=== PATIENT | female | born 1955 | race Caucasian/White ===

== ENCOUNTER 2020-08-11 08:55 | Inpatient (IN) | payer MEDICARE, MEDICAID ==
[~2020-08-11] VITALS: Ht 180.3 cm; Wt 118.2 kg
[2020-08-11] MEDS ORDERED: ipratropium/albuterol 3ml nebule NEB ONE (09:00)
[2020-08-11 09:10] LABS: ABG BASE EXCESS -4.5 mmol/L (-2.0-2.0); ABG HCO3 21.6 mmol/L (22.0-26.0); ABG OXYGEN SATURATION 99.2 % (94-97); ABG PCO2 (T) 43.6 mmHg (32.0-45.0); ABG PO2 (T) 207.1 mmHg (75.0-100.0); ALLEN'S TEST POSITIVE; FCOHb 0.7 % (0.0-3.9); FMetHb 0.3 % (0.0-1.5); FO2Hb 98.2 % (94-97); RESPIRATORY RATE 16 b/min; TOTAL HEMOGLOBIN 12.8 G/dl (12.0-16.0)
--- NOTE | 2020-08-11 09:27 | NUR ---
RT AT BEDSIDE TO ADMINISTER BREATHING TREATMENT. FIO2 TITRATED DOWN TO 40% PER ABG RESULTS. PATIENT AWAKE,ALERT, RR DOWN TO 22, STATES SHE IS COMFORTABLE AT THIS TIME, ALL SAFETY MEASURES IN PLACE.
[2020-08-11 09:43] LABS: BASOPHILS % (AUTO) 0.3 % (0-1); EOSINOPHILS # (AUTO) 0.2 X10'3 (0-0.9); HEMATOCRIT 37.6 % (35.0-45.0); LYMPHOCYTES # (AUTO) 1.7 X10'3 (1.1-4.8); LYMPHOCYTES % (AUTO) 14.3 % (21-51); MEAN CORPUSCULAR HEMOGLOBIN 28.5 PG (27.0-31.0); MEAN CORPUSCULAR VOLUME 89.1 FL (78-98); MEAN PLATELET VOLUME 8.4 FL (7.4-10.4); MONOCYTES # (AUTO) 0.5 X10'3 (0-0.9); MONOCYTES % (AUTO) 4.7 % (2-12); NEUTROPHILS # (AUTO) 9.2 X10'3 (1.8-7.7); NEUTROPHILS % (AUTO) 78.7 % (42-75); PLATELET COUNT 327 X10'3 (140-440); RED BLOOD COUNT 4.22 X10'6 (4.20-5.60); RED CELL DISTRIBUTION WIDTH 14.2 % (11.5-14.5); WHITE BLOOD COUNT 11.7 X10'3 (4.5-11.0)
[2020-08-11 09:52] LABS: PARTIAL THROMBOPLASTIN TIME 24 SECONDS (22-32)
--- NOTE | 2020-08-11 09:56 | NUR ---
PARQUETRY LAYER AT BEDSIDE.
[2020-08-11 09:59] LABS: ALANINE AMINOTRANSFERASE 34 U/L (12-78); ALBUMIN 3.5 G/DL (3.4-5.0); ALBUMIN/GLOBULIN RATIO 0.9 (1.1-1.5); ALKALINE PHOSPHATASE 104 IU/L (46-116); ANION GAP 10 (8-16); ASPARTATE AMINO TRANSFERASE 20 U/L (10-37); BILIRUBIN,TOTAL 0.3 MG/DL (0.1-1.0); BLOOD UREA NITROGEN 32 MG/DL (7-18); BUN/CREATININE RATIO 23.2 (6.6-38.0); CALCIUM 10.2 MG/DL (8.5-10.1); CHLORIDE 103 MMOL/L (99-107); CREATININE 1.38 MG/DL (0.40-0.90); GLUCOSE 289 MG/DL (70-104); POTASSIUM 4.5 MMOL/L (3.5-5.1); SODIUM 139 MMOL/L (135-145); TOTAL CARBON DIOXIDE 25.7 MMOL/L (24-32); TOTAL PROTEIN 7.5 G/DL (6.4-8.2); eGFR 38 ML/MIN
[2020-08-11] MEDS ORDERED: furosemide 10 MG/1 ML 10ml inj IV ONE (10:15)
[2020-08-11] MEDS ORDERED: iohexol 350MG/ML 100ml bottle IV ONE (11:04)
[2020-08-11 11:11] LABS: ABG BASE EXCESS -2.1 mmol/L (-2.0-2.0); ABG HCO3 22.5 mmol/L (22.0-26.0); ABG OXYGEN SATURATION 98.4 % (94-97); ABG PCO2 (T) 38.1 mmHg (32.0-45.0); ABG PO2 (T) 115.1 mmHg (75.0-100.0); ALLEN'S TEST POSITIVE; FCOHb 0.6 % (0.0-3.9); FO2Hb 97.8 % (94-97); RESPIRATORY RATE 16 b/min; TIDAL VOLUME 712 mL; TOTAL HEMOGLOBIN 12.7 G/dl (12.0-16.0)
--- NOTE | 2020-08-11 11:23 | NUR ---
PATIENT TO CT VIA WHEELCHAIR AT THIS TIME WITH NON REBREATHER @ 15L, OKAY TO TRANSFER PER RT AT BEDSIDE.
[2020-08-11] MEDS: MESSAGE TO NURSING PO SCH (11:38)
[2020-08-11] MEDS ORDERED: HYDROcodone/acetaminophen 10/325mg tab PO PRN (14:15)
[2020-08-11] MEDS ORDERED: diphenhydrAMINE 25mg capsule PO PRN (14:15)
[2020-08-11] MEDS ORDERED: morphine 2 MG/ML inj. syringe IV PRN ×2 (14:15)
[2020-08-11] MEDS ORDERED: magnesium Cl slow-release 64mg tablet PO PRN (14:15)
[2020-08-11] MEDS ORDERED: potassium Cl 20 mEq SR tablet PO PRN ×2 (14:15)
[2020-08-11] MEDS ORDERED: magnesium 2GM in 50ml NS 50 ML IV PRN (14:15)
[2020-08-11] MEDS ORDERED: mag hydrox/Alum hydrox/simeth 30ml oral suspension PO PRN (14:15)
[2020-08-11] MEDS ORDERED: ondansetron/PF 4mg/2ml inj IV PRN (14:15)
[2020-08-11] MEDS ORDERED: ipratropium/albuterol 3ml nebule NEB PRN (14:15)
[2020-08-11] MEDS ORDERED: bisacodyl 10mg suppository rectal RC PRN (14:15)
[2020-08-11] MEDS ORDERED: magnesium hydroxide 30ml (MOM) UD suspension PO PRN (14:15)
[2020-08-11] MEDS ORDERED: acetaminophen 325mg tablet PO PRN ×2 (14:15)
[2020-08-11] MEDS ORDERED: magnesium 4gm in 100ml NS 100 ML IV PRN (14:15)
[2020-08-11] MEDS ORDERED: HYDROcodone/acetaminophen 5mg/325mg tablet PO PRN (14:15)
[2020-08-11] MEDS ORDERED: potassium CL 10mEq/100ml bag 100 ML IV PRN ×2 (14:15)
[2020-08-11] MEDS ORDERED: acetaminophen 650mg rectal suppository RC PRN (14:15)
[2020-08-11] MEDS ORDERED: PANT40TA54 PO (15:24)
[2020-08-11] MEDS ORDERED: AMIT100T61 PO (15:24)
[2020-08-11] MEDS ORDERED: NITR0.4T48 PO (15:24)
[2020-08-11] MEDS ORDERED: TRAZ-256 PO (15:24)
[2020-08-11] MEDS ORDERED: METF-438 PO (15:24)
[2020-08-11 16:26] LABS: HEMOGLOBIN A1C 8.3 % (4.5-6.2)
--- NOTE | 2020-08-11 16:40 | NUR ---
RT AT BEDSIDE.
--- NOTE | 2020-08-11 17:00 | NUR ---
Echo at bedside.
--- NOTE | 2020-08-11 17:00 | NUR ---
RT decreased O2 to 4L NC.
[2020-08-11 18:01] LABS: CLARITY,URINE CLEAR (Clear); COLOR,URINE YELLOW (Yellow); GLUCOSE, URINE NEGATIVE (Neg); KETONES,URINE NEGATIVE (Neg); LEUKOCYTE ESTERASE ,URINE TRACE (Neg); NITRITES, URINE NEGATIVE (Neg); OCCULT BLOOD,URINE NEGATIVE (Neg); PROTEIN,URINE NEGATIVE (Neg); UA COLLECTION TYPE VOIDED; UROBILINOGEN,URINE 0.2 E.U/dL (0.2-1.0)
[2020-08-11 18:12] LABS: BACTERIA,URINE FEW /HPF (Neg); MUCUS STRANDS NONE SEEN /LPF (Neg); RBC,URINE NONE SEEN /HPF (0-2); SQUAMOUS EPITHELIAL CELL,UR FEW /LPF (FEW); WBC CLUMPS,URINE FEW /HPF (NEGATIVE); WBC,URINE 0-4 /HPF (0-4)
[2020-08-11 18:15] LABS: URINE AMPHETAMINE SCREEN NEGATIVE (Neg); URINE BARBITUATE SCREEN NEGATIVE (Neg); URINE BENZODIAZEPINES SCREEN NEGATIVE (Neg); URINE CANNABINOID SCREEN NEGATIVE (Neg); URINE COCAINE SCREEN NEGATIVE (Neg); URINE METHADONE SCREEN NEGATIVE (Neg); URINE OPIATE SCREEN NEGATIVE (Neg); URINE PHENCYCLIDINE SCREEN NEGATIVE (Neg)
[2020-08-11] MEDS: K and/or MAG REPLACEMENT MC SCH (19:41)
[2020-08-11] MEDS: furosemide 10 MG/1 ML 10ml inj IV SCH (19:45)
[2020-08-11] MEDS ORDERED: heparin, porcine 5000 units/ml vial SQ SCH (20:00)
[2020-08-11 20:16] VITALS: BP 121/81
[2020-08-11] MEDS: ipratropium/albuterol 3ml nebule NEB SCH (21:25)
[2020-08-11] MEDS ORDERED: regadenoson 0.4mg/5ml syringe IV ONE (23:00)
[2020-08-11] MEDS ORDERED: aminophylline 250mg/10ml inj. IV PRN (23:00)
[2020-08-11] MEDS ORDERED: nitroGLYCERIN 0.4mg SUBLingual tab SL PRN ×2 (23:00→23:05)
[2020-08-11] MEDS ORDERED: heparin 10,000 units/1 ML INJ IV ONE (23:00)
[2020-08-11] MEDS ORDERED: metoprolol tartrate 1mg/ml inj IV PRN (23:00)
[2020-08-11] MEDS ORDERED: dextrose 50%-water 50ml dispensing syringe IV PRN ×2 (23:05)
[2020-08-11] MEDS ORDERED: MESSAGE TO PHARMACY PO ONE (23:05)
[2020-08-11] MEDS ORDERED: dextrose ORAL solution 15 GM/59 ML bottle PO PRN ×2 (23:05)
[2020-08-11] MEDS ORDERED: glucagon, human recombinant 1mg kit SUBCUT PRN (23:05)
[2020-08-11] MEDS ORDERED: levoFLOXACIN-Levaquin 750MG/D5 150 ML IV SCH (23:10)
[2020-08-11] MEDS ORDERED: methylPREDNISolone sod succ 125mg/2ml vial IV ONE (23:10)
[2020-08-11] MEDS ORDERED: regadenoson 0.4mg/5ml syringe IV PRN (23:15)
[2020-08-12] VITALS (12 sets, daily range): BP systolic 99–136; BP diastolic 56–88
[2020-08-12 01:00] LABS: EOSINOPHILS # (AUTO) 0.3 X10'3 (0-0.9)
[2020-08-12 01:02] LABS: BASOPHILS # (AUTO) 0.2 X10'3 (0-0.2); BASOPHILS % (AUTO) 1.4 % (0-1); EOSINOPHILS % (AUTO) 2.1 % (0-6); HEMATOCRIT 33.1 % (35.0-45.0); LYMPHOCYTES % (AUTO) 32.2 % (21-51); MEAN CORPUSCULAR HEMOGLOBIN 29.4 PG (27.0-31.0); MEAN CORPUSCULAR HGB CONC 33.2 g/dL (33.0-36.5); MEAN CORPUSCULAR VOLUME 88.4 FL (78-98); MEAN PLATELET VOLUME 8.4 FL (7.4-10.4); MONOCYTES % (AUTO) 8.2 % (2-12); NEUTROPHILS % (AUTO) 56.1 % (42-75); PLATELET COUNT 336 X10'3 (140-440); RED BLOOD COUNT 3.74 X10'6 (4.20-5.60); RED CELL DISTRIBUTION WIDTH 13.7 % (11.5-14.5); WHITE BLOOD COUNT 12.5 X10'3 (4.5-11.0)
[2020-08-12 01:15] LABS: PARTIAL THROMBOPLASTIN TIME 29 SECONDS (22-32)
[2020-08-12 01:25] LABS: ALANINE AMINOTRANSFERASE 31 U/L (12-78); ALBUMIN 3.5 G/DL (3.4-5.0); ALBUMIN/GLOBULIN RATIO 0.9 (1.1-1.5); ALKALINE PHOSPHATASE 99 IU/L (46-116); ANION GAP 9 (8-16); ASPARTATE AMINO TRANSFERASE 23 U/L (10-37); BILIRUBIN,TOTAL 0.4 MG/DL (0.1-1.0); BLOOD UREA NITROGEN 32 MG/DL (7-18); BUN/CREATININE RATIO 22.5 (6.6-38.0); CALCIUM 10.2 MG/DL (8.5-10.1); CHLORIDE 98 MMOL/L (99-107); CHOL/HDL RATIO 5.1 (0.00-4.99); CHOLESTEROL 242 MG/DL (0-200); CREATININE 1.42 MG/DL (0.40-0.90); GLUCOSE 207 MG/DL (70-104); HDL CHOLESTEROL 47 MG/DL (35-60); LDL CHOLESTEROL 166 MG/DL (50-100); MAGNESIUM 1.5 MG/DL (1.5-2.4); POTASSIUM 3.8 MMOL/L (3.5-5.1); SODIUM 136 MMOL/L (135-145); TOTAL CARBON DIOXIDE 29.4 MMOL/L (24-32); TOTAL PROTEIN 7.6 G/DL (6.4-8.2); TRIGLYCERIDES 191 MG/DL (20-135); TROPONIN I 0.36 NG/ML (0.0-0.05); eGFR 37 ML/MIN
[2020-08-12] MEDS: heparin 25,000 UNIT/250ml bag 250 ML IV SCH ×2 (02:40→10:11)
[2020-08-12] MEDS: ipratropium/albuterol 3ml nebule NEB SCH ×3 (03:43→21:18)
--- NOTE | 2020-08-12 06:21 | NUR ---
REPORT GIVEN TO ROBERT CHAU.
--- NOTE | 2020-08-12 06:30 | NUR ---
Patient in room PCU 3014. I have received report from ROBERT BANKS and had the opportunity to ask questions and assume patient care.
[2020-08-12] MEDS: K and/or MAG REPLACEMENT MC SCH ×2 (08:00→20:00)
[2020-08-12] MEDS: furosemide 10 MG/1 ML 10ml inj IV SCH ×2 (08:22→19:31)
[2020-08-12] MEDS: methylPREDNISolone sod succ/PF 40mg inj. IV SCH ×3 (08:24→19:31)
[2020-08-12] MEDS: pantoprazole 40mg Tablet.DR PO SCH (08:25)
[2020-08-12] MEDS: insulin Lispro (HumaLOG) vial - multi-dose SQ SCH ×4 (08:29→21:05)
[2020-08-12 09:34] LABS: BASOPHILS % (AUTO) 0.7 % (0-1); EOSINOPHILS % (AUTO) 0.1 % (0-6); HEMATOCRIT 38.5 % (35.0-45.0); HEMOGLOBIN 12.8 g/dl (12.0-16.0); LYMPHOCYTES # (AUTO) 0.9 X10'3 (1.1-4.8); MEAN CORPUSCULAR HEMOGLOBIN 29.3 PG (27.0-31.0); MEAN CORPUSCULAR HGB CONC 33.1 g/dL (33.0-36.5); MEAN CORPUSCULAR VOLUME 88.5 FL (78-98); MEAN PLATELET VOLUME 8.6 FL (7.4-10.4); MONOCYTES # (AUTO) 0.1 X10'3 (0-0.9); MONOCYTES % (AUTO) 1.1 % (2-12); NEUTROPHILS # (AUTO) 5.1 X10'3 (1.8-7.7); NEUTROPHILS % (AUTO) 83.1 % (42-75); PLATELET COUNT 384 X10'3 (140-440); RED BLOOD COUNT 4.35 X10'6 (4.20-5.60); RED CELL DISTRIBUTION WIDTH 13.9 % (11.5-14.5); WHITE BLOOD COUNT 6.1 X10'3 (4.5-11.0)
[2020-08-12] MEDS ORDERED: FLU VACC QS2020-21(6MOS UP)/PF 60 MCG/0.5 ML SYRINGE IMVAC ONE (10:00)
[2020-08-12] MEDS: heparin 10,000 units/1 ML INJ IV PRN ×2 (10:09→17:29)
--- NOTE | 2020-08-12 13:54 | NUR ---
PAGER ID: [phone] MESSAGE: dr. rosales, [phone],jackelin hansen resulted. please call tiny [phone]. ty
--- NOTE | 2020-08-12 16:51 | NUR ---
DM Consult: A1C 8.3. Pt admit DX COPD Exacerbation, possible NSTEMI s/p lexiscan, GERD, and lung/thyroid nodules per MD note. Placed on heart healthy diet pending PO at this time; NPO for testing so far. JJ recommended carb controlled diet this admit in addition to current heart healthy; MD notified. Pt would benefit from DM ed this admit prior to discharge. To f/u 08/16 for initial assessment. Addendum: 08/12/20 at [address] Amended: Links added.
--- NOTE | 2020-08-12 18:15 | NUR ---
Problems reprioritized. Patient report given, questions answered & plan of care reviewed with ROBERT KELLEY.
[2020-08-12] MEDS: lactobacillus rhamnosus 10,000 MMU CELLS/CAPSULE PO SCH (19:31)
[2020-08-12] MEDS: traZODone 50mg tablet PO SCH (21:04)
[2020-08-12] MEDS: amitriptyline 50mg tablet PO SCH (21:04)
[2020-08-12] MEDS: insulin glargine (Lantus) pen - multi-dose SQ SCH (21:07)
[2020-08-13 02:00] VITALS: BP 98/58
[2020-08-13 05:20] LABS: BASOPHILS # (AUTO) 0.1 X10'3 (0-0.2); BASOPHILS % (AUTO) 0.4 % (0-1); EOSINOPHILS % (AUTO) 0.1 % (0-6); HEMOGLOBIN 12.2 g/dl (12.0-16.0); LYMPHOCYTES # (AUTO) 1.3 X10'3 (1.1-4.8); LYMPHOCYTES % (AUTO) 7.8 % (21-51); MEAN CORPUSCULAR HEMOGLOBIN 29.1 PG (27.0-31.0); MEAN CORPUSCULAR HGB CONC 33.1 g/dL (33.0-36.5); MEAN CORPUSCULAR VOLUME 87.8 FL (78-98); MEAN PLATELET VOLUME 8.5 FL (7.4-10.4); MONOCYTES # (AUTO) 0.9 X10'3 (0-0.9); MONOCYTES % (AUTO) 5.7 % (2-12); NEUTROPHILS # (AUTO) 14.1 X10'3 (1.8-7.7); PLATELET COUNT 379 X10'3 (140-440); RED BLOOD COUNT 4.21 X10'6 (4.20-5.60); RED CELL DISTRIBUTION WIDTH 13.9 % (11.5-14.5); WHITE BLOOD COUNT 16.4 X10'3 (4.5-11.0)
[2020-08-13 05:25] LABS: ALANINE AMINOTRANSFERASE 17 U/L (12-78); ALBUMIN 3.9 G/DL (3.4-5.0); ALBUMIN/GLOBULIN RATIO 0.9 (1.1-1.5); ALKALINE PHOSPHATASE 108 IU/L (46-116); ANION GAP 12 (8-16); ASPARTATE AMINO TRANSFERASE 14 U/L (10-37); BILIRUBIN,TOTAL 0.3 MG/DL (0.1-1.0); BLOOD UREA NITROGEN 42 MG/DL (7-18); CALCIUM 10.6 MG/DL (8.5-10.1); CHLORIDE 96 MMOL/L (99-107); CREATININE 1.75 MG/DL (0.40-0.90); GLUCOSE 272 MG/DL (70-104); MAGNESIUM 1.6 MG/DL (1.5-2.4); PHOSPHORUS 2.9 MG/DL (2.3-4.5); POTASSIUM 3.9 MMOL/L (3.5-5.1); SODIUM 134 MMOL/L (135-145); TOTAL CARBON DIOXIDE 26.4 MMOL/L (24-32); TOTAL PROTEIN 8.2 G/DL (6.4-8.2); eGFR 29 ML/MIN
[2020-08-13 06:00] VITALS: BP 112/76
--- NOTE | 2020-08-13 06:33 | NUR ---
Report given to Deirdre JONES.
[2020-08-13] MEDS: MESSAGE TO NURSING PO SCH (08:00)
[2020-08-13] MEDS ORDERED: methylPREDNISolone sod succ/PF 40mg inj. IV SCH (08:00)
[2020-08-13] MEDS: K and/or MAG REPLACEMENT MC SCH ×2 (08:00→19:39)
[2020-08-13] MEDS: ipratropium/albuterol 3ml nebule NEB SCH ×3 (08:25→19:21)
[2020-08-13] MEDS: furosemide 10 MG/1 ML 10ml inj IV SCH (09:32)
[2020-08-13] MEDS: lactobacillus rhamnosus 10,000 MMU CELLS/CAPSULE PO SCH ×2 (09:33→19:48)
[2020-08-13] MEDS: pantoprazole 40mg Tablet.DR PO SCH (09:33)
[2020-08-13] MEDS: heparin, porcine 5000 units/ml vial SQ SCH ×2 (09:34→19:48)
[2020-08-13] MEDS: insulin Lispro (HumaLOG) vial - multi-dose SQ SCH ×4 (09:38→22:31)
[2020-08-13 11:00] VITALS: BP 102/57
--- NOTE | 2020-08-13 13:58 | NUR ---
DM Consult: Pt presented to ER with shortness of breath and admitted for COPD exacerbation. Hx of T2DM, A1c 8.3%. RD technical intern met with patient at bedside for verbal/written DM education with RD contact information. Pt reports good appetite and feeling hungry after meals, pt was agreeable to extra protein with meals; discussed with dietary. Reports no GI symptoms or weight change. Pt reports metformin BID, and able to access medications. Does not have a PCP, but goes to [facility] for diabetes. Pt reports slightly confident in diabetes management. Discussed DM handout with patient, choosing complex carbs over simple carbs, carb counting. Pt requested for heart healthy diet education, will follow up prior to discharge. Will follow up on 08/16 for initial assessment. Addendum: 08/13/20 at [address]ía RD Amended: Links added. Addendum: 08/13/20 at [address] RD agree with technical intern note
[2020-08-13] MEDS: CefTRIAXone/D5W-Rocephin 1gm 50 ML IV SCH (14:05)
[2020-08-13 15:00] VITALS: BP 105/78
[2020-08-13 18:00] VITALS: BP 104/66
--- NOTE | 2020-08-13 18:15 | NUR ---
Problems reprioritized. Patient report given, questions answered & plan of care reviewed with Elisabeth JONES.
--- NOTE | 2020-08-13 18:40 | NUR ---
I have received report from HT RN and had the opportunity to ask questions and assume patient care.
[2020-08-13 22:00] VITALS: BP 102/65
[2020-08-13] MEDS: amitriptyline 50mg tablet PO SCH (22:17)
[2020-08-13] MEDS: traZODone 50mg tablet PO SCH (22:17)
[2020-08-13] MEDS: insulin glargine (Lantus) pen - multi-dose SQ SCH (22:30)
[2020-08-13] MEDS ORDERED: levoFLOXACIN-Levaquin 750MG/D5 150 ML IV SCH (23:00)
[2020-08-14 02:00] VITALS: BP 100/60
[2020-08-14] MEDS: ipratropium/albuterol 3ml nebule NEB SCH (03:16)
[2020-08-14 05:53] LABS: BASOPHILS # (AUTO) 0.1 X10'3 (0-0.2); BASOPHILS % (AUTO) 0.6 % (0-1); EOSINOPHILS % (AUTO) 0.2 % (0-6); HEMATOCRIT 36.1 % (35.0-45.0); HEMOGLOBIN 11.9 g/dl (12.0-16.0); LYMPHOCYTES # (AUTO) 3.9 X10'3 (1.1-4.8); LYMPHOCYTES % (AUTO) 29.4 % (21-51); MEAN CORPUSCULAR HEMOGLOBIN 29.1 PG (27.0-31.0); MEAN CORPUSCULAR VOLUME 88.2 FL (78-98); MEAN PLATELET VOLUME 8.6 FL (7.4-10.4); MONOCYTES # (AUTO) 0.9 X10'3 (0-0.9); MONOCYTES % (AUTO) 6.9 % (2-12); NEUTROPHILS # (AUTO) 8.2 X10'3 (1.8-7.7); NEUTROPHILS % (AUTO) 62.9 % (42-75); PLATELET COUNT 335 X10'3 (140-440); RED BLOOD COUNT 4.09 X10'6 (4.20-5.60); RED CELL DISTRIBUTION WIDTH 13.8 % (11.5-14.5); WHITE BLOOD COUNT 13.1 X10'3 (4.5-11.0)
[2020-08-14 06:00] VITALS: BP 128/76
[2020-08-14 06:17] LABS: ALANINE AMINOTRANSFERASE 33 U/L (12-78); ALBUMIN 3.6 G/DL (3.4-5.0); ALBUMIN/GLOBULIN RATIO 0.9 (1.1-1.5); ALKALINE PHOSPHATASE 96 IU/L (46-116); ANION GAP 10 (8-16); ASPARTATE AMINO TRANSFERASE 18 U/L (10-37); BILIRUBIN,TOTAL 0.2 MG/DL (0.1-1.0); BLOOD UREA NITROGEN 46 MG/DL (7-18); BUN/CREATININE RATIO 29.1 (6.6-38.0); CALCIUM 10.4 MG/DL (8.5-10.1); CHLORIDE 100 MMOL/L (99-107); CREATININE 1.58 MG/DL (0.40-0.90); GLUCOSE 184 MG/DL (70-104); MAGNESIUM 1.9 MG/DL (1.5-2.4); POTASSIUM 3.3 MMOL/L (3.5-5.1); SODIUM 137 MMOL/L (135-145); TOTAL CARBON DIOXIDE 26.9 MMOL/L (24-32); TOTAL PROTEIN 7.7 G/DL (6.4-8.2); eGFR 33 ML/MIN
--- NOTE | 2020-08-14 06:42 | NUR ---
Problems reprioritized. Patient report given, questions answered & plan of care reviewed with Malathi JONES.
--- NOTE | 2020-08-14 06:51 | NUR ---
Patient in room PCU 3014. I have received report from ROBERT Griffin and had the opportunity to ask questions and assume patient care.
[2020-08-14] MEDS: CefTRIAXone/D5W-Rocephin 1gm 50 ML IV SCH (07:55)
[2020-08-14] MEDS ORDERED: methylPREDNISolone sod succ/PF 40mg inj. IV SCH (08:00)
[2020-08-14] MEDS: lactobacillus rhamnosus 10,000 MMU CELLS/CAPSULE PO SCH (08:02)
[2020-08-14] MEDS: pantoprazole 40mg Tablet.DR PO SCH (08:02)
[2020-08-14] MEDS: heparin, porcine 5000 units/ml vial SQ SCH (08:03)
[2020-08-14] MEDS: insulin Lispro (HumaLOG) vial - multi-dose SQ SCH (09:06)
[2020-08-14] MEDS ORDERED: CARV3.12 PO (09:27)
[2020-08-14] MEDS ORDERED: FURO-150 PO (09:27)
[2020-08-14] MEDS ORDERED: GLIP2.5T3 PO (09:31)
[2020-08-14] MEDS ORDERED: ALBU8.5H8 INH (09:31)
--- NOTE | 2020-08-14 12:39 | NUR ---
Pt discharged home in stable condition. IV and tele box removed. Medication and discharge instructions given to pt. Pt was escorted to main lobby on W/C. Left the hospital via private vehicle accompanied by family member. [facility] called in for new prescription.
[2020-08-14] MEDS ORDERED: ATOR10TA PO (15:58)
== END 2020-08-14 12:20 | disposition home or self-care (01) | DRG 280 ==
LOC: ER 08:56 → ED HOLD 14:12 → PCU 3S 19:29
PROVIDERS: ADMIT Family Medicine; ATTEND Family Medicine
DX: I11.0 Hypertensive heart disease with heart failure (principal); I21.9 Acute myocardial infarction, unspecified; N17.0 Acute kidney failure with tubular necrosis; J96.01 Acute respiratory failure with hypoxia; J44.1 Chronic obstructive pulmonary disease with (acute) exacerbation; N39.0 Urinary tract infection, site not specified; J98.11 Atelectasis; Z16.23 Resistance to quinolones and fluoroquinolones; E87.2 Acidosis; J91.8 Pleural effusion in other conditions classified elsewhere; I50.43 Acute on chronic combined systolic (congestive) and diastolic (congestive) heart failure; B96.20 Unspecified Escherichia coli [E. coli] as the cause of diseases classified elsewhere; E04.1 Nontoxic single thyroid nodule; E11.9 Type 2 diabetes mellitus without complications; F32.9 Major depressive disorder, single episode, unspecified; G47.00 Insomnia, unspecified; Z20.828 Contact with and (suspected) exposure to other viral communicable diseases; K21.9 Gastro-esophageal reflux disease without esophagitis; Z79.84 Long term (current) use of oral hypoglycemic drugs; Z87.891 Personal history of nicotine dependence; Z79.899 Other long term (current) drug therapy; Z82.49 Family history of ischemic heart disease and other diseases of the circulatory system; Z88.8 Allergy status to other drugs, medicaments and biological substances; Z23 Encounter for immunization
CPT/HCPCS: 36415; 36600; 71045; 71275; 76536; 78452; 80053; 80061; 80305; 81001; 82803; 82948; 83036; 83605; 83735; 83880; 84100; 84443; 84484; 85018; 85025; 85610; 85730; 87040; 87077; 87081; 87088; 87186; 87635; 93005; 93017; 93306; 93308; 94640; 94660; 94760; 96372; 96374; 97116; 97161; 97530; 99291; A9500; C9803; G0378; J0696; J1644; J1815; J1940; J1956; J2785; J2920; J2930; Q2039; Q9967

== ENCOUNTER 2020-08-22 11:42 | Emergency (ER) | payer MEDICARE, MEDICAID ==
[~2020-08-22] VITALS: Ht 180.3 cm; Wt 114.3 kg
[~2020-08-22 11:42] MED LIST: ALBU8.5H8 INH; AMIT100T61 PO; ATOR10TA PO; CARV3.12 PO; FURO-150 PO; GLIP2.5T3 PO; METF-438 PO; NITR0.4T48 PO; PANT40TA54 PO; TRAZ-256 PO
[2020-08-22 12:27] VITALS: BP 102/57
== END 2020-08-22 12:57 | disposition home or self-care (01) ==
LOC: ER 11:43
DX: S60.551A Superficial foreign body of right hand, initial encounter (principal); E11.9 Type 2 diabetes mellitus without complications; Z88.2 Allergy status to sulfonamides; Z79.899 Other long term (current) drug therapy; Z79.84 Long term (current) use of oral hypoglycemic drugs; X58.XXXA Exposure to other specified factors, initial encounter; Y93.89 Activity, other specified; Y92.89 Other specified places as the place of occurrence of the external cause; Y99.8 Other external cause status
CPT/HCPCS: 99281; 99284

== ENCOUNTER 2021-08-15 08:06 | Day surgery (SDC) | payer MEDICARE, MEDICAID ==
[~2021-08-15] VITALS: Ht 180.3 cm; Wt 110.0 kg
[2021-08-15] VITALS (12 sets, daily range): BP systolic 99–126; BP diastolic 38–91
[~2021-08-15 08:06] MED LIST changes: +ALBU8.5H17 INH; -ALBU8.5H8 INH; -FURO-150 PO
[2021-08-15] MEDS ORDERED: normal saline 1,000 ML IV SCH (08:35)
[2021-08-15] MEDS ORDERED: diphenhydrAMINE 25mg capsule PO PRN (08:35)
[2021-08-15] MEDS ORDERED: ATOR40TA72 PO (08:51)
[2021-08-15] MEDS ORDERED: vitamin d PO (08:51)
[2021-08-15] MEDS ORDERED: ALB0.5UD IH (08:51)
[2021-08-15] MEDS ORDERED: CARV12.545 PO (08:51)
[2021-08-15] MEDS ORDERED: FURO40TA4 PO (08:51)
[2021-08-15] MEDS ORDERED: heparin 1,000unit/ml 10ml vial 10 ML ONE (09:37)
[2021-08-15] MEDS ORDERED: midazolam 1 mg/ML 2ml injection ONE ×3 (09:37→12:22)
[2021-08-15] MEDS ORDERED: LIDOcaine 1% (10mg/ml)w/preservative injection 20ml MDV ONE (09:37)
[2021-08-15] MEDS ORDERED: iohexol 350 MG/ML 50ML vial IV ONE (09:37)
[2021-08-15] MEDS ORDERED: iohexol 350MG/ML 100ml bottle IV ONE (09:37)
[2021-08-15] MEDS ORDERED: fentaNYL/PF 50MCG/1 ML 2ML syringe ONE ×2 (09:37→12:34)
[2021-08-15 10:14] LABS: BASOPHILS % (AUTO) 0.5 % (0-1); EOSINOPHILS # (AUTO) 0.2 X10'3 (0-0.9); EOSINOPHILS % (AUTO) 3.3 % (0-6); HEMATOCRIT 30.3 % (35.0-45.0); HEMOGLOBIN 10.3 g/dl (12.0-16.0); LYMPHOCYTES # (AUTO) 1.7 X10'3 (1.1-4.8); LYMPHOCYTES % (AUTO) 22.9 % (21-51); MEAN CORPUSCULAR HEMOGLOBIN 29.6 PG (27.0-31.0); MEAN CORPUSCULAR HGB CONC 33.9 g/dL (33.0-36.5); MEAN CORPUSCULAR VOLUME 87.3 FL (78-98); MEAN PLATELET VOLUME 7.2 FL (7.4-10.4); MONOCYTES # (AUTO) 0.7 X10'3 (0-0.9); MONOCYTES % (AUTO) 9.8 % (2-12); NEUTROPHILS # (AUTO) 4.6 X10'3 (1.8-7.7); NEUTROPHILS % (AUTO) 63.5 % (42-75); PLATELET COUNT 333 X10'3 (140-440); RED BLOOD COUNT 3.48 X10'6 (4.20-5.60); RED CELL DISTRIBUTION WIDTH 13.8 % (11.5-14.5); WHITE BLOOD COUNT 7.3 X10'3 (4.5-11.0)
[2021-08-15 10:26] LABS: ALBUMIN 3.1 G/DL (3.4-5.0); ANION GAP 10 (8-16); BLOOD UREA NITROGEN 25 MG/DL (7-18); BUN/CREATININE RATIO 18.1 (6.6-38.0); CALCIUM 10.1 MG/DL (8.5-10.1); CHLORIDE 106 MMOL/L (99-107); CREATININE 1.38 MG/DL (0.40-0.90); GLUCOSE 147 MG/DL (70-104); MAGNESIUM 1.4 MG/DL (1.5-2.4); POTASSIUM 3.8 MMOL/L (3.5-5.1); SODIUM 145 MMOL/L (135-145); eGFR 38 ML/MIN
[2021-08-15] MEDS ORDERED: magnesium 2GM in 50ml NS 50 ML IV STA (10:42)
[2021-08-15] MEDS ORDERED: nitroGLYCERIN-Tridil 50MG/D5W 250 ML IV ONE (11:29)
[2021-08-15] MEDS ORDERED: verapamil 2.5 mg/ml inj IV ONE (11:29)
--- NOTE | 2021-08-15 12:56 | NUR ---
Returned from label printer at this time. As nurse-nurse report was occurring patient began to decline. This nurse noted patient to be pale, HR 160's with c/o SOB. Palpated a thready pulse. Cornelio label printer RN called Dr. De La Vega at this time. Lung sounds noted to be course, informed MD. Obtained stat EKG. Placed 4 L N/C on patient for SPO2 85%, no change noted. Switched N/C to NRB 15 L and O2 came up steadily to 93%. Stopped IVF's. Lasix 40 mg IVP x 1 received and administered. RT paged and arrived stat. O2 resolving and saturation level was mid 90's. Will cont. to monitor.
[2021-08-15] MEDS ORDERED: furosemide 40mg/4ml inj ONE (13:06)
[2021-08-15] MEDS ORDERED: aspirin 81mg tab.chew PO ONE (13:19)
--- NOTE | 2021-08-15 15:38 | NUR ---
Paged vascular for pending testing for CABG procedure scheduled next wednesday08/22/21. Patient will discharge once testing is completed.
[2021-08-15] MEDS ORDERED: nitroGLYCERIN 0.4mg SUBLingual tab SL PRN (15:40)
--- NOTE | 2021-08-15 15:47 | NUR ---
Vacular at bedside for pre-surgery procedures.
[2021-08-19] MEDS ORDERED: GLIP2.5T3 PO (16:54)
== END 2021-08-15 17:11 | disposition home or self-care (01) ==
LOC: SSTAY O 08:06
PROVIDERS: ATTEND Internal Medicine Cardiovascular Disease
DX: R94.39 Abnormal result of other cardiovascular function study (principal); I25.118 Atherosclerotic heart disease of native coronary artery with other forms of angina pectoris; I10 Essential (primary) hypertension; E11.9 Type 2 diabetes mellitus without complications; E78.5 Hyperlipidemia, unspecified; J44.9 Chronic obstructive pulmonary disease, unspecified; M45.9 Ankylosing spondylitis of unspecified sites in spine; Z88.2 Allergy status to sulfonamides; Z88.8 Allergy status to other drugs, medicaments and biological substances; Z79.84 Long term (current) use of oral hypoglycemic drugs; Z79.899 Other long term (current) drug therapy; Z87.891 Personal history of nicotine dependence
CPT/HCPCS: 36415; 80048; 82948; 83735; 85025; 85610; 93005; 93458; 93880; 93971; 99152; 99153; A6258; C1769; C1894; J1644; J1940; J2001; J2250; J3010; J3475; J7030; Q0163; Q9967; 94760; A4620; A5120; J3490

== ENCOUNTER 2021-08-22 11:45 | Inpatient (IN) | payer MEDICARE, MEDICAID ==
[2021-08-19 14:42] LABS: CLARITY,URINE SLIGHTLY CLOUDY (Clear); COLOR,URINE STRAW (Yellow); GLUCOSE, URINE NEGATIVE (Neg); KETONES,URINE NEGATIVE (Neg); LEUKOCYTE ESTERASE ,URINE NEGATIVE (Neg); NITRITES, URINE NEGATIVE (Neg); OCCULT BLOOD,URINE NEGATIVE (Neg); PROTEIN,URINE NEGATIVE (Neg); UA COLLECTION TYPE CLN CATCH MIDSTREAM; UROBILINOGEN,URINE 0.2 E.U/dL (0.2-1.0)
[2021-08-19 14:46] LABS: ABG BASE EXCESS 0.5 mmol/L (-2.0-2.0); ABG HCO3 24.3 mmol/L (22.0-26.0); ABG OXYGEN SATURATION 96.6 % (94-97); ABG PCO2 (T) 36.4 mmHg (32.0-45.0); ABG PO2 (T) 88.7 mmHg (75.0-100.0); ALLEN'S TEST POSITIVE; FCOHb 0.3 % (0.0-3.9); FMetHb 0.3 % (0.0-1.5); TOTAL HEMOGLOBIN 12.4 G/dl (12.0-16.0)
[2021-08-19 14:46] LABS: PRE OP INR 1.1 INR
[2021-08-19 14:48] LABS: ALBUMIN 3.5 G/DL (3.4-5.0); ALBUMIN/GLOBULIN RATIO 0.8 (1.1-1.5); ALKALINE PHOSPHATASE 131 IU/L (46-116); BASOPHILS # (AUTO) 0.1 X10'3 (0-0.2); BASOPHILS % (AUTO) 0.5 % (0-1); BLOOD UREA NITROGEN 25 MG/DL (7-18); CALCIUM 10.1 MG/DL (8.5-10.1); CHLORIDE 102 MMOL/L (99-107); CREATININE 1.47 MG/DL (0.40-0.90); EOSINOPHILS # (AUTO) 0.4 X10'3 (0-0.9); EOSINOPHILS % (AUTO) 3.4 % (0-6); LYMPHOCYTES # (AUTO) 3.2 X10'3 (1.1-4.8); LYMPHOCYTES % (AUTO) 30.2 % (21-51); MEAN CORPUSCULAR HEMOGLOBIN 29.6 PG (27.0-31.0); MEAN CORPUSCULAR HGB CONC 33.9 g/dL (33.0-36.5); MEAN CORPUSCULAR VOLUME 87.5 FL (78-98); MEAN PLATELET VOLUME 8.1 FL (7.4-10.4); MONOCYTES # (AUTO) 0.9 X10'3 (0-0.9); MONOCYTES % (AUTO) 8.4 % (2-12); NEUTROPHILS % (AUTO) 57.5 % (42-75); PRE OP ALT 23 U/L (30-65); PRE OP ANION GAP 13 (8-16); PRE OP AST 15 U/L (10-37); PRE OP BILIRUB, TOTAL 0.4 MG/DL (0.0-1.0); PRE OP GLUCOSE 137 MG/DL (70-104); PRE OP HEMATOCRIT 33.8 % (35.0-45.0); PRE OP HEMOGLOBIN 11.4 g/dL (12.0-16.0); PRE OP PLATELET COUNT 422 X10'3 (140-440); PRE OP POTASSIUM 3.4 MMOL/L (3.4-5.1); PRE OP SODIUM 141 MMOL/L (135-145); RED BLOOD COUNT 3.86 X10'6 (4.20-5.60); RED CELL DISTRIBUTION WIDTH 14.1 % (11.5-14.5); TOTAL CARBON DIOXIDE 26.5 MMOL/L (24-32); TOTAL PROTEIN 7.9 G/DL (6.4-8.2); eGFR 35 ML/MIN
[2021-08-19 14:48] LABS: HYALINE CASTS 0-3 /LPF (NEGATIVE); MUCUS STRANDS FEW /LPF (Neg); SQUAMOUS EPITHELIAL CELL,UR MODERATE /LPF (FEW)
[2021-08-19 14:49] LABS: BACTERIA,URINE 1+ /HPF (Neg); RBC,URINE 0-2 /HPF (0-2); WBC,URINE 0-4 /HPF (0-4)
[2021-08-19 15:32] LABS: HEMOGLOBIN A1C 6.4 % (4.5-6.2)
[~2021-08-22] VITALS: Ht 180.3 cm; Wt 118.2 kg
[2021-08-22] MEDS: Insulin Reg/NS 100units/100mL 100 ML IV SCH (05:30)
[~2021-08-22 11:45] MED LIST changes: +ALB0.5UD IH; -ALBU8.5H17 INH; -ATOR10TA PO; +ATOR40TA72 PO; +CARV12.545 PO; -CARV3.12 PO; +DOCUMENT DATE & TIME OF BETA-BLOCKER PO ONE; +FURO40TA4 PO; +LORazepam 2 mg/ml vial IV PRN; -PANT40TA54 PO; +VANCOMYCIN 1,500MG inj. 1,500 MG in normal saline 500ml IV soln 300 ML IV ONE; +albuterol 2.5 MG/3 ML nebule NEB PRN; +cefazolin/dext.iso 2gm/50ml 50 ML IV ONE; +dextrose 50%-water 50ml dispensing syringe IV PRN; +famotidine 20mg tablet PO ONE; +gabapentin 400mg capsule PO ONE; +insulin Lispro (HumaLOG) vial - multi-dose SQ PRN; +metoprolol tartrate 12.5mg (1/2 tablet) PO ONE; +mupirocin 2% nasal ointment 1gm UD NS ONE; +papaverine 30 mg/ml 2ml inj. ONE; +ringers solution, lacted 1,000 ML IV SCH; +vitamin d PO
[2021-08-23] MEDS: Insulin Reg/NS 100units/100mL 100 ML IV SCH (14:50)
[2021-08-25] VITALS (17 sets, daily range): BP systolic 101–134; BP diastolic 54–75
[2021-08-25] MEDS ORDERED: epiNEPHrine 1 mg/ml inj ONE (05:34)
[2021-08-25] MEDS ORDERED: ceFAZolin 1000mg inj ONE (05:35)
[2021-08-25] MEDS ORDERED: famotidine 20mg tablet PO ONE (06:05)
[2021-08-25] MEDS ORDERED: LIDOcaine 1% (10mg/ml) 2ml vial ONE (06:07)
[2021-08-25] MEDS ORDERED: metoprolol tartrate 12.5mg (1/2 tablet) PO ONE (06:09)
[2021-08-25] MEDS ORDERED: gabapentin 400mg capsule PO ONE (06:09)
[2021-08-25] MEDS ORDERED: cefazolin/dext.iso 2gm/50ml 50 ML IV ONE (06:11)
[2021-08-25] MEDS ORDERED: vancomycin 1,500 MG in NS 300ml IV soln IV ONE (06:11)
[2021-08-25] MEDS ORDERED: insulin regular, human 10 units/0.1 ml syringe SQ ONE (06:55)
[2021-08-25] MEDS ORDERED: SUFENTANIL CITRATE 50 MCG/ML 2ml ampule IV ONE (06:56)
[2021-08-25] MEDS ORDERED: MIDAZolam 1mg/ml 10ml vial ONE (06:56)
[2021-08-25] MEDS ORDERED: mupirocin 2% nasal ointment 1gm UD NS ONE (07:05)
[2021-08-25] MEDS ORDERED: INSULIN R 100 UNIT in NS 100ML (1 UNIT/1 ML) BAG IV ONE (07:16)
[2021-08-25] MEDS ORDERED: nitroGLYCERIN in D5W 50mg/250ml (Tridil) infusion IV ONE (07:16)
[2021-08-25] MEDS ORDERED: dexamethasone sod phosphate 10mg/ml inj ONE (07:16)
[2021-08-25] MEDS ORDERED: NORepinephrine 8 MG in NS 250 ML BAG (32 mcg/ml) IV ONE (07:16)
[2021-08-25] MEDS ORDERED: isoflurane 100ml inhalation liquid IH ONE (07:16)
[2021-08-25] MEDS ORDERED: DOBUTamine/D5W 500mg/250ml premix IV ONE (07:16)
[2021-08-25] MEDS: LORazepam 2 mg/ml vial IV PRN ×2 (07:16→07:17)
[2021-08-25] MEDS ORDERED: fentaNYL/PF 50MCG/1 ML 2ML syringe IV PRN (07:25)
[2021-08-25] MEDS ORDERED: midazolam 100mg in NS 100ml 100 ML IV PRN (07:25)
[2021-08-25] MEDS ORDERED: midazolam 1 mg/ML 2ml injection IV ONE (07:25)
[2021-08-25] MEDS ORDERED: FENTANYL-0.9 % NACL/PF 100 ML IV PRN (07:25)
[2021-08-25 07:33] LABS: ABG BASE EXCESS -2.8 mmol/L (-2.0-2.0); ABG HCO3 20.9 mmol/L (22.0-26.0); ABG OXYGEN SATURATION 93.6 % (94-97); ABG PCO2 32.4 mmHg (32.0-45.0); CL (ABG) 107 mmol/L (98-110); FCOHb 0.3 % (0.0-3.9); FMetHb 0.2 % (0.0-1.5); FO2Hb 93.1 % (94-97); GLUCOSE (ABG) 226 mg/dl (70-105); IONIZED CA (ABG) 1.23 mmol/L (1.10-1.43); K (ABG) 3.6 mmol/L (3.5-5.0); TOTAL HEMOGLOBIN 10.3 G/dl (12.0-16.0)
[2021-08-25] MEDS ORDERED: papaverine 30 mg/ml 2ml inj. IA ONE (08:00)
[2021-08-25] MEDS ORDERED: heparin 10,000 units/1 ML INJ IR ONE (08:00)
[2021-08-25] MEDS ORDERED: 0.9 % SODIUM CHLORIDE 10 ML VIAL ONE ×2 (08:34)
[2021-08-25] MEDS ORDERED: rocuronium 10mg/ml inj IV ONE ×3 (08:34)
[2021-08-25] MEDS ORDERED: LIDOcaine 2% (20mg/ml) 5ml vial ONE (08:34)
[2021-08-25] MEDS ORDERED: phenylephrine 10mg/ml inj. ONE (08:34)
[2021-08-25] MEDS ORDERED: ePHEDrine 50MG/ML INJ. ONE (08:34)
[2021-08-25] MEDS ORDERED: propofol inj 20 ML IV ONE (08:34)
[2021-08-25 09:13] LABS: ABG BASE EXCESS VENOUS 0.3 mmol/L (-2.0 - 2.0); ABG HCO3 VENOUS 25.1 mmol/L (21.0-28.0); ABG PCO2 VENOUS 41.1 mmHg (38.0-51.0); ABG PO2 VENOUS 43.4 mmHg (25.0-35.0); CL (ABG) 102 mmol/L (98-110); FCOHb VENOUS 1.8 % (0.0- 3.9); FHHb VENOUS 20.3 %; FMetHb VENOUS 0.2 % (0.0 - 0.5); FO2Hb VENOUS 77.7 %; GLUCOSE (ABG) 155 mg/dl (70-105); K (ABG) 3.5 mmol/L (3.5-5.0)
[2021-08-25 09:23] LABS: ABG BASE EXCESS -2.1 mmol/L (-2.0-2.0); ABG HCO3 23.4 mmol/L (22.0-26.0); ABG OXYGEN SATURATION 99.7 % (94-97); ABG PCO2 43.3 mmHg (32.0-45.0); CL (ABG) 105 mmol/L (98-110); FCOHb 1.3 % (0.0-3.9); FO2Hb 98.4 % (94-97); GLUCOSE (ABG) 200 mg/dl (70-105); IONIZED CA (ABG) 1.05 mmol/L (1.10-1.43); K (ABG) 3.6 mmol/L (3.5-5.0); TOTAL HEMOGLOBIN 7.8 G/dl (12.0-16.0)
[2021-08-25 09:48] LABS: ABG BASE EXCESS 1.4 mmol/L (-2.0-2.0); ABG HCO3 26.9 mmol/L (22.0-26.0); ABG OXYGEN SATURATION 99.9 % (94-97); ABG PCO2 47.3 mmHg (32.0-45.0); ABG PO2 359.5 mmHg (75.0-100.0); CL (ABG) 106 mmol/L (98-110); FCOHb 0.9 % (0.0-3.9); FMetHb 0.3 % (0.0-1.5); FO2Hb 98.7 % (94-97); GLUCOSE (ABG) 176 mg/dl (70-105); IONIZED CA (ABG) 1.14 mmol/L (1.10-1.43); K (ABG) 3.6 mmol/L (3.5-5.0); TOTAL HEMOGLOBIN 8.3 G/dl (12.0-16.0)
[2021-08-25 10:08] LABS: ACT @ 1.70 U 371 SEC (193-297); ACT @ 2.84 U 556 SEC (260-420); BASELINE ACT 178 SEC (101-148)
[2021-08-25 10:08] LABS: ABG BASE EXCESS 0.4 mmol/L (-2.0-2.0); ABG HCO3 25.6 mmol/L (22.0-26.0); ABG OXYGEN SATURATION 99.8 % (94-97); ABG PCO2 44.1 mmHg (32.0-45.0); CL (ABG) 105 mmol/L (98-110); FCOHb 0.8 % (0.0-3.9); FMetHb 0.3 % (0.0-1.5); FO2Hb 98.7 % (94-97); GLUCOSE (ABG) 163 mg/dl (70-105); IONIZED CA (ABG) 1.14 mmol/L (1.10-1.43); K (ABG) 3.5 mmol/L (3.5-5.0); TOTAL HEMOGLOBIN 8.3 G/dl (12.0-16.0)
[2021-08-25 10:45] LABS: ABG HCO3 22.6 mmol/L (22.0-26.0); ABG OXYGEN SATURATION 98.7 % (94-97); ABG PCO2 37.6 mmHg (32.0-45.0); ABG PO2 138.5 mmHg (75.0-100.0); CL (ABG) 108 mmol/L (98-110); FCOHb 0.5 % (0.0-3.9); FMetHb 0.3 % (0.0-1.5); FO2Hb 97.9 % (94-97); GLUCOSE (ABG) 153 mg/dl (70-105); IONIZED CA (ABG) 1.53 mmol/L (1.10-1.43); K (ABG) 3.4 mmol/L (3.5-5.0); TOTAL HEMOGLOBIN 8.9 G/dl (12.0-16.0)
[2021-08-25 10:48] LABS: ACTIVATED CLOTTING TIME 146 SEC (101-148)
[2021-08-25] MEDS ORDERED: calcium chloride 100 MG/1 ML inj IV ONE (10:48)
[2021-08-25] MEDS ORDERED: dexamethasone sod phosphate 4mg/ml inj. ONE (10:56)
[2021-08-25] MEDS ORDERED: ondansetron/PF 4mg/2ml inj ONE (10:56)
[2021-08-25] MEDS ORDERED: pantoprazole 40 MG vial IV ONE (11:10)
[2021-08-25] MEDS ORDERED: Insulin Reg/NS 100units/100mL 100 ML IV SCH (11:10)
[2021-08-25] MEDS ORDERED: DOBUTamine-DoBUTrex 500mg/D5W 250 ML IV PRN (11:10)
[2021-08-25] MEDS ORDERED: sodium chloride 0.45% 1,000 ML IV SCH (11:10)
[2021-08-25] MEDS ORDERED: dextrose 50%-water 50ml dispensing syringe IV PRN (11:10)
[2021-08-25] MEDS ORDERED: potassium Cl 40MEQ/250ML bag 250 ML IV PRN (11:10)
[2021-08-25] MEDS ORDERED: Neutra Phos packet PO PRN (11:10)
[2021-08-25] MEDS ORDERED: nitroGLYCERIN-Tridil 50MG/D5W 250 ML IV SCH (11:10)
[2021-08-25] MEDS ORDERED: NORepinephrine 8mg/ 250ml NS 250 ML IV PRN (11:10)
[2021-08-25] MEDS ORDERED: magnesium citrate 296ml oral solution PO PRN (11:10)
[2021-08-25] MEDS ORDERED: bisacodyl 10mg suppository rectal RC PRN (11:10)
[2021-08-25] MEDS ORDERED: potassium Cl 20 mEq SR tablet PO PRN (11:10)
[2021-08-25] MEDS ORDERED: niCARDipine-NS 40mg/200ml IVPB 200 ML IV PRN (11:10)
[2021-08-25] MEDS ORDERED: magnesium 4gm in 100ml NS 100 ML IV PRN (11:10)
[2021-08-25] MEDS ORDERED: sodium phosphate inj. 15 MMOL in dextrose 5%-water 250 ML IV PRN (11:10)
[2021-08-25] MEDS ORDERED: sodium phosphate inj. 30 MMOL in dextrose 5%-water 250 ML IV PRN (11:10)
[2021-08-25] MEDS ORDERED: ondansetron/PF 4mg/2ml inj IV PRN (11:10)
[2021-08-25] MEDS ORDERED: acetaminophen 325mg tablet PO PRN ×2 (11:10)
[2021-08-25] MEDS ORDERED: potassium Cl 40MEQ/1/2NS 520ml 520 ML IV PRN (11:10)
[2021-08-25] MEDS ORDERED: mineral oil 133ml enema RC PRN (11:10)
[2021-08-25] MEDS ORDERED: insulin glargine (Lantus) pen - multi-dose SQ PRN (11:10)
[2021-08-25] MEDS ORDERED: morphine 4 MG/ML inj SYRINge IV PRN (11:10)
[2021-08-25] MEDS ORDERED: metoclopramide 5 mg/ml inj IV PRN (11:10)
[2021-08-25] MEDS ORDERED: magnesium hydroxide 30ml (MOM) UD suspension PO PRN (11:10)
[2021-08-25] MEDS ORDERED: potassium CL 10mEq/100ml bag 100 ML IV PRN (11:10)
[2021-08-25] MEDS ORDERED: magnesium 2GM in 50ml NS 50 ML IV PRN (11:10)
[2021-08-25] MEDS ORDERED: HYDROcodone/acetaminophen 10/325mg tab PO PRN (11:10)
[2021-08-25 11:11] LABS: TOTAL HEMOGLOBIN 6.2 G/dl (12.0-16.0)
--- NOTE | 2021-08-25 11:20 | NUR ---
Received to room 2041, accompanied by MDs and surgical crew. Placed on ventilator, to cardiac cath lab manager, arterial line and PA line pressure monitored. Chest tubes to suction at 20 cm. Jeronimo cath to gravity drainage. Dressings are dry and intact. See assessment record. All vasoactive drugs are infusing via central line.
[2021-08-25 11:48] LABS: ABG BASE EXCESS -2.1 mmol/L (-2.0-2.0); ABG HCO3 23.2 mmol/L (22.0-26.0); ABG OXYGEN SATURATION 98.9 % (94-97); ABG PCO2 (T) 41.9 mmHg (32.0-45.0); FCOHb 0.3 % (0.0-3.9); FMetHb 0.3 % (0.0-1.5); FO2Hb 98.3 % (94-97); PEEP 5 cm H2O; RESPIRATORY RATE 12 b/min; TIDAL VOLUME 600 mL; TOTAL HEMOGLOBIN 9.9 G/dl (12.0-16.0)
--- NOTE | 2021-08-25 12:00 | NUR ---
Drainage in CT and water in water seal chamber tidaling in sync with heart rate. No bubbling in water seal chamber, suction set to -20 mm Hg. Sound heard at chest tube insertion site without obvious leak. Dr Cates inspected chest tube and stated that there is a leak from posterior mediastinal CT. He stated that this is okay.
[2021-08-25 12:06] LABS: BASOPHILS % (AUTO) 0.3 % (0-1); EOSINOPHILS # (AUTO) 0.1 X10'3 (0-0.9); EOSINOPHILS % (AUTO) 1.3 % (0-6); HEMATOCRIT 27.3 % (35.0-45.0); HEMOGLOBIN 9.3 g/dl (12.0-16.0); LYMPHOCYTES % (AUTO) 9.7 % (21-51); MEAN CORPUSCULAR HEMOGLOBIN 29.3 PG (27.0-31.0); MEAN CORPUSCULAR HGB CONC 34.1 g/dL (33.0-36.5); MEAN CORPUSCULAR VOLUME 85.8 FL (78-98); MEAN PLATELET VOLUME 8.2 FL (7.4-10.4); MONOCYTES # (AUTO) 0.7 X10'3 (0-0.9); MONOCYTES % (AUTO) 6.7 % (2-12); NEUTROPHILS # (AUTO) 8.8 X10'3 (1.8-7.7); PLATELET COUNT 184 X10'3 (140-440); RED BLOOD COUNT 3.18 X10'6 (4.20-5.60); RED CELL DISTRIBUTION WIDTH 14.6 % (11.5-14.5); WHITE BLOOD COUNT 10.8 X10'3 (4.5-11.0)
[2021-08-25 12:19] LABS: PARTIAL THROMBOPLASTIN TIME 35 SECONDS (22-32)
[2021-08-25] MEDS: morphine 4 MG/ML inj SYRINge IV PRN ×2 (12:26→15:53)
[2021-08-25] MEDS: gabapentin 300mg capsule PO SCH ×2 (12:26→21:26)
[2021-08-25 12:31] LABS: ALANINE AMINOTRANSFERASE 21 U/L (12-78); ALBUMIN/GLOBULIN RATIO 1.2 (1.1-1.5); ALKALINE PHOSPHATASE 76 IU/L (46-116); ANION GAP 11 (8-16); ASPARTATE AMINO TRANSFERASE 24 U/L (10-37); BILIRUBIN,TOTAL 0.4 MG/DL (0.1-1.0); BLOOD UREA NITROGEN 15 MG/DL (7-18); BUN/CREATININE RATIO 11.7 (6.6-38.0); CALCIUM 9.9 MG/DL (8.5-10.1); CHLORIDE 110 MMOL/L (99-107); CREATININE 1.28 MG/DL (0.40-0.90); GLUCOSE 140 MG/DL (70-104); MAGNESIUM 1.3 MG/DL (1.5-2.4); PHOSPHORUS 1.8 MG/DL (2.3-4.5); POTASSIUM 3.3 MMOL/L (3.5-5.1); SODIUM 146 MMOL/L (135-145); TOTAL CARBON DIOXIDE 24.8 MMOL/L (24-32); TOTAL PROTEIN 5.5 G/DL (6.4-8.2); eGFR 41 ML/MIN
--- NOTE | 2021-08-25 13:30 | NUR ---
Audible leak from chest tube has resolved.
[2021-08-25] MEDS ORDERED: potassium phosphate inj 30 MMOL in dextrose 5%-water 250 ML IV PRN (13:43)
[2021-08-25] MEDS ORDERED: potassium phosphate inj 15 MMOL in dextrose 5%-water 250 ML IV PRN (13:43)
[2021-08-25] MEDS: potassium Cl 20mEq/100mL bag 100 ML IV PRN ×4 (13:50→18:04)
[2021-08-25] MEDS: ceFAZolin/D5W- 1GM premix 50 ML IV SCH (15:04)
[2021-08-25 15:37] LABS: ABG HCO3 23.5 mmol/L (22.0-26.0); ABG OXYGEN SATURATION 94.7 % (94-97); ABG PCO2 (T) 41.5 mmHg (32.0-45.0); ABG PO2 (T) 72.3 mmHg (75.0-100.0); FCOHb 0.1 % (0.0-3.9); FO2Hb 94.6 % (94-97); PATIENT TEMPERATURE 36.2; PEEP 5 cm H2O; TOTAL HEMOGLOBIN 11.5 G/dl (12.0-16.0)
--- NOTE | 2021-08-25 16:12 | NUR ---
Dr Cates rounded on pt. He ordered dobutamine gtt to be left at 2 mcg/kg/min overnight.
--- NOTE | 2021-08-25 16:43 | NUR ---
Pt has good weening parameters and ABG. Has tolerated spontaneous mode 1 hr. Extubated and placed on O2 via nasal cannula at 2 L/min. Voice quality is good, respirations are even and unlabored.
[2021-08-25] MEDS: albumin (Human) 5% 250ml 250 ML IV PRN ×2 (17:02→20:02)
--- NOTE | 2021-08-25 17:33 | NUR ---
Pt extubated at 1543 hrs not 1643 hrs.
--- NOTE | 2021-08-25 18:17 | NUR ---
Problems reprioritized. Patient report given, questions answered & plan of care reviewed with ROBERT De La Paz.
--- NOTE | 2021-08-25 18:30 | NUR ---
I have received report and assumed care of pt. Pt resting in bed rise and fall of chest cavity equile and symmetrical, pt awakens easy to verbal stimuli. [address] communicating into 1 atrium, no crepitus noted, no tracheal deviation. Pt moves all extremities, Per MD orders Dobutamine is not being titrated, it is infusing at 2mcg/kg/hr. via CVL.
[2021-08-25] MEDS ORDERED: mupirocin 2% ointment 22GM NS SCH (20:00)
[2021-08-25] MEDS: traZODone 50mg tablet PO SCH (21:00)
--- NOTE | 2021-08-25 21:05 | NUR ---
hs cares complete pt tolerated well, titrating insulin drip per protocol, medicating for pain as needed, replaced electrolytes per md orders.
[2021-08-25] MEDS: sennosides/docusate sodium tablet PO SCH (21:25)
[2021-08-25] MEDS: atorvastatin 10mg tablet PO SCH (21:25)
[2021-08-25] MEDS: vancomycin/NS 1 GM ADD-VANTAGE 250 ML IV SCH (21:25)
[2021-08-25] MEDS: amitriptyline 50mg tablet PO SCH (21:26)
[2021-08-25] MEDS: mupirocin 2% nasal ointment 1gm UD NS SCH (21:26)
[2021-08-25 21:39] LABS: BASOPHILS % (AUTO) 0.1 % (0-1); EOSINOPHILS % (AUTO) 0 % (0-6); HEMOGLOBIN 9.9 g/dl (12.0-16.0); LYMPHOCYTES # (AUTO) 0.6 X10'3 (1.1-4.8); LYMPHOCYTES % (AUTO) 5.1 % (21-51); MEAN CORPUSCULAR HEMOGLOBIN 28.7 PG (27.0-31.0); MEAN CORPUSCULAR VOLUME 87.1 FL (78-98); MEAN PLATELET VOLUME 8.1 FL (7.4-10.4); MONOCYTES # (AUTO) 0.6 X10'3 (0-0.9); NEUTROPHILS # (AUTO) 11.4 X10'3 (1.8-7.7); NEUTROPHILS % (AUTO) 89.8 % (42-75); PLATELET COUNT 176 X10'3 (140-440); RED BLOOD COUNT 3.44 X10'6 (4.20-5.60); RED CELL DISTRIBUTION WIDTH 14.9 % (11.5-14.5); WHITE BLOOD COUNT 12.7 X10'3 (4.5-11.0)
[2021-08-25 21:53] LABS: ALBUMIN 3.3 G/DL (3.4-5.0); ANION GAP 9 (8-16); BLOOD UREA NITROGEN 15 MG/DL (7-18); BUN/CREATININE RATIO 13.2 (6.6-38.0); CALCIUM 9.2 MG/DL (8.5-10.1); CHLORIDE 112 MMOL/L (99-107); CREATININE 1.14 MG/DL (0.40-0.90); GLUCOSE 120 MG/DL (70-104); MAGNESIUM 2.6 MG/DL (1.5-2.4); PHOSPHORUS 2.7 MG/DL (2.3-4.5); POTASSIUM 4.7 MMOL/L (3.5-5.1); SODIUM 145 MMOL/L (135-145); eGFR 47 ML/MIN
[2021-08-26] VITALS (24 sets, daily range): BP systolic 85–119; BP diastolic 52–66
[2021-08-26] MEDS: ceFAZolin/D5W- 1GM premix 50 ML IV SCH ×3 (00:31→16:56)
[2021-08-26 03:06] LABS: BASOPHILS % (AUTO) 0.1 % (0-1); EOSINOPHILS % (AUTO) 0 % (0-6); HEMATOCRIT 30.2 % (35.0-45.0); HEMOGLOBIN 10.1 g/dl (12.0-16.0); LYMPHOCYTES # (AUTO) 0.8 X10'3 (1.1-4.8); LYMPHOCYTES % (AUTO) 5.4 % (21-51); MEAN CORPUSCULAR HEMOGLOBIN 28.8 PG (27.0-31.0); MEAN CORPUSCULAR HGB CONC 33.3 g/dL (33.0-36.5); MEAN CORPUSCULAR VOLUME 86.5 FL (78-98); MEAN PLATELET VOLUME 8.7 FL (7.4-10.4); MONOCYTES # (AUTO) 0.7 X10'3 (0-0.9); NEUTROPHILS # (AUTO) 13.2 X10'3 (1.8-7.7); NEUTROPHILS % (AUTO) 89.5 % (42-75); PLATELET COUNT 181 X10'3 (140-440); RED BLOOD COUNT 3.49 X10'6 (4.20-5.60); RED CELL DISTRIBUTION WIDTH 14.8 % (11.5-14.5); WHITE BLOOD COUNT 14.7 X10'3 (4.5-11.0)
--- NOTE | 2021-08-26 03:20 | NUR ---
no changes in status noted
[2021-08-26 03:26] LABS: ALANINE AMINOTRANSFERASE 20 U/L (12-78); ALBUMIN 3.1 G/DL (3.4-5.0); ALBUMIN/GLOBULIN RATIO 1.1 (1.1-1.5); ALKALINE PHOSPHATASE 76 IU/L (46-116); ANION GAP 10 (8-16); ASPARTATE AMINO TRANSFERASE 25 U/L (10-37); BILIRUBIN,TOTAL 0.3 MG/DL (0.1-1.0); BLOOD UREA NITROGEN 15 MG/DL (7-18); BUN/CREATININE RATIO 13.5 (6.6-38.0); CALCIUM 9.1 MG/DL (8.5-10.1); CHLORIDE 111 MMOL/L (99-107); CREATININE 1.11 MG/DL (0.40-0.90); GLUCOSE 122 MG/DL (70-104); MAGNESIUM 2.7 MG/DL (1.5-2.4); PHOSPHORUS 2.8 MG/DL (2.3-4.5); POTASSIUM 4.4 MMOL/L (3.5-5.1); SODIUM 143 MMOL/L (135-145); TOTAL CARBON DIOXIDE 22.2 MMOL/L (24-32); TOTAL PROTEIN 5.9 G/DL (6.4-8.2); eGFR 49 ML/MIN
--- NOTE | 2021-08-26 06:07 | NUR ---
report given to rec rn plan of care reviewed
--- NOTE | 2021-08-26 06:30 | NUR ---
Patient in room ICU 2041. I have received report from Fanny Higgins RN and had the opportunity to ask questions and assume patient care.
[2021-08-26] MEDS: mineral oil/petrolatum ophthal oint EACHEYE SCH ×3 (08:00→18:56)
[2021-08-26] MEDS: sennosides/docusate sodium tablet PO SCH ×2 (08:00→20:15)
[2021-08-26] MEDS ORDERED: VITAMIN D PO SCH (08:00)
[2021-08-26] MEDS: metoprolol tartrate 12.5mg (1/2 tablet) PO SCH ×2 (08:36→20:00)
[2021-08-26] MEDS: clopidogrel 75mg tablet PO SCH (08:37)
[2021-08-26] MEDS: aspirin 325mg tablet, delayed-release (Ecotrin) PO SCH (08:37)
[2021-08-26] MEDS: gabapentin 300mg capsule PO SCH ×3 (08:37→20:18)
[2021-08-26] MEDS: HYDROcodone/acetaminophen 10/325mg tab PO PRN ×2 (08:44→17:32)
[2021-08-26] MEDS ORDERED: dextrose ORAL solution 15 GM/59 ML bottle PO PRN ×2 (08:55)
[2021-08-26] MEDS ORDERED: MESSAGE TO PHARMACY PO ONE (08:55)
[2021-08-26] MEDS ORDERED: glucagon, human recombinant 1mg kit SUBCUT PRN (08:55)
[2021-08-26] MEDS ORDERED: dextrose 50%-water 50ml dispensing syringe IV PRN ×2 (08:55)
[2021-08-26] MEDS: vancomycin/NS 1 GM ADD-VANTAGE 250 ML IV SCH ×2 (09:48→20:19)
[2021-08-26] MEDS ORDERED: FLU VACC QS2021-22(6MOS UP)/PF 60 MCG/0.5 ML SYRINGE IM ONE (10:00)
--- NOTE | 2021-08-26 11:10 | NUR ---
CABG consult: Pt s/p CABG X 4 08/25. Provided pt w/ written and verbal CABG nutrition therapy education w/ RD contact info. Pt requesting double protein w/ meals to help w/ satiety, dietary notified. Addendum: 08/26/21 at [address] Amended: Links added.
[2021-08-26] MEDS: mupirocin 2% nasal ointment 1gm UD NS SCH ×2 (12:19→20:19)
[2021-08-26] MEDS: insulin glargine (Lantus) pen - multi-dose SQ SCH (13:07)
[2021-08-26] MEDS: insulin Lispro (HumaLOG) vial - multi-dose SQ SCH ×2 (13:09→18:39)
--- NOTE | 2021-08-26 18:16 | NUR ---
Problems reprioritized. Patient report given, questions answered & plan of care reviewed with ROBERT Mccartney.
--- NOTE | 2021-08-26 18:18 | NUR ---
Patient in room ICU 2041. I have received report from ROBERT Villalpando and had the opportunity to ask questions and assume patient care.
[2021-08-26] MEDS: atorvastatin 10mg tablet PO SCH (20:15)
[2021-08-26] MEDS: amitriptyline 50mg tablet PO SCH (20:19)
[2021-08-26] MEDS: traZODone 50mg tablet PO SCH (21:00)
[2021-08-26] MEDS ORDERED: insulin glargine (Lantus) pen - multi-dose SQ SCH (21:00)
[2021-08-27] VITALS (19 sets, daily range): BP systolic 83–110; BP diastolic 52–64
[2021-08-27] MEDS: ceFAZolin/D5W- 1GM premix 50 ML IV SCH (00:07)
[2021-08-27] MEDS: mineral oil/petrolatum ophthal oint EACHEYE SCH ×4 (02:00→19:32)
[2021-08-27 03:20] LABS: BASOPHILS % (AUTO) 0.1 % (0-1); EOSINOPHILS % (AUTO) 0.2 % (0-6); HEMATOCRIT 28.4 % (35.0-45.0); HEMOGLOBIN 9.5 g/dl (12.0-16.0); LYMPHOCYTES # (AUTO) 1.5 X10'3 (1.1-4.8); LYMPHOCYTES % (AUTO) 11.8 % (21-51); MEAN CORPUSCULAR HEMOGLOBIN 29.2 PG (27.0-31.0); MEAN CORPUSCULAR HGB CONC 33.3 g/dL (33.0-36.5); MEAN CORPUSCULAR VOLUME 87.5 FL (78-98); MEAN PLATELET VOLUME 8.9 FL (7.4-10.4); MONOCYTES # (AUTO) 1.5 X10'3 (0-0.9); MONOCYTES % (AUTO) 11.5 % (2-12); NEUTROPHILS # (AUTO) 9.9 X10'3 (1.8-7.7); NEUTROPHILS % (AUTO) 76.4 % (42-75); PLATELET COUNT 175 X10'3 (140-440); RED BLOOD COUNT 3.25 X10'6 (4.20-5.60); WHITE BLOOD COUNT 12.9 X10'3 (4.5-11.0)
[2021-08-27 03:35] LABS: ALBUMIN 2.8 G/DL (3.4-5.0); ANION GAP 9 (8-16); BLOOD UREA NITROGEN 23 MG/DL (7-18); BUN/CREATININE RATIO 16.3 (6.6-38.0); CALCIUM 9.3 MG/DL (8.5-10.1); CHLORIDE 108 MMOL/L (99-107); CREATININE 1.41 MG/DL (0.40-0.90); GLUCOSE 197 MG/DL (70-104); MAGNESIUM 2.4 MG/DL (1.5-2.4); PHOSPHORUS 3.7 MG/DL (2.3-4.5); POTASSIUM 4.7 MMOL/L (3.5-5.1); SODIUM 142 MMOL/L (135-145); TOTAL CARBON DIOXIDE 24.6 MMOL/L (24-32); eGFR 37 ML/MIN
--- NOTE | 2021-08-27 06:17 | NUR ---
Problems reprioritized. Patient report given, questions answered & plan of care reviewed with ROBERT Callejas.
[2021-08-27] MEDS: HYDROcodone/acetaminophen 10/325mg tab PO PRN ×2 (06:50→17:17)
[2021-08-27] MEDS: aspirin 325mg tablet, delayed-release (Ecotrin) PO SCH (07:42)
[2021-08-27] MEDS: pantoprazole 40mg Tablet.DR PO SCH (07:42)
[2021-08-27] MEDS: sennosides/docusate sodium tablet PO SCH ×2 (07:42→19:39)
[2021-08-27] MEDS: clopidogrel 75mg tablet PO SCH (07:42)
[2021-08-27] MEDS: mupirocin 2% nasal ointment 1gm UD NS SCH (07:44)
[2021-08-27] MEDS: metoprolol tartrate 12.5mg (1/2 tablet) PO SCH ×2 (07:44→19:39)
[2021-08-27] MEDS: gabapentin 300mg capsule PO SCH (07:45)
[2021-08-27] MEDS: insulin glargine (Lantus) pen - multi-dose SQ SCH (08:08)
[2021-08-27] MEDS: insulin Lispro (HumaLOG) vial - multi-dose SQ SCH ×3 (08:09→18:49)
[2021-08-27] MEDS ORDERED: potassium Cl 20mEq/100mL bag 100 ML IV PRN (08:40)
[2021-08-27] MEDS ORDERED: potassium CL 10mEq/100ml bag 100 ML IV PRN (08:40)
[2021-08-27] MEDS ORDERED: potassium Cl 40MEQ/250ML bag 250 ML IV PRN (08:40)
[2021-08-27] MEDS ORDERED: magnesium 4gm in 100ml NS 100 ML IV PRN (08:40)
[2021-08-27] MEDS ORDERED: magnesium 2GM in 50ml NS 50 ML IV PRN (08:40)
[2021-08-27] MEDS ORDERED: potassium Cl 20 mEq SR tablet PO PRN (08:40)
[2021-08-27] MEDS ORDERED: potassium Cl 40MEQ/1/2NS 520ml 520 ML IV PRN (08:40)
--- NOTE | 2021-08-27 09:30 | NUR ---
CABG Consult: Addressed in previous RD assessment. Addendum: 08/27/21 at [address] Amended: Links added.
--- NOTE | 2021-08-27 19:30 | NUR ---
Called report to Luis Manuel on Telemetry
[2021-08-27] MEDS: potassium Cl 20 mEq SR tablet PO SCH (19:39)
[2021-08-27] MEDS: magnesium Cl slow-release 64mg tablet PO SCH (19:39)
[2021-08-27] MEDS: traZODone 50mg tablet PO SCH ×2 (20:44→21:16)
[2021-08-27] MEDS: atorvastatin 10mg tablet PO SCH ×2 (20:44→21:17)
[2021-08-27] MEDS: amitriptyline 50mg tablet PO SCH ×2 (20:45→21:16)
[2021-08-28] VITALS: BP 104/64
[2021-08-28] MEDS: mineral oil/petrolatum ophthal oint EACHEYE SCH ×3 (00:51→14:00)
[2021-08-28] MEDS: HYDROcodone/acetaminophen 10/325mg tab PO PRN (00:51)
[2021-08-28 04:00] VITALS: BP 93/63
[2021-08-28 06:00] VITALS: BP 101/66
--- NOTE | 2021-08-28 06:15 | NUR ---
Patient in room PCU 3011. I have received report from Luis Manuel JONES and had the opportunity to ask questions and assume patient care.
[2021-08-28 07:43] LABS: ALBUMIN 2.8 G/DL (3.4-5.0); ANION GAP 9 (8-16); BASOPHILS % (AUTO) 0.3 % (0-1); BLOOD UREA NITROGEN 30 MG/DL (7-18); CALCIUM 9.5 MG/DL (8.5-10.1); CHLORIDE 112 MMOL/L (99-107); EOSINOPHILS # (AUTO) 0.4 X10'3 (0-0.9); EOSINOPHILS % (AUTO) 3.2 % (0-6); GLUCOSE 126 MG/DL (70-104); HEMATOCRIT 30.2 % (35.0-45.0); HEMOGLOBIN 9.8 g/dl (12.0-16.0); LYMPHOCYTES % (AUTO) 24.3 % (21-51); MEAN CORPUSCULAR HEMOGLOBIN 28.7 PG (27.0-31.0); MEAN CORPUSCULAR HGB CONC 32.6 g/dL (33.0-36.5); MEAN CORPUSCULAR VOLUME 88.1 FL (78-98); MEAN PLATELET VOLUME 8.4 FL (7.4-10.4); MONOCYTES # (AUTO) 1.4 X10'3 (0-0.9); MONOCYTES % (AUTO) 11.1 % (2-12); NEUTROPHILS # (AUTO) 7.5 X10'3 (1.8-7.7); NEUTROPHILS % (AUTO) 61.1 % (42-75); PLATELET COUNT 181 X10'3 (140-440); POTASSIUM 4.7 MMOL/L (3.5-5.1); RED BLOOD COUNT 3.42 X10'6 (4.20-5.60); SODIUM 145 MMOL/L (135-145); TOTAL CARBON DIOXIDE 24.3 MMOL/L (24-32); WHITE BLOOD COUNT 12.2 X10'3 (4.5-11.0); eGFR 45 ML/MIN
[2021-08-28] MEDS: magnesium Cl slow-release 64mg tablet PO SCH ×2 (08:00→20:11)
[2021-08-28] MEDS: metoprolol tartrate 12.5mg (1/2 tablet) PO SCH ×2 (08:00→20:11)
[2021-08-28] MEDS: potassium Cl 20 mEq SR tablet PO SCH ×2 (08:00→20:10)
--- NOTE | 2021-08-28 08:15 | NUR ---
Spoke with Donny DEAN concerning Pt's lower BP and was instructed to hold the morning dose of lopressor 12.5mg.
[2021-08-28] MEDS: sennosides/docusate sodium tablet PO SCH ×2 (08:18→20:11)
[2021-08-28] MEDS: pantoprazole 40mg Tablet.DR PO SCH (08:18)
[2021-08-28] MEDS: clopidogrel 75mg tablet PO SCH (08:18)
[2021-08-28] MEDS: aspirin 325mg tablet, delayed-release (Ecotrin) PO SCH (08:19)
[2021-08-28 08:21] LABS: MAGNESIUM 2.2 MG/DL (1.5-2.4)
[2021-08-28] MEDS: insulin glargine (Lantus) pen - multi-dose SQ SCH (08:24)
[2021-08-28] MEDS: insulin Lispro (HumaLOG) vial - multi-dose SQ SCH ×2 (08:29→14:11)
[2021-08-28] MEDS ORDERED: CLOP75TA34 PO (08:39)
[2021-08-28] MEDS ORDERED: HYDR-3972 PO (08:39)
[2021-08-28] MEDS ORDERED: ASPI-1071 PO (08:39)
[2021-08-28] MEDS: furosemide 40mg tablet PO SCH (10:34)
[2021-08-28 11:00] VITALS: BP 100/60
[2021-08-28 15:00] VITALS: BP 99/68
--- NOTE | 2021-08-28 18:10 | NUR ---
Problems reprioritized. Patient report given, questions answered & plan of care reviewed with Luis Manuel JONES.
[2021-08-28] MEDS ORDERED: amitriptyline 50mg tablet PO ONE (23:30)
[2021-08-28] MEDS ORDERED: traZODone 50mg tablet PO ONE (23:30)
--- NOTE | 2021-08-29 01:00 | NUR ---
I have received report from Dara Jay RN and had the opportunity to ask questions and assume patient care.
[2021-08-29 02:00] VITALS: BP 106/60
--- NOTE | 2021-08-29 02:29 | NUR ---
Received patient report from Pierre Baxter RN. Patients resting in no apparent distress. Will continue to monitor. Addendum: 08/29/21 at 0229 by Chago Blanton RN received report at 0100
[2021-08-29 06:00] VITALS: BP 112/73
--- NOTE | 2021-08-29 06:05 | NUR ---
Patient in room PCU 3011. I have received report from Chago JONES and had the opportunity to ask questions and assume patient care.
[2021-08-29 06:10] LABS: BASOPHILS % (AUTO) 0.4 % (0-1); EOSINOPHILS # (AUTO) 0.4 X10'3 (0-0.9); EOSINOPHILS % (AUTO) 4.2 % (0-6); HEMATOCRIT 30.5 % (35.0-45.0); HEMOGLOBIN 10.3 g/dl (12.0-16.0); LYMPHOCYTES # (AUTO) 2.5 X10'3 (1.1-4.8); LYMPHOCYTES % (AUTO) 24.7 % (21-51); MEAN CORPUSCULAR HEMOGLOBIN 29.4 PG (27.0-31.0); MEAN CORPUSCULAR HGB CONC 33.8 g/dL (33.0-36.5); MEAN CORPUSCULAR VOLUME 86.9 FL (78-98); MEAN PLATELET VOLUME 8.1 FL (7.4-10.4); MONOCYTES # (AUTO) 0.9 X10'3 (0-0.9); MONOCYTES % (AUTO) 8.5 % (2-12); NEUTROPHILS # (AUTO) 6.3 X10'3 (1.8-7.7); NEUTROPHILS % (AUTO) 62.2 % (42-75); PLATELET COUNT 233 X10'3 (140-440); RED BLOOD COUNT 3.51 X10'6 (4.20-5.60); RED CELL DISTRIBUTION WIDTH 15.2 % (11.5-14.5); WHITE BLOOD COUNT 10.1 X10'3 (4.5-11.0)
--- NOTE | 2021-08-29 06:14 | NUR ---
Problems reprioritized. Patient report given, questions answered & plan of care reviewed with ROBERT Choe.
--- NOTE | 2021-08-29 06:16 | NUR ---
Problems reprioritized. Patient report given, questions answered & plan of care reviewed with ROBERT Choe.
[2021-08-29 06:33] LABS: ALBUMIN 2.8 G/DL (3.4-5.0); ANION GAP 8 (8-16); BLOOD UREA NITROGEN 29 MG/DL (7-18); BUN/CREATININE RATIO 22.8 (6.6-38.0); CALCIUM 9.6 MG/DL (8.5-10.1); CHLORIDE 109 MMOL/L (99-107); CREATININE 1.27 MG/DL (0.40-0.90); GLUCOSE 156 MG/DL (70-104); POTASSIUM 4.1 MMOL/L (3.5-5.1); SODIUM 145 MMOL/L (135-145); TOTAL CARBON DIOXIDE 27.8 MMOL/L (24-32); eGFR 42 ML/MIN
[2021-08-29] MEDS: aspirin 325mg tablet, delayed-release (Ecotrin) PO SCH (07:42)
[2021-08-29] MEDS: HYDROcodone/acetaminophen 10/325mg tab PO PRN (07:42)
[2021-08-29 07:43] VITALS: BP_SYST 114
[2021-08-29] MEDS: furosemide 40mg tablet PO SCH (07:43)
[2021-08-29] MEDS: clopidogrel 75mg tablet PO SCH (07:43)
[2021-08-29] MEDS: metoprolol tartrate 12.5mg (1/2 tablet) PO SCH (07:43)
[2021-08-29] MEDS: sennosides/docusate sodium tablet PO SCH (07:43)
[2021-08-29] MEDS: pantoprazole 40mg Tablet.DR PO SCH (07:43)
[2021-08-29] MEDS: insulin glargine (Lantus) pen - multi-dose SQ SCH (07:49)
[2021-08-29 08:39] LABS: MAGNESIUM 1.8 MG/DL (1.5-2.4)
[2021-08-29] MEDS: magnesium Cl slow-release 64mg tablet PO SCH (09:34)
--- NOTE | 2021-08-29 09:35 | NUR ---
Pt DC'd home with brother. Pt alert and oriented and vitals WNL upon DC. Per Donny DEAN; Pt is stable for DC. IV removed, canula intact. Tele-box removed and returned to [employer]. DC paperwork printed out ad gone over with Pt. Allowed Pt to ask questions concerning DC and then answered them. New prescriptions called into [facility] in [place]. Pt stated that she will make follow up appts with PCP, top screw and cardiothoracic surgeon. Pt' belongings gathered and sent with Pt. Pt wheeled down to lobby in wheelchair and left in private vehicle with brother for home.
== END 2021-08-29 09:43 | disposition home or self-care (01) | DRG 235 ==
LOC: PAS IN 08-25 05:20 → UNDOADMIN 08-25 05:20 → ICU 2S 08-25 14:05 → PAS IN 08-25 14:05 → ICU 2S 08-25 14:56 → PCU 3S 08-27 19:50
PROVIDERS: ADMIT Thoracic Surgery (Cardiothoracic Vascular Surgery); ATTEND Thoracic Surgery (Cardiothoracic Vascular Surgery)
PROC: 021209W Bypass Coronary Artery, Three Arteries from Aorta with Autologous Venous Tissue, Open Approach (ICD-10-PCS; 2021-08-25)
PROC: 06BQ4ZZ Excision of Left Saphenous Vein, Percutaneous Endoscopic Approach (ICD-10-PCS; 2021-08-25)
PROC: 02C10ZZ Extirpation of Matter from Coronary Artery, Two Arteries, Open Approach (ICD-10-PCS; 2021-08-25)
PROC: 5A1221Z Performance of Cardiac Output, Continuous (ICD-10-PCS; 2021-08-25)
PROC: B24BZZ4 Ultrasonography of Heart with Aorta, Transesophageal (ICD-10-PCS; 2021-08-25)
PROC: 30233N1 Transfusion of Nonautologous Red Blood Cells into Peripheral Vein, Percutaneous Approach (ICD-10-PCS; 2021-08-25)
PROC: 02100Z9 Bypass Coronary Artery, One Artery from Left Internal Mammary, Open Approach (ICD-10-PCS; principal; 2021-08-25 07:16)
PROC: 3E02340 Introduction of Influenza Vaccine into Muscle, Percutaneous Approach (ICD-10-PCS; 2021-08-26)
DX: I25.10 Atherosclerotic heart disease of native coronary artery without angina pectoris (principal); I50.23 Acute on chronic systolic (congestive) heart failure; E11.9 Type 2 diabetes mellitus without complications; I42.9 Cardiomyopathy, unspecified; E66.01 Morbid (severe) obesity due to excess calories; E78.5 Hyperlipidemia, unspecified; I10 Essential (primary) hypertension; I34.0 Nonrheumatic mitral (valve) insufficiency; M45.9 Ankylosing spondylitis of unspecified sites in spine; Z23 Encounter for immunization; Z68.36 Body mass index [BMI] 36.0-36.9, adult
CPT/HCPCS: 36415; 36430; 36600; 71045; 80048; 80053; 81001; 82330; 82435; 82803; 82947; 82948; 83036; 83735; 84100; 84132; 84295; 85018; 85025; 85347; 85610; 85730; 86885; 86900; 86901; 86920; 87081; 88300; 93005; 93312; 93325; 94002; 94010; 94760; 97110; 97116; 97161; 97530; A4618; A6258; A6449; A7000; A7048; C1751; C9113; G0378; J0171; J0690; J1100; J1250; J1644; J1815; J2001; J2060; J2250; J2270; J2370; J2405; J2440; J2704; J3370; J3475; J3480; J3490; J7030; J7040; J7050; J7060; J7120; P9016; P9045; U0003; U0005

== ENCOUNTER 2023-10-14 17:10 | Emergency (ER) | payer MEDICARE, MEDICAID ==
[~2023-10-14] VITALS: Ht 180.3 cm; Wt 45.5 kg
[~2023-10-14 17:10] MED LIST changes: +ASPI-1071 PO; +CLOP75TA34 PO; -DOCUMENT DATE & TIME OF BETA-BLOCKER PO ONE; -FURO40TA4 PO; +HYDR-3972 PO; -LORazepam 2 mg/ml vial IV PRN; -NITR0.4T48 PO; -VANCOMYCIN 1,500MG inj. 1,500 MG in normal saline 500ml IV soln 300 ML IV ONE; -albuterol 2.5 MG/3 ML nebule NEB PRN; -cefazolin/dext.iso 2gm/50ml 50 ML IV ONE; -dextrose 50%-water 50ml dispensing syringe IV PRN; -famotidine 20mg tablet PO ONE; -gabapentin 400mg capsule PO ONE; -insulin Lispro (HumaLOG) vial - multi-dose SQ PRN; -metoprolol tartrate 12.5mg (1/2 tablet) PO ONE; -mupirocin 2% nasal ointment 1gm UD NS ONE; -papaverine 30 mg/ml 2ml inj. ONE; -ringers solution, lacted 1,000 ML IV SCH
[2023-10-14 17:14] VITALS: TEMP 97.9
[2023-10-14 17:32] LABS: BASOPHILS # (AUTO) 0.1 X10'3 (0-0.2); BASOPHILS % (AUTO) 0.9 % (0-1); EOSINOPHILS # (AUTO) 0.4 X10'3 (0-0.9); EOSINOPHILS % (AUTO) 5.3 % (0-6); HEMATOCRIT 31.3 % (35.0-45.0); HEMOGLOBIN 10.2 g/dl (12.0-16.0); LYMPHOCYTES # (AUTO) 1.8 X10'3 (1.1-4.8); LYMPHOCYTES % (AUTO) 23.4 % (21-51); MEAN CORPUSCULAR HEMOGLOBIN 27.3 PG (27.0-31.0); MEAN CORPUSCULAR HGB CONC 32.5 g/dL (33.0-36.5); MEAN CORPUSCULAR VOLUME 84.1 FL (78-98); MEAN PLATELET VOLUME 7.6 FL (7.4-10.4); MONOCYTES % (AUTO) 12.9 % (2-12); NEUTROPHILS # (AUTO) 4.5 X10'3 (1.8-7.7); NEUTROPHILS % (AUTO) 57.5 % (42-75); PLATELET COUNT 219 X10'3 (140-440); RED BLOOD COUNT 3.72 X10'6 (4.20-5.60); RED CELL DISTRIBUTION WIDTH 15.6 % (11.5-14.5); WHITE BLOOD COUNT 7.9 X10'3 (4.5-11.0)
[2023-10-14 17:51] LABS: ALANINE AMINOTRANSFERASE 29 U/L (12-78); ALBUMIN 3.1 G/DL (3.4-5.0); ALBUMIN/GLOBULIN RATIO 0.7 (1.1-1.5); ALKALINE PHOSPHATASE 105 IU/L (46-116); ANION GAP 10 (8-16); ASPARTATE AMINO TRANSFERASE 14 U/L (10-37); BILIRUBIN,TOTAL 0.2 MG/DL (0.1-1.0); BLOOD UREA NITROGEN 37 MG/DL (7-18); BUN/CREATININE RATIO 23.1 (10.0-20.0); CALCIUM 9.7 MG/DL (8.5-10.1); CHLORIDE 107 MMOL/L (99-107); GLUCOSE 108 MG/DL (70-104); POTASSIUM 3.8 MMOL/L (3.5-5.1); SODIUM 144 MMOL/L (135-145); TOTAL CARBON DIOXIDE 26.8 MMOL/L (24-32); TOTAL PROTEIN 7.3 G/DL (6.4-8.2); eCRCL 23 ML/MIN; eGFR 32 ML/MIN
[2023-10-14 17:55] LABS: PRO BRAIN NATRIURETIC PEPTIDE 3839 PG/ML (0-125)
[2023-10-14] MEDS ORDERED: ipratropium/albuterol 3ml nebule NEB ONE (18:45)
[2023-10-14] MEDS ORDERED: predniSONE 20 mg tablet PO ONE (18:45)
[2023-10-14 19:03] VITALS: PULSE 69; RESP 18; O2SAT 96
[2023-10-14 19:09] VITALS: PULSE 67; RESP 18; O2SAT 100
[2023-10-14] MEDS ORDERED: furosemide 10 MG/1 ML 10ml inj IV ONE (20:05)
[2023-10-14] MEDS ORDERED: PRED20TA PO (20:12)
[2023-10-14] MEDS ORDERED: AMOX-117 PO (20:12)
[2023-10-14] MEDS ORDERED: furosemide 20MG tablet PO ONE (20:40)
[2023-10-14 21:08] VITALS: BP 112/62; PULSE 69; RESP 18; O2SAT 95
== END 2023-10-14 22:30 | disposition home or self-care (01) ==
LOC: ER 17:10
DX: J20.9 Acute bronchitis, unspecified (principal); I50.9 Heart failure, unspecified
CPT/HCPCS: 36415; 71045; 80053; 83880; 84484; 85025; 87811; 93005; 94640; 99285; J7512; 94760

== ENCOUNTER 2025-08-02 15:42 | Emergency (ER) | payer MEDICARE, MEDICAID ==
[~2025-08-02] VITALS: Ht 180.3 cm; Wt 107.5 kg
[~2025-08-02 15:42] MED LIST changes: -AMIT100T61 PO; +AMIT100T76 PO; +GLIP2.5T23 PO; -GLIP2.5T3 PO
[2025-08-02 15:51] VITALS: TEMP 96.9
--- NOTE | 2025-08-02 15:56 | ELECTROCARDIOGRAPH REPORT ---
[facility] Test Date: 2025-08-02 Test Time: 15:47:39 Pat Name: MALATHI WOODRUFF Department: EMERGENCY ROOM Room: Gender: F Accounts Payable Lead: : 1955 Requested By: RADHA DOUGLAS Order Number: [id number] Reading MD: Dr. Josue Higuera Measurements Intervals [place] Rate: 96 P: 42 AL: 156 QRS: -12 QRSD: 107 T: 88 QT: 374 QTc: 473 Interpretive Statements Sinus rhythm Ventricular premature complex LVH with secondary repolarization abnormality Inferior infarct, old Anterior infarct, old Electronically Signed On 08-03-2025 7:40:[address] Josue Higuera Please click the below link to view image of tracing.
--- NOTE | 2025-08-02 16:23 | RADIOLOGY REPORT ---
CLINICAL HISTORY: CP TECHNIQUE: Single view of the chest was obtained. COMPARISON: DI CHEST,SINGLE VIEW on DOS: 10/14/23, CHEST,SINGLE VIEW on DOS: 08/27/21, CHEST,SINGLE VIEW on DOS: 08/26/21, CHEST,SINGLE VIEW on DOS: 08/25/21, CHEST,SINGLE VIEW on DOS: 08/25/21 FINDINGS: The heart size and pulmonary vasculature are normal. The lungs are clear. There are midline sternotomy wires and additional postsurgical changes compatible prior CABG. IMPRESSION: NO ACUTE CARDIOPULMONARY PROCESS.
[2025-08-02 16:48] LABS: MEAN PLATELET VOLUME 8.3 FL (7.4-10.4); RED CELL DISTRIBUTION WIDTH 14.5 % (11.5-14.5)
[2025-08-02 17:00] LABS: CREATININE 1.77 MG/DL (0.40-0.90); PRO BRAIN NATRIURETIC PEPTIDE 4629 PG/ML (0-125); TOTAL CARBON DIOXIDE 25.5 MMOL/L (24-32); eCRCL 32 ML/MIN; eGFR 28 ML/MIN
--- NOTE | 2025-08-02 18:03 | Physician Documentation ---
History of Present Illness ~ Chief Complaint: Shortness of Breath Stated Complaint: SOB Time Seen by MD: 18:00 Primary Medical Doctor: Dr. Abdelrahman De La Vega; [facility] Mode of Arrival: POV HPI Patient presents to the emergency room for evaluation of shortness of breath. She states that she had cough cold congestion symptoms a proximally 1-2 weeks ago which have improved but over the past week symptoms have worsened. History of CHF. Denies fevers denies chest pain denies nausea or vomiting. CABG in 2020 Medication Reconciliation Allergies: Coded Allergies: sulfamethoxazole (Verified Allergy, Severe, RASH, 08/02/25) trimethoprim (Verified Allergy, Severe, RASH, 08/02/25) Scheduled Amitriptyline HCl (Amitriptyline HCl), 1 TAB PO HS, (Reported) Aspirin (Ecotrin*), 1 TAB PO Q24H Atorvastatin Calcium (Atorvastatin Calcium), 2 TAB PO DAILY, (Reported) Carvedilol (Carvedilol), 2 TAB PO BID, (Reported) Clopidogrel Bisulfate (Clopidogrel), 75 MG PO DAILY Glipizide (Glipizide ER), 1 TAB PO DAILY, (Reported) Metformin HCl (Metformin HCl), 1 TAB PO BID, (Reported) Trazodone HCl (Trazodone HCl), 1 TAB PO HS, (Reported) [vitamin d], 1 CAP PO DAILY, (Reported) Scheduled PRN Albuterol Sulfate Nebs* (Proventil Nebs*), 2.5 MG IH HS PRN for SOB or wheezing, (Reported) Hydrocodone Bit/Acetaminophen (Hydrocodon-Acetaminophn 10-325 tablet), 1 TAB PO Q6H PRN for MODERATE PAIN 4-6 Past Medical History Past Medical History: Diabetes Past Surgical History: noncontributory Alcohol Use: None Drug Use: none Lives In: Home Occupation: retired Review of Systems ROS All review of systems negative except as per HPI Physical Exam Vital Signs: Temperature: 96.9, Source: Temporal, Heart Rate: 97, Respiratory Rate: 20, BP: 102/70, Pulse Oximetry: 97, Weight: 107.500 Oxygen Flow Rate: 0 General Appearance General: Patient is awake, alert, oriented x4 in no acute distress Head: Normocephalic and atraumatic. Eyes: Conjunctival normal. EOMI. PERRL. ENT: Mucous membranes moist. Neck: Supple, trachea is midline. Chest: Clear to auscultation bilaterally without rales, rhonchi, or wheezes. There is no accessory muscle use or retractions. Cardiac: RRR without murmurs, gallops, or rubs. Abd: Soft, nondistended, nontender, with normoactive bowel sounds. No guarding, rebound, or rigidity. Extremities: Normal strength. Normal range of motion. Noted swelling to left lower extremity Progress Results/Orders Results/Orders Completed Orders - MARSHAL OAKES MD D-Dimer (08/02/25 18:32) Vital Signs 08/02/25 08/02/25 08/02/25 08/02/25 15:51 17:13 17:42 18:31 Temp 96.9 Pulse 88 97 Resp 18 16 20 16 B/P (MAP) 130/82 102/70 (81) Pulse Ox 99 97 O2 Flow Rate 0 0 08/02/25 18:33 Pulse 116 Resp 21 B/P (MAP) 100/75 (83) Pulse Ox 98 O2 Flow Rate 0 Laboratory Tests Test 08/02/25 16:15 08/02/25 17:52 White Blood Count 9.2 Red Blood Count 4.04 L Hemoglobin 11.5 L Hematocrit 34.2 L Mean Corpuscular Volume 84.6 Mean Corpuscular Hemoglobin 28.4 Mean Corpuscular Hemoglobin Concent 33.5 Red Cell Distribution Width 14.5 Platelet Count 358 Mean Platelet Volume 8.3 Neutrophils (%) (Auto) 62.7 Lymphocytes (%) (Auto) 25.0 Monocytes (%) (Auto) 8.4 Eosinophils (%) (Auto) 3.4 Basophils (%) (Auto) 0.5 Neutrophils # (Auto) 5.8 Lymphocytes # (Auto) 2.3 Monocytes # (Auto) 0.8 Eosinophils # (Auto) 0.3 Basophils # (Auto) 0.0 CBC Comment D-Dimer 0.54 H D-Dimer Comment Sodium Level 139 Potassium Level 3.1 L Chloride Level 100 Carbon Dioxide Level 25.5 Anion Gap 14 Blood Urea Nitrogen 39 H Creatinine 1.77 H Estimated GFR/1.73 m2 28 BUN/Creatinine Ratio 22.0 H Glucose Level 128 H Calcium Level 9.7 Troponin I High Sensitivity 54 *H 52 *H Pro-B-Type Natriuretic Peptide 4629 H Albumin 3.5 Chemistry Comments Troponin I High Sens Percent Delta 3 Troponin I Hi Sens Absolute Change -2 EKG/XRAY/CT/US/VASC/MRI EKG : Additional Comment EKG interpreted by myself shows time of 1547, rate 96, sinus rhythm, left axis deviation, multiple PVCs Chest X-Ray : Additional Comments Exam: CHEST,SINGLE VIEW CLINICAL HISTORY: CP TECHNIQUE: Single view of the chest was obtained. COMPARISON: DI CHEST,SINGLE VIEW on DOS: 10/14/23, CHEST,SINGLE VIEW on DOS: 08/27/21, CHEST,SINGLE VIEW on DOS: 08/26/21, CHEST,SINGLE VIEW on DOS: , CHEST,SINGLE VIEW on DOS: 08/25/21 FINDINGS: The heart size and pulmonary vasculature are normal. The lungs are clear. There are midline sternotomy wires and additional postsurgical changes compatible prior CABG. IMPRESSION: NO ACUTE CARDIOPULMONARY PROCESS. Medical Decision Making Additional information obtaine: old records Findings Patient presents to the emergency room for evaluation of shortness of breath as per HPI. Differentials include but are not limited to pulmonary embolism, CHF, pneumonia, viral syndrome, anxiety therefore emergent labs and imaging indicated. Chest x-ray is reassuring. Of concern is patient's elevation of her BNP and troponin. She denies any chest pain. Troponins are stable. Offered admission however after discussing the risks and benefits of admission versus outpatient management and utilizing shared decision-making patient would like a trial of Lasix. Consideration of pericarditis however EKG does not show any changes consistent with pericarditis. Given combination of elevation of BNP with mild elevation of troponins and history of congestive heart failure I believe she is suffering from fluid overload. D-dimer negative. Labs otherwise reassuring. Lasix initiated. I will put her on a small course of Lasix with instructions to follow up with her doctor. She has excellent follow up. ER precautions discussed Heart Score: 3 Differential Dx:Considerations: Include: bronchitis Departure Disposition: HOME / SELF CARE / HOMELESS Impression: Primary Impression: CHF (congestive heart failure) Condition: Fair Discharge Instructions: Heart Failure, Diagnosis, [id number] Additional Instructions: Follow up with your doctor as soon as possible for re-evaluation Referrals: NO PRIMARY CARE PROVIDER (PCP) Prescriptions Furosemide* (Lasix*) 20 Mg Tablet 1 TAB PO BID, #5 TAB Prov: MARSHAL OAKES MD 08/02/25 Signature Scribe Signature: No scribe Attestation: The note accurately reflects work and decisions made by me.Marshal Oakes MD 08/02/25 19:17 MARSHAL OAKES MD Aug 02, 2025 18:03
[2025-08-02] MEDS ORDERED: FURO-150 PO (19:16)
[2025-08-02 19:34] VITALS: BP 118/77; PULSE 95; RESP 14; O2SAT 99
[2025-08-03] MEDS ORDERED: ASPI81TA52 PO (11:20)
[2025-08-03] MEDS ORDERED: ATOR40TA PO (11:20)
[2025-08-03] MEDS ORDERED: DAPA10TA PO (11:23)
[2025-08-06] MEDS ORDERED: FURO20TA4 PO (11:41)
== END 2025-08-02 19:37 | disposition home or self-care (01) ==
LOC: ER 15:43
DX: I50.9 Heart failure, unspecified (principal); I25.2 Old myocardial infarction; E11.9 Type 2 diabetes mellitus without complications; Z88.2 Allergy status to sulfonamides; Z95.1 Presence of aortocoronary bypass graft; Z79.899 Other long term (current) drug therapy; Z88.8 Allergy status to other drugs, medicaments and biological substances; Z79.84 Long term (current) use of oral hypoglycemic drugs; Z79.82 Long term (current) use of aspirin
CPT/HCPCS: 36415; 71045; 80048; 83880; 84484; 85025; 85379; 93005; 99285

== ENCOUNTER 2025-09-10 15:27 | Inpatient (IN) | payer MEDICARE, MEDICAID ==
[~2025-09-10] VITALS: Ht 180.3 cm; Wt 104.5 kg
[~2025-09-10 15:27] MED LIST changes: -ALB0.5UD IH; -AMIT100T76 PO; -ASPI-1071 PO; +ASPI81TA52 PO; +ATOR40TA PO; -ATOR40TA72 PO; -CARV12.545 PO; -CLOP75TA34 PO; +DAPA10TA PO; +FURO40TA4 PO; -GLIP2.5T23 PO; -HYDR-3972 PO; -METF-438 PO; -TRAZ-256 PO; -vitamin d PO
--- NOTE | 2025-09-10 15:46 | ELECTROCARDIOGRAPH REPORT ---
[facility] Test Date: 2025-09-10 Test Time: 15:39:24 Pat Name: MALATHI WOODRUFF Department: EMERGENCY ROOM Room: [place] [address] Gender: F Clinical Appeals Auditor: : 1955 Requested By: ISHAAN SHERWOOD Order Number: [id number] Reading MD: Dr. VERNON Du Measurements Intervals [place] Rate: 103 P: 48 UT: 168 QRS: 26 QRSD: 98 T: -74 QT: 352 QTc: 461 Interpretive Statements Sinus tachycardia Ventricular trigeminy LVH with secondary repolarization abnormality Inferior infarct, age indeterminate Anterior ST elevation, probably due to LVH Electronically Signed On 09-11-2025 17:33:[address] VERNON Du Please click the below link to view image of tracing.
[2025-09-10 16:15] LABS: MEAN PLATELET VOLUME 8.1 FL (7.4-10.4); RED CELL DISTRIBUTION WIDTH 15.8 % (11.5-14.5)
--- NOTE | 2025-09-10 16:29 | RADIOLOGY REPORT ---
CHEST RADIOGRAPH Indication: CP Technique: Single frontal view of the chest was obtained COMPARISON: DI CHEST,SINGLE VIEW on DOS: 08/30/25, DI CHEST,SINGLE VIEW on DOS: 08/02/25, DI CHEST,SINGLE VIEW on DOS: 10/14/23, CHEST,SINGLE VIEW on DOS: 08/27/21, CHEST,SINGLE VIEW on DOS: 08/26/21 FINDINGS: Lines and Tubes: None Lungs: Mild vascular congestion Pleura: No effusion. No pneumothorax. Cardiomediastinal contours: Mild cardiomegaly Bones: Median sternotomy. No acute osseous abnormality IMPRESSION: Mild cardiomegaly and vascular congestion.
[2025-09-10 17:53] LABS: CREATININE 2.20 MG/DL (0.40-0.90); PRO BRAIN NATRIURETIC PEPTIDE 13830 PG/ML (0-125); TOTAL CARBON DIOXIDE 24.1 MMOL/L (24-32); eCRCL 26 ML/MIN; eGFR 22 ML/MIN
--- NOTE | 2025-09-10 18:22 | Physician Documentation ---
History of Present Illness ~ Chief Complaint: Shortness of Breath Stated Complaint: SOB Time Seen by MD: 18:14 Primary Medical Doctor: [facility] Mode of Arrival: POV HPI Patient presents to the emergency room with increasing shortness of breath. She was admitted here recently for similar symptoms. She does not feel safe going home. She reports compliance with her medications. She states that she did have a appointment today with her elevator erector, Dr. Lares. She states that he wants to increase her Lasix. She also mentions that he has mentioned replacing her valves as well. Medication Reconciliation Allergies: Coded Allergies: sulfamethoxazole (Verified Allergy, Severe, RASH, 09/10/25) trimethoprim (Verified Allergy, Severe, RASH, 09/10/25) Scheduled Aspirin (Aspirin EC), 1 TAB PO DAILY, (Reported) Atorvastatin Calcium* (Lipitor*), 1 TAB PO DAILY, (Reported) Dapagliflozin Propanediol (Farxiga), 1 TAB PO DAILY, (Reported) Furosemide 40 MG (Lasix), 1 TAB PO DAILY Discontinued Medications Furosemide (Furosemide), 1 TAB PO DAILY Discontinued Reason: Prescription changed Metformin HCl (Metformin HCl), 1 TAB PO BID, (Reported) Metoprolol Succinate (Metoprolol Succinate), 1 TAB PO DAILY, (Reported) Past Medical History Past Medical History: Congestive Heart Failure, Myocardial Infarction, Diabetes Past Surgical History: coronary bypass surgery Alcohol Use: None Drug Use: none Lives In: Home Occupation: retired Review of Systems ROS All review of systems negative except as per HPI Physical Exam Vital Signs: Temperature: 96.9, Source: Temporal, Heart Rate: 102, Respiratory Rate: 21, BP: 107/64, Pulse Oximetry: 98, Weight: 104.550 Oxygen Flow Rate: 0 Physical Exam General: Patient is awake, alert, oriented x4 in no acute distress Head: Normocephalic and atraumatic. Eyes: Conjunctival normal. EOMI. PERRL. ENT: Mucous membranes moist. Neck: Supple, trachea is midline. Chest: Clear to auscultation bilaterally without rales, rhonchi, or wheezes. There is no accessory muscle use or retractions. Noted crackles Cardiac: RRR without murmurs, gallops, or rubs. Abd: Soft, nondistended, nontender, with normoactive bowel sounds. No guarding, rebound, or rigidity. Progress Results/Orders Results/Orders Vital Signs 09/10/25 09/10/25 09/10/25 15:41 17:59 17:59 Temp 96.9 Pulse 102 Resp 14 21 B/P (MAP) 107/64 Pulse Ox 95 98 O2 Delivery Room Air* O2 Flow Rate 0 0 FiO2 21 Laboratory Tests Test 09/10/25 16:06 09/10/25 17:39 White Blood Count 6.3 Red Blood Count 3.72 L Hemoglobin 10.6 L Hematocrit 32.3 L Mean Corpuscular Volume 86.8 Mean Corpuscular Hemoglobin 28.5 Mean Corpuscular Hemoglobin Concent 32.9 L Red Cell Distribution Width 15.8 H Platelet Count 310 Mean Platelet Volume 8.1 Neutrophils (%) (Auto) 66.5 Lymphocytes (%) (Auto) 22.8 Monocytes (%) (Auto) 8.4 Eosinophils (%) (Auto) 1.6 Basophils (%) (Auto) 0.7 Neutrophils # (Auto) 4.2 Lymphocytes # (Auto) 1.4 Monocytes # (Auto) 0.5 Eosinophils # (Auto) 0.1 Basophils # (Auto) 0.0 CBC Comment Sodium Level 140 Potassium Level 3.2 L Chloride Level 103 Carbon Dioxide Level 24.1 Anion Gap 13 Blood Urea Nitrogen 41 H Creatinine 2.20 H Estimated GFR/1.73 m2 22 BUN/Creatinine Ratio 18.6 Glucose Level 181 H Calcium Level 9.1 Troponin I High Sensitivity 55 *H 50 Pro-B-Type Natriuretic Peptide 31937 H Albumin 3.7 Chemistry Comments Troponin I High Sens Percent Delta 9 Troponin I Hi Sens Absolute Change -5 EKG/XRAY/CT/US/VASC/MRI EKG : Additional Comment EKG interpreted by myself shows time of 1539, rate 103 sinus tachycardia normal axis, nonspecific ST-T changes, noted PVC Chest X-Ray : Additional Comments Exam: CHEST,SINGLE VIEW CHEST RADIOGRAPH Indication: CP Technique: Single frontal view of the chest was obtained COMPARISON: DI CHEST,SINGLE VIEW on DOS: 08/30/25, DI CHEST,SINGLE VIEW on DOS: 08/02/25, DI CHEST,SINGLE VIEW on DOS: 10/14/23, CHEST,SINGLE VIEW on DOS: 08/27/21, CHEST,SINGLE VIEW on DOS: 08/26/21 FINDINGS: Lines and Tubes: None Lungs: Mild vascular congestion Pleura: No effusion. No pneumothorax. Cardiomediastinal contours: Mild cardiomegaly Bones: Median sternotomy. No acute osseous abnormality IMPRESSION: Mild cardiomegaly and vascular congestion. Medical Decision Making Additional information obtaine: old records Findings Patient presents to the emergency room for evaluation of shortness of breath. Differentials include but are not limited to CHF, pneumonia, pulmonary embolism, COPD. Workup consistent with CHF exacerbation. Lasix initiated. Heart Score: 3 Differential Dx:Considerations: Include: anxiety, asthma, bronchitis, cardiogenic shock, CHF, COPD, dysrhythmia, hypertension, accelerated, hypertension, essential, hypertension, malignant, hyperventilation, hyponat remia, myocardial infarction, panic attack, pneumonia, pneumonitis, pneumothorax, PSVT, pulmonary embolism, respiratory distress, respiratory failure, sinusitis, upper resp. infection, other Departure Admitted to Inpatient Unit: yes, to hospitalist Impression: Primary Impression: CHF (congestive heart failure) Condition: Guarded Referrals: NO PRIMARY CARE PROVIDER (PCP) Signature Scribe Signature: No scribe Attestation: The note accurately reflects work and decisions made by me.Marshal Mendiola MD 09/10/25 18:31 MARSHAL MENDIOLA MD Sep 10, 2025 18:22
[2025-09-10] MEDS: potassium Cl 20 mEq SR tablet PO STA (19:30)
[2025-09-10] MEDS: furosemide 10 MG/1 ML 10ml inj IV ONE (19:31)
[2025-09-10] MEDS ORDERED: FURO40TA4 PO (21:36)
[2025-09-10] MEDS ORDERED: mag hydrox/Alum hydrox/simeth 30ml oral suspension PO PRN (21:55)
[2025-09-10] MEDS ORDERED: potassium Cl 40MEQ/1/2NS 520ml 520 ML IV PRN (21:55)
[2025-09-10] MEDS ORDERED: ondansetron/PF 4mg/2ml inj IV PRN (21:55)
[2025-09-10] MEDS ORDERED: magnesium sulf-water 4G/100mL 100 ML IV PRN (21:55)
[2025-09-10] MEDS ORDERED: HYDROcodone/acetaminophen 5mg/325mg tablet PO PRN (21:55)
[2025-09-10] MEDS ORDERED: potassium Cl 20 mEq SR tablet PO PRN (21:55)
[2025-09-10] MEDS ORDERED: magnesium sulf-water 2g/50mL 50 ML IV PRN (21:55)
[2025-09-10] MEDS ORDERED: HYDROcodone/acetaminophen 10/325mg tab PO PRN (21:55)
[2025-09-10] MEDS ORDERED: magnesium Cl slow-release 64mg tablet PO PRN (21:55)
[2025-09-10 22:00] VITALS: BP 105/69; PULSE 97; RESP 20; O2SAT 94
[2025-09-10] MEDS ORDERED: DEXTROSE 15 GM of carb/4 tabs (each vial/BOTTLE has 4 tablets) PO PRN ×2 (22:00)
[2025-09-10] MEDS ORDERED: glucagon, human recombinant 1mg kit SUBCUT PRN (22:00)
[2025-09-10] MEDS ORDERED: dextrose 50%-water 50ml dispensing syringe IV PRN ×2 (22:00)
--- NOTE | 2025-09-10 22:51 | HISTORY AND PHYSICAL-Residence ---
History & Physical Providers to CC Resident Creating Document: CARMEN COX RES ~ History of Present Illness Primary Medical Doctor: [facility] Reason for Admit\Complaint: CHF EXACERBATION History of Present Illness 70-year-old female with history of heart failure with reduced EF 45%, status post CABG x4 in 2020, CKD stage 4, hypertension, type 2 diabetes, hyperlipidemia presents to the ED with chief complaints of worsening bilateral lower extremity edema and shortness of breath. She is extremely short of breath, even when talking. She has associated weakness. She was admitted here last week and was treated for CHF exacerbation, severe aortic stenosis requiring valve repair, type 2 [place]. She states that post discharge he has been compliant with her medications and had a follow up visit with Dr. Lares earlier this morning. Dr. Lares had recommended that he would be increasing her Lasix, she is currently taking 40 q.a.m.. During her previous admission she was having soft blood pressures hence Entresto and metoprolol were held. But today Dr. Lares had recommended that she restarts the above medications. Denies significant chest pains, diaphoresis, fevers/chills, nasal congestion, expectoration, palpitations, or weight loss. Does not drink, quit smoking more than five years ago. Is independent in daily activities. Has been trying to restrict fluids to 1 L a day at home. Allergies: Coded Allergies: sulfamethoxazole (Verified Allergy, Severe, RASH, 09/10/25) trimethoprim (Verified Allergy, Severe, RASH, 09/10/25) Home Medications Home Medications Active Reported Furosemide 40 Mg Tablet 2 Tab PO DAILY Farxiga (Dapagliflozin Propanediol) 10 Mg Tablet 1 Tab PO DAILY 30 Days Lipitor* (Atorvastatin Calcium) 40 Mg Tablet 1 Tab PO DAILY 30 Days Aspirin EC (Aspirin) 81 Mg Tablet.dr 1 Tab PO DAILY 30 Days Past Medical History Past Medical History Heart failure with reduced EF 45% CAD status post CABG x4 Hypertension Hyperlipidemia CKD stage 4 Type 2 diabetes Past Surgical History Surgical History Comment CABG x4 in 2020 (combs to LAD, SVG to diagonal, SVG to PDA, SVG to OM) Tonsillectomy Past Social History Alcohol Use: None Drug Use: None Lives In: Home Occupation: retired ROS ROS Reviewed in full. All negative except for pertinent positive HPI. Exam Vitals: Vital Signs Date Time Temp Pulse Resp B/P (MAP) Pulse Ox O2 Delivery O2 Flow Rate FiO2 09/10/25 22:09 99 09/10/25 19:22 15 108/68 (81) 95 0 09/10/25 17:59 Room Air* 21 09/10/25 15:41 96.9 General: General: Awake and Alert, mild acute distress. HEENT: Conjunctiva pink, Sclera clear, Mucus Membranes moist. Neck: Supple without masses and tenderness. Resp: Unlabored. Fine basal crackles bilaterally. Heart: Regular rhythm, normal S1 and S2, grade 4/6 ejection systolic murmur in the aortic area. Holosystolic murmur in the mitral area. Abdomen: Soft and non tender no organomegaly. Normal bowel sounds x4 quadrant normoactive. No guarding or rigidity. Extremities: Normal ROM, bilateral lower extremity edema up to knees 2+. Bilateral lower extremity pulses intact. SALES COORDINATOR: No gross motor or sensory abnormalities. Skin: Warm and Dry. Diagnostic Data Last Recorded Lab Results: 09/10/25 1606 09/10/25 1606 Advance Care Planning Advanced Care plannin - 30 Minutes (I spent total of 15-30 minutes reviewing various resuscitative measures with the patient. Patient decided to be full code.) Additional Plan 70-year-old female with history of heart failure with reduced EF 45%, status post CABG x4 in 2020, CKD stage 4, hypertension, type 2 diabetes, hyperlipidemia presents to the ED with chief complaints of worsening bilateral lower extremity edema and shortness of breath. Acute exacerbation of CHF with reduced EF 45% per echo in 08/04 Hypokalemia She has bilateral basal fine crackles, also has bilateral lower extremity edema 2+ up to the knee Chest x-ray shows mild pulmonary vascular congestion Received Lasix 40 x 1 in the ED Continue IV diuresis, increase the dose of Lasix to 60 daily (20 t.i.d.) Strict Is&Os Sodium restricted diet (patient does not want to be on heart healthy or carb controlled diet, recommended regular diet with sodium restriction) GDMT as tolerated after med rec, Entresto and metoprolol were held in previous admission with concerns of hypotension, resume as able. Hold for SBP less than 100 and heart rate less than 60. Fluid restriction 1-1.2 L per day Severe aortic stenosis requiring valve repair (TAVR) Severe mitral regurg CAD status post CABG Per echo in 08/04: LVEF is 45%. NAWAF 0.64 cm2, gradient 79/42 BKA V4 33 cm/sec. She has severe mitral regurgitation. RVSP is 58 mmHg Elevated right heart pressures, possible underlying pulmonary hypertension She has an angiogram scheduled for September 12, [address] Lares for pre TAVR evaluation, Dr Lares told that she will be getting TAVR before the year ends. Consult Dr. Daly Lares in a.m. Type 2 [place] Mildly elevated troponins 55, 50, [address]/T-wave changes on EKG, she does not have chest pain Continue to monitor JAVIER on CKD likely secondary to renal tubular stasis She is currently fluid overloaded, continue diuresis with Lasix 60 daily Monitor I's and os Type 2 diabetes, on hyper hypoglycemia protocol Chronic normocytic normochromic anemia, H&H stable Continue to monitor H&H Awaiting med rec Code Status: Full code DVT prophylaxis: Heparin Analgesia/sedation: None Line/tube: PIV GI prophylaxis: None Nutrition: Sodium restricted diet Prognosis: Guarded Disposition: Continue medical management. Patient seen, examined and discussed with the attending physician Dr. Harris. Carmen Cox MD. IM Resident PGY-3 Patient case discussed with resident, agree with the assessment and plan as above. Adenike Harris MD Critical Care Date of Service: Sep 10, 2025 Billing Provider: ADENIKE HARRIS MD, ELIZABETH, RES Sep 10, 2025 22:51 ADENIKE HARRIS MD Sep 11, 2025 14:29
[2025-09-10] MEDS: potassium Cl 20 mEq SR tablet PO PRN (23:40)
[2025-09-11] VITALS (9 sets, daily range): BP systolic 82–102; BP diastolic 56–66; PULSE 87–105; RESP 12–23; TEMP 96.9–98.2; O2SAT 94–97
[2025-09-11 06:59] LABS: MEAN PLATELET VOLUME 8.5 FL (7.4-10.4); RED CELL DISTRIBUTION WIDTH 15.6 % (11.5-14.5)
[2025-09-11 07:08] LABS: INR 1.2 INR
[2025-09-11 07:25] LABS: CREATININE 1.96 MG/DL (0.40-0.90); PHOSPHORUS 3.5 MG/DL (2.3-4.5); PRO BRAIN NATRIURETIC PEPTIDE 16943 PG/ML (0-125); TOTAL CARBON DIOXIDE 23.4 MMOL/L (24-32); eCRCL 29 ML/MIN; eGFR 25 ML/MIN
[2025-09-11] MEDS: K and/or MAG REPLACEMENT MC SCH (08:00)
[2025-09-11] MEDS: heparin, porcine 5000 units/ml vial SQ SCH (08:53)
[2025-09-11] MEDS: furosemide 10 MG/1 ML 10ml inj IV SCH (09:06)
[2025-09-11] MEDS: INSULIN LISPRO 100 UNIT/ML INSULN.PEN MULTI-DOSE SQ SCH ×2 (09:38)
--- NOTE | 2025-09-11 11:11 | PROGRESS NOTE ---
Progress Note Cardiology Providers to CC ~ Subjective Subjective Patient was known history of coronary artery disease status post CABG x4 in 2020, chronic kidney disease, hypertension, hyperlipidemia, diabetes, heart failure with mildly reduced ejection fraction and severe aortic stenosis. She had planned for further workup for her aortic stenosis with left and right cardiac catheterization tomorrow, September 12, 2025 however she presented secondary to increased shortness for breath. Furthermore, she had a recent admission with similar symptoms. She has had soft blood pressures on Lasix. During her last office visit she was restarted on GDMT. Objective Result Diagram: 09/11/25 0610 09/11/25 0610 Objective General: Awake, alert, oriented. No apparent distress Respiratory: Lungs are clear to auscultation bilaterally. No respiratory distress. Chest: Normal shape and size. No accessory muscle use. Cardiovascular: Regular rate and rhythm. ++ ÓSCAR. No gallop, rub. Extremities: No lower extremity edema, cyanosis or clubbing. Neurologic: Alert and oriented x4. Nonfocal Psychiatric: Normal mood and affect. Skin: Normal color. Warm and dry. Coagulation Studies Laboratory Tests Test 09/11/25 06:10 Prothrombin Time 11.9 SECONDS (9.0-12.0) INR International Normalized Ratio 1.2 INR Coagulation Comments Problem\Assessment\Plan Additional Plan Patient presents secondary to increased shortness for breath. The following is her problem list: Heart failure, acute on chronic Heart failure with mildly reduced ejection fraction at 40-45% by echocardiogram last month --continue diuretics --continue with metoprolol succinate --continue home [facility] Severe aortic stenosis Severe mitral regurgitation --we will plan for angiogram prior to discharge however patient will need to be able to lay flat. --continue diuretics and monitor strict intake and output measurements. History of coronary artery disease with history of CABG --continue with aspirin, statin Chronic kidney disease --monitoring Diabetes mellitus --management per hospitalist Case discussed with Dr. J Luis Lares who is in agreement with this plan. Supervising Physician: LI Thakur NP Sep 11, 2025 11:11
--- NOTE | 2025-09-11 19:51 | PROGRESS NOTE ---
Daily Progress Note Providers to CC ~ Antibiotic Timeout Antibiotic Ordered?: No Subjective Patient is 70-year-old female recently discharged on September 03, 2025 and came back with almost similar issues. Cardiology consultation done by Dr. Lares's team and appreciate their input for this patient's case, plan is for angiogram likely in a.m.. Patient also feels short of breaths even though she is saturating well on room air. Objective Vital Signs Date Time Temp Pulse Resp B/P (MAP) Pulse Ox O2 Delivery O2 Flow Rate FiO2 09/11/25 17:10 97 Room Air* 0 21 09/11/25 15:00 97.3 101 23 92/62 (72) Result Diagram: 09/11/25 0610 09/11/25 0610 General-patient not in any acute distress, alert awake oriented, chronically ill-appearing HEENT-atraumatic normocephalic, neck supple without elevated JVD, no thyromegaly or carotid bruit. No lymphadenopathy bilaterally. Eyes-no icterus or pallor seen in eyes Chest-clear to auscultation bilaterally, breathing nonlabored no tachypnea, no wheezing, no crepitation, no crackles. Heart-S1-S2 normal, regular heart rate , systolic murmur present Abdomen bowel sounds positive on auscultation, soft nondistended nontender no guarding, no rigidity Skin no active skin rash Neurology-grossly intact, nonfocal alert awake oriented Extremity- 1 plus pedal edema able to move all 4 extremities Psychiatry - patient is not confused or agitated cooperated during physical examination Coagulation Studies Laboratory Tests Test 09/11/25 06:10 Prothrombin Time 11.9 SECONDS (9.0-12.0) INR International Normalized Ratio 1.2 INR Coagulation Comments Problem\Assessment\Plan 70-year-old female with history of heart failure with reduced EF 45%, status post CABG x4 in 2020, CKD stage 4, hypertension, type 2 diabetes, hyperlipidemia presents to the ED with chief complaints of worsening bilateral lower extremity edema and shortness of breath. Acute exacerbation of CHF with reduced EF 45% per echo in 08/04 Hypokalemia She has bilateral basal fine crackles, also has bilateral lower extremity edema 1+ Chest x-ray shows mild pulmonary vascular congestion Received Lasix 40 x 1 in the ED Continue IV diuresis, increase the dose of Lasix to 60 daily (20 t.i.d.) Strict Is&Os Sodium restricted diet (patient does not want to be on heart healthy or carb controlled diet, recommended regular diet with sodium restriction) Cardiology team evaluated the patient and recommended to continue metoprolol succinate, Farxiga and diuretic GDMT as tolerated , will Hold for SBP less than 90 and heart rate less than 50. Fluid restriction 1-1.2 L per day Severe aortic stenosis requiring valve repair (TAVR) Severe mitral regurg CAD status post CABG Per echo in 08/04: LVEF is 45%. NAWAF 0.64 cm2, gradient 79/42 BKA V4 33 cm/sec. She has severe mitral regurgitation. RVSP is 58 mmHg Elevated right heart pressures, possible underlying pulmonary hypertension Angiogram scheduled for September 12, [address] Lares for pre TAVR evaluation, Type 2 [place] Mildly elevated troponins 55, 50, [address]/T-wave changes on EKG, she does not have chest pain Continue to monitor JAVIER on CKD likely secondary to renal tubular stasis She is currently fluid overloaded, continue diuresis with Lasix 60 daily Monitor I's and os Type 2 diabetes, on hyper hypoglycemia protocol Chronic normocytic normochromic anemia, H&H stable Continue to monitor H&H Code Status: Full code DVT prophylaxis: Heparin Analgesia/sedation: None Line/tube: PIV GI prophylaxis: None Nutrition: Sodium restricted diet Her Current condition is guarded I will continue to follow patient in AM Date of Service: Sep 11, 2025 Billing Provider: KIMBERLI COLLINS MD Common Visit Codes: [id number] INP/OBS CARE(HIGH) KIMBERLI COLLINS MD Sep 11, 2025 19:51
[2025-09-12] VITALS (10 sets, daily range): BP systolic 95–115; BP diastolic 60–92; PULSE 64–104; RESP 11–22; TEMP 97–97.9; O2SAT 92–100
[2025-09-12 07:07] LABS: MEAN PLATELET VOLUME 8.2 FL (7.4-10.4); RED CELL DISTRIBUTION WIDTH 16.2 % (11.5-14.5)
[2025-09-12 07:44] LABS: CREATININE 2.04 MG/DL (0.40-0.90); PHOSPHORUS 3.8 MG/DL (2.3-4.5); TOTAL CARBON DIOXIDE 22.8 MMOL/L (24-32); eCRCL 28 ML/MIN; eGFR 24 ML/MIN
--- NOTE | 2025-09-12 19:43 | PROGRESS NOTE ---
Daily Progress Note Providers to CC ~ Antibiotic Timeout Antibiotic Ordered?: No Subjective Patient was seen in her room she was NPO for angiogram today to be done by Dr. Lares's team. It was discussed with the patient in visit that her renal function is declining likely secondary to diuretic dose and tapered furosemide. Patient later got anxious and wanted something for anxiety Objective Vital Signs Date Time Temp Pulse Resp B/P (MAP) Pulse Ox O2 Delivery O2 Flow Rate FiO2 09/12/25 15:00 97.0 64 14 95/63 (74) 93 Room Air 09/11/25 17:10 0 21 Result Diagram: 09/12/25 0634 09/12/25 0634 General-patient not in any acute distress, alert awake oriented, chronically ill-appearing HEENT-atraumatic normocephalic, neck supple without elevated JVD, no thyromegaly or carotid bruit. No lymphadenopathy bilaterally. Eyes-no icterus or pallor seen in eyes Chest-clear to auscultation bilaterally, breathing nonlabored no tachypnea, no wheezing, no crepitation, no crackles. Heart-S1-S2 normal, regular heart rate , systolic murmur present Abdomen bowel sounds positive on auscultation, soft nondistended nontender no guarding, no rigidity Skin no active skin rash Neurology-grossly intact, nonfocal alert awake oriented Extremity- 1 plus pedal edema able to move all 4 extremities Psychiatry - patient is not confused or agitated cooperated during physical examination Coagulation Studies Laboratory Tests Test 09/11/25 06:10 Prothrombin Time 11.9 SECONDS (9.0-12.0) INR International Normalized Ratio 1.2 INR Coagulation Comments Problem\Assessment\Plan 70-year-old female with history of heart failure with reduced EF 45%, status post CABG x4 in 2020, CKD stage 4, hypertension, type 2 diabetes, hyperlipidemia presents to the ED with chief complaints of worsening bilateral lower extremity edema and shortness of breath. Acute exacerbation of CHF with reduced EF 45% per echo in 08/04 Hypokalemia She has bilateral basal fine crackles, also has bilateral lower extremity edema 1+ Chest x-ray shows mild pulmonary vascular congestion Received Lasix 40 x 1 in the ED Continue IV diuresis in low dose. Strict Is&Os Sodium restricted diet (patient does not want to be on heart healthy or carb controlled diet, recommended regular diet with sodium restriction) Cardiology team evaluated the patient and recommended to continue metoprolol succinate, Farxiga and diuretic GDMT as tolerated , will Hold for SBP less than 90 and heart rate less than 50. Fluid restriction 1-1.2 L per day Severe aortic stenosis requiring valve repair (TAVR) Severe mitral regurg CAD status post CABG Per echo in 08/04: LVEF is 45%. NAWAF 0.64 cm2, gradient 79/42 BKA V4 33 cm/sec. She has severe mitral regurgitation. RVSP is 58 mmHg Elevated right heart pressures, possible underlying pulmonary hypertension Angiogram scheduled for September 12, [address] Lares for pre TAVR evaluation, Type 2 [place] Mildly elevated troponins 55, 50, [address]/T-wave changes on EKG, she does not have chest pain Continue to monitor JAVIER on CKD likely secondary to renal tubular stasis She is currently fluid overloaded, continue diuresis with Lasix 20 daily Monitor I's and os Type 2 diabetes, on hyper hypoglycemia protocol Chronic normocytic normochromic anemia, H&H stable Continue to monitor H&H Code Status: Full code DVT prophylaxis: Heparin Analgesia/sedation: None Line/tube: PIV GI prophylaxis: None Nutrition: Sodium restricted diet Her Current condition is guarded I will continue to follow patient in AM . Date of Service: Sep 12, 2025 Billing Provider: KIMBERLI COLLINS MD Common Visit Codes: [id number] INP/OBS CARE(HIGH) KIMBERLI COLLINS MD Sep 12, 2025 19:43
[2025-09-13] VITALS (18 sets, daily range): BP systolic 82–113; BP diastolic 56–84; PULSE 91–104; RESP 13–34; TEMP 96.7–98.4; O2SAT 84–98
[2025-09-13] MEDS: EMPAGLIFLOZIN 25 MG TABLET PO SCH (07:01)
[2025-09-13] MEDS: aspirin 81mg, enteric-coated 1 TAB TABLET.DR PO SCH (07:01)
[2025-09-13 07:03] LABS: MEAN PLATELET VOLUME 8.3 FL (7.4-10.4); RED CELL DISTRIBUTION WIDTH 15.8 % (11.5-14.5)
[2025-09-13 07:57] LABS: CREATININE 2.04 MG/DL (0.40-0.90); PHOSPHORUS 4.0 MG/DL (2.3-4.5); TOTAL CARBON DIOXIDE 23.3 MMOL/L (24-32); eCRCL 28 ML/MIN; eGFR 24 ML/MIN
--- NOTE | 2025-09-13 17:15 | CARDIAC CATH REPORT ---
Cardiac Cath Report Providers to CC CC: ONUR RAMIREZ MD Procedure Comments: 1. Right Heart Catheterization 2. Selective Coronary Angiography 3. Coronary Artery Bypass Angiography 4. Right Femoral vein access 5. Left Radial artery access Brief History/Indications: 70yo woman with HTN, HLD, HFmrEF, , CAD(s/p 4vCABG, MCKNIGHT-LAD, SVG-OM, SVG-Dx, SVG-PDA) admitted with increased SOB Techniques: After informed consent was obtained, the patient was brought to the cardiac catheterization laboratory and prepped and draped in usual sterile fashion for left heart catheterization and other procedures mentioned above. The Left wrist and right groin were anesthetized with 1% Lidocaine. The left radial artery accessed via the Seldinger technique after which a 6Fr sheath was placed. The right femoral vein was accessed via the Seldinger technique after which a 6Fr sheath was placed. The Manson was advanced via the right femoral sheath to the right atrium, the right ventricle, the pulmonary artery, and wedge position. Through the 6Fr left radial sheath, a JL4 was used to engage the left coronary artery, a JR4 to engage the right coronary artery, left internal mammary artery, an LCB was used to engage the coronary artery bypass grafts. At the conclusion of the case the sheath was removed and hemostasis obtained with a VascBand for the radial sheath and manual compression for the femoral sheath. Findings Findings: HEMODYNAMICS: RA: 13 mmHg RV: 62/3, RVEDP 27 mmHg PA: 60/33, mPAP 44 mmHg PCWP: 23 mmHg(V-waves to 30mmHg) TP mmHg DP mmHg Ao: 101/45, MAP 68 mmHg HR: 95 bpm LV: Not obtained due to known severe PA Sat: 44% Ao Sat: 92% CO/CI (Salma): 3.4/1.52 PVR: 6 ERWIN CORONARY ARTERIES: Rt Dominant LMCA: Luminal Irregularities LAD: 80% mid, then 100% occluded LCx: 100% mid occlusion RCA: 30% distal stenosis PDA: 30-40% stenosis PL: 100% occluded GRAFTS: MCKNIGHT-LAD: Patent SVG-Dx: Patent SVG-OM: Patent SVG-PDA: Patent Results Results: 1. Severe [place] vessel CAD(improved PDA flow given endarterectomy) with 100% occluded mid LAD, LCx, and PL. 2. Patent MCKNIGHT-LAD, SVG-Dx, SVG-OM, SVG-PDA 3. Elevated filling pressures, PCWP 23mmHg, mPAP 44mmHg, TP mmHg, DP mmHg 4. LRA and RFV access, closed with VascBand and manual compression RECOMMENDATIONS: 1. Agree with referral to [facility] TAVR clinic for evaluation of severe, symptomatic aortic stenosis. 2. Incr Lasix to 40mg IV BID given elevated filling pressures SHINE RAMIREZ MD Sep 13, 2025 17:15
--- NOTE | 2025-09-13 19:37 | PROGRESS NOTE ---
Daily Progress Note Providers to CC ~ Antibiotic Timeout Antibiotic Ordered?: No Subjective patient was seen in her room before she left for cardiac catheterization today. Cardiac catheterization showedSevere [place] vessel CAD with 100% occluded mid LAD, LCx, and PL , they will do referral to [facility] clinic for evaluation of severe, symptomatic aortic stenosis. Recommended to Incr Lasix to 40mg IV BID given elevated filling pressures. Objective Vital Signs Date Time Temp Pulse Resp B/P (MAP) Pulse Ox O2 Delivery O2 Flow Rate FiO2 09/13/25 18:30 100 09/13/25 17:35 20 100/70 (80) 91 Room Air 09/13/25 15:00 98.4 09/13/25 08:00 0.0 21 Result Diagram: 09/13/2562609/13/25626 General-patient not in any acute distress, alert awake oriented, chronically ill-appearing HEENT-atraumatic normocephalic, neck supple without elevated JVD, no thyromegaly or carotid bruit. No lymphadenopathy bilaterally. Eyes-no icterus or pallor seen in eyes Chest-clear to auscultation bilaterally, breathing nonlabored no tachypnea, no wheezing, no crepitation, no crackles. Heart-S1-S2 normal, regular heart rate , systolic murmur present Abdomen bowel sounds positive on auscultation, soft nondistended nontender no guarding, no rigidity Skin no active skin rash Neurology-grossly intact, nonfocal alert awake oriented Extremity- 1 plus pedal edema able to move all 4 extremities Psychiatry - patient is not confused or agitated cooperated during physical examination Coagulation Studies Laboratory Tests Test 09/11/25 06:10 Prothrombin Time 11.9 SECONDS (9.0-12.0) INR International Normalized Ratio 1.2 INR Coagulation Comments Problem\Assessment\Plan 70-year-old female with history of heart failure with reduced EF 45%, status post CABG x4 in 2020, CKD stage 4, hypertension, type 2 diabetes, hyperlipidemia presents to the ED with chief complaints of worsening bilateral lower extremity edema and shortness of breath. Acute exacerbation of CHF with reduced EF 45% per echo in 08/04 Hypokalemia She had bilateral basal fine crackles, also has bilateral lower extremity edema 1+ Chest x-ray shows mild pulmonary vascular congestion Continue IV diuresis Strict Is&Os Sodium restricted diet (patient does not want to be on heart healthy or carb controlled diet, recommended regular diet with sodium restriction) Cardiology team evaluated the patient and recommended to continue metoprolol succinate, Farxiga and diuretic GDMT as tolerated , will Hold for SBP less than 90 and heart rate less than 50. Cardiac catheterization showedSevere [place] vessel CAD with 100% occluded mid LAD, LCx, and PL , they will do referral to [facility] clinic for evaluation of severe, symptomatic aortic stenosis. Recommended to Incr Lasix to 40mg IV BID given elevated filling pressures. Severe aortic stenosis requiring valve repair (TAVR) Severe mitral regurg CAD status post CABG Per echo in 08/04: LVEF is 45%. NAWAF 0.64 cm2, gradient 79/42 BKA V4 33 cm/sec. She has severe mitral regurgitation. RVSP is 58 mmHg Elevated right heart pressures, possible underlying pulmonary hypertension Angiogram scheduled for September 12, [address] Lares for pre TAVR evaluation, they will do referral to [facility] clinic for evaluation of severe, symptomatic aortic stenosis Type 2 NV Mildly elevated troponins 55, 50, [address] of [address]/T-wave changes on EKG, she does not have chest pain Continue to monitor JAVIER on CKD likely secondary to renal tubular stasis She is currently fluid overloaded, continue diuresis with Lasix 20 daily Monitor I's and os Type 2 diabetes, on hyper hypoglycemia protocol Chronic normocytic normochromic anemia, H&H stable Continue to monitor H&H Code Status: Full code DVT prophylaxis: Heparin Analgesia/sedation: None Line/tube: PIV GI prophylaxis: None Nutrition: Sodium restricted diet Her Current condition is guarded I will continue to follow patient in AM . Further management plan as recommended by Cardiology team. Date of Service: Sep 13, 2025 Billing Provider: KIMBERLI COLLINS MD Common Visit Codes: 83236-MIPKBYCUOL INP/OBS CARE(HIGH) KIMBRELI COLLINS MD Sep 13, 2025 19:37
[2025-09-14 02:00] VITALS: BP 105/73; PULSE 90; RESP 20; TEMP 97.2; O2SAT 97
[2025-09-14 06:00] VITALS: BP 113/62; PULSE 92; RESP 19; TEMP 97.6; O2SAT 96
[2025-09-14 06:12] LABS: ISTAT HGB ART 10.2 g/dl (12.0-16.0); ISTAT Hct ART 30 %PCV (35-45); ISTAT O2 SATURATION ARTERIAL 92 % (95-98); ISTAT SOURCE BLNK
[2025-09-14 06:12] LABS: ISTAT HGB MIX 10.2 g/dl (12.0-16.0); ISTAT Hct MIX 30 %PCV (35-45); ISTAT O2 SATURATION MIX VENOUS 44 % (60-80); ISTAT SOURCE BLNK
[2025-09-14 06:47] LABS: MEAN PLATELET VOLUME 8.3 FL (7.4-10.4); RED CELL DISTRIBUTION WIDTH 15.9 % (11.5-14.5)
[2025-09-14 07:12] LABS: CHOL/HDL RATIO 3.4 (0.00-4.99); CREATININE 2.10 MG/DL (0.40-0.90); LDL CHOLESTEROL 77 MG/DL (50-100); PHOSPHORUS 4.8 MG/DL (2.3-4.5); TOTAL CARBON DIOXIDE 23.1 MMOL/L (24-32); eCRCL 27 ML/MIN; eGFR 23 ML/MIN
[2025-09-14 08:00] VITALS: RESP 14; O2SAT 93; O2SAT 96
[2025-09-14] MEDS: magnesium hydroxide 30ml (MOM) UD suspension PO PRN (09:01)
[2025-09-14 11:00] VITALS: BP 88/57; PULSE 99; RESP 23; TEMP 97.9; O2SAT 96
[2025-09-14 15:00] VITALS: BP 88/56; PULSE 99; RESP 18; TEMP 97; O2SAT 98
[2025-09-14 15:05] VITALS: BP 93/61
--- NOTE | 2025-09-14 20:40 | DISCHARGE SUMMARY ---
Discharge Summary Providers to CC ~ Discharge Summary Admission Diagnosis: SOB, ACUTE CHF EXACERBATION Hospital Course DATE OF ADMISSION: 09/10/25 DATE OF DISCHARGE:09/14/25 CBC testing done on September 14, 2025 WBC 6.1 hemoglobin 10.0 hematocrit 30 point 0 platelet count 264. Serum chemistry done on September 14, 2025 sodium 138 potassium 3.6 creatinine 2.10 GFR 23 normal lipid panel. Unremarkable cardiac marker proBNP 68515 CHEST,SINGLE VIEWIMPRESSION: Mild cardiomegaly and vascular congestion. Discharge Diagnosis\Comment: Acute exacerbation of CHF with reduced EF 45% per echo in 08/04 Hypokalemia Severe aortic stenosis requiring valve repair (TAVR) Severe mitral regurg CAD status post CABG Type 2 TN JAVIER on CKD likely secondary to renal tubular stasis Type 2 diabetes, on hyper hypoglycemia protocol Chronic normocytic normochromic anemia, H&H stable Operations\Procedures: Cardiac catheterization Consultants: Dr Bg Lares Complications: none Condition on DC: Stable for transfer Discharge Summary: 70-year-old female with history of heart failure with reduced EF 45%, status post CABG x4 in 2020, CKD stage 4, hypertension, type 2 diabetes, hyperlipidemia presents to the ED with chief complaints of worsening bilateral lower extremity edema and shortness of breath. Acute exacerbation of CHF with reduced EF 45% per echo in 08/04 Hypokalemia She had bilateral basal fine crackles, also has bilateral lower extremity edema 1+ Chest x-ray shows mild pulmonary vascular congestion Continue IV diuresis Strict Is&Os Sodium restricted diet (patient does not want to be on heart healthy or carb controlled diet, recommended regular diet with sodium restriction) Cardiology team evaluated the patient and recommended to continue metoprolol succinate, Farxiga and diuretic GDMT as tolerated , will Hold for SBP less than 90 and heart rate less than 50. Cardiac catheterization showedSevere [place] vessel CAD with 100% occluded mid LAD, LCx, and PL , they will do referral to [facility] clinic for evaluation of severe, symptomatic aortic stenosis. Recommended to Incr Lasix to 40mg IV BID given elevated filling pressures. Severe aortic stenosis requiring valve repair (TAVR) Severe mitral regurg CAD status post CABG Per echo in 08/04: LVEF is 45%. NAWAF 0.64 cm2, gradient 79/42 BKA V4 33 cm/sec. She has severe mitral regurgitation. RVSP is 58 mmHg Elevated right heart pressures, possible underlying pulmonary hypertension Angiogram scheduled for September 12, [address] Lares for pre TAVR evaluation, they will do referral to [facility] clinic for evaluation of severe, symptomatic aortic stenosis Type 2 TN Mildly elevated troponins 55, 50, [address]/T-wave changes on EKG, she does not have chest pain Continue to monitor JAVIER on CKD likely secondary to renal tubular stasis She is currently fluid overloaded, continue diuresis with Lasix 20 daily Monitor I's and os Type 2 diabetes, on hyper hypoglycemia protocol Chronic normocytic normochromic anemia, H&H stable Continue to monitor H&H she has been afebrile and getting discharged to rehab in stable condition. Medication reconciliation done for rehab facility. Patient is seen and examined on the day of discharge. All labs, diagnostic workup and discharge plan discussed with patient in detail before her discharge. All questions and queries answered to the best of my professional medical knowledge. I heard patient's concerns and address appropriately. Physical therapy team recommended rehab discharge for patient . administrative manager Priya involved in patient's discharge plan. General-patient not in any acute distress, alert awake oriented, chronically ill-appearing HEENT-atraumatic normocephalic, neck supple without elevated JVD, no thyromegaly or carotid bruit. No lymphadenopathy bilaterally. Eyes-no icterus or pallor seen in eyes Chest-clear to auscultation bilaterally, breathing nonlabored no tachypnea, no wheezing, no crepitation, no crackles. Heart-S1-S2 normal, regular heart rate , systolic murmur present Abdomen bowel sounds positive on auscultation, soft nondistended nontender no guarding, no rigidity Skin no active skin rash Neurology-grossly intact, nonfocal alert awake oriented Extremity- 1 plus pedal edema able to move all 4 extremities Psychiatry - patient is not confused or agitated cooperated during physical examination *Problems/Diagnosis: (1) Severe aortic stenosis (2) Acute on chronic diastolic heart failure Status: Acute Total Time Spent on D/C: > 30 Minutes Date of Service: Sep 14, 2025 Billing Provider: KIMBERLI COLLINS MD Common Visit Codes: 85002-BOB/OBS DISCH DAY >30min KIMBERLI COLLINS MD Sep 14, 2025 20:39
== END 2025-09-14 17:42 | DRG 280 ==
LOC: ER 15:28 → ED HOLD 19:14 → EDBEDREQ 21:04 → PCU 3S 21:55
PROVIDERS: ADMIT Internal Medicine Pulmonary Disease; ATTEND Internal Medicine
PROC: 4A023N8 Measurement of Cardiac Sampling and Pressure, Bilateral, Percutaneous Approach (ICD-10-PCS; principal; 2025-09-13)
PROC: B2111ZZ Fluoroscopy of Multiple Coronary Arteries using Low Osmolar Contrast (ICD-10-PCS; 2025-09-13)
PROC: B2151ZZ Fluoroscopy of Left Heart using Low Osmolar Contrast (ICD-10-PCS; 2025-09-13)
PROC: B2131ZZ Fluoroscopy of Multiple Coronary Artery Bypass Grafts using Low Osmolar Contrast (ICD-10-PCS; 2025-09-13)
DX: I13.0 Hypertensive heart and chronic kidney disease with heart failure and stage 1 through stage 4 chronic kidney disease, or unspecified chronic kidney disease (principal); I50.23 Acute on chronic systolic (congestive) heart failure; I21.A1 Myocardial infarction type 2; N17.0 Acute kidney failure with tubular necrosis; N18.4 Chronic kidney disease, stage 4 (severe); E11.22 Type 2 diabetes mellitus with diabetic chronic kidney disease; E78.5 Hyperlipidemia, unspecified; D64.9 Anemia, unspecified; I08.0 Rheumatic disorders of both mitral and aortic valves; E87.6 Hypokalemia; I25.10 Atherosclerotic heart disease of native coronary artery without angina pectoris; F41.9 Anxiety disorder, unspecified; Z79.82 Long term (current) use of aspirin; Z79.899 Other long term (current) drug therapy; Z88.2 Allergy status to sulfonamides; Z88.1 Allergy status to other antibiotic agents; Z95.1 Presence of aortocoronary bypass graft; I25.2 Old myocardial infarction
CPT/HCPCS: 36415; 71045; 80048; 80061; 82803; 82948; 83735; 83880; 84100; 84484; 85014; 85025; 85610; 87081; 93005; 93461; 97161; 97530; 99152; 99153; 99285; A6213; A6258; C1751; C1769; C1894; G0378; J1644; J1815; J1938

== ENCOUNTER 2025-09-19 16:54 | Inpatient (IN) | payer MEDICARE, MEDICAID ==
[~2025-09-19] VITALS: Ht 180.3 cm; Wt 106.4 kg
--- NOTE | 2025-09-19 17:03 | ELECTROCARDIOGRAPH REPORT ---
[facility] Test Date: 2025-09-19 Test Time: 17:00:11 Pat Name: MALATHI WOODRUFF Department: EMERGENCY ROOM Room: [facility] 2013 Gender: F Senior Policy Analyst: : 1955 Requested By: JED GONGORA Order Number: [id number] Reading MD: Dr. VERNON Du Measurements Intervals [place] Rate: 60 P: 60 GA: 188 QRS: 45 QRSD: 115 T: -32 QT: 444 QTc: 444 Interpretive Statements Sinus rhythm Incomplete left bundle branch block Anterolateral infarct, age indeterminate Electronically Signed On 09-20-2025 18:11:[address] VERNON Du Please click the below link to view image of tracing.
--- NOTE | 2025-09-19 17:17 | RADIOLOGY REPORT ---
EXAM: DI CHEST,SINGLE VIEW TECHNIQUE: Single frontal chest radiograph CLINICAL HISTORY: CP COMPARISON: DI CHEST,SINGLE VIEW on DOS: 09/10/25, DI CHEST,SINGLE VIEW on DOS: 08/30/25, DI CHEST,SINGLE VIEW on DOS: 08/02/25, DI CHEST,SINGLE VIEW on DOS: 10/14/23, CHEST,SINGLE VIEW on DOS: 08/27/21 FINDINGS/IMPRESSION: Left pleural effusion with adjacent opacity. Enlarged cardiomediastinal silhouette, partially obscured. Median sternotomy changes are noted. No pneumothorax. Unchanged osseous structures.
[2025-09-19] MEDS: normal saline 1000ml 1,000 ML IV ONE (17:31)
[2025-09-19] MEDS: CefTRIAXone/D5W-Rocephin 1gm 50 ML IV ONE (17:32)
--- NOTE | 2025-09-19 17:32 | Physician Documentation ---
History of Present Illness ~ Chief Complaint: Shortness of Breath Stated Complaint: HYPERTENSION Time Seen by MD: 17:03 Primary Medical Doctor: [facility] Mode of Arrival: EMS, Stretcher HPI 70 year old female has been at [facility] for hypoxia and shortness of breath, generalized weakness. EMS noted reduced lung sounds left side. Patient denies fever, cough, N/V/D, chest pain. Blood pressure was borderline hypotensive en route. Medication Reconciliation Allergies: Coded Allergies: sulfamethoxazole (Verified Allergy, Severe, RASH, 09/10/25) trimethoprim (Verified Allergy, Severe, RASH, 09/10/25) Scheduled Aspirin (Aspirin EC), 1 TAB PO DAILY, (Reported) Atorvastatin Calcium* (Lipitor*), 1 TAB PO DAILY, (Reported) Dapagliflozin Propanediol (Farxiga), 1 TAB PO DAILY, (Reported) Furosemide (Furosemide), 2 TAB PO DAILY, (Reported) Past Medical History Past Medical History: Congestive Heart Failure, Myocardial Infarction, Diabetes Past Surgical History: coronary bypass surgery Alcohol Use: None Drug Use: none Lives In: Home Occupation: retired Review of Systems All Other Systems at this time: Reviewed and Negative Physical Exam Vital Signs: RN Vital Signs have been reviewed: Yes, Temperature: 95.9, Source: Temporal, Heart Rate: 59, Respiratory Rate: 23, BP: 90/61, Pulse Oximetry: 93, Weight: 111.000 Oxygen Flow Rate: 2.0 Physical Exam Gen: no distress HEENT: EOMI, PERRL, NCAT Pulm: diminished sounds L lung figueroa Cardiac: RRR no m/c/r Abd: deferred MSK: no deformity skin: w/d/i neuro: nonfocal Progress Results/Orders Results/Orders Orders - ADRIA WILLETT MD Ct Chest (09/19/25 18:45) Completed Orders - ADRIA WILLETT MD Ct Chest (09/19/25 18:45) Medications Received in ER Medications (Trade) Dose Ordered Sig/Kristan Route PRN Reason Start Time Stop Time Status Last Admin Dose Admin Ceftriaxone Sodium 50 ml @ 100 mls/hr ONCE ONCE IV 09/19/25 17:25 09/19/25 17:54 DC 09/19/25 17:32 100 MLS/HR Sodium Chloride 1,000 ml @ 1,000 mls/hr ONCE ONCE IV 09/19/25 17:25 09/19/25 18:24 DC 09/19/25 17:31 1,000 MLS/HR Vital Signs 09/19/25 09/19/25 09/19/25 09/19/25 16:59 16:59 17:15 17:21 Temp 95.9 Pulse 60 60 Resp 25 15 19 B/P (MAP) 84/54 82/43 (56) Pulse Ox 95 94 93 O2 Delivery Nasal Cannula* O2 Flow Rate 2.0 2 2.0 FiO2 N/A 09/19/25 09/19/25 09/19/25 09/19/25 17:24 17:45 18:00 18:29 Pulse 59 93 92 Resp 23 18 20 20 B/P (MAP) 90/61 (71) 99/76 (84) 97/53 (68) Pulse Ox 93 98 97 O2 Flow Rate 2.0 2.0 0 Laboratory Tests Test 09/19/25 17:09 09/19/25 17:31 09/19/25 17:47 09/19/25 18:11 Glucometer 211 H White Blood Count 11.7 H Red Blood Count 3.91 L Hemoglobin 10.8 L Hematocrit 33.2 L Mean Corpuscular Volume 85.1 Mean Corpuscular Hemoglobin 27.5 Mean Corpuscular Hemoglobin Concent 32.4 L Red Cell Distribution Width 16.5 H Platelet Count 322 Mean Platelet Volume 8.7 Neutrophils (%) (Auto) 68.5 Lymphocytes (%) (Auto) 18.2 L Monocytes (%) (Auto) 10.9 Eosinophils (%) (Auto) 1.4 Basophils (%) (Auto) 1.0 Neutrophils # (Auto) 8.0 H Lymphocytes # (Auto) 2.1 Monocytes # (Auto) 1.3 H Eosinophils # (Auto) 0.2 Basophils # (Auto) 0.1 CBC Comment Sodium Level 128 L Potassium Level 4.7 Chloride Level 92 L Carbon Dioxide Level 23.9 L Anion Gap 12 Blood Urea Nitrogen 102 H Creatinine 3.95 H Estimated GFR/1.73 m2 11 BUN/Creatinine Ratio 25.8 H Glucose Level 175 H Calcium Level 8.8 Pro-B-Type Natriuretic Peptide 58742 H Albumin 3.1 L Chemistry Comments Troponin I High Sensitivity 30 Blood Gas Specimen Type Arterial Blood Gas Puncture Site Rr O2 Saturation 96.1 Arterial Blood pH (Temp corrected) 7.378 Arterial Blood pCO2 (Temp correct) 32.5 Arterial Blood pO2 (Temp corrected) 87.8 Arterial Blood PO2/FiO2 Ratio 3.14 Arterial Blood HCO3 18.7 L Arterial Blood Base Excess -5.5 L Arterial Blood Oxyhemoglobin 95.5 Arterial Blood Carboxyhemoglobin 0.3 L Arterial Blood Methemoglobin 0.3 Arterial Blood Deoxyhemoglobin 3.9 Maxi Test Positive Blood Gas Hemoglobin 11.7 L Blood Gas Temperature 37.0 Blood Gas Liter Flow 2 Blood Gas Modality Nasal cannula FiO2 28.0 Test 09/19/25 18:13 09/19/25 18:48 Lactic Acid Level 2.4 H Medical Decision Making Additional information obtaine: N/A Findings 70 year old female with shortness of breath, hypoxia, and likely pneumonia. IVF and antibiotics provided, CXR interpreted by me demonstrated L sided effusion with adjacent consolidation. Sepsis. Will sign out to oncoming ER physician for disposition and awaiting transfer of care to hospitalist. This patient required 45 minutes of critical care time apart from separately billable procedures for fluid resuscitation, management of hypoxia, frequent reassessment. Heart Score: 2 Differential Dx:Considerations: Include: anxiety, cardiogenic shock, CHF, COPD, hyperventilation, hyponatremia, myocardial infarction, pneumonia, pneumothorax, pulmonary embolism, upper resp. infection Addendum Sign-out note I received sign-out on this patient at shift change. Briefly: Presents with shortness of breath and hypoxia. X-ray shows pneumonia. She was given IV antibiotics. She was hypotensive and given IV fluids. Pending labs. I reviewed her laboratory testing, which does show an acute kidney injury. I ordered a CT scan of the chest to further evaluate the opacity/effusion. I personally interpreted the CT scan, and this shows a large left-sided opacity with moderate pleural effusion The patient blood pressure did improve with IV fluids. She will be admitted to the medicine service for further care. Departure Disposition: ADMITTED INPATIENT Admitted to Inpatient Unit: to hospitalist Admission Level of Care: Med/Surg Impression: Primary Impression: Sepsis Additional Impressions: Hypoxia Pneumonia Condition: Stable Referrals: NO PRIMARY CARE PROVIDER (PCP) Education Educated: Patient Educated regarding: diagnosis, treatment, prognosis Signature Scribe Signature: . Attestation: . JED GONGORA MD Sep 19, 2025 17:32 ADRIA WILLETT MD Sep 19, 2025 19:19
[2025-09-19 17:55] LABS: MEAN PLATELET VOLUME 8.7 FL (7.4-10.4); RED CELL DISTRIBUTION WIDTH 16.5 % (11.5-14.5)
[2025-09-19 18:15] LABS: ABG BASE EXCESS -5.5 mmol/L (-2.0-3.0); ABG HCO3 18.7 mmol/L (21.0-28.0); ABG OXYGEN SATURATION 96.1 % (94.0-98.0); ABG PCO2 (T) 32.5 mmHg (32.0-45.0); ABG PH (T) 7.378 (7.350-7.450); ABG PO2 (T) 87.8 mmHg (83.0-108.0); ALLEN'S TEST POSITIVE; FCOHb 0.3 % (0.5-1.5); FHHb 3.9 % (0.0-5.0); FIO2 28.0 mmHg/%; FLOW 2 L/min; FMetHb 0.3 % (0.0-1.5); FO2Hb 95.5 % (94.0-98.0); MODE NASAL CANNULA; PATIENT TEMPERATURE 37.0; TOTAL HEMOGLOBIN 11.7 G/dl (12.0-16.0)
[2025-09-19 18:17] LABS: CREATININE 3.95 MG/DL (0.40-0.90); PRO BRAIN NATRIURETIC PEPTIDE 17463 PG/ML (0-125); TOTAL CARBON DIOXIDE 23.9 MMOL/L (24-32); eCRCL 13 ML/MIN; eGFR 11 ML/MIN
[2025-09-19] MEDS ORDERED: mag hydrox/Alum hydrox/simeth 30ml oral suspension PO PRN (19:30)
[2025-09-19] MEDS ORDERED: magnesium sulf-water 2g/50mL 50 ML IV PRN (19:30)
[2025-09-19] MEDS ORDERED: magnesium Cl slow-release 64mg tablet PO PRN (19:30)
[2025-09-19] MEDS ORDERED: ondansetron/PF 4mg/2ml inj IV PRN (19:30)
[2025-09-19] MEDS ORDERED: potassium Cl 20 mEq SR tablet PO PRN (19:30)
[2025-09-19] MEDS ORDERED: magnesium sulf-water 4G/100mL 100 ML IV PRN (19:30)
[2025-09-19] MEDS ORDERED: potassium Cl 40MEQ/1/2NS 520ml 520 ML IV PRN (19:30)
[2025-09-19] MEDS ORDERED: FLUD0.1T2 PO (19:38)
[2025-09-19] MEDS ORDERED: FURO-150 PO (19:38)
[2025-09-19] MEDS ORDERED: MAGN400O6 PO (19:38)
[2025-09-19] MEDS ORDERED: METO25TA6 PO (19:38)
[2025-09-19] MEDS ORDERED: ONDA-243 PO (19:38)
[2025-09-19] MEDS ORDERED: ACET-1008 PO (19:38)
[2025-09-19] MEDS ORDERED: PPD TD (19:38)
[2025-09-19] MEDS ORDERED: BISA10SU60 RC (19:38)
[2025-09-19] MEDS ORDERED: ALPR-624 PO (19:38)
--- NOTE | 2025-09-19 19:51 | RADIOLOGY REPORT ---
EXAM: CT CT CHEST History: left opacity, hypotension, sob Comparison Study: DI CHEST,SINGLE VIEW on DOS: 09/19/25, DI CHEST,SINGLE VIEW on DOS: 09/10/25, DI CHEST,SINGLE VIEW on DOS: 08/30/25, DI CHEST,SINGLE VIEW on DOS: 08/02/25, DI CHEST,SINGLE VIEW on DOS: 10/14/23 TECHNIQUE: Multidetector CT of the chest was performed. Imaging was performed without IV contrast. Axial, coronal, and sagittal multiplanar reformats were obtained from the axial data set by the technologist. Radiation Dose : CTDI vol 18.7 mGy, DLP 716.5 mGy*cm. FINDINGS: Evaluation is degraded by respiratory motion. Lungs/pleura: Moderate left and small right pleural effusion with adjacent opacity. Dense opacity is present throughout the left lower lobe. Heart/Great vessels: Mild cardiomegaly. Severe coronary artery calcification. Moderate atherosclerotic calcifications of the aorta. 4.3 cm ascending aortic aneurysm. Mediastinum: Unremarkable. Soft tissues/Bones: Median sternotomy changes noted. No acute displaced fracture. Upper abdomen: The partially visualized upper abdomen is within normal limits. IMPRESSION: 1. Moderate left and small right pleural effusion with adjacent opacity. Dense opacity is present throughout the left lower lobe. Superimposed infectious/ inflammatory process cannot be excluded in the appropriate clinical setting. A posttreatment follow-up is suggested to ensure appropriate resolution. 2. 4.3 cm ascending aortic aneurysm. 3. Additional findings as detailed.
[2025-09-19] MEDS: K and/or MAG REPLACEMENT MC SCH (20:00)
[2025-09-19] MEDS ORDERED: ipratropium/albuterol 3ml nebule NEB PRN (20:35)
[2025-09-19] MEDS ORDERED: magnesium hydroxide 30ml (MOM) UD suspension PO PRN (20:40)
--- NOTE | 2025-09-19 20:59 | HISTORY AND PHYSICAL-Residence ---
History & Physical Providers to CC Resident Creating Document: KAREN SANCHESCHRISTIAN ~ History of Present Illness Primary Medical Doctor: [facility] Reason for Admit\Complaint: Acute hypoxic respiratory distress from CHF exacerbation and pneumonia History of Present Illness A 70 years old female with a past medical history of CHFrEF 45% on 08/04, severe aortic stenosis awaiting TAVR procedure, severe mitral regurgitation, CAD s/p CABG, type 2 DM, JAVIER on CKD stage 5/ESRD, hyperlipidemia, chronic normocytic normochromic anemia, who was recently discharged from [facility] five days ago to [place] [facility] acute care after acute exacerbation of CHF treatment and underwent cardiac catheterization by Dr. Lares, presented with acute on chronic respiratory distress/shortness of breaths and progressive bilateral pedal edema over weeks which was followed by generalized weakness/fatigue over two days. Patient is well orientated to time place person. She said that she dose not have any idea why she was sent out to ER from [facility] but she knew that they sent her out for low BP, where her Usual average BP was around 100/60. She endorsed that she has been having intolerable generalized weakness/fatigue over two days without having any preceded viral illness. She reported for progressive shortness of breaths even at resting and disturbance her daily chores. She noticed for the orthopnea and PND, and progressive bilateral pedal edema which are getting worse. She stated that she is dependent on the 3L NC O2 supplement after the previous admission 5 days ago and keep using it at [facility]. She denied for any sick contact at [facility]. She was mostly having the sedentary lifestyle because of her progressive shortness of breath. She denied for any recent cancer treatment, long distance travel history, history of DVT and pulmonary embolism before. She denies fever with chills and rigors, chest pain/pressure/discomfort, nausea vomiting, abdominal pain, abnormal bowel and bladder movement, unilateral/bilateral pedal painful localized swelling. She noticed that she has been having coughing which showed dry cough over weeks now. She denied hemoptysis/frothy cover sputum and any colored sputum production. Allergies: Coded Allergies: sulfamethoxazole (Verified Allergy, Severe, RASH, 09/10/25) trimethoprim (Verified Allergy, Severe, RASH, 09/10/25) Home Medications Home Medications Active Reported Dulcolax (Bisacodyl) 10 Mg Supp.rect 1 Supp RC DAILY 10 Days Milk of Magnesia (Magnesium Hydroxide) 400 Mg/5 Ml Oral.susp 2,400 Mg PO PRN PRN 7 Days Ondansetron Odt (Ondansetron HCl) 4 Mg Tab.rapdis 4 Mg PO Q6H Tylenol (Acetaminophen) 325 Mg Tablet 650 Mg PO Q6H PRN PAIN Lasix* (Furosemide) 20 Mg Tablet 40 Mg PO DAILY 30 Days Florinef* (Fludrocortisone Acetate) 0.1 Mg Tablet 0.4 Mg PO PRN PRN 30 Days Metoprolol Tartrate 25 Mg Tablet 1 Tab PO DAILY 30 Days Xanax (Alprazolam) 0.5 Mg Tablet 1 Tab PO Q8H 30 Days Farxiga (Dapagliflozin Propanediol) 10 Mg Tablet 1 Tab PO DAILY 30 Days Lipitor* (Atorvastatin Calcium) 40 Mg Tablet 1 Tab PO DAILY 30 Days Aspirin EC (Aspirin) 81 Mg Tablet.dr 1 Tab PO DAILY 30 Days Past Medical History Past Medical History CHFrEF 45% on 08/04, severe aortic stenosis awaiting TAVR procedure, severe mitral regurgitation, CAD s/p CABG, type 2 DM, JAVIER on CKD stage 5/ESRD, hyperlipidemia, chronic normocytic normochromic anemia, who was recently discharged from [facility] five days ago to [facility] acute care after acute exacerbation of CHF treatment and underwent cardiac catheterization by Dr. Lares. Past Surgical History Surgical History Comment -CABG x4 in 2020 (combs to LAD, SVG to diagonal, SVG to PDA, SVG to OM) -Tonsillectomy Past Social History Social History Comment Patient has quit smoking and drinking five years ago, used to smoke a pack of cigarettes per day for long time, denies using alcohol. Directly came from [facility] after discharge from [facility] five days ago. She does not use any walking aids for the ambulation purposes, has an insight to use it. She is currently dependent on low-dose oxygen nasal cannula supply 3 L/min. 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 Alcohol Use: None Drug Use: None Lives In: Home Occupation: retired ROS All Other Systems: Reviewed and Negative ROS Constitutional: No fever, chills, dizziness Eyes: No pain, erythema, discharge, blurring of vision ENT: No sore throat, epistaxis, tinnitus Cardiovascular: No chest pain, chest pressure, chest discomfort, palpitations, syncope Respiratory: No hemoptysis Gastrointestinal: Normal appetite. No nausea, vomiting, diarrhea, constipation, hematemesis, abdominal pain, bloating, melena or fresh blood Genitourinary: No frequency, urgency, nocturia, hematuria or dysuria Musculoskeletal: No arthralgias or myalgias Integumentary: No change in skin, hair, nails. No swelling, bruising, abrasions Neurologic: No headache, neck pain, numbness or tingling of the extremities, weakness Psychiatric: No delusions, depression, loss of interest in normal activity or change in sleep pattern, hallucinations, suicidal ideations Endocrine: No polydipsia, polyuria, change in appetite, heat or cold intolerance, sweating, dry skin Hematological: No bleeding, petechiae, bruising Allergies: No asthma or urticaria Exam Vitals: Vital Signs Date Time Temp Pulse Resp B/P (MAP) Pulse Ox O2 Delivery O2 Flow Rate FiO2 09/19/25 18:29 20 09/19/25 18:00 92 97 0 09/19/25 16:59 Nasal Cannula* N/A 09/19/25 16:59 95.9 General: General: Well alert, well oriented, not confused, not agitated, slightly in acute respiratory distress, well cooperated during the physical. HEENT: HEENT: Conjunctive are pink, sclerae clear, no icterus, pupil is equal in both sides, reactive to light, no ear discharge, no pharyngeal erythema or an edema, mouth and lips are slightly dry. Neck: Neck: Supple, no JVD, no lymphadenopathy and thyromegaly. Chest: Lungs:Equal air entry on both lungs, bilateral mild basal crackles Cardiovascular: Heart: S1-S2 regular sinus rhythm and, regular rate, no gallops, no rubs, grade 4/6 ejection systolic murmur at the aortic area radiating to the neck. Holosystolic murmur at the mitral area. Abdomen: Abdomen: Witness some bruises from the previous subcutaneous anticoagulant injection. 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: No focal neurological deficits, no motor and sensory weakness in all 4 extremities, could move all 4 extremities Musculoskeletal: Musculoskeletal: No joint swelling, deformities, inflammations, and no scoliosis and back tenderness Skin: Skin: No active skin lesions and rashes Diagnostic Data Last Recorded Lab Results: 09/19/25173009/19/251730 Advance Care Planning Advanced Care plannin - 30 Minutes Additional Plan A 70 years old female with a past medical history of CHFrEF 45% on 08/04, severe aortic stenosis awaiting TAVR procedure, severe mitral regurgitation, CAD s/p CABG, type 2 DM, JAVIER on CKD stage 5/ESRD, hyperlipidemia, chronic normocytic normochromic anemia, who was recently discharged from [facility] five days ago to [place] [facility] acute care after acute exacerbation of CHF treatment and underwent cardiac catheterization by Dr. Lares, presented with acute on chronic respiratory distress/shortness of breaths and progressive bilateral pedal edema over weeks which was followed by generalized weakness/fatigue over two days. # Acute on chronic respiratory distress from # Acute on chronic CHFrEF 40-40% on 08/04 exacerbation, AHA stage D, and NYHA Class III-IV # Possible Health Care Associated Pneumonia-POA, covering with broad spectrum Antibiotics, CURB-65: 3 # Possible Severe Aortic stenosis and acute on chronic severe Mitral valve regurgitation # Moderate left and small right pleural effusion # Lactic acidosis, possibly from the Hypoxic hypoxemia from above # Electrolytes imbalances- hyponatremia, possible dilutional from CHF -Given presented typical features of CHF exacerbation with pneumonia evidence on imaging, her underlying Hx of CHFrEF recent exacerbation and hospitalization, valvular disorders are favorable to be admitted to the Medical floor to proceed with the further care management with possible potential Intensive care if required. -In ER, pt was given 1L of NS bolus for lactic acidosis possibly from the Hypoxic hypoxemia from above favors. On ABG analysis reflected for metabolic acidosis from lactic acidosis which is compensating with possible respiratory alkalosis with low normal CO2 levels. -Pending respiratory serology panels -her proBNP was aggressively high from CHF exacerbation and ESRD -Although she was persistently on prescribed diuretics, pt showed the exacerbation CHF indicated that pt might be beneficial for Cardio Cora and medication to reduce the frequency of hospitalization, and timely correction of valvular abnormalities. -She came from the [facility] after recent discharged from hospital, her underlying immunodeficiency status with DM favored her to undergo the HCA pneumonia for which IV Ceftriaxone was given in ER, and upgraded to Levofloxacin which has more coverage to pseudomonas and Staph infections, and atypical microorganism but not MRSA. Pt dose not meet any SIRS criteria. -She has a bilateral pleural effusion which could be from the parapneumonic effusion. -Her Well Criteria for PE showed low risk with score of 1.5 Plan: -Continue low dose O2 supplement to titrate to baseline -was given one time IV lasix 20 in ER and usual oral dose of 40 in the am, f/by 40 Daily -Med rec is done to maintain GDMT as per Cardiology recom -to consider the outpatient TAVR if feasible, and measures to reduce frequent hospitalization with MEMs monitoring -Monitor the bilateral Pleural effusion, and gentle diuresis -Daily weight measure, low salt <2G/day, restrict free water 1.5L/day, strict I's and O's -Trending Lactic acid, and consider Bipap therapy if only necessary after RT consultation -Continue IV Levoflox and adjust with renal dose as per daily RFT, incensitive spirometer Q2Hr while awake, pending sputum C&S to adjust the ABx, Duoneb Q4H as needed # Chronic hypochromic normocytic anemia # neutrophilic leukocytosis -most probably from the anemia of chronic disease/ESRD -to study iron to replace if necessary before erythropoietin supplement -to consider FOBT if hemoglobin will be trending down -continue levofloxacin for pneumonia, does not meet SIRS criteria # JAVIER mostly from the intrinsic renal on CKD stage-5 # selective serum hypoalbuminemia -on renal diet and her last admission Cr was around 2, and its uptrending after the cardiac catheterization on last admission. -CKD mostly from the chronic diabetes -Monitor Daily RFT and I's and O's -was given one time bolus of IV NS 1L in ER, and fluid replacement would not be ideal in acute on chronic respiratory distress due to Acute on Chronic CHF exacerbation with fluid retention and bilateral pleural effusion. -encourage protein diet #T2DM # HLD # Class I obesity with BMI 36 -Last time HbA1C was 6.4 on 08/30/25 -currently on Farxiga -Initiated hypo/hyperglycemic protocol with low-dose sliding scale regimen and SQ glargine 4 units only for now, to titrate accordingly based on RBS monitoring. -continue atorvastatin from home medication list. # A 4.3 cm thoracic aneurysm -patient denies for any chest pain pressure discomfort, no bilateral arm blood pressure discrepancy -to maintain uncontrolled Adjustment of blood pressure medication done during hospital stay. Maintain blood pressure log book and follow-up with the primary care physician for hypertension. -quit smoking five years ago -referred to outpatient monitoring and management mainly medical therapy including beta blockers statin -monitor usage of oral quinolone for pneumonia, which could exacerbate dissection CODE STATUS: DNR DNI, spent 10-15 mins to discuss in details in the presence of primary ER nurse although her advanced directive care plan showed Full code, and pt knew code status is flexible to change it anytime as long as pt is fully capacitated to decide. DVT prophylaxis: SQ heparin Analgesia/sedation: IV morphine as needed Lines/tubes: PIV GI prophylaxis: Famotidine Nutrition: Heart healthy, renal diet, low-salt diet, 75 g carb controlled diet Prognosis: Guarded Disposition: Continue medical management including GDM T, possible cardiology consultation, diuretic therapy, RT eval, possible nephrology consultation, PT eval and DC plan. Resident MD attestation: Patient was seen, examined and discussed with attending MD, Dr. Iram SANCHES MD Internal Medicine Resident, PGY3 [facility] Patient assessed, I agree with the assessment and plan above by the resident as above with no changes. Adenike Harris MD Critical Care Date of Service: Sep 19, 2025 Billing Provider: ADENIKE HARRIS MD, TIN, RES Sep 19, 2025 20:59 ADENIKE HARRIS MD Sep 20, 2025 19:05
[2025-09-19] MEDS: furosemide 10 MG/1 ML 10ml inj IV ONE ×2 (21:07→23:03)
[2025-09-19] MEDS ORDERED: METO-539 PO (21:23)
[2025-09-19 21:36] LABS: INFLUENZA TYPE A ANTIGEN RAPID NEGATIVE (Negative); INFLUENZA TYPE B ANTIGEN RAPID NEGATIVE (Negative)
[2025-09-19] MEDS: docusate sod 100mg capsule PO SCH (21:48)
[2025-09-19] MEDS: levoFLOXACIN-Levaquin 750MG/D5 150 ML IV SCH (21:49)
[2025-09-19] MEDS ORDERED: dextrose 50%-water 50ml dispensing syringe IV PRN ×2 (21:55)
[2025-09-19] MEDS ORDERED: DEXTROSE 15 GM of carb/4 tabs (each vial/BOTTLE has 4 tablets) PO PRN ×2 (21:55)
[2025-09-19] MEDS ORDERED: glucagon, human recombinant 1mg kit SUBCUT PRN (21:55)
[2025-09-19 22:13] VITALS: PULSE 60; RESP 18; O2SAT 99
[2025-09-20] VITALS (17 sets, daily range): BP systolic 70–122; BP diastolic 40–74; PULSE 52–80; RESP 12–26; TEMP 96.7–97.6; O2SAT 92–99
[2025-09-20] MEDS: INSULIN LISPRO 100 UNIT/ML INSULN.PEN MULTI-DOSE SQ SCH (01:27)
[2025-09-20] MEDS: insulin glargine (Lantus) pen - multi-dose SQ ONE (01:28)
[2025-09-20] MEDS: INSULIN LISPRO 100 UNIT/ML INSULN.PEN MULTI-DOSE SQ ONE (01:29)
[2025-09-20] MEDS: albumin (human) 25% 100 ML IV solution IV ONE (04:07)
[2025-09-20 04:56] LABS: CREATININE,URINE RANDOM 78.0 MG/DL
[2025-09-20 05:02] LABS: OSMOLALITY UA 334 MOSM/K (50-1400)
[2025-09-20] MEDS ORDERED: INSULIN LISPRO 100 UNIT/ML INSULN.PEN MULTI-DOSE SQ SCH (07:00)
[2025-09-20] MEDS: metoprolol succinate 25mg (24-HOUR) SR. Tablet PO SCH (07:29)
[2025-09-20] MEDS: aspirin 81mg, enteric-coated 1 TAB TABLET.DR PO SCH (07:36)
[2025-09-20] MEDS: EMPAGLIFLOZIN 25 MG TABLET PO SCH (07:39)
[2025-09-20] MEDS: bisacodyl 10mg suppository rectal RC SCH (07:57)
[2025-09-20] MEDS ORDERED: non-formulary drug (Metoprolol Tartrate 1 TAB) PO SCH (08:00)
[2025-09-20] MEDS ORDERED: furosemide 10 MG/1 ML 10ml inj IV SCH (08:00)
[2025-09-20 08:05] LABS: MEAN PLATELET VOLUME 8.2 FL (7.4-10.4); RED CELL DISTRIBUTION WIDTH 16.3 % (11.5-14.5)
[2025-09-20 08:15] LABS: APTT 29 SECONDS (22-32); INR 1.2 INR
[2025-09-20 08:19] LABS: OSMOLALITY 302 MOSM/K (280-300)
[2025-09-20 08:42] LABS: CREATININE 3.53 MG/DL (0.40-0.90); PHOSPHORUS 6.5 MG/DL (2.3-4.5); TOTAL CARBON DIOXIDE 20.3 MMOL/L (24-32); eCRCL 16 ML/MIN; eGFR 13 ML/MIN
[2025-09-20] MEDS ORDERED: DOBUTamine-DoBUTrex 500mg/D5W 250 ML IV SCH (10:25)
[2025-09-20] MEDS: midodrine 5mg tablet PO SCH (10:56)
[2025-09-20] MEDS: midodrine 5mg tablet PO ONE (11:00)
[2025-09-20 13:35] LABS: LEUKOCYTE ESTERASE ,URINE NEGATIVE (Neg); NITRITES, URINE NEGATIVE (Neg); OCCULT BLOOD,URINE NEGATIVE (Neg)
[2025-09-20 13:40] LABS: UA COLLECTION TYPE CLN CATCH MIDSTREAM
--- NOTE | 2025-09-20 15:06 | CONSULTATION REPORT ---
History of Present Illness Providers to CC CC: ONUR LARES MD ~ Reason for Admit\Admit Dx: Cardiology consultation Refering MD: [facility] History of Present Illness Patient with past medical history of coronary artery disease, chronic kidney disease, hypertension, hyperlipidemia, diabetes, heart failure with mildly reduced ejection fraction and severe aortic stenosis presented from her group home secondary to low blood pressure. This is patient's 4th admission to [facility] since July. Her most recent admission was from September 10 to September 14, 2025. She had undergone a cardiac catheterization to prepare for TAVR. Presented again secondary to hypotension at the nursing home facility. She has been receiving Lasix and metoprolol tartrate. Initial systolic blood pressure 84/54. Has remained low despite receiving IV bolus of normal saline of 1 L and receiving 5 mg of p.o. midodrine. Cardiology consultation was requested given her low blood pressure. Allergies: Coded Allergies: sulfamethoxazole (Verified Allergy, Severe, RASH, 09/10/25) trimethoprim (Verified Allergy, Severe, RASH, 09/10/25) Home Medications Home Medications Active Reported Toprol Xl* (Metoprolol Succinate) 25 Mg Tab.sr.24h 1 Tab PO DAILY Dulcolax (Bisacodyl) 10 Mg Supp.rect 1 Supp RC DAILY 10 Days Milk of Magnesia (Magnesium Hydroxide) 400 Mg/5 Ml Oral.susp 2,400 Mg PO PRN PRN 7 Days Ondansetron Odt (Ondansetron HCl) 4 Mg Tab.rapdis 4 Mg PO Q6H Tylenol (Acetaminophen) 325 Mg Tablet 650 Mg PO Q6H PRN PAIN Lasix* (Furosemide) 20 Mg Tablet 40 Mg PO DAILY 30 Days Florinef* (Fludrocortisone Acetate) 0.1 Mg Tablet 0.4 Mg PO PRN PRN 30 Days Xanax (Alprazolam) 0.5 Mg Tablet 1 Tab PO Q8H 30 Days Farxiga (Dapagliflozin Propanediol) 10 Mg Tablet 1 Tab PO DAILY 30 Days Lipitor* (Atorvastatin Calcium) 40 Mg Tablet 1 Tab PO DAILY 30 Days Aspirin EC (Aspirin) 81 Mg Tablet.dr 1 Tab PO DAILY 30 Days Past Medical History Medical History Comment Heart failure with mid-range ejection fraction at 45%. Severe, symptomatic aortic stenosis Acute kidney injury with chronic kidney disease Type 2 diabetes mellitus Coronary artery disease status post CABG Hypertension Hyperlipidemia Past Surgical History Surgical History Comment Four vessel CABG in 2020 with MCKNIGHT to LAD, SVG to diagonal, SVG to PDA, SVG to OM. Also underwent endarterectomy of the LAD and PDA at that time. Physical Exam Last Vital Signs Recorded: RN Vital Signs have been reviewed: Yes, Temperature: 96.7, Source: Temporal, Heart Rate: 52, Respiratory Rate: 12, BP: 82/62, Pulse Oximetry: 98, Weight: 111.000 Physical Exam General: Awake, alert, oriented. No apparent distress Neck: Supple. Normal range of motion. No JVD Respiratory: Lungs are clear and diminished in the bases. Chest: Normal shape and size. No accessory muscle use. Cardiovascular: Regular rate and rhythm. S1-S2. ++ systolic ejection murmur. Gastrointestinal: Abdomen is soft. Nontender to palpation. Bowel sounds present. Extremities: No lower extremity edema, cyanosis or clubbing. Neurologic: Alert and oriented x4. Nonfocal Psychiatric: Normal mood and affect. Skin: Normal color. Warm and dry. Review of Systems ROS Patient complaining of dyspnea on exertion and shortness for breath. She is on O2 at 2 L which is her baseline. Complains of lower extremity edema which has worsened since her last admission. Results Echocardiogram Echocardiogram Conclusion The LV is moderately dilated in size with mildly reduced function. Multisegmental wall motion abnormalities. Mild concentric hypertrophy. Overall LVEF is around 45%. Right ventricle is moderately dilated with mildly reduced function. Estimated PA systolic pressure is 58 mmHg. Left atrium is moderately dilated. Trileaflet AV appears thickened and moderately calcified. Severe stenosis. NAWAF: 0.64 cmsq; Pkv: 433 cm/sec; Gradients: 79/42 mmHG. Trace insufficiency. Mild MV annular calcification and thickening. No significant stenosis with severe regurgitation. Increased gradients likely due to severe MR. TV appears structurally normal with mild to moderate regurgitation. Normal pericardium. No pericardial effusion seen. Dictated by:SYDNEY HAN MD Dictation date and time:08/05/25 1020 Electronically Signed by: SYDNEY HAN MD Date and Time: 08/05/25 1020 Diagram Lab Result Diagram: 09/20/25 0645 09/20/25 0645 Assessment/Plan Additional Plan Patient presented secondary to low blood pressure. The following is her problem list: Severe, symptomatic aortic stenosis --underwent left/right heart catheterization during last admission. See Dr. J Luis Lares's dictation. --we will order carotid ultrasound --we will follow. Hypotension --transferred to the ICU for pressor support Heart failure with reduced ejection fraction --unable to tolerate guideline directed medical therapy secondary to low blood pressure. Recommend transfer to the ICU for Levophed and then we will need gentle diuresis. This is a chronic kidney disease with acute kidney injury --likely secondary to hypoperfusion. Recommend transfer to the ICU for Levophed support and diuresis. Transaminitis Significant transaminitis. Likely secondary to hypoperfusion History of coronary artery disease status post CABG --continue aspirin, statin. Diabetes mellitus Hemoglobin A1c 6.4 --management per hospitalist Thoracic aortic aneurysm --ascending aortic aneurysm measuring 4.[address] --recommend monitoring Consulted with ICU team, Dr. Hoffman who agrees to consult and transfer pt to ICU for pressor support Case discussed with Dr. Joseph Lares who agrees with this plan. Supervising MD Supervising Physician: LI Thakur NP Sep 20, 2025 15:06
--- NOTE | 2025-09-20 15:56 | RADIOLOGY REPORT ---
ULTRASOUND ABDOMEN, LIMITED RIGHT UPPER QUADRANT: REASON FOR EXAM: elevated liver enzymes TECHNIQUE: Real-time sector scans in the transverse and longitudinal planes were obtained through the right upper quadrant of the abdomen. FINDINGS: The liver is enlarged at 24.0 cm in length. There is no intrahepatic biliary ductal dilatation. The common bile duct measures 4 mm. No gallstones or sludge are identified. The gallbladder is not distended. There is no gallbladder wall thickening nor pericholecystic fluid. There is no sonographic Turner's sign. The pancreas is obscured by bowel gas. The right kidney measures 14.6 cm. No hydronephrosis or nephrolithiasis is identified. There is no evidence of right renal mass or cyst. The visualized portions of the abdominal aorta demonstrate no evidence of aneurysmal dilatation. The visualized inferior vena cava is unremarkable. There is no free fluid identified in the right upper quadrant. IMPRESSION: Hepatomegaly. No intrahepatic or extrahepatic biliary dilation identified. Correlate clinically and with liver function tests.
[2025-09-20] MEDS: NORepinephrine 8mg/ 250ml NS 250 ML IV SCH (17:52)
--- NOTE | 2025-09-20 18:15 | PROGRESS NOTE- Residence ---
Progress Note - Resident Providers to CC Resident Creating Document: JOHN ARREOLA RES ~ Antibiotic Timeout Antibiotic Ordered?: Yes Subjective And examined at the bedside today. Reports feeling very tired. Her blood pressure is maintaining his 70s even with midodrine and 1 L bolus which was given in the ER. Dr. Fleming was consulted and she was transferred to ICU to initiate Levophed drip Objective Vital Signs Date Time Temp Pulse Resp B/P (MAP) Pulse Ox O2 Delivery O2 Flow Rate FiO2 09/20/25 17:59 79/51 09/20/25 15:00 97.0 62 18 92 Nasal Cannula 2.0 09/20/25 08:24 28 Result Diagram: 09/20/2545 09/20/2545 General: Well alert, well oriented, not confused, in slight distress HEENT: Conjunctive are pink, sclerae clear, no icterus. Neck: Supple, no JVD, no lymphadenopathy and thyromegaly. Lungs: Bilateral basal crackles. Heart: S1-S2 regular sinus rhythm and, regular rate, no gallops, no rubs, grade 4/6 ejection systolic murmur at the aortic area radiating to the neck. Holosystolic murmur at the mitral area. Abdomen: Witness some bruises from the previous subcutaneous anticoagulant injection. Bowel sounds present,, soft, nontender, no guarding, no rigidity Extremities: No obvious deformities, 2+ pitting edema bilaterally, capillary refill intact, . 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: No focal neurological deficits, no motor and sensory weakness in all 4 extremities, could move all 4 extremities Skin: No active skin lesions and rashes Coagulation Studies Laboratory Tests Test 09/20/25 06:45 Prothrombin Time 12.4 SECONDS (9.0-12.0) H INR International Normalized Ratio 1.2 INR Activated Partial Thromboplast Time 29 SECONDS (22-32) Coagulation Comments Plan Plan Assessment This is a 70-year-old female with a history of CAD status post CABG in 2020, CHF with reduced ejection fraction, 45%, aortic stenosis with TAVR pending, mitral regurgitation, CKD, was brought to the ER from [facility] for increase in the shortness of breadth. She had multiple admissions, the most recently she was discharged on September 14, she had cardiac catheterization during that time and evaluation for TAVR. Her blood pressures were low, remained low even with 1 L of bolus. Has been transferred to ICU for low blood pressure. Plan Acute on chronic hypoxemic respiratory failure Acute exacerbation of chronic CHF with reduced ejection fraction Currently on 2 L of oxygen with nasal cannula Chest x-ray shows bilateral crackles ProBNP 53142 Echocardiogram on 08/03/2025 shows an ejection fraction of 45%, LV is moderately dilated with mildly reduced function, PA 58 mmHg, severe , severe mitral regurgitation, moderate tricuspid regurgitation. Started on Lasix 20 mg IV b.i.d. but considering her low blood pressure this has been held. Her home medications metoprolol succinate 25 mg has been held Fluid restriction< 1.2 L per day, salt restricted diet Heart healthy diet Moderate left and right pleural effusion Chest x-ray and chest CT showed bilateral pleural effusion Consulted ICU team for possible thoracocentesis. Hypotension Hypotension is likely secondary to CHF with reduced ejection fraction and severe She has been initiated on Levophed drip Also on midodrine 5 mg t.i.d. and fludrocortisone 4 mg p.r.n. for low blood pressures. Lactic acidosis Likely secondary to hypoperfusion because of severe and CHF with reduced ejection fraction Lactic acid trended down. WBC count in the normal range Other signs of infection, urine analysis negative JAVIER on CKD likely secondary to hypoperfusion JAVIER is likely secondary to CHF with reduced ejection fraction Creatinine is 3.53, improved from 3.95 at the time of admission Baseline creatinine is 1.9-2.2 Urine output 0.32 mL/kg per hour FENA 0.5, urine sodium< 15 indicating prerenal Patient has been initiated on Levophed drip to maintain the blood pressure Strict I&Os Avoid nephrotoxin agents. Hypervolemic hyponatremia Sodium 128 Patient has been initiated on Levophed drip and once her blood pressure improves, Lasix will be initiated. Follow up with repeat labs. CAD status post CABGx4 in 2020 Severe Mitral regurgitation Continued home medication aspirin and atorvastatin Patient underwent left/right heart catheterization during previous admission for evaluation of TAVR Carotid ultrasound has been ordered. Thoracic aortic aneurysm CT showed 4.3 cm of ascending aortic aneurysm. Chronic hypochromic normocytic anemia Hemoglobin 9.8 We will continue to monitor with daily labs Transaminitis Congestive hepatopathy AST, ALT 149, 431 Alkaline phosphatase 667 We will continue to monitor. Type 2 diabetes mellitus Hyperlipidemia Class I obesity A1c 6.4 On Lantus 40 units on moderate insulin protocol Code status: DNR DVT prophylaxis: Heparin GI prophylaxis: Famotidine Lines/tubes: Central line, peripheral line Diet: Na restricted diet, heart healthy diet, renal diet John Arreola M.D PGY2 Date of Service: Sep 20, 2025 Billing Provider: TRINA MARRUFO MD Common Visit Codes: [id number] INP/OBS CARE(HIGH) JOHN ARREOLA, RES Sep 20, 2025 18:15 TRINA MARRUFO MD Sep 21, 2025 06:55
--- NOTE | 2025-09-20 18:36 | CONSULTATION REPORT - RESIDENT ---
Consult Providers to CC Resident Creating Document: CELESTINA DOUGLAS CHRISTIAN ECHEVARRIA History of Present Illness Reason for Admit\Complaint: Heart failure History of Present Illness The patient is a 70-year-old female with past medical history of coronary artery disease, CKD, hypertension, hyperlipidemia, diabetes, heart failure with mildly reduced ejection fraction, severe aortic stenosis, was transferred from her rehab facility with concerns of hypotension. Patient was recently discharged after she underwent cardiac catheterization for TAVR. She has been receiving Lasix and metoprolol. Her initial blood pressure was 84/54 mmHg. Her blood pressure remained low even with 1 L of normal saline bolus and 5 mg of p.o. midodrine. Her chest x-ray was reviewed which showed [id number] left pleural effusion. She was transferred to the ICU for the requirement of pressors. Allergies: Coded Allergies: sulfamethoxazole (Verified Allergy, Severe, RASH, 09/10/25) trimethoprim (Verified Allergy, Severe, RASH, 09/10/25) Home Medications Home Medications Active Reported Toprol Xl* (Metoprolol Succinate) 25 Mg Tab.sr.24h 1 Tab PO DAILY Dulcolax (Bisacodyl) 10 Mg Supp.rect 1 Supp RC DAILY 10 Days Milk of Magnesia (Magnesium Hydroxide) 400 Mg/5 Ml Oral.susp 2,400 Mg PO PRN PRN 7 Days Ondansetron Odt (Ondansetron HCl) 4 Mg Tab.rapdis 4 Mg PO Q6H Tylenol (Acetaminophen) 325 Mg Tablet 650 Mg PO Q6H PRN PAIN Lasix* (Furosemide) 20 Mg Tablet 40 Mg PO DAILY 30 Days Florinef* (Fludrocortisone Acetate) 0.1 Mg Tablet 0.4 Mg PO PRN PRN 30 Days Xanax (Alprazolam) 0.5 Mg Tablet 1 Tab PO Q8H 30 Days Farxiga (Dapagliflozin Propanediol) 10 Mg Tablet 1 Tab PO DAILY 30 Days Lipitor* (Atorvastatin Calcium) 40 Mg Tablet 1 Tab PO DAILY 30 Days Aspirin EC (Aspirin) 81 Mg Tablet.dr 1 Tab PO DAILY 30 Days Past Medical History Past Medical History Heart failure with mildly reduced ejection fraction Severe aortic stenosis CKD Type 2 diabetes mellitus CAD s/p CABG Hypertension Hyperlipidemia Past Surgical History Surgical History Comment CABG in 2020 Endarterectomy Exam Vitals: Vital Signs Date Time Temp Pulse Resp B/P (MAP) Pulse Ox O2 Delivery O2 Flow Rate FiO2 09/20/25 17:59 79/51 09/20/25 15:00 97.0 62 18 92 Nasal Cannula 2.0 09/20/25 08:24 28 General: General: Awake and Alert, no acute distress. HEENT: Conjunctiva pink, Sclera clear, Mucus Membranes moist. Neck: Supple without masses and tenderness. Resp: Unlabored. Lungs clear to auscultation bilaterally. Heart: Regular Rate and rhythm, normal S1 and S2, ejection systolic murmur heard in the aortic region Abdomen: Soft and non tender no organomegaly Extremities: No cyanosis,clubbing or edema. Skin: Warm and Dry. Diagnostic Data Last Recorded Lab Results: 09/20/25 0645 09/20/25 0645 Diagnostic Data: Laboratory Tests Test 09/20/25 06:45 Prothrombin Time 12.4 SECONDS (9.0-12.0) H INR International Normalized Ratio 1.2 INR Activated Partial Thromboplast Time 29 SECONDS (22-32) Coagulation Comments Additional Plan Cardiovascular system: Acute exacerbation of Heart failure with mildly reduced ejection fraction Severe symptomatic aortic stenosis CAD s/p CABG Echocardiogram showed left ventricular ejection fraction of 45%, PASP 58 mmHg, severe aortic stenosis with valve area 0.64. Cardiology, Dr. Lares is on board. She is transferred to the ICU and started on Levophed. Normal lactic acid. Respiratory system: Acute hypoxemic respiratory failure Left moderate pleural effusion On 2 L of oxygen through nasal cannula. Repeat chest x-ray tomorrow. She will also require diuresis with Lasix. Nephrology: JAVIER on CKD likely secondary to renal tubular stasis Hyponatremia Creatinine 3.53, EGFR 13. Urine output 850 mL in the last 24 hours. Continue pressors. Follow up with BMP. GI: Elevated transaminases Likely secondary to hepatic congestion. Follow up LFTs. Endocrine: Diabetes mellitus HB A1c 6.4. Continue to monitor blood sugars. Nervous system: Patient is awake alert. Nutrition: Heart healthy and renal diet. Code Status: DNR DVT Prophylaxis: SCDs Analgesia/Sedation: Alprazolam Lines/Tubes: Central line, PIV GI Prophylaxis: Famotidine Nutrition: Renal diet, heart healthy diet PT: Ordered Prognosis: Guarded Disposition: The prognosis remains guarded. Critical care time spent greater than 35 minutes. Celestina Douglas MD Internal Medicine Resident PGY-2 The patient was seen, examined and discussed with the attending physician, Dr. Hoffman. Patient seen with Resident Agree with ABOVE assessment and plan Date of Service: Sep 20, 2025 Billing Provider: JOSE HOFFMAN MD, SOWMYA MANJARI, [facility] Sep 20, 2025 18:36 JOSE HOFFMAN MD Sep 22, 2025 09:39
--- NOTE | 2025-09-20 19:27 | PROCEDURE NOTE- Residance ---
Procedure Note Providers to CC CC: PRISCA TOVAR RES ~ Planned Procedure Internal Jugular Central Line Indications Rapid decompensation, vasopressor administration, Hemodynamic monitoring Post Operative Dx: Cardiogenic Shock Molecular Biology Scientist Dr. Yasmin Bowden Type of Anesthesia Local Lidocaine Informed Consent Obtained Description A time out was performed. My hands were washed immediately prior to the procedure. I wore a surgical cap, mask with protective eyewear, full gown and sterile gloves throughout the procedure. The patient was placed in Trendelenburg position. RIGHT chest region was prepped using chlorhexidine scrub and draped in sterile fashion using a full drape and sterile probe cover and sterile gel employed. The medial and lateral heads of the sternocleidomastoid muscle were identified as was the carotid pulse. The Internal Jugular vein was identified using the ultrasound. Anesthesia was achieved over the vein using 1% lidocaine. Using real-time out of plane guidance, the introducer needle was inserted into the right Internal Jugular vein under direct ultrasound visualization. Venous blood was withdrawn. The syringe was removed and a guidewire was advanced into the introducer needle. The guidewire was visualized in the Internal Jugular Vein by ultrasound. A small incision was made at the skin surface with a scalpel and the introducer needle was exchanged for a dilator over the guidewire. After appropriate dilation was obtained, the dilator was exchanged over the wire for a curved central venous catheter. The wire was removed and the catheter was sutured in place. A sterile sorbaview shield was placed over the catheter at the insertion site. The patient tolerated the procedure without any hemodynamic compromise. At time of procedure completion, all ports aspirated and flushed properly. Post-procedure chest x- ray reviewed and line is in appropriate position. Estimated blood loss is 10cc. Estimated Blood Loss 10 ml Complication none X-Ray Findings RIGHT IJ line with the terminating near the distal left brachiocephalic vein Date of Service: Sep 20, 2025 Billing Provider: JOSE KEENAN MD, SHIVANI, RES Sep 20, 2025 19:27 JOSE KEENAN MD Sep 22, 2025 09:52
[2025-09-20] MEDS ORDERED: morphine 4 MG/ML inj SYRINge IV PRN (20:42)
[2025-09-20] MEDS: insulin glargine (Lantus) pen - multi-dose SQ SCH (20:44)
--- NOTE | 2025-09-20 20:47 | VASCULAR REPORT ---
VASC VL CAROTID HISTORY: Pain COMPARISON: VL VENOUS on DOS: 08/15/21, ULTRASOUND HEAD NECK on DOS: 08/12/20 TECHNIQUE: Rivers-scale, Color and Duplex Doppler imaging of the bilateral carotid systems was performed. FINDINGS: Mild plaque present in the carotid bulbs. The following flow velocities were obtained: Right Carotid System: ICA PSV: 59 cm/sec ICA PDV: 14 cm/sec ICA/CCA Ratio: 1.4 Left Carotid System: ICA PSV: 56 cm/sec ICA PDV: 12 cm/sec ICA/CCA Ratio: 1.3 Bilateral common carotid, external carotid arteries, and vertebral arteries are patent. IMPRESSION: No hemodynamically significant stenosis of the carotid arteries.
--- NOTE | 2025-09-20 21:25 | RADIOLOGY REPORT ---
CHEST RADIOGRAPH Indication: CONTROL AFTER IJ CENTRAL VENOUS ACCESS PLACEMENT Technique: Single frontal view of the chest was obtained COMPARISON: CT CT CHEST on DOS: 09/19/25, DI CHEST,SINGLE VIEW on DOS: 09/19/25, DI CHEST,SINGLE VIEW on DOS: 09/10/25, DI CHEST,SINGLE VIEW on DOS: 08/30/25, DI CHEST,SINGLE VIEW on DOS: 08/02/25 FINDINGS: Lines and Tubes: Right central venous catheter in satisfactory position. Lungs: Increased pulmonary vascular congestion. Pleura: Unchanged moderate left pleural effusion. No pneumothorax. Cardiomediastinal contours: Median sternotomy. Cardiomegaly. Bones: Unremarkable IMPRESSION: Right central venous catheter in satisfactory position. Increased pulmonary vascular congestion.
[2025-09-21] VITALS (29 sets, daily range): BP systolic 89–123; BP diastolic 49–68; PULSE 66–81; RESP 11–21; O2SAT 91–100
[2025-09-21] MEDS: morphine 4 MG/ML inj SYRINge IV PRN (02:26)
[2025-09-21 04:12] LABS: MEAN PLATELET VOLUME 8.0 FL (7.4-10.4); RED CELL DISTRIBUTION WIDTH 16.6 % (11.5-14.5)
[2025-09-21 04:13] LABS: APTT 29 SECONDS (22-32); INR 1.2 INR
[2025-09-21 04:17] LABS: CREATININE 2.99 MG/DL (0.40-0.90); PHOSPHORUS 5.7 MG/DL (2.3-4.5); TOTAL CARBON DIOXIDE 23.2 MMOL/L (24-32); eCRCL 19 ML/MIN; eGFR 15 ML/MIN
--- NOTE | 2025-09-21 14:05 | PROCEDURE NOTE- Residance ---
Procedure Note Providers to CC CC: JOSE KEENAN MD ~ Planned Procedure Left-sided thoracentesis Indications Moderate left pleural effusion-likely secondary to acute HFmrEF Accounting Manager Cpa Dr. Yasmin Garcia Type of Anesthesia Local Informed Consent During the informed consent discussion regarding the procedure, or treatment, I explained the following to the patient/designee: a. Nature of the procedure or treatment and who will perform the procedure or treatment. b. Necessity for procedure and the possible benefits. c. Risks and complications (most common and serious). d. Alternative treatments and the risks, benefits and side effects of each (including no treatment). e. Likelihood of the patient achieving his/her goals without this procedure and surgery treatment. f. Problems that might occur during the recuperation. g. Conflicts of interest, if any Description A time out was performed and the chest x-ray was reviewed, the appropriate side was confirmed and marked. My hands were washed immediately prior to the procedure. I wore a surgical cap, mask with protective eyewear, sterile gown and sterile gloves throughout the procedure. The patient was prepped and draped in a sterile manner using chlorhexidine scrub after the appropriate level was percussed and confirmed by ultrasound. 1% lidocaine was used to anesthesize the skin, subcutaneous tissue, superior aspect of the rib periosteum and parietal pleura. A finder needle was then introduced over the superior aspect of the rib to locate the pleural fluid; _ colored fluid was aspirated. A 10-blade scalpel was used to adina the skin at the insertion site. The Vlqy-e-[id number] needle was then introduced through the skin incision into the pleural space using negative aspiration pressure. The needle was removed and The thoracentesis catheter was then threaded without difficulty. 750 ml of serosanguineous colored fluid was removed without difficulty. The catheter was then removed. No immediate complications were noted during the procedure. The fluid will be sent for studies. Estimated blood loss is none. Patient feels comfortable and vitals stable Estimated Blood Loss None Complication None Date of Service: Sep 21, 2025 Billing Provider: LENO MALDONADO RES, MANOJNA RES Sep 21, 2025 14:05 JOSE KEENAN MD Sep 22, 2025 09:51
--- NOTE | 2025-09-21 14:05 | RADIOLOGY REPORT ---
PROCEDURE: ULTRASOUND GUIDED THORACENTESIS USING TEMPORARY CATHETER HISTORY: 70 Female with requiring thoracentesis. DOCUMENTATION: Informed consent was obtained and a procedural time out was performed. TECHNIQUE: Ultrasound was used to locate the left pleural fluid collection with an image archived in the PACS. The skin over the left posterior hemithorax was sterilely prepped, draped, and infiltrated with 1% lidocaine. Under real time ultrasound guidance, the left pleural space was accessed with a 19-gauge Yueh needle and connected to Vacutainers. The Yueh catheter was advanced, the needle was removed and the temporary catheter was advanced and connected to the Vacutainer. Approximately 0.75 liters of serous fluid was removed. The temporary catheter was removed and sterile dressings were applied. FINDINGS: Ultrasound demonstrates a left pleural effusion. Imaging confirms the needle tip within the fluid. IMPRESSION: SUCCESSFUL ULTRASOUND GUIDED THORACENTESIS. Performed by Dr. Hoffman
[2025-09-21 14:24] LABS: EOSINOPHILS,BODY FLUID 1 %; LYMPHOCYTES,BODY FLUID 62 %; MONOCYTES,BODY FLUID 29 %; NEUTROPHILS,BODY FLUID 8 %
[2025-09-21 14:25] LABS: BF MESOTHELIAL CELLS FEW; BF RBC COUNT 1600 /CU MM; BF WBC COUNT 505 /CU MM (0-1000); BFAPPEAR HAZY; BFCOLOR YELLOW; BFSOURCE OTHER; BFVOLUME 60 ML
[2025-09-21 14:34] LABS: BFSOURCE LEFT PLEURAL FLD; PLEURAL FLUID PH 7.382 (7.63-7.65)
[2025-09-21 14:40] LABS: BF BILI 0.5 MG/DL; GLUCOSE,BODY FLUID 174 MG/DL; LDH,BODY FLUID 122 U/L; TOTAL PROTEIN,BODY FLUID 3.5 G/DL
--- NOTE | 2025-09-21 15:06 | PROGRESS NOTE- Residence ---
Progress Note - Resident Providers to CC Resident Creating Document: CELESTINA DOUGLAS, RES ~ Antibiotic Timeout Antibiotic Ordered?: Yes Subjective The patient was seen and examined at bedside today. She is still on Levophed drip running at 0.05 mcg/kg/minute. The patient also underwent left thoracentesis with removal of 750 mL of serous fluid. Nephrology consulted for cardiorenal syndrome. Objective Vital Signs Date Time Temp Pulse Resp B/P (MAP) Pulse Ox O2 Delivery O2 Flow Rate FiO2 09/21/25 14:42 102/61 09/21/25 14:00 72 19 91 Nasal Cannula 4.0 09/21/25 13:05 97.5 09/21/25 07:35 36 Result Diagram: 09/21/2532409/21/25 032 General: Awake and Alert, no acute distress. HEENT: Conjunctiva pink, Sclera clear, Mucus Membranes moist. Neck: Supple without masses and tenderness. Resp: Unlabored. Lungs clear to auscultation bilaterally. Heart: Regular Rate and rhythm, normal S1 and S2, ejection systolic murmur heard in the aortic region Abdomen: Soft and non tender no organomegaly Extremities: No cyanosis,clubbing, 2+ pitting edema bilaterally Skin: Warm and Dry. Coagulation Studies Laboratory Tests Test 09/21/25 03:25 Prothrombin Time 12.3 SECONDS (9.0-12.0) H INR International Normalized Ratio 1.2 INR Activated Partial Thromboplast Time 29 SECONDS (22-32) Coagulation Comments Plan Plan Cardiovascular system: Cardiogenic shock Acute exacerbation of Heart failure with mildly reduced ejection fraction Severe symptomatic aortic stenosis CAD s/p CABG Continue Levophed currently running at 0.05 mg/kg/minute. Echocardiogram showed left ventricular ejection fraction of 45%, PASP 58 mmHg, severe aortic stenosis with valve area 0.64. Cardiology, Dr. Lares is on board. Preoperative carotid ultrasound done which showed no significant stenosis. Cardiology considering TAVR CT and possible BAV prior to discharge. Respiratory system: Acute hypoxemic respiratory failure Left moderate pleural effusion On 3 L of oxygen through nasal cannula. Continue diuresis with Lasix. Nephrology: JAVIER on CKD likely secondary to renal tubular stasis Hyponatremia Creatinine downtrending, 2.99 today, EGFR 15. Urine output 2500 mL in the last 24 hours. Nephrology consulted. Advised to continue IV Lasix 40 mg t.i.d. and do not infuse any fluids. Continue pressors. Follow up with BMP. GI: Elevated transaminases Likely secondary to hepatic congestion. LFTs getting better. Endocrine: Diabetes mellitus HB A1c 6.4. Continue to monitor blood sugars. Nervous system: Patient is awake alert. Nutrition: Heart healthy and renal diet. Code Status: DNR DVT Prophylaxis: SCDs Analgesia/Sedation: Alprazolam Lines/Tubes: Central line, PIV GI Prophylaxis: Famotidine Nutrition: Renal diet, heart healthy diet PT: Ordered Prognosis: Guarded Disposition: The prognosis remains guarded. Critical care time spent greater than 35 minutes. Celestina Douglas MD Internal Medicine Resident PGY-2 The patient was seen, examined and discussed with the attending physician, Dr. Hoffman. Case discussed during preliminary rounds with Residents, in morning report and during multidisciplinary rounds . Agree with above assessment and plan Date of Service: Sep 21, 2025 Billing Provider: JOSE HOFFMAN MD, SOWMYA MANJARI, RES Sep 21, 2025 15:06 JOSE HOFFMAN MD Sep 22, 2025 09:46
--- NOTE | 2025-09-21 16:00 | PROGRESS NOTE ---
Progress Note Cardiology Providers to CC ~ Subjective Subjective Patient is resting in the ICU. She now has a right IJ and Levophed running. She is fatigued. Objective Result Diagram: 09/21/25 0325 09/21/25 0325 Objective General: fatigued. awakens to light shaking. Respiratory: Lungs are clear and diminished in the bases. Chest: Normal shape and size. No accessory muscle use. Cardiovascular: Regular rate and rhythm. S1-S2. ++ systolic ejection murmur. Gastrointestinal: Abdomen is soft. Nontender to palpation. Bowel sounds present. Extremities:++LE edema Psychiatric: Normal mood and affect. Skin: Normal color. Warm and dry. Coagulation Studies Laboratory Tests Test 09/21/25 03:25 Prothrombin Time 12.3 SECONDS (9.0-12.0) H INR International Normalized Ratio 1.2 INR Activated Partial Thromboplast Time 29 SECONDS (22-32) Coagulation Comments Problem\Assessment\Plan Additional Plan Patient presented secondary to low blood pressure. The following is her problem list: Severe, symptomatic aortic stenosis --underwent left/right heart catheterization during last admission. See Dr. J Luis Lares's dictation. --preoperative carotid ultrasound with no hemodynamically significant stenosis. --we will follow. Consider TAVR CT and possible BAV prior to discharge Hypotension --recommend titrate Levophed to keep systolic blood pressure greater than 90 Heart failure with reduced ejection fraction --unable to tolerate guideline directed medical therapy secondary to low blood pressure. Recommend transfer to the ICU for Levophed and then we will need gentle diuresis. --we will increase Lasix to 40 mg t.i.d. --monitor strict intake and output measurements. This is a chronic kidney disease with acute kidney injury --likely secondary to hypoperfusion. --kidney function improved today. Transaminitis Significant transaminitis. Likely secondary to hypoperfusion History of coronary artery disease status post CABG --continue aspirin, statin. Diabetes mellitus Hemoglobin A1c 6.4 --management per hospitalist Thoracic aortic aneurysm --ascending aortic aneurysm measuring 4.[address] --recommend monitoring Case discussed with Dr. J Luis Lares. Recommend continue ICU care. Recommend keeping systolic blood pressure greater than 90. Increase Lasix to 40 mg t.i.d. with careful monitoring of kidney function. For any weekend cardiology needs please contact Dr. J Luis Lares directly for recommendations. If emergent cardiology care please contact on-call Cardiology. Supervising Physician: LI Thakur NP Sep 21, 2025 16:00
--- NOTE | 2025-09-21 17:06 | RADIOLOGY REPORT ---
US ULTRASOUND KIDNEY NON VASC COMPARISON: US ULTRASOUND OF ABDOMEN on DOS: 09/20/25 INDICATION: JAVIER TECHNIQUE: Ultrasound exam of the retroperitoneum was performed. FINDINGS: The right kidney is 10.6 cm. The left kidney is mostly obscured, measuring approximately 12 cm. No collecting system dilatation. The prevoid volume of the bladder measures 259 cc. Bilateral ureteral jets not visualized IMPRESSION: Significantly limited study with mostly obscured left kidney and partially obscured right kidney. No definite collecting system dilatation. Recommend repeat ultrasound as indicated if there is persistent clinical concern.
[2025-09-21] MEDS: NORepinephrine 8mg/ 250ml NS 250 ML IV SCH (17:41)
--- NOTE | 2025-09-21 18:14 | PROGRESS NOTE- Residence ---
Progress Note - Resident Providers to CC Resident Creating Document: JOHN ARREOLA RES ~ Antibiotic Timeout Antibiotic Ordered?: Yes Subjective The patient was seen and examined at bedside today. She continues to be on Levophed drip. Her kidney function is better compared to admission. Continuing Lasix. Objective Vital Signs Date Time Temp Pulse Resp B/P (MAP) Pulse Ox O2 Delivery O2 Flow Rate FiO2 09/21/25 17:41 88/53 09/21/25 17:38 98.1 72 18 97 Nasal Cannula 3.0 09/21/25 07:35 36 Result Diagram: 09/21/2532409/21/25324 General: Well alert, well oriented, not confused, in slight distress HEENT: Conjunctive are pink, sclerae clear, no icterus. Neck: Supple, no JVD, no lymphadenopathy and thyromegaly. Lungs: Bilateral basal crackles. Heart: S1-S2 regular sinus rhythm and, regular rate, no gallops, no rubs, grade 4/6 ejection systolic murmur at the aortic area radiating to the neck. Holosystolic murmur at the mitral area. Abdomen: Witness some bruises from the previous subcutaneous anticoagulant injection. Bowel sounds present,, soft, nontender, no guarding, no rigidity Extremities: No obvious deformities, 2+ pitting edema bilaterally, capillary refill intact, . 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, no motor and sensory weakness in all 4 extremities, could move all 4 extremities Skin: No active skin lesions and rashes Coagulation Studies Laboratory Tests Test 09/21/25 03:25 Prothrombin Time 12.3 SECONDS (9.0-12.0) H INR International Normalized Ratio 1.2 INR Activated Partial Thromboplast Time 29 SECONDS (22-32) Coagulation Comments Plan Plan Assessment This is a 70-year-old female with a history of CAD status post CABG in 2020, CHF with reduced ejection fraction, 45%, aortic stenosis with TAVR pending, mitral regurgitation, CKD, was brought to the ER from [facility] for increase in the shortness of breadth. She had multiple admissions, the most recently she was discharged on September 14, she had cardiac catheterization during that time and evaluation for TAVR. Her blood pressures were low, remained low even with 1 L of bolus. Has been transferred to ICU for low blood pressure. Plan Acute on chronic hypoxemic respiratory failure Acute exacerbation of chronic CHF with reduced ejection fraction Currently on3 L of oxygen with nasal cannula Chest x-ray shows bilateral crackles ProBNP [id number] Echocardiogram on 08/03/2025 shows an ejection fraction of 45%, LV is moderately dilated with mildly reduced function, PA 58 mmHg, severe , severe mitral regurgitation, moderate tricuspid regurgitation. Lasix 40 mg IV t.i.d.. Fluid restriction< 1.2 L per day, salt restricted diet Heart healthy diet -submitted as per ICU. Moderate left and right pleural effusion Chest x-ray and chest CT showed bilateral pleural effusion Bilateral thoracentesis has been done. Hypotension Hypotension is likely secondary to CHF with reduced ejection fraction and severe She has been initiated on Levophed drip Also on midodrine 5 mg t.i.d. and fludrocortisone 4 mg p.r.n. for low blood pressures. Lactic acidosis Likely secondary to hypoperfusion because of severe and CHF with reduced ejection fraction Lactic acid trended down. WBC count in the normal range Other signs of infection, urine analysis negative JAVIER on CKD likely secondary to hypoperfusion JAVIER is likely secondary to CHF with reduced ejection fraction Creatinine is 2.99 improved from 3.95 at the time of admission Baseline creatinine is 1.9-2.2 Two urine output of 2800 mL FENA 0.5, urine sodium< 15 indicating prerenal Patient has been initiated on Levophed drip to maintain the blood pressure Strict I&Os Avoid nephrotoxin agents. Hypervolemic hyponatremia Sodium improved to 132 Follow up with repeat labs. CAD status post CABGx4 in 2020 Severe Mitral regurgitation Continued home medication aspirin and atorvastatin Patient underwent left/right heart catheterization during previous admission for evaluation of TAVR Carotid ultrasound no hemodynamically significant stenosis. Thoracic aortic aneurysm CT showed 4.3 cm of ascending aortic aneurysm. Chronic hypochromic normocytic anemia Hemoglobin stable at 10.1. We will continue to monitor with daily labs Transaminitis Congestive hepatopathy AST, ALT improving Alkaline phosphatase 667 We will continue to monitor. Type 2 diabetes mellitus Hyperlipidemia Class I obesity A1c 6.4 On Lantus 40 units on moderate insulin protocol Code status: DNR DVT prophylaxis: Heparin GI prophylaxis: Famotidine Lines/tubes: Central line, peripheral line Diet: Na restricted diet, heart healthy diet, renal diet John Arreola M.D PGY2 Date of Service: Sep 21, 2025 Billing Provider: TRINA MARRUFO MD Common Visit Codes: [id number] INP/OBS CARE(HIGH) JHON ARREOLA, RES Sep 21, 2025 18:14 TRINA MARRUFO MD Sep 22, 2025 09:13
[2025-09-21] MEDS: HYDROcodone/acetaminophen 10/325mg tab PO PRN (22:08)
[2025-09-22] VITALS (27 sets, daily range): BP systolic 90–119; BP diastolic 39–63; PULSE 74–92; RESP 10–20; O2SAT 95–100
[2025-09-22] MEDS ORDERED: ondansetron 4mg rapidly disintigrating tab PO PRN (02:25)
[2025-09-22 02:49] LABS: MEAN PLATELET VOLUME 7.7 FL (7.4-10.4); RED CELL DISTRIBUTION WIDTH 16.2 % (11.5-14.5)
[2025-09-22 03:02] LABS: APTT 26 SECONDS (22-32); INR 1.2 INR
[2025-09-22 03:04] LABS: CREATININE 2.36 MG/DL (0.40-0.90); PHOSPHORUS 4.1 MG/DL (2.3-4.5); TOTAL CARBON DIOXIDE 28.3 MMOL/L (24-32); eCRCL 24 ML/MIN; eGFR 20 ML/MIN
[2025-09-22] MEDS: potassium Cl 20mEq/100mL bag 200 ML IV ONE (05:17)
--- NOTE | 2025-09-22 06:10 | RADIOLOGY REPORT ---
CHEST RADIOGRAPH Indication: s/p thoracentesis Technique: Single frontal view of the chest was obtained COMPARISON: DI CHEST,SINGLE VIEW on DOS: 09/20/25, CT CT CHEST on DOS: 09/19/25, DI CHEST,SINGLE VIEW on DOS: 09/19/25, DI CHEST,SINGLE VIEW on DOS: 09/10/25, DI CHEST,SINGLE VIEW on DOS: 08/30/25 FINDINGS: Lines and Tubes: Median sternotomy. Right central venous catheter in satisfactory position. Lungs: Unchanged multifocal airspace disease. Pleura: Decreased now small left pleural effusion. No pneumothorax. Cardiomediastinal contours: Unremarkable Bones: Unremarkable IMPRESSION: Decreased now small left pleural effusion. No pneumothorax.
[2025-09-22] MEDS: potassium Cl 20 mEq SR tablet PO PRN (08:00)
--- NOTE | 2025-09-22 10:36 | CONSULTATION REPORT ---
Consult Providers to CC ~ History of Present Illness Primary Medical Doctor: Celestina Del Real mD Reason for Admit\Complaint: Javier History of Present Illness I have been requested to do renal consult on this 70-year-old female with past medical history of coronary artery disease, CKD, hypertension, hyperlipidemia, diabetes, heart failure with mildly reduced ejection fraction, severe aortic stenosis EF of 45%, was transferred from her rehab facility with concerns of hypotension. She has had history of CABg previously in 2020. Patient was recently discharged after she underwent cardiac catheterization for TAVR. She has been receiving Lasix and metoprolol. Her initial blood pressure was 84/54 mmHg. Her blood pressure remained low even with 1 L of normal saline bolus and 5 mg of p.o. midodrine. Her chest x-ray was reviewed which showed [id number] left pleural effusion. She was transferred to the ICU for the requirement of pressors. With the low Bp, the creatinien was also elevated at 3.9. However, with the presssors, and calculated fluids for possible sepsis with controlled diuresis with lasix, the creatinine has been steadily coing down, today to 2.3. Her baseline creatinine off late has been 2.1. She is wide awake and alert currently [facility]ing [facility], and has excellent diuresis. With her severe aortic stenosis, Bp needs to be a bit higher than the normallly recommended parameters for better organ perfusion. Allergies: Coded Allergies: sulfamethoxazole (Verified Allergy, Severe, RASH, 09/10/25) trimethoprim (Verified Allergy, Severe, RASH, 09/10/25) Home Medications Home Medications Active Reported Toprol Xl* (Metoprolol Succinate) 25 Mg Tab.sr.24h 1 Tab PO DAILY Dulcolax (Bisacodyl) 10 Mg Supp.rect 1 Supp RC DAILY 10 Days Milk of Magnesia (Magnesium Hydroxide) 400 Mg/5 Ml Oral.susp 2,400 Mg PO PRN PRN 7 Days Ondansetron Odt (Ondansetron HCl) 4 Mg Tab.rapdis 4 Mg PO Q6H Tylenol (Acetaminophen) 325 Mg Tablet 650 Mg PO Q6H PRN PAIN Lasix* (Furosemide) 20 Mg Tablet 40 Mg PO DAILY 30 Days Florinef* (Fludrocortisone Acetate) 0.1 Mg Tablet 0.4 Mg PO PRN PRN 30 Days Xanax (Alprazolam) 0.5 Mg Tablet 1 Tab PO Q8H 30 Days Farxiga (Dapagliflozin Propanediol) 10 Mg Tablet 1 Tab PO DAILY 30 Days Lipitor* (Atorvastatin Calcium) 40 Mg Tablet 1 Tab PO DAILY 30 Days Aspirin EC (Aspirin) 81 Mg Tablet. 1 Tab PO DAILY 30 Days Past Medical History Past Medical History Heart failure with mildly reduced ejection fraction Severe aortic stenosis CKD Type 2 diabetes mellitus CAD s/p CABG Hypertension Hyperlipidemia Past Surgical History Surgical History Comment CABG in 2020 Endarterectomy Four vessel CABG in 2020 with MCKNIGHT to LAD, SVG to diagonal, SVG to PDA, SVG to OM. endarterectomy of the LAD and PDA at that time Past Social History Social History Comment the patient is currently in icu. didnt get the details. ROS ROS feeels better today. feels less breaethless. Exam Vitals: Vital Signs Date Time Temp Pulse Resp B/P (MAP) Pulse Ox O2 Delivery O2 Flow Rate FiO2 09/22/25 10:00 96.1 82 16 112/59 (76) 99 Nasal Cannula 2.0 09/22/25 08:53 32 General: Vital Signs: As above General: Normal body habitus, no acute distress. Skin: No rashes, lumps, ulcers, blisters, purpura or petechiae HEENT: Anicteric sclera, KOSTAS Neck: Supple and nontender without enlargement of the thyroid, or lymphadenopathy. Chest: Normal size and shape, no tenderness, CTA bilaterally Heart: Regular. No jugular venous distention, S1 and S2 heard , no gallop Abdomen: Soft and non tender no organomegaly,BS+ Extremities: + pedal edema Neuro: Nonfocal. Diagnostic Data Last Recorded Lab Results: 09/22/25 01509/22/25 015 Diagnostic Data: Laboratory Tests Test 09/22/25 01:50 Prothrombin Time 12.2 SECONDS (9.0-12.0) H INR International Normalized Ratio 1.2 INR Activated Partial Thromboplast Time 26 SECONDS (22-32) Coagulation Comments Problems: (1) JAVIER (acute kidney injury) Assessment & Plan: clearly from the low Bp related tissue ischemia and poor perfusion of hte kidneys to begin with, especilaly with the tight aortic stenosis + suspected sepsis, with negaetive cultures so far. thankfully it is getting better with the continued diuresis. She is still at risk in future for worsening of the renal function, until the tight aortic sdtenosis is fixed with tAVr. resolving steadily. it is likely to stop getting better pretty soon. caution to be expressed not to diurese too much. CXR still shows some congestion. Bp to be maintained above 140/80 as much as posible. (2) CKD (chronic kidney disease) stage 4, GFR 15-29 ml/min Assessment & Plan: baseline creatinine has been around 2.1. Dating back to 2019, She did have stage 3 even than with the cKD (3) CAD (coronary artery disease) Assessment & Plan: with previous CABg. cardiac cath preceding TAVR. (4) Cardiomyopathy Assessment & Plan: EF is 45%. (5) Severe aortic stenosis Assessment & Plan: cardiology closely following her. (6) Sepsis Status: Acute (7) Acute respiratory failure Status: Acute Assessment & Plan: much better. JESSY SUAREZ MD Sep 22, 2025 10:36
--- NOTE | 2025-09-22 13:37 | PROGRESS NOTE- Residence ---
Progress Note - Resident Providers to CC Resident Creating Document: DERIK DOUGLAS MARCO ACELI, RES ~ Antibiotic Timeout Antibiotic Ordered?: Yes Subjective The patient was seen and examined at bedside today. She is still on Levophed drip running at 0.1 mcg/kg/minute. No acute overnight events. Objective Vital Signs Date Time Temp Pulse Resp B/P (MAP) Pulse Ox O2 Delivery O2 Flow Rate FiO2 09/22/25 13:00 97.2 79 12 91/56 (68) 100 Nasal Cannula 2.0 09/22/25 08:53 32 Result Diagram: 09/22/25 0150 09/22/25 0150 General: Awake and Alert, no acute distress. HEENT: Conjunctiva pink, Sclera clear, Mucus Membranes moist. Neck: Supple without masses and tenderness. Resp: Unlabored. Diminished breath sounds bilaterally. Heart: Regular Rate and rhythm, normal S1 and S2, ejection systolic murmur heard in the aortic region Abdomen: Soft and non tender no organomegaly Extremities: No cyanosis,clubbing, 2+ pitting edema bilaterally Skin: Warm and Dry. Coagulation Studies Laboratory Tests Test 09/22/25 01:50 Prothrombin Time 12.2 SECONDS (9.0-12.0) H INR International Normalized Ratio 1.2 INR Activated Partial Thromboplast Time 26 SECONDS (22-32) Coagulation Comments Plan Plan Cardiovascular system: Cardiogenic shock Acute exacerbation of Heart failure with mildly reduced ejection fraction Severe symptomatic aortic stenosis CAD s/p CABG Continue Levophed currently running at 0.09 mg/kg/minute. Echocardiogram showed left ventricular ejection fraction of 45%, PASP 58 mmHg, severe aortic stenosis with valve area 0.64. Cardiology, Dr. Lares is on board. Preoperative carotid ultrasound done which showed no significant stenosis. Cardiology considering TAVR CT and possible BAV prior to discharge. Respiratory system: Acute hypoxemic respiratory failure Left moderate pleural effusion On 2 L of oxygen through nasal cannula. Continue diuresis with Lasix 40 mg TID. Nephrology: JAVIER on CKD likely secondary to renal tubular stasis Hyponatremia Creatinine downtrending, 2.36 today, EGFR 20. Urine output 5800 mL in the last 24 hours. Nephrology consulted. Advised to continue IV Lasix 40 mg t.i.d. and do not infuse any fluids. Continue pressors. Follow up with BMP. GI: Elevated transaminases Likely secondary to hepatic congestion. LFTs getting better. Endocrine: Diabetes mellitus HB A1c 6.4. Continue to monitor blood sugars. Nervous system: Patient is awake alert. Nutrition: Heart healthy and renal diet. Code Status: DNR DVT Prophylaxis: SCDs Analgesia/Sedation: Alprazolam Lines/Tubes: Central line, PIV GI Prophylaxis: Famotidine Nutrition: Renal diet, heart healthy diet PT: Ordered Prognosis: Guarded Disposition: The prognosis remains guarded. Critical care time spent greater than 35 minutes. Date of Service: Sep 22, 2025 Billing Provider: JOSE KEENAN [facility], RES Sep 22, 2025 13:37 JOSE KEENAN MD Sep 23, 2025 11:19
--- NOTE | 2025-09-22 17:58 | PROGRESS NOTE- Residence ---
Progress Note - Resident Providers to CC Resident Creating Document: PRISCA BANG RES ~ Central Line/PICC still needed: N\A Jeronimo-Non Protocol Jeronimo Indications Met/Not Met: F/C Indications Not Met Antibiotic Timeout Antibiotic Ordered?: Yes Subjective The patient was seen and examined at bedside today. She is still on Levophed drip running at 0.1 mcg/kg/minute. No acute overnight events. Objective Vital Signs Date Time Temp Pulse Resp B/P (MAP) Pulse Ox O2 Delivery O2 Flow Rate FiO2 09/22/25 16:00 97.7 87 11 111/54 (73) 95 Nasal Cannula 2.0 09/22/25 08:53 32 Result Diagram: 09/22/25 0150 09/22/25 0150 General: Well alert, well oriented, not confused, in slight distress HEENT: Conjunctive are pink, sclerae clear, no icterus. Neck: Supple, no JVD, no lymphadenopathy and thyromegaly. Lungs: Bilateral basal crackles. Heart: S1-S2 regular sinus rhythm and, regular rate, no gallops, no rubs, grade 4/6 ejection systolic murmur at the aortic area radiating to the neck. Holosystolic murmur at the mitral area. Abdomen: Witness some bruises from the previous subcutaneous anticoagulant injection. Bowel sounds present,, soft, nontender, no guarding, no rigidity Extremities: No obvious deformities, 2+ pitting edema bilaterally, capillary refill intact, . 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, no motor and sensory weakness in all 4 extremities, could move all 4 extremities Skin: No active skin lesions and rashes Coagulation Studies Laboratory Tests Test 09/22/25 01:50 Prothrombin Time 12.2 SECONDS (9.0-12.0) H INR International Normalized Ratio 1.2 INR Activated Partial Thromboplast Time 26 SECONDS (22-32) Coagulation Comments Assessment Assessment This is a 70-year-old female with a history of CAD status post CABG in 2020, CHF with reduced ejection fraction, 45%, aortic stenosis with TAVR pending, mitral regurgitation, CKD, was brought to the ER from [facility] for increase in the shortness of breadth. He underwent cardiac catheterization September 10. She needs TAVR and mitral valve replacement. Currently she is being managed in ICU for low blood pressure. Plan Plan Acute on chronic hypoxemic respiratory failure Cardiogenic shock Acute exacerbation of Heart failure with mildly reduced ejection fraction Severe symptomatic aortic stenosis with mitral regurgitation CAD s/p CABG and cardiac catheterization Continue Levophed currently running at 0.1 mg/kg/minute. Echocardiogram showed left ventricular ejection fraction of 45%, PASP 58 mmHg, severe aortic stenosis with valve area 0.64. Preoperative carotid ultrasound done which showed no significant stenosis. Cardiology considering TAVR CT and possible BAV prior to discharge. Fluid restriction< 1.2 L per day, salt restricted diet Heart healthy diet JAVIER on CKD likely secondary to renal tubular stasis Hypervolemic Hyponatremia Creatinine downtrending, 2.36 today, EGFR 20. Urine output 5800 mL in the last 24 hours. Nephrology consulted. Advised to continue IV Lasix 40 mg t.i.d. and do not infuse any fluids. Continue pressors. Follow up with BMP. Transaminitis Congestive hepatopathy AST, ALT improving Alkaline phosphatase 667 We will continue to monitor Type 2 diabetes mellitus Hyperlipidemia Class I obesity A1c 6.4 On Lantus 40 units on moderate insulin protocol Code Status: DNR DVT Prophylaxis: SCDs Analgesia/Sedation: Alprazolam Lines/Tubes: Central line, PIV GI Prophylaxis: Famotidine Nutrition: Renal diet, heart healthy diet PT: Ordered Prognosis: Guarded Disposition: The prognosis remains guarded. Critical care time spent greater than 35 minutes. Prisca Bang MD Internal Medicine Resident PGY-1 Date of Service: Sep 22, 2025 Billing Provider: TRINA MARRUFO MD Common Visit Codes: [id number] INP/OBS CARE(HIGH) PRISCA BANG, RES Sep 22, 2025 17:58 TRINA MARRUFO MD Sep 23, 2025 08:58
[2025-09-23] VITALS (26 sets, daily range): BP systolic 86–133; BP diastolic 47–85; PULSE 84–117; RESP 8–21; O2SAT 94–100
[2025-09-23 02:43] LABS: MEAN PLATELET VOLUME 7.5 FL (7.4-10.4); RED CELL DISTRIBUTION WIDTH 16.9 % (11.5-14.5)
[2025-09-23 03:01] LABS: CREATININE 1.79 MG/DL (0.40-0.90); PHOSPHORUS 3.3 MG/DL (2.3-4.5); TOTAL CARBON DIOXIDE 32.6 MMOL/L (24-32); eCRCL 32 ML/MIN; eGFR 28 ML/MIN
[2025-09-23 03:14] LABS: INR 1.2 INR
[2025-09-23] MEDS ORDERED: magnesium sulf-water 4G/100mL 100 ML IV PRN (06:40)
[2025-09-23] MEDS ORDERED: magnesium sulf-water 2g/50mL 50 ML IV PRN (06:40)
[2025-09-23] MEDS ORDERED: potassium Cl 40MEQ/270ML bag 270 ML IV PRN (06:40)
[2025-09-23] MEDS ORDERED: potassium Cl 20 mEq SR tablet PO PRN (06:40)
[2025-09-23] MEDS: potassium Cl 20 mEq SR tablet PO PRN (08:54)
--- NOTE | 2025-09-23 10:54 | PROGRESS NOTE ---
Progress Note Dictate Providers to CC ~ Central Line/PICC still needed: Yes Central Line/PICC Necessity: Prolonged IV access req Jeronimo Indications Met/Not Met: F/C Indications Met Antibiotic Ordered?: Yes Subjective Subjective The patient is on pressors still in icu. i would love to keep the Bp atleast up to 120 systolic and inf possible up to 140 systolic, in light of hte tight aortic stenosis, to help wtih renal perfusion. Objective Vitals Vital Signs Date Time Temp Pulse Resp B/P (MAP) Pulse Ox O2 Delivery O2 Flow Rate FiO2 09/24/25 05:00 99.5 112 17 138/68 (91) 98 Nasal Cannula 2.0 09/23/25 19:02 28 Lab Results: 09/24/25 0200 09/24/25 0200 Objective Vital Signs: As above General: Normal body habitus, no acute distress. Skin: No rashes, lumps, ulcers, blisters, purpura or petechiae HEENT: Anicteric sclera, KOSTAS Neck: Supple and nontender without enlargement of the thyroid, or lymphadenopathy. Chest: Normal size and shape, no tenderness, CTA bilaterally Heart: Regular. No jugular venous distention, S1 and S2 heard , no gallop Abdomen: Soft and non tender no organomegaly,BS+ Extremities: No pedal edema Neuro: Nonfocal. Coagulation Studies Laboratory Tests Test 09/22/25 01:50 09/24/25 02:00 Activated Partial Thromboplast Time 26 SECONDS (22-32) Prothrombin Time 12.1 SECONDS (9.0-12.0) H INR International Normalized Ratio 1.2 INR Coagulation Comments Advance Care Planning Advanced Care plannin - 30 Minutes Problem\Assessment\Plan Problems/Diagnosis: (1) JAVIER (acute kidney injury) Assessment & Plan: clearly from the low Bp related tissue ischemia and poor perfusion of hte kidneys to begin with, especilaly with the tight aortic stenosis + suspected sepsis, with negaetive cultures so far. thankfully it is getting better with the continued diuresis. She is still at risk in future for worsening of the renal function, until the tight aortic sdtenosis is fixed with tAVr. resolving steadily. it is likely to stop getting better pretty soon. caution to be expressed not to diurese too much. CXR still shows some congestion. Bp to be maintained above 140/80 as much as posible. (2) CKD (chronic kidney disease) stage 4, GFR 15-29 ml/min Assessment & Plan: baseline creatinine has been around 2.1. Dating back to 2019, She did have stage 3 even than with the cKD (3) CAD (coronary artery disease) Assessment & Plan: with previous CABg. cardiac cath preceding TAVR. (4) Cardiomyopathy Assessment & Plan: EF is 45%. (5) Severe aortic stenosis Assessment & Plan: cardiology closely following her. (6) Sepsis (7) Acute respiratory failure Assessment & Plan: much better. JESSY SUAREZ MD Sep 23, 2025 10:54
[2025-09-23] MEDS: NORepinephrine 8mg/ 250ml NS 250 ML IV SCH (12:14)
[2025-09-23] MEDS: midodrine 5mg tablet PO SCH (12:34)
--- NOTE | 2025-09-23 17:14 | PROGRESS NOTE- Residence ---
Progress Note - Resident Providers to CC Resident Creating Document: PRISCA TOVAR, CHRISTIAN ~ Central Line/PICC still needed: N\A Jeronimo-Non Protocol Jeronimo Indications Met/Not Met: F/C Indications Met Antibiotic Timeout Antibiotic Ordered?: No Subjective The patient was seen and examined at bedside today. Her breathing is now comfortable, maintaining oxygen saturation on nasal cannula. No acute overnight events. Still on epinephrine drip. Objective Vital Signs Date Time Temp Pulse Resp B/P (MAP) Pulse Ox O2 Delivery O2 Flow Rate FiO2 09/23/25 17:03 106 18 98 Nasal Cannula* 2 28 09/23/25 16:00 133/74 09/23/25 16:00 97.7 Result Diagram: 09/23/2513409/23/25134 General: Well alert, well oriented, not confused, in slight distress HEENT: Conjunctive are pink, sclerae clear, no icterus. Neck: Supple, no JVD, no lymphadenopathy and thyromegaly. Lungs: Bilateral basal crackles. Heart: S1-S2 regular sinus rhythm and, regular rate, no gallops, no rubs, grade 4/6 ejection systolic murmur at the aortic area radiating to the neck. Holosystolic murmur at the mitral area. Abdomen: Witness some bruises from the previous subcutaneous anticoagulant injection. Bowel sounds present,, soft, nontender, no guarding, no rigidity Extremities: No obvious deformities, 2+ pitting edema bilaterally, capillary refill intact, . INJECTION SPECIALIST: No focal neurological deficits, no motor and sensory weakness in all 4 extremities, could move all 4 extremities Skin: No active skin lesions and rashes Coagulation Studies Laboratory Tests Test 09/22/25 01:50 09/23/25 01:35 Activated Partial Thromboplast Time 26 SECONDS (22-32) Prothrombin Time 11.9 SECONDS (9.0-12.0) INR International Normalized Ratio 1.2 INR Coagulation Comments Assessment Assessment This is a 70-year-old female with a history of CAD status post CABG in 2020, CHF with reduced ejection fraction, 45%, aortic stenosis with TAVR pending, mitral regurgitation, CKD, was brought to the ER from [facility] for increase in the shortness of breadth. She underwent cardiac catheterization September 10. She needs TAVR and mitral valve replacement. Currently she is being managed in ICU for low blood pressure. Plan Plan Cardiovascular system: Cardiogenic shock Acute exacerbation of Heart failure with mildly reduced ejection fraction Severe symptomatic aortic stenosis CAD s/p CABG Continue Levophed currently running at 0.09 mg/kg/minute. Blood pressure 120/80 Echocardiogram showed left ventricular ejection fraction of 45%, PASP 58 mmHg, severe aortic stenosis and severe mental regurgitation and aortic valve area of 0.64. Cardiology, Dr. Lares is on board. Preoperative carotid ultrasound done which showed no significant stenosis. Cardiology considering TAVR CT and possible BAV prior to discharge. Respiratory system: Acute hypoxemic respiratory failure Left moderate pleural effusion On 2 L of oxygen through nasal cannula. Continue diuresis with Lasix 40 mg TID. Output of 2 L with negative balance of 1 L. Nephrology: JAVIER on CKD likely secondary to renal tubular stasis Hyponatremia Creatinine downtrending, 1.7 today, urine output 2 L in the past 24 hours. Nephrology consulted. Advised to continue IV Lasix 40 mg t.i.d. and do not infuse any fluids. Continue pressors. Follow up with BMP. Elevated transaminases, raised ALP Likely secondary to hepatic congestion. LFTs getting better. Diabetes mellitus HB A1c 6.4. Continue to monitor blood sugars. Code Status: DNR DVT Prophylaxis: SCDs Analgesia/Sedation: Alprazolam Lines/Tubes: Central line, PIV GI Prophylaxis: Famotidine Nutrition: Renal diet, heart healthy diet PT: Ordered Prognosis: Guarded Disposition: The prognosis remains guarded. Critical care time spent greater than 35 minutes. Prisca Tovar, Internal Medicine, PGY 1 Date of Service: Sep 23, 2025 Billing Provider: TRINA MARRUFO MD Common Visit Codes: [id number] INP/OBS CARE(HIGH) PRISCA TOVAR, RES Sep 23, 2025 17:14 TRINA MARRUFO MD Sep 24, 2025 07:18
[2025-09-24] VITALS (25 sets, daily range): BP systolic 98–138; BP diastolic 56–89; PULSE 102–121; RESP 11–21; O2SAT 92–100
[2025-09-24 02:35] LABS: MEAN PLATELET VOLUME 7.0 FL (7.4-10.4); RED CELL DISTRIBUTION WIDTH 16.8 % (11.5-14.5)
[2025-09-24 02:47] LABS: INR 1.2 INR
[2025-09-24 02:52] LABS: CREATININE 1.87 MG/DL (0.40-0.90); PHOSPHORUS 2.7 MG/DL (2.3-4.5); TOTAL CARBON DIOXIDE 33.6 MMOL/L (24-32); eCRCL 30 ML/MIN; eGFR 26 ML/MIN
[2025-09-24 03:25] LABS: EOSINOPHILS % (MANUAL) 3.0 % (0-6); LYMPHOCYTES % (MANUAL) 15.0 % (21-51); MONOCYTES % (MANUAL) 14.0 % (2-12); NEUTROPHILS % (MANUAL) 68.0 % (42-75); PLATELET ESTIMATE NORMAL
[2025-09-24] MEDS: potassium Cl 20mEq/100mL bag 200 ML IV ONE (03:43)
--- NOTE | 2025-09-24 06:27 | PROGRESS NOTE ---
Progress Note Dictate Providers to CC ~ Central Line/PICC still needed: Yes Central Line/PICC Necessity: Prolonged IV access req Jeronimo Indications Met/Not Met: F/C Indications Met Antibiotic Ordered?: Yes Subjective Subjective The patient was seen and examined with resident . please see my notes below that. Objective Vitals Vital Signs Date Time Temp Pulse Resp B/P (MAP) Pulse Ox O2 Delivery O2 Flow Rate FiO2 09/24/25 19:00 100.4 111 17 111/71 (84) 96 Nasal Cannula 2.0 09/24/25 16:30 24 Lab Results: 09/24/25 0200 09/24/25 0200 Objective Vital Signs: As above General: Normal body habitus, no acute distress. Skin: No rashes, lumps, ulcers, blisters, purpura or petechiae HEENT: Anicteric sclera, [place] Neck: Supple and nontender without enlargement of the thyroid, or lymphadenopathy. Chest: Normal size and shape, no tenderness, CTA bilaterally Heart: Regular. No jugular venous distention, S1 and S2 heard , no gallop Abdomen: Soft and non tender no organomegaly,BS+ Extremities: No pedal edema Neuro: Nonfocal. Coagulation Studies Laboratory Tests Test 09/22/25 01:50 09/24/25 02:00 Activated Partial Thromboplast Time 26 SECONDS (22-32) Prothrombin Time 12.1 SECONDS (9.0-12.0) H INR International Normalized Ratio 1.2 INR Coagulation Comments Problem\Assessment\Plan Problems/Diagnosis: (1) JAVIER (acute kidney injury) (2) CKD (chronic kidney disease) stage 4, GFR 15-29 ml/min (3) CAD (coronary artery disease) (4) Cardiomyopathy (5) Severe aortic stenosis (6) Sepsis (7) Acute respiratory failure JESSY SUAREZ MD Sep 24, 2025 06:27
--- NOTE | 2025-09-24 10:52 | RADIOLOGY REPORT ---
EXAM: DI CHEST,SINGLE VIEW TECHNIQUE: Single frontal chest radiograph CLINICAL HISTORY: chf COMPARISON: DI CHEST,SINGLE VIEW on DOS: 09/22/25, DI CHEST,SINGLE VIEW on DOS: 09/20/25, CT CT CHEST on DOS: 09/19/25, DI CHEST,SINGLE VIEW on DOS: 09/19/25, DI CHEST,SINGLE VIEW on DOS: 09/10/25 FINDINGS/IMPRESSION: No significant interval change. Redemonstrated left pleural effusion with adjacent opacity. Prominence of the interstitial markings. Unchanged cardiomediastinal silhouette. Median sternotomy changes are redemonstrated. Unchanged osseous structures. Right central venous catheter tip projects over the SVC.
[2025-09-24] MEDS: heparin, porcine 5000 units/ml vial SQ SCH (13:12)
--- NOTE | 2025-09-24 14:56 | PROGRESS NOTE- Residence ---
Progress Note - Resident Providers to CC Resident Creating Document: LENO MALDONADO RES ~ Antibiotic Timeout Antibiotic Ordered?: Yes Subjective Patient seen and examined today. Comfortably sitting in the bed. Stated that she feels better. Requiring about 2 L O2 via cannula. Developed about 100.2 F temperature and tachycardic-110s to 120s-sinus rhythm Objective Vital Signs Date Time Temp Pulse Resp B/P (MAP) Pulse Ox O2 Delivery O2 Flow Rate FiO2 09/24/25 14:00 100.0 108 20 107/69 (82) 98 Nasal Cannula 2.0 09/23/25 19:02 28 Result Diagram: 09/24/25 0200 09/24/25 0200 General: Alert and oriented x 4 HEENT: Normocephalic and atraumatic. Pupils equal round and reactive to light and accommodation. Extraocular movements intact. Oral and nasal mucosa moist Neck: Trachea is in midline. No masses or JVD Lungs: Bilateral mildly decreased breath sounds. Bilateral crackles present. rhonchi or wheezes Heart: Regular rate and rhythm. S1-S2 normal. No rubs. Grade 3/6 Systolic ejection murmur in the aortic and pulmonary area. Grade 3/6 holosystolic murmur in the mitral and tricuspid area Abdomen: Soft, nontender and nondistended. Bowel sounds present FILLER MACHINE OPERATOR: No gross sensory or motor abnormalities Extremities: No cyanosis, clubbing. 2+ pedal edema left lower extremity Skin: Warm and dry Coagulation Studies Laboratory Tests Test 09/22/25 01:50 09/24/25 02:00 Activated Partial Thromboplast Time 26 SECONDS (22-32) Prothrombin Time 12.1 SECONDS (9.0-12.0) H INR International Normalized Ratio 1.2 INR Coagulation Comments Assessment Assessment This is a 70-year-old female with a history of CAD status post CABG in 2020, CHF with reduced ejection fraction, 45%, aortic stenosis with TAVR pending, mitral regurgitation, CKD, was brought to the ER from [facility] for increase in the shortness of breadth. She underwent cardiac catheterization September 10. She needs TAVR and mitral valve replacement. Currently she is being managed in ICU for low blood pressure. Plan Plan Acute Hypoxemic respiratory failure Acute exacerbation of Heart failure with mildly reduced ejection fraction Cardiogenic shock Severe symptomatic aortic stenosis CAD s/p CABG Possible left lower lobe pneumonia On 2 L O2 via nasal cannula Continue requiring Levophed Echocardiogram done on 08/03/25 showed showed left ventricular ejection fraction of 45%, multi segmental motion abnormalities, PASP 58 mmHg, RV moderately dilated with mildly reduced function, left atrium moderately dilated, severe aortic stenosis, severe mitral regurgitation, moderate tricuspid regurgitation Cardia Catheterization done by Dr. Daly Lares done on 09/13/2025 showed severe [place] vessel CAD(improved PDF flow given endarterectomy) with 100% occluded mid LAD LCX and PL. Patent MCKNIGHT-LAD, SVG-Dx, SVG-OM, SVG-PDA States that she had CABG in 2020 Cardiology, Dr. Lares is on board. Preoperative carotid ultrasound done which showed no significant stenosis. Ink Jet Operator-Dr. Hoffman started fludrocortisone 0.2 mg p.o. Q 24 H p.r.n. to maintain map more than 65 mmHg Also on midodrine 10 mg p.o. t.i.d. Continue Lasix 40 mg IV t.i.d. Good urine output and is maintaining negative fluid balance Strict I&Os About 700 mL pleural fluid removed from the left side on 09/21/2025 No serum LDH available. Pleural fluid pH 7.38. Pleural fluid protein/serum protein: 0.55. Pleural fluid total cholesterol 60 and total protein 3.5 Likely exudative On levofloxacin 750 mg IV q.48h Chest x-ray after thoracentesis possible left lower lobe opacities Also has a mild left-sided pleural effusion on today's chest x-ray Procalcitonin ordered Developed low-grade fever and sinus tachycardia. No elevated WBC. She has been on antibiotics for five days now JAVIER on CKD stage IV likely secondary to renal tubular stasis Hyponatremia-resolved Hypokalemia Metabolic alkalosis due to diuresis Creatinine stable. BUN improving Continue diuresis Continue pressors. Continue potassium replacement as per protocol Unilateral left lower extremity edema Could be improved edema in the right lower extremity Had venous graft removed from the left lower extremity for CABG few years back but she denies any edema Ordered venous ultrasound to rule out DVT Elevated transaminases Likely secondary to hepatic congestion. LFTs getting better. Diabetes mellitus HB A1c 6.4. Continue to monitor blood sugars. On Lantus 40 units HS and low-dose lispro protocol Code Status: DNR DVT Prophylaxis: SCDs Analgesia/Sedation: Alprazolam Lines/Tubes: Right IH Central line, PIV GI Prophylaxis: Famotidine Nutrition: Renal diet, heart healthy diet PT: Ordered Prognosis: Guarded Disposition: Management as per the bench examiner and the ethylbenzene oxidizer. Follow up procalcitonin, temperature, heart rate Leno Maldonado MD Internal Medicine Resident, PGY 3 Date of Service: Sep 24, 2025 Billing Provider: TRINA MARRUFO MD Common Visit Codes: [id number] INP/OBS CARE(HIGH) LENO MALDONADO RES Sep 24, 2025 14:56 TRINA MARRUFO MD Sep 25, 2025 08:05
[2025-09-24] MEDS: Nepro carb steady vanilla 8oz. PO SCH (17:00)
--- NOTE | 2025-09-24 17:36 | PROGRESS NOTE ---
Progress Note Cardiology Providers to CC ~ Subjective Subjective Patient states that she is feeling better. She does remain on Levophed in his maintaining a good blood pressure. Able to tolerate [place] in [place] [address] L this admission. Almost 7 L yesterday. Heart rate tachycardic in the 115 range. Objective Result Diagram: 09/24/25 0200 09/24/25 020 Objective General: fatigued. awakens to light shaking. Respiratory: Lungs are clear and diminished in the bases. Bibasilar crackles. Chest: Normal shape and size. No accessory muscle use. Cardiovascular: Regular rate and rhythm. S1-S2. ++ systolic ejection murmur. Gastrointestinal: Abdomen is soft. Nontender to palpation. Bowel sounds present. Extremities: +1-2 lower extremity edema. Psychiatric: Normal mood and affect. Skin: Normal color. Warm and dry. Coagulation Studies Laboratory Tests Test 09/22/25 01:50 09/24/25 02:00 Activated Partial Thromboplast Time 26 SECONDS (22-32) Prothrombin Time 12.1 SECONDS (9.0-12.0) H INR International Normalized Ratio 1.2 INR Coagulation Comments Problem\Assessment\Plan Additional Plan Patient presented secondary to low blood pressure. The following is her problem list: Severe, symptomatic aortic stenosis --underwent left/right heart catheterization during last admission. See Dr. J Luis Lares's dictation. --preoperative carotid ultrasound with no hemodynamically significant stenosis. --we will follow. Consider TAVR CT and possible BAV prior to discharge 09/24/25: Patient is diuresing well and kidney function has improved. Continue with IV furosemide 40 mg t.i.d. with Levophed for blood pressure support. Hypotension --recommend titrate Levophed to keep systolic blood pressure greater than 90 Heart failure with reduced ejection fraction --unable to tolerate guideline directed medical therapy secondary to low blood pressure. --we will increase Lasix to 40 mg t.i.d. --monitor strict intake and output measurements. --continue IV Lasix and Levophed for blood pressure support This is a chronic kidney disease with acute kidney injury --likely secondary to hypoperfusion. --kidney function improved today. Transaminitis Significant transaminitis. Likely secondary to hypoperfusion History of coronary artery disease status post CABG --continue aspirin, statin. Diabetes mellitus Hemoglobin A1c 6.4 --management per hospitalist Thoracic aortic aneurysm --ascending aortic aneurysm measuring 4.[address] --recommend monitoring Case discussed with Dr. J Luis Lares. All laboratory and patient findings reviewed. He recommends continuing with IV diuresis and close monitoring. Continue Levophed. Supervising Physician: LI Thakur NP Sep 24, 2025 17:36
--- NOTE | 2025-09-24 17:42 | PROGRESS NOTE- Residence ---
Progress Note - Resident Providers to CC Resident Creating Document: LESLIEJERRELL PETERSEN, CHRISTIAN ~ Central Line/PICC still needed: Yes Central Line/PICC Necessity: Prolonged IV access req Jeronimo-Non Protocol Jeronimo Indications Met/Not Met: F/C Indications Met Antibiotic Timeout Antibiotic Ordered?: Yes Subjective Patient seen and examined at the bedside today. The patient stated that shortness of breaths improved. Denied any new concerns or complaints. No acute overnight events were reported. Patient has been having low-grade fevers of 100.0 throughout the day today. Objective Vital Signs Date Time Temp Pulse Resp B/P (MAP) Pulse Ox O2 Delivery O2 Flow Rate FiO2 09/24/25 16:30 111 18 97 Nasal Cannula* 1 24 09/24/25 16:00 109/69 (82) 09/24/25 14:00 100.0 Result Diagram: 09/24/25 0200 09/24/25 0200 General: Alert and oriented x 4 HEENT: Normocephalic and atraumatic. Pupils equal round and reactive to light and accommodation. Extraocular movements intact. Oral and nasal mucosa moist Neck: Trachea is in midline. No masses or JVD Lungs: Bilateral mildly decreased breath sounds. Bilateral crackles present. rhonchi or wheezes Heart: Regular rate and rhythm. S1-S2 normal. No rubs. Grade 3/6 Systolic ejection murmur loudest in the aortic area and radiating to the pulmonary. Holosystolic murmur present in the mitral area. Abdomen: Soft, nontender and nondistended. Bowel sounds present BODY SPECIALIST: No gross sensory or motor abnormalities Extremities: No cyanosis, clubbing. 1+ pedal edema left lower extremity Skin: Warm and dry Coagulation Studies Laboratory Tests Test 09/22/25 01:50 09/24/25 02:00 Activated Partial Thromboplast Time 26 SECONDS (22-32) Prothrombin Time 12.1 SECONDS (9.0-12.0) H INR International Normalized Ratio 1.2 INR Coagulation Comments Advance Care Planning Advanced Care plannin - 30 Minutes Assessment Assessment This is a 70-year-old female with a history of CAD status post CABG in 2020, CHF with reduced ejection fraction, 45%, aortic stenosis with TAVR pending, mitral regurgitation, CKD, was brought to the ER from [facility] for increase in the shortness of breadth. She underwent cardiac catheterization September 10. She needs TAVR and mitral valve replacement. Currently she is being managed in ICU for low blood pressure. Plan Plan Nephrology progress note: JAVIER on CKD stage IV Most likely secondary to cardiorenal syndrome due to severe aortic stenosis Underlying cardiogenic versus septic shock The patient has been diuresing well with IV Lasix 40 mg t.i.d.. Her creatinine is slightly elevated today 1.87 today. The patient's baseline creatinine dating back to 2019 was around 2.1. The patient continues to have low blood pressures requiring IV norepinephrine. Target blood pressure is to be above 140/80. Continue IV norepinephrine and titrate to maintain target blood pressure her that the patient has adequate tissue perfusion. Switching IV Lasix to 40 b.i.d. Continue strict input and output monitoring. Requires TAVR surgery for severe aortic stenosis. Suspected left lower lobe pneumonia Septic shock secondary to above Patient on IV norepinephrine. Patient on IV Lovenox 750 mg q.48h. In the Continue management per the food mixer assembler team. Coronary artery disease status post CABG Severe aortic stenosis Cardiomyopathy with mildly reduced EF The patient is awaiting to be scheduled for a TAVR surgery for her severe aortic stenosis. Continue management as per the cut and cover line worker recommendation. Reduced the dose of diuresis. Monitor the patient's I's and os closely. Hyponatremia-resolved Hypokalemia Metabolic alkalosis Replace potassium as per protocol. Metabolic alkalosis due to IV diuresis. Reduced the dose of Lasix to 40 b.i.d.. Continue monitoring the patient's electrolytes closely. Diabetes mellitus HB A1c 6.4. Continue to monitor blood sugars. On Lantus 40 units HS and low-dose lispro protocol. Code status: DNR Disposition: Continue medical management. Jerrell Yepez MD Internal Medicine Resident, PGY-3 Nephrology attending: agree with above. patient seen and examined with the resident. care plan reviewed. Metabolic alkalosis due to aggressive diuresis. Creatinine is starting to go up again. will continue pressors and cut back lasix. Camacho Suarez MD Date of Service: Sep 24, 2025 Billing Provider: CAMACHO SUAREZ MD,JERRELL KENNEDY, RES Sep 24, 2025 17:42 CAMACHO SUAREZ MD Sep 24, 2025 20:03
--- NOTE | 2025-09-24 18:08 | VASCULAR REPORT ---
CLINICAL HISTORY: Left lower extremity edema TECHNIQUE: Color and duplex doppler imaging of the left lower extremity veins was performed. Vessel compression if possible was also performed. WID: COMPARISON: VL VENOUS on DOS: 08/15/21 FINDINGS: Right common femoral vein: Normal flow and phasicity. Left common femoral vein: Normal compressibility and flow. Left femoral vein: Normal compressibility and flow. Left popliteal vein: Normal compressibility and flow. Proximal calf veins are normally compressible. IMPRESSION: 1. NO SONOGRAPHIC EVIDENCE FOR DEEP VENOUS THROMBOSIS IN THE LEFT LOWER EXTREMITY VEINS.
--- NOTE | 2025-09-24 19:29 | PROGRESS NOTE ---
Subjective Subjective Patient seen and examined at the bedside today. She reports improvement of her dyspnea. Denied any new concerns or complaints. No acute overnight events were reported. Reason for visit: Pulmonary critical care follow-up Reviewed: Care Plan, H&P, Radiology Review of Systems Changes from previous H/P or p: No Changes Daily Progress Note Exam Vitals Vital Signs Date Time Temp Pulse Resp B/P (MAP) Pulse Ox O2 Delivery O2 Flow Rate FiO2 09/24/25 19:00 100.4 111 17 111/71 (84) 96 Nasal Cannula 2.0 09/24/25 16:30 24 Result Diagram: 09/24/25 0200 09/24/25 0200 Exam Cardiovascular system: Cardiogenic shock Acute exacerbation of Heart failure with mildly reduced ejection fraction Severe symptomatic aortic stenosis CAD s/p CABG Continue Levophed currently running at 0.1 mg/kg/minute. Echocardiogram showed left ventricular ejection fraction of 45%, PASP 58 mmHg, severe aortic stenosis with valve area 0.64. Cardiology, Dr. Lares is on board. Preoperative carotid ultrasound done which showed no significant stenosis. Cardiology considering TAVR CT and possible BAV prior to discharge. Respiratory system: Acute hypoxemic respiratory failure Left moderate pleural effusion On 2 L of oxygen through nasal cannula. Continue diuresis with Lasix 40 mg TID. Nephrology: JAVIER on CKD likely secondary to renal tubular stasis Hyponatremia Creatinine downtrending, 1.87 today, EGFR 26. Nephrology consulted. Advised to continue IV Lasix 40 mg t.i.d. and do not infuse any fluids. Continue pressors. Follow up with BMP. GI: Elevated transaminases Likely secondary to hepatic congestion. LFTs getting better. Endocrine: Diabetes mellitus HB A1c 6.4. Continue to monitor blood sugars. Nervous system: Patient is awake alert. Nutrition: Heart healthy and renal diet. Code Status: DNR DVT Prophylaxis: SCDs Analgesia/Sedation: Alprazolam Lines/Tubes: Central line, PIV GI Prophylaxis: Famotidine Nutrition: Renal diet, heart healthy diet PT: Ordered Prognosis: Guarded Disposition: The prognosis remains guarded. Critical care time spent greater than 35 minutes. Results Coagulation Studies Laboratory Tests Test 09/22/25 01:50 09/24/25 02:00 Activated Partial Thromboplast Time 26 SECONDS (22-32) Prothrombin Time 12.1 SECONDS (9.0-12.0) H INR International Normalized Ratio 1.2 INR Coagulation Comments VTE VTE Risk Score VTE Risk Score Reference Ranges: Score 0-1 = Low Risk (Aggressive mobilization; early ambulation; no VTE prophylaxis required) Score 2: Moderate Risk (Intermittent/Pneumatic Compression Device OR Lovenox/Heparin/Coumadin) Score 3-4: High Risk (Intermittent/Pneumatic Compression Device AND Lovenox/Heparin/Coumadin) Score > or = 5: Highest Risk (Intermittent/Pneumatic Compression Device AND Lovenox/Heparin/Coumadin) Assessment/Plan Assessment This is a 70-year-old female with a history of CAD status post CABG in 2020, CHF with reduced ejection fraction, 45%, aortic stenosis with TAVR pending, mitral regurgitation, CKD, was brought to the ER from [facility] for increase in the shortness of breadth. She underwent cardiac catheterization September 10. She needs TAVR and mitral valve replacement. Currently she is being managed in ICU for low blood pressure. Plan Nephrology progress note: JAVIER on CKD stage IV Most likely secondary to cardiorenal syndrome due to severe aortic stenosis Underlying cardiogenic versus septic shock The patient has been diuresing well with IV Lasix 40 mg t.i.d.. Her creatinine is slightly elevated today 1.87 today. The patient's baseline creatinine dating back to 2019 was around 2.1. The patient continues to have low blood pressures requiring IV norepinephrine. Target blood pressure is to be above 140/80. Continue IV norepinephrine and titrate to maintain target blood pressure her that the patient has adequate tissue perfusion. Switching IV Lasix to 40 b.i.d. Continue strict input and output monitoring. Requires TAVR surgery for severe aortic stenosis. Suspected left lower lobe pneumonia Septic shock secondary to above Patient on IV norepinephrine. Patient on IV Lovenox 750 mg q.48h. In the Continue management per the charging crane operator team. Coronary artery disease status post CABG Severe aortic stenosis Cardiomyopathy with mildly reduced EF The patient is awaiting to be scheduled for a TAVR surgery for her severe aortic stenosis. Continue management as per the digital pre press operator recommendation. Reduced the dose of diuresis. Monitor the patient's I's and os closely. Hyponatremia-resolved Hypokalemia Metabolic alkalosis Replace potassium as per protocol. Metabolic alkalosis due to IV diuresis. Reduced the dose of Lasix to 40 b.i.d.. Continue monitoring the patient's electrolytes closely. Diabetes mellitus HB A1c 6.4. Continue to monitor blood sugars. On Lantus 40 units HS and low-dose lispro protocol. Code status: DNR Disposition: Continue medical management. Jerrell Yepez MD Internal Medicine Resident, PGY-3 Expected Outcome/Goals Expected Outcomes/Goals: maintain stable wt, meet at least 75% of estimated nutrient needs, ONS acceptance, bowel regularity, optimal skin integrity, BG 80-180 mg/dl JOSE KEENAN MD Sep 24, 2025 19:29
[2025-09-25] VITALS (26 sets, daily range): BP systolic 92–122; BP diastolic 54–83; PULSE 110–124; RESP 12–27; O2SAT 94–99
[2025-09-25 04:19] LABS: MEAN PLATELET VOLUME 7.0 FL (7.4-10.4); RED CELL DISTRIBUTION WIDTH 17.1 % (11.5-14.5)
[2025-09-25 04:37] LABS: CREATININE 1.50 MG/DL (0.40-0.90); LACTATE DEHYDROGENASE 220 U/L (81-234); PHOSPHORUS 2.3 MG/DL (2.3-4.5); TOTAL CARBON DIOXIDE 33.1 MMOL/L (24-32); eCRCL 38 ML/MIN; eGFR 34 ML/MIN
--- NOTE | 2025-09-25 11:15 | PROGRESS NOTE ---
Progress Note Cardiology Providers to CC ~ Subjective Subjective Patient is sitting in bed. Oxygenating well. No current complaints. Objective Result Diagram: 09/25/25 0355 09/25/25 0355 Objective General: Awake, alert, oriented. No apparent distress. Respiratory: Lungs are clear and diminished. Chest: Normal shape and size. No accessory muscle use. Cardiovascular: Regular rhythm. Tachycardic. S1-S2. ++ systolic ejection murmur. Extremities: Trace edema. Psychiatric: Normal mood and affect. Skin: Normal color. Warm and dry. Coagulation Studies Laboratory Tests Test 09/22/25 01:50 09/24/25 02:00 Activated Partial Thromboplast Time 26 SECONDS (22-32) Prothrombin Time 12.1 SECONDS (9.0-12.0) H INR International Normalized Ratio 1.2 INR Coagulation Comments Problem\Assessment\Plan Additional Plan Patient presented secondary to low blood pressure. The following is her problem list: Severe, symptomatic aortic stenosis --underwent left/right heart catheterization during last admission. See Dr. J Luis Larse's dictation. --preoperative carotid ultrasound with no hemodynamically significant stenosis. --we will follow. Consider TAVR CT and possible BAV prior to discharge 09/24/25: Patient is diuresing well and kidney function has improved. Continue with IV furosemide 40 mg t.i.d. with Levophed for blood pressure support. 09/25/25: Decrease lasix to 40 mg IV BID. Cont with strick I&O. Wean levophed as tolerated. Will plan on TAVR CT prior to discharge Hypotension --recommend titrate Levophed to keep systolic blood pressure greater than 90 Heart failure with reduced ejection fraction --unable to tolerate guideline directed medical therapy secondary to low blood pressure. --cont lasix --monitor strict intake and output measurements. --continue IV Lasix and Levophed for blood pressure support as noted above. This is a chronic kidney disease with acute kidney injury --likely secondary to hypoperfusion. --kidney function continues to improve Transaminitis Significant transaminitis. Likely secondary to hypoperfusion. improving History of coronary artery disease status post CABG --continue aspirin, statin. Diabetes mellitus Hemoglobin A1c 6.4 --management per hospitalist Thoracic aortic aneurysm --ascending aortic aneurysm measuring 4.[address] --recommend monitoring Case discussed with Dr. J Luis Lares who is in agreement with this plan. Supervising Physician: LI Thakur NP Sep 25, 2025 11:15
--- NOTE | 2025-09-25 17:32 | PROGRESS NOTE- Residence ---
Progress Note - Resident Providers to CC Resident Creating Document: LENO MALDONADO RES ~ Antibiotic Timeout Antibiotic Ordered?: Yes Subjective Patient seen and examined today. Stated that she feels comfortable and denies any concerns. T-max 100.4 in the last 24 hours. Once tachycardic and 110s and is requiring Levophed at 0.2 mcg/kg/minute Objective Vital Signs Date Time Temp Pulse Resp B/P (MAP) Pulse Ox O2 Delivery O2 Flow Rate FiO2 09/25/25 17:00 100.4 112 21 99/64 (76) 98 Nasal Cannula 2.0 09/24/25 16:30 24 Result Diagram: 09/25/25 0355 09/25/25 0355 General: Alert and oriented x 4 HEENT: Normocephalic and atraumatic. Pupils equal round and reactive to light and accommodation. Extraocular movements intact. Oral and nasal mucosa moist Neck: Trachea is in midline. No masses or JVD Lungs: Bilateral mildly decreased breath sounds. Bilateral crackles present. rhonchi or wheezes Heart: Regular rate and rhythm. S1-S2 normal. No rubs. Grade 3/6 Systolic ejection murmur in the aortic and pulmonary area. Grade 3/6 holosystolic murmur in the mitral and tricuspid area Abdomen: Soft, nontender and nondistended. 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 2+ pedal edema left lower extremity Skin: Warm and dry Coagulation Studies Laboratory Tests Test 09/22/25 01:50 09/24/25 02:00 Activated Partial Thromboplast Time 26 SECONDS (22-32) Prothrombin Time 12.1 SECONDS (9.0-12.0) H INR International Normalized Ratio 1.2 INR Coagulation Comments Assessment Assessment This is a 70-year-old female with a history of CAD status post CABG in 2020, CHF with reduced ejection fraction, 45%, aortic stenosis with TAVR pending, mitral regurgitation, CKD, was brought to the ER from [facility] for increase in the shortness of breadth. She underwent cardiac catheterization September 10. She needs TAVR and mitral valve replacement. Currently she is being managed in ICU for low blood pressure. Plan Plan Acute Hypoxemic respiratory failure Acute exacerbation of Heart failure with mildly reduced ejection fraction Cardiogenic shock Severe symptomatic aortic stenosis CAD s/p CABG Ascending aortic aneurysm 4.3 cm Possible left lower lobe pneumonia On 2 L O2 via nasal cannula Continue requiring Levophed at 0.2 mcg/kg/minute Echocardiogram done on 08/03/25 showed showed left ventricular ejection fraction of 45%, multi segmental motion abnormalities, PASP 58 mmHg, RV moderately dilated with mildly reduced function, left atrium moderately dilated, severe aortic stenosis, severe mitral regurgitation, moderate tricuspid regurgitation Cardia Catheterization done by Dr. Daly Lares done on 09/13/2025 showed severe [place] vessel CAD(improved PDF flow given endarterectomy) with 100% occluded mid LAD LCX and PL. Patent MCKNIGHT-LAD, SVG-Dx, SVG-OM, SVG-PDA States that she had CABG in 2020 Cardiology, Dr. Lares is on board. Preoperative carotid ultrasound done which showed no significant stenosis. Strain Technician-Dr. Hoffman started fludrocortisone 0.2 mg p.o. Q 24 H p.r.n. to maintain map more than 65 mmHg Also on midodrine 10 mg p.o. t.i.d. Decrease Lasix to 40 mg IV b.i.d. Good urine output and is maintaining negative fluid balance Strict I&Os About 700 mL pleural fluid removed from the left side on 09/21/2025 No serum LDH available. Pleural fluid pH 7.38. Pleural fluid protein/serum protein: 0.55. Pleural fluid total cholesterol 60 and total protein 3.5 Likely exudative On levofloxacin 750 mg IV q.48h Chest x-ray after thoracentesis possible left lower lobe opacities Also has a mild left-sided pleural effusion on today's chest x-ray Procalcitonin negative Developed low-grade fever and sinus tachycardia. No elevated WBC. She has been on antibiotics for 6 days now Cardiology recommended to monitor aneurysm JAVIER on CKD stage IV likely secondary to renal tubular stasis Hyponatremia-resolved Hypokalemia Metabolic alkalosis due to diuresis Creatinine improving. BUN improving Continue diuresis Continue pressors. Continue potassium replacement as per protocol Ordered one time dose of K-Dur 40 mEq p.o. and magnesium sulfate 2 g IV once Maintain potassium more than four and magnesium more than two Unilateral left lower extremity edema Could be improved edema in the right lower extremity Had venous graft removed from the left lower extremity for CABG few years back but she denies any edema Ordered venous ultrasound to rule out DVT Elevated transaminases Likely secondary to hepatic congestion. LFTs getting better. Diabetes mellitus HB A1c 6.4. Continue to monitor blood sugars. On Lantus 40 units HS and low-dose lispro protocol Blood sugars not well controlled Management per the heart surgeon Code Status: DNR DVT Prophylaxis: SCDs Analgesia/Sedation: Alprazolam Lines/Tubes: Right IJ Central line, PIV GI Prophylaxis: Famotidine Nutrition: Renal diet, heart healthy diet PT: Ordered Prognosis: Guarded Disposition: Management as per the heart surgeon and the service car operator. Leno Maldonado MD Internal Medicine Resident, PGY 3 Date of Service: Sep 25, 2025 Billing Provider: TRINA MARRUFO MD Common Visit Codes: 13012-[id number] INP/OBS CARE(HIGH) LENO MALDONADO RES Sep 25, 2025 17:32 TRINA MARRUFO MD Sep 26, 2025 07:33
--- NOTE | 2025-09-25 17:33 | PROGRESS NOTE- Residence ---
Progress Note - Resident Providers to CC Resident Creating Document: HELGAJERRELL, CHRISTIAN ~ Central Line/PICC still needed: Yes Central Line/PICC Necessity: Prolonged IV access req Jeronimo-Non Protocol Jeronimo Indications Met/Not Met: F/C Indications Met Antibiotic Timeout Antibiotic Ordered?: Yes Subjective Patient is seen and examined at the bedside today. Reported that she is doing well. Denied any new concerns or complaints. No other overnight events were reported. Objective Vital Signs Date Time Temp Pulse Resp B/P (MAP) Pulse Ox O2 Delivery O2 Flow Rate FiO2 09/25/25 17:00 100.4 112 21 99/64 (76) 98 Nasal Cannula 2.0 09/24/25 16:30 24 Result Diagram: 09/25/25 0355 09/25/25 0355 General: Alert and oriented x 4 HEENT: Normocephalic and atraumatic. Pupils equal round and reactive to light and accommodation. Extraocular movements intact. Oral and nasal mucosa moist Neck: Trachea is in midline. No masses or JVD Lungs: Bilateral mildly decreased breath sounds. Decreased bibasilar crackles. No rhonchi or wheezing. Heart: Regular rate and rhythm. S1-S2 normal. No rubs. Grade 3/6 Systolic ejection murmur loudest in the aortic area and radiating to the pulmonary. Holosystolic murmur present in the mitral area. Abdomen: Soft, nontender and nondistended. 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 1+ pedal edema left lower extremity Skin: Warm and dry Coagulation Studies Laboratory Tests Test 09/22/25 01:50 09/24/25 02:00 Activated Partial Thromboplast Time 26 SECONDS (22-32) Prothrombin Time 12.1 SECONDS (9.0-12.0) H INR International Normalized Ratio 1.2 INR Coagulation Comments Advance Care Planning Advanced Care plannin - 30 Minutes Assessment Assessment This is a 70-year-old female with a history of CAD status post CABG in 2020, CHF with reduced ejection fraction, 45%, aortic stenosis with TAVR pending, mitral regurgitation, CKD, was brought to the ER from [facility] for increase in the shortness of breadth. She underwent cardiac catheterization September 10. She needs TAVR and mitral valve replacement. Currently she is being managed in ICU for low blood pressure. Plan Plan Nephrology progress note: JAVIER on CKD stage IV Most likely secondary to cardiorenal syndrome due to severe aortic stenosis Most likely cardiogenic shock Continue diuresis with IV Lasix 40 b.i.d.. Her creatinine is trending down. 1.50 today. The patient's baseline creatinine dating back to 2019 was around 2.1. Continues to require IV norepinephrine to maintain blood pressure. Plan to wean the patient off of norepinephrine as tolerated. Target blood pressure is to be above 140/80. Continue IV norepinephrine and titrate to maintain target blood pressure her that the patient has adequate tissue perfusion. Continue strict input and output monitoring. Requires TAVR surgery for severe aortic stenosis. Suspected left lower lobe pneumonia Septic shock secondary to above Patient on IV norepinephrine. Patient on IV Lovenox 750 mg q.48h. 2 L oxygen via nasal cannula. Continue management per the enamel dipper team. Coronary artery disease status post CABG Severe aortic stenosis Cardiomyopathy with mildly reduced EF The patient is awaiting to be scheduled for a TAVR surgery for her severe aortic stenosis. Continue management as per the director personal recommendation. Reduced the dose of diuresis. Monitor the patient's I's and os closely. Hyponatremia-resolved Hypokalemia Metabolic alkalosis Replace potassium as per protocol. Metabolic alkalosis due to IV diuresis. Reduced the dose of Lasix to 40 b.i.d.. Continue monitoring the patient's electrolytes closely. Diabetes mellitus HB A1c 6.4. Continue to monitor blood sugars. On Lantus 40 units HS and low-dose lispro protocol. Code status: DNR Disposition: Continue medical management. Chief Juvenile Probation Officer Dr. Lares's team is following the patient and managing the patient's cardiac condition. The patient continues to be in intensive care unit and requiring pressors. Wean the patient off of pressors as tolerated. Jerrell Yepez MD Internal Medicine Resident, PGY-3 Nephroloyg attending: Patient seen and examined. care plan reviewed. creatinine is down to 1.5. lasix has been held. pressors running. Bp is acceptable. more awake. tight aortic stenosis. Camacho Suarez MD Date of Service: Sep 25, 2025 Billing Provider: CAMACHO SUAREZ MD, SURYA PRATIK, RES Sep 25, 2025 17:33 CAMACHO SUAREZ MD Sep 25, 2025 18:25
[2025-09-25] MEDS: potassium Cl 20 mEq SR tablet PO STA (18:00)
[2025-09-25] MEDS: magnesium sulf-water 2g/50mL 50 ML IV ONE (18:00)
--- NOTE | 2025-09-25 18:09 | PROGRESS NOTE- Residence ---
Progress Note - Resident Providers to CC Resident Creating Document: KAREN SANCHES RES ~ Antibiotic Timeout Antibiotic Ordered?: Yes Subjective Pt was seen at CICU bedside this am with no special complaints. Pt was explained that she still remains on the pressor for her lower BP which could make her stay in CICU for awhile. She dose not have any special events last night. Objective Vital Signs Date Time Temp Pulse Resp B/P (MAP) Pulse Ox O2 Delivery O2 Flow Rate FiO2 09/25/25 17:18 114 24 97 Nasal Cannula* 2 28 09/25/25 17:00 100.4 99/64 (76) Result Diagram: 09/25/25 0355 09/25/25 0355 Vitals were stable with BP 93/54 mm Hg, LA 116/minute, SpO2 98% on nasal cannula 1 L/min. General: Well alert, well oriented, not confused, not agitated, not in acute distress, well cooperated during the physical. HEENT: Conjunctive are pink, sclerae clear, no icterus, pupil is equal in both sides, reactive to light, no ear discharge, no pharyngeal erythema or an edema, mouth and lips are moist. Neck: Supple, no JVD, no lymphadenopathy and thyromegaly. Lungs: Equally reduced air entry on both lungs, audible wheezing and rhonchi were noted, bilateral crackles were present. Heart: S1-S2 regular sinus rhythm and, regular rate, no gallops, no rubs, 3/6 systolic ejection murmur in the aortic and pulmonary area, and radiating to the neck. 3/6 holosystolic murmur over the mitral and tricuspid area. Abdomen: No visible peristalsis, Bowel sounds present on auscultation, soft, nontender, no guarding, no rigidity Extremities: No obvious deformities, no pitting edema bilaterally, capillary refill intact, able to wiggle toes both sides, peripheral pulsations are intact on both sides SHIP ENGINEER: No focal neurological deficits, no motor and sensory weakness in all 4 extremities, could move all 4 extremities Musculoskeletal: No joint swelling, deformities, inflammations, and no scoliosis and back tenderness Skin: No active skin lesions and rashes Coagulation Studies Laboratory Tests Test 09/22/25 01:50 09/24/25 02:00 Activated Partial Thromboplast Time 26 SECONDS (22-32) Prothrombin Time 12.1 SECONDS (9.0-12.0) H INR International Normalized Ratio 1.2 INR Coagulation Comments Advance Care Planning Advanced Care plannin - 30 Minutes Assessment Assessment This is a 70-year-old female with a history of CAD status post CABG in 2020, CHFrEF, 45%, aortic stenosis with TAVR and BAV pending, mitral regurgitation, CKD, was brought to the ER from [facility] for increase in the shortness of breadth. She underwent cardiac catheterization September 10. She needs TAVR and mitral valve replacement. Currently she is being managed in ICU for low blood pressure. The plan would be having BAV before being discharged, and titrate down the Levophed requirement. Plan Plan Cardiology # Acute Hypoxemic respiratory failure 11/12 # Acute exacerbation of Heart failure with mildly reduced ejection fraction # Cardiogenic shock # Severe symptomatic aortic stenosis # CAD s/p CABG in 2020 # Ascending aortic aneurysm 4.3 cm # Hypotension -Cardilogy is on board -remains on requiring Levophed at 0.21 mcg/kg/minute, which is high demand and needs to be titrated down with the aim of HR should be below 70s -Echocardiogram done on 08/03/25 showed showed left ventricular ejection fraction of 45%, multi segmental motion abnormalities, PASP 58 mmHg, RV moderately dilated with mildly reduced function, left atrium moderately dilated, severe aortic stenosis, severe mitral regurgitation, moderate tricuspid regurgitation -Cardia Catheterization done by Dr. Daly Lares done on 09/13/2025 showed severe [place] vessel CAD(improved PDF flow given endarterectomy) with 100% occluded mid LAD LCX and PL. Patent MCKNIGHT-LAD, SVG-Dx, SVG-OM, SVG-PDA, bilateral carotid USG cleared. -continue fludrocortisone 0.2 mg p.o. Q 24 H p.r.n. to maintain map more than 65 mmHg and midodrine 10 mg p.o. t.i.d. -Decreased Lasix to 40 mg IV b.i.d. as per cardiology recommendation -Plan for TAVR CT and BAV before being discharged. Pulmonology # Acute hypoxic respiratory failure # s/p left thoracentesis for left moderate pleural effusion on likely exudative 09/21/25 # Left side lobar pneumonia -About 700 mL pleural fluid was removed -No serum LDH available. Pleural fluid pH 7.38. Pleural fluid protein/serum protein: 0.55. Pleural fluid total cholesterol 60 and total protein 3.5 -Continue levofloxacin 750 mg IV q.48h - mild left-sided pleural effusion on today's chest x-ray, continue IV Lasix 40 BID -titrated down the NC O2 supply to baseline, currently on 1L/min Neprhology # JAVIER on CKD stage IV likely secondary to renal tubular stasis # Electrolytes imbalances- Hyponatremia-resolved, Hypokalemia # Metabolic alkalosis due to diuresis -Creatinine improving. BUN improving -Continue pressors, diuresis -Continue potassium replacement as per protocol -Maintain potassium more than four and magnesium more than two -Maintain BP above 140/80 mmHg for better Renal blood flow in the setting of possible cardio-pulmonary syndrome Lymphatic system # Unilateral left lower extremity edema -Had venous graft removed from the left lower extremity for CABG few years back but she denies any edema -venous ultrasound showed negative for DVT GI and Hepatology # Elevated transaminases -Likely secondary to hepatic congestion Vs depletion of blood flow from hypotension. -LFTs getting better. -Titrate Levophed down by maintaining MAP above 65 Endocrine # Diabetes mellitus -HB A1c 6.4. -On Lantus 40 units HS and low-dose lispro protocol which need to be adjusted as pt's blood glucose is not well controlled Code Status: DNR DVT Prophylaxis: SCDs Analgesia/Sedation: Alprazolam Lines/Tubes: Right IJ Central line, PIV GI Prophylaxis: Famotidine Nutrition: Renal diet, heart healthy diet PT: Ordered Prognosis: Guarded Disposition: The prognosis remains guarded. Critical care time spent greater than 35 minutes. Resident MD attestation: Patient was seen, examined and discussed with attending MD, Dr. Yasmin SANCHES MD Internal Medicine Resident, PGY3 [facility] Date of Service: Sep 25, 2025 Billing Provider: JOSE KEENAN MD, TIN, RES Sep 25, 2025 18:09
[2025-09-26] VITALS (26 sets, daily range): BP systolic 84–101; BP diastolic 56–71; PULSE 103–124; RESP 14–30; O2SAT 91–99
[2025-09-26 04:36] LABS: MEAN PLATELET VOLUME 6.8 FL (7.4-10.4); RED CELL DISTRIBUTION WIDTH 17.2 % (11.5-14.5)
[2025-09-26 04:48] LABS: CREATININE 1.46 MG/DL (0.40-0.90); PHOSPHORUS 2.5 MG/DL (2.3-4.5); TOTAL CARBON DIOXIDE 33.9 MMOL/L (24-32); eCRCL 39 ML/MIN; eGFR 35 ML/MIN
--- NOTE | 2025-09-26 09:48 | RADIOLOGY REPORT ---
CHEST RADIOGRAPH Indication: Acute CHF Technique: Single frontal view of the chest was obtained COMPARISON: DI CHEST,SINGLE VIEW on DOS: 09/24/25, DI CHEST,SINGLE VIEW on DOS: 09/22/25, DI CHEST,SINGLE VIEW on DOS: 09/20/25, DI CHEST,SINGLE VIEW on DOS: 09/19/25, DI CHEST,SINGLE VIEW on DOS: 09/10/25 FINDINGS: Lines and Tubes: Right central venous catheter in satisfactory position. Lungs: Increased interstitial prominence. This may represent pulmonary vascular congestion and/or viral pneumonia. Pleura: No effusion. No pneumothorax. Cardiomediastinal contours: Median sternotomy. Bones: Unremarkable IMPRESSION: Increased interstitial prominence. This may represent pulmonary vascular congestion and/or viral pneumonia.
[2025-09-26] MEDS: INSULIN LISPRO 100 UNIT/ML INSULN.PEN MULTI-DOSE SQ SCH (11:50)
[2025-09-26] MEDS: psyllium seed 5.8 gm packet (sugar-free) PO SCH (11:52)
--- NOTE | 2025-09-26 13:51 | PROGRESS NOTE- Residence ---
Progress Note - Resident Providers to CC Resident Creating Document: HELGAJERRELL MARCIA, RES ~ Central Line/PICC still needed: No Jeronimo-Non Protocol Jeronimo Indications Met/Not Met: F/C Indications Not Met Antibiotic Timeout Antibiotic Ordered?: No Subjective Patient seen and examined at the bedside today. The patient reported that her breathing has significantly improved and denied any new concerns or complaints. No acute overnight events were reported. Objective Vital Signs Date Time Temp Pulse Resp B/P (MAP) Pulse Ox O2 Delivery O2 Flow Rate FiO2 09/26/25 12:28 96/66 09/26/25 11:44 99.1 111 17 94 Room Air 09/26/25 09:00 1.0 09/25/25 19:09 28 Result Diagram: 09/26/25 0425 09/26/255 General: Alert and oriented x 4 HEENT: Normocephalic and atraumatic. Pupils equal round and reactive to light and accommodation. Extraocular movements intact. Oral and nasal mucosa moist Neck: Trachea is in midline. No masses or JVD Lungs: Bilateral mildly decreased breath sounds. Decreased bibasilar crackles. No rhonchi or wheezing. Heart: Regular rate and rhythm. S1-S2 normal. No rubs. Grade 3/6 Systolic ejection murmur loudest in the aortic area and radiating to the pulmonary. Holosystolic murmur present in the mitral area. Abdomen: Soft, nontender and nondistended. Bowel sounds present SHIPWRIGHT HELPER: No gross sensory or motor abnormalities Extremities: mild cyanosis noted in b/l LE, No clubbing. 1+ pedal edema left lower extremity Skin: Warm and dry Coagulation Studies Laboratory Tests Test 09/22/25 01:50 09/24/25 02:00 Activated Partial Thromboplast Time 26 SECONDS (22-32) Prothrombin Time 12.1 SECONDS (9.0-12.0) H INR International Normalized Ratio 1.2 INR Coagulation Comments Advance Care Planning Advanced Care plannin - 30 Minutes Assessment Assessment This is a 70-year-old female with a history of CAD status post CABG in 2020, CHF with reduced ejection fraction, 45%, aortic stenosis with TAVR pending, mitral regurgitation, CKD, was brought to the ER from [facility] for increase in the shortness of breadth. She underwent cardiac catheterization September 10. She needs TAVR and mitral valve replacement. Currently she is being managed in ICU for low blood pressure. Plan Plan Nephrology progress note: JAVIER on CKD stage IV Most likely secondary to cardiorenal syndrome due to severe aortic stenosis Cardiogenic shock The patient has been diuresing very well. She has a approximately-2800 cc of fluid balance. Recommend to hold Lasix and maintain euvolemia. The patient continues to require pressors to maintain adequate blood pressure. Maintain a target map of greater than 65 with a pressors. Hold off of Lasix as the patient does not appear to be significantly fluid overloaded and it will also help to maintain the patient's blood pressure is. Strict input and output monitoring recommended. Requires TAVR surgery for severe aortic stenosis. Suspected left lower lobe pneumonia Septic shock secondary to above Patient on IV norepinephrine. Patient on IV Lovenox 750 mg q.48h. 2 L oxygen via nasal cannula. Continue management per the cycling instructor team. Coronary artery disease status post CABG Severe aortic stenosis Cardiomyopathy with mildly reduced EF The patient is awaiting to be scheduled for a TAVR surgery for her severe aortic stenosis. Continue management as per the office engineer recommendation. Reduced the dose of diuresis. Monitor the patient's I's and os closely. Hyponatremia-resolved Hypokalemia Metabolic alkalosis Replace potassium as per protocol. Metabolic alkalosis due to IV diuresis. Reduced the dose of Lasix to 40 b.i.d.. Continue monitoring the patient's electrolytes closely. Diabetes mellitus HB A1c 6.4. Continue to monitor blood sugars. On Lantus 40 units HS and low-dose lispro protocol. Code status: DNR Disposition: Continue medical management in the intensive care unit. Auxiliary Engineer Dr. Lares's team is following the patient and managing the patient's cardiac condition. The patient continues to be in intensive care unit and requiring pressors. Hold off on Lasix. Maintain euvolemia. The patient is not fluid overloaded now. Has been putting of lot of fluid and continues to be in negative fluid balance. Continue to monitor strict input and output. Jerrell Yepez MD Internal Medicine Resident, PGY-3 Nephrology attending: the patint was seen and examined. She feels thirsty and has made a lot of urine again in colby last 24 hours. I have stopped the lasix temporarily for the next couple of days. She is on pressors. MAP is being targeted at 70. will sign off at this time from renal standpoint. Her creatinine is better at 1.4. Camacho Soto MD Date of Service: Sep 26, 2025 Billing Provider: CAMACHO SUAREZ MD, SURYA PRATIK, RES Sep 26, 2025 13:51 CAMACHO SUAREZ MD Sep 26, 2025 18:27
[2025-09-26] MEDS: NORepinephrine 8mg/ 250ml NS 250 ML IV SCH (14:25)
--- NOTE | 2025-09-26 18:39 | PROGRESS NOTE- Residence ---
Progress Note - Resident Providers to CC Resident Creating Document: KAREN SANCHES RES ~ Antibiotic Timeout Antibiotic Ordered?: Yes Subjective Patient was seen at the CICU bedside this morning while she was sitting comfortably. Patient reported her breathing and generalized wide is getting better. Objective Vital Signs Date Time Temp Pulse Resp B/P (MAP) Pulse Ox O2 Delivery O2 Flow Rate FiO2 09/26/25 17:53 100.4 118 30 91/60 (70) 93 Room Air 09/26/25 16:03 0 21 Result Diagram: 09/26/2542409/26/25424 Vitals were stable with BP 106/68 mm Hg, MA P 79/minute on Levophed 0.2 mg, HR 104/minute, on nasal cannula 1 L/min. General: Well alert, well oriented, not confused, not agitated, not in acute distress, well cooperated during the physical. HEENT: Conjunctive are pink, sclerae clear, no icterus, pupil is equal in both sides, reactive to light, no ear discharge, no pharyngeal erythema or an edema, mouth and lips are moist. Neck: Supple, no JVD, no lymphadenopathy and thyromegaly. Lungs: Equally reduced air entry on both lungs, audible wheezing and rhonchi were noted, bilateral crackles were present. Heart: S1-S2 regular sinus rhythm and, regular rate, no gallops, no rubs, 3/6 systolic ejection murmur in the aortic and pulmonary area, and radiating to the neck. 3/6 holosystolic murmur over the mitral and tricuspid area. Abdomen: No visible peristalsis, Bowel sounds present on auscultation, soft, nontender, no guarding, no rigidity Extremities: No obvious deformities, no pitting edema bilaterally, capillary refill intact, able to wiggle toes both sides, peripheral pulsations are intact on both sides COUNSELOR CAMP: No focal neurological deficits, no motor and sensory weakness in all 4 extremities, could move all 4 extremities Musculoskeletal: No joint swelling, deformities, inflammations, and no scoliosis and back tenderness Skin: No active skin lesions and rashes Coagulation Studies Laboratory Tests Test 09/22/25 01:50 09/24/25 02:00 Activated Partial Thromboplast Time 26 SECONDS (22-32) Prothrombin Time 12.1 SECONDS (9.0-12.0) H INR International Normalized Ratio 1.2 INR Coagulation Comments Assessment Assessment This is a 70-year-old female with a history of CAD status post CABG in 2020, CHF with reduced ejection fraction, 45%, aortic stenosis with TAVR pending, mitral regurgitation, CKD, was brought to the ER from [facility] for increase in the shortness of breadth. She underwent cardiac catheterization September 10. She needs TAVR and mitral valve replacement. Currently she is being managed in ICU for low blood pressure. Plan Plan Cardiology # Acute Hypoxemic respiratory failure / # Acute exacerbation of Heart failure with mildly reduced ejection fraction # Cardiogenic shock # Severe symptomatic aortic stenosis # CAD s/p CABG in 2020 # Ascending aortic aneurysm 4.3 cm # Hypotension -Cardilogy is on board -remains on requiring Levophed bed titrated down to 0.15 mcg/kg/minute, which is needed to be titrated down with the aim of HR should be below 70s -Echocardiogram done on 08/03/25 showed showed left ventricular ejection fraction of 45%, multi segmental motion abnormalities, PASP 58 mmHg, RV moderately dilated with mildly reduced function, left atrium moderately dilated, severe aortic stenosis, severe mitral regurgitation, moderate tricuspid regurgitation -Cardia Catheterization done by Dr. Daly Lares done on 09/13/2025 showed severe [place]-sp[place] vessel CAD(improved PDF flow given endarterectomy) with 100% occluded mid LAD LCX and PL. Patent MCKNIGHT-LAD, SVG-Dx, SVG-OM, SVG-PDA, bilateral carotid USG cleared. -continue fludrocortisone 0.2 mg p.o. Q 24 H p.r.n. to maintain map more than 65 mmHg and midodrine 10 mg p.o. t.i.d. -nephrology recommended to hold off the Lasix since the patient is well diuresing now. -Plan for TAVR CT and BAV before being discharged. Pulmonology # Acute hypoxic respiratory failure # s/p left thoracentesis for left moderate pleural effusion on likely exudative 09/21/25 # Left side lobar pneumonia -About 700 mL pleural fluid was removed -No serum LDH available. Pleural fluid pH 7.38. Pleural fluid protein/serum protein: 0.55. Pleural fluid total cholesterol 60 and total protein 3.5 -Continue levofloxacin 750 mg IV q.48h - mild left-sided pleural effusion on today's chest x-ray -titrated down the NC O2 supply to baseline, currently on 1L/min -plan to reassess with bedside ultrasound for left plan possible reaccumulated pleural effusion for possible thoracentesis tomorrow. Neprhology # JAVIER on CKD stage IV likely secondary to renal tubular stasis # Electrolytes imbalances- Hyponatremia-resolved, Hypokalemia # Metabolic alkalosis due to diuresis -Creatinine and BUN are improving. Diuresing well with producing negative 2.8 L fluid balance. -Continue pressors to maintain at least MAP 65 for better Renal blood flow in the setting of possible cardio-pulmonary syndrome, but nephrology recommended to hold Lasix for maintaining euvolemia. -Continue potassium replacement as per protocol -Maintain potassium more than four and magnesium more than two Lymphatic system # Unilateral left lower extremity edema -Had venous graft removed from the left lower extremity for CABG few years back but she denies any edema -venous ultrasound showed negative for DVT GI and Hepatology # Elevated transaminases -Likely secondary to hepatic congestion Vs depletion of blood flow from hypotension. -LFTs getting better. -Titrate Levophed down as much as possible by maintaining MAP above 65 -no bowel movement for 14 days, started p.o. Metamucil with restricted fluid intake. Endocrine # Diabetes mellitus -HB A1c 6.4. The goal to range between 140-1 80s during hospitalization -On Lantus which is increased to 15 units HS and upgraded low-dose lispro protocol with higher insulin dosage which need to be adjusted as pt's blood glucose is not well controlled Code Status: DNR DVT Prophylaxis: SCDs Analgesia/Sedation: Alprazolam which was changed to PRN for anxiety Lines/Tubes: Right IJ Central line, PIV GI Prophylaxis: Famotidine Nutrition: Renal diet, heart healthy diet PT: Ordered Prognosis: Guarded Disposition: The prognosis remains guarded. Critical care time spent greater than 35 minutes. Resident attestation: Patient was seen, examined and discussed with attending MD, Dr. Yasmin SANCHES MD Internal Medicine Resident, PGY3 [facility] Date of Service: Sep 26, 2025 Billing Provider: JOSE KEENAN MD, TIN, RES Sep 26, 2025 18:39
--- NOTE | 2025-09-26 19:07 | PROGRESS NOTE- Residence ---
Progress Note - Resident Providers to CC Resident Creating Document: LENO MALDONADO RES ~ Antibiotic Timeout Antibiotic Ordered?: Yes Subjective Patient seen and examined today. Comfortably resting in the bed. Stated that she needs assistance when getting into the bed from the chair. No new complaints. T-max 100.4 Objective Vital Signs Date Time Temp Pulse Resp B/P (MAP) Pulse Ox O2 Delivery O2 Flow Rate FiO2 09/26/25 17:53 100.4 118 30 91/60 (70) 93 Room Air 09/26/25 16:03 0 21 Result Diagram: 09/26/2542409/26/25424 General: Alert and oriented x 4 HEENT: Normocephalic and atraumatic. Pupils equal round and reactive to light and accommodation. Extraocular movements intact. Oral and nasal mucosa moist Neck: Trachea is in midline. No masses or JVD Lungs: Bilateral mildly decreased breath sounds. Bilateral crackles present. rhonchi or wheezes Heart: Regular rate and rhythm. S1-S2 normal. No rubs. Grade 3/6 Systolic ejection murmur in the aortic and pulmonary area. Grade 3/6 holosystolic murmur in the mitral and tricuspid area Abdomen: Soft, nontender and nondistended. Bowel sounds present SHIELD RUNNER: No gross sensory or motor abnormalities Extremities: No cyanosis, clubbing. 2+ pedal edema left lower extremity Skin: Warm and dry Coagulation Studies Laboratory Tests Test 09/22/25 01:50 09/24/25 02:00 Activated Partial Thromboplast Time 26 SECONDS (22-32) Prothrombin Time 12.1 SECONDS (9.0-12.0) H INR International Normalized Ratio 1.2 INR Coagulation Comments Assessment Assessment This is a 70-year-old female with a history of CAD status post CABG in 2020, CHF with reduced ejection fraction, 45%, aortic stenosis with TAVR pending, mitral regurgitation, CKD, was brought to the ER from [facility] for increase in the shortness of breadth. She underwent cardiac catheterization September 10. She needs TAVR and mitral valve replacement. Currently she is being managed in ICU for low blood pressure. Plan Plan Acute Hypoxemic respiratory failure-improving Acute exacerbation of Heart failure with mildly reduced ejection fraction Cardiogenic shock Severe symptomatic aortic stenosis CAD s/p CABG Ascending aortic aneurysm 4.3 cm Possible left lower lobe pneumonia On room air Continue requiring Levophed at 0.2 mcg/kg/minute Echocardiogram done on 08/03/25 showed showed left ventricular ejection fraction of 45%, multi segmental motion abnormalities, PASP 58 mmHg, RV moderately dilated with mildly reduced function, left atrium moderately dilated, severe aortic stenosis, severe mitral regurgitation, moderate tricuspid regurgitation Cardia Catheterization done by Dr. Daly Lares done on 09/13/2025 showed severe [place] ira vessel CAD(improved PDF flow given endarterectomy) with 100% occluded mid LAD LCX and PL. Patent MCKNIGHT-LAD, SVG-Dx, SVG-OM, SVG-PDA States that she had CABG in 2020 Cardiology, Dr. Lares is on board. Preoperative carotid ultrasound done which showed no significant stenosis. Event Designer-Dr. Hoffman started fludrocortisone 0.2 mg p.o. Q 24 H p.r.n. to maintain map more than 65 mmHg Also on midodrine 10 mg p.o. t.i.d. Discontinued Lasix by the nephrology team Good urine output and is maintaining negative fluid balance Strict I&Os About 700 mL pleural fluid removed from the left side on 09/21/2025 No serum LDH available. Pleural fluid pH 7.38. Pleural fluid protein/serum protein: 0.55. Pleural fluid total cholesterol 60 and total protein 3.5 Likely exudative On levofloxacin 750 mg IV q.48h Chest x-ray after thoracentesis possible left lower lobe opacities Also has a mild left-sided pleural effusion on today's chest x-ray Procalcitonin negative Developed low-grade fever and sinus tachycardia. No elevated WBC. She has been on antibiotics for 6 days now Cardiology recommended to monitor aneurysm Continues to have low-grade fever and tachycardic JAVIER on CKD stage IV likely secondary to renal tubular stasis Hyponatremia-resolved Hypokalemia Metabolic alkalosis due to diuresis Creatinine improving. BUN improving Discontinued diuresis Continue pressors. Continue potassium replacement as per protocol Unilateral left lower extremity edema Could be improved edema in the right lower extremity Had venous graft removed from the left lower extremity for CABG few years back but she denies any edema Venous ultrasound negative for any DVT Elevated transaminases Likely secondary to hepatic congestion. LFTs getting better. Diabetes mellitus HB A1c 6.4. Continue to monitor blood sugars. On Lantus 40 units HS and low-dose lispro protocol Blood sugars not well controlled Management per the shop service technician Code Status: DNR DVT Prophylaxis: SCDs Analgesia/Sedation: Alprazolam Lines/Tubes: Right IJ Central line, PIV GI Prophylaxis: Famotidine Nutrition: Renal diet, heart healthy diet PT: Ordered Prognosis: Guarded Disposition: Management as per the shop service technician, race board attendant and the chainstitch sewing machine operator. Cardiology likely to balloon valvoplasty before TAVR Leno Maldonado MD Internal Medicine Resident, PGY 3 Date of Service: Sep 26, 2025 Billing Provider: TRINA MARRUFO MD Common Visit Codes: [id number] INP/OBS CARE(HIGH) LENO MALDONADO RES Sep 26, 2025 19:07 TRINA MARRUFO MD Sep 27, 2025 06:17
[2025-09-26] MEDS: insulin glargine (Lantus) pen - multi-dose SQ SCH (20:22)
[2025-09-27] VITALS (26 sets, daily range): BP systolic 86–106; BP diastolic 56–69; PULSE 103–122; RESP 11–34; O2SAT 92–100
[2025-09-27 04:49] LABS: MEAN PLATELET VOLUME 7.5 FL (7.4-10.4); RED CELL DISTRIBUTION WIDTH 17.3 % (11.5-14.5)
[2025-09-27 04:52] LABS: CREATININE 1.54 MG/DL (0.40-0.90); PHOSPHORUS 2.6 MG/DL (2.3-4.5); TOTAL CARBON DIOXIDE 31.7 MMOL/L (24-32); eCRCL 37 ML/MIN; eGFR 33 ML/MIN
[2025-09-27] MEDS: magnesium hydroxide 30ml (MOM) UD suspension PO PRN (08:12)
[2025-09-27] MEDS: NORepinephrine 8mg/ 250ml NS 250 ML IV SCH (10:43)
[2025-09-27] MEDS: digoxin 250mcg/ml 2ml ampule IV ONE (10:43)
[2025-09-27] MEDS: digoxin 125mcg (0.125mg) tablet PO ONE ×2 (16:19→22:02)
--- NOTE | 2025-09-27 16:56 | PROGRESS NOTE ---
Progress Note Cardiology Providers to CC ~ Subjective Subjective Patient resting in bed. Shortness for breath has improved. They are weaning her Levophed. Currently on room air. Objective Result Diagram: 09/27/2540909/27/25409 Objective General: Awake, alert, oriented. No apparent distress Respiratory: Lungs are clear to auscultation bilaterally. No respiratory distress. Chest: Normal shape and size. No accessory muscle use. Cardiovascular: Regular rhythm. Tachycardic at about 115. Systolic ejection murmur on auscultation. Extremities: Plus one edema. Neurologic: Alert and oriented x4. Nonfocal Psychiatric: Normal mood and affect. Skin: Normal color. Warm and dry. Coagulation Studies Laboratory Tests Test 09/22/25 01:50 09/24/25 02:00 Activated Partial Thromboplast Time 26 SECONDS (22-32) Prothrombin Time 12.1 SECONDS (9.0-12.0) H INR International Normalized Ratio 1.2 INR Coagulation Comments Problem\Assessment\Plan Additional Plan Patient presented secondary to low blood pressure. The following is her problem list: Severe, symptomatic aortic stenosis --underwent left/right heart catheterization during last admission. See Dr. J Luis Lares's dictation. --preoperative carotid ultrasound with no hemodynamically significant stenosis. --we will follow. Consider TAVR CT and possible BAV prior to discharge 09/24/25: Patient is diuresing well and kidney function has improved. Continue with IV furosemide 40 mg t.i.d. with Levophed for blood pressure support. 09/25/25: Decrease lasix to 40 mg IV BID. Cont with strick I&O. Wean levophed as tolerated. Will plan on TAVR CT prior to discharge 09/27/25: FV neg 471 mL yesterday. Case discussed with Dr. J Luis Lares. He recommends weaning Levophed for map goal of 60. Has been taken off lasix. continued edema. will start PO lasix [address] Lares. Hypotension --recommend titrate Levophed to keep map 60 She is now also on midodrine and florinef. Heart failure with reduced ejection fraction --unable to tolerate guideline directed medical therapy secondary to low blood pressure. --cont lasix --monitor strict intake and output measurements. --continue IV Lasix and Levophed for blood pressure support as noted above. This is a chronic kidney disease with acute kidney injury --likely secondary to hypoperfusion. --kidney function has improved. Transaminitis Significant transaminitis on admit. Improved. History of coronary artery disease status post CABG --continue aspirin, statin. Diabetes mellitus Hemoglobin A1c 6.4 --management per hospitalist Thoracic aortic aneurysm --ascending aortic aneurysm measuring 4.[address] --recommend monitoring Case discussed with Dr. J Luis Lares who is in agreement with this plan. Supervising Physician: LI Thakur NP Sep 27, 2025 16:56
--- NOTE | 2025-09-27 17:57 | PROGRESS NOTE- Residence ---
Progress Note - Resident Providers to CC Resident Creating Document: LENO MALDONADO RES ~ Antibiotic Timeout Antibiotic Ordered?: Yes Subjective Patient seen and examined today. Comfortably sitting in the bed and states that she feels a lot better. No new complaints Objective Vital Signs Date Time Temp Pulse Resp B/P (MAP) Pulse Ox O2 Delivery O2 Flow Rate FiO2 09/27/25 17:00 99.9 113 23 102/67 (79) 93 Room Air 09/27/25 15:34 0 21 Result Diagram: 09/27/25 0410 09/27/25 0410 General: Alert and oriented x 4 HEENT: Normocephalic and atraumatic. Pupils equal round and reactive to light and accommodation. Extraocular movements intact. Oral and nasal mucosa moist Neck: Trachea is in midline. No masses or JVD Lungs: Bilateral mildly decreased breath sounds. Bilateral mild basal crackles present. No rhonchi or wheezes Heart: Regular rate and rhythm. S1-S2 normal. No rubs. Grade 3/6 Systolic ejection murmur in the aortic and pulmonary area. Grade 3/6 holosystolic murmur in the mitral and tricuspid area Abdomen: Soft, nontender and nondistended. Bowel sounds present MANAGER SPEECH: No gross sensory or motor abnormalities Extremities: No cyanosis, clubbing. 2+ pedal edema left lower extremity Skin: Warm and dry Coagulation Studies Laboratory Tests Test 09/22/25 01:50 09/24/25 02:00 Activated Partial Thromboplast Time 26 SECONDS (22-32) Prothrombin Time 12.1 SECONDS (9.0-12.0) H INR International Normalized Ratio 1.2 INR Coagulation Comments Assessment Assessment This is a 70-year-old female with a history of CAD status post CABG in 2020, CHF with reduced ejection fraction, 45%, aortic stenosis with TAVR pending, mitral regurgitation, CKD, was brought to the ER from [facility] for increase in the shortness of breadth. She underwent cardiac catheterization September 10. She needs TAVR and mitral valve replacement. Currently she is being managed in ICU for low blood pressure. Plan Plan Acute Hypoxemic respiratory failure-improving Acute exacerbation of Heart failure with mildly reduced ejection fraction Cardiogenic shock-improving Severe symptomatic aortic stenosis CAD s/p CABG in 2020 Ascending aortic aneurysm 4.3 cm Possible left lower lobe pneumonia On room air Titrated Levophed down to 0.1 mcg/kg/minute Negative 471ml after stopping Lasix yesterday Cardiology started Lasix 40 p.o. b.i.d. Preoperative carotid ultrasound done which showed no significant stenosis. Continue fludrocortisone 0.2 mg p.o. Q 24 H p.r.n. to maintain map more than 60 mmHg Continue midodrine 10 mg p.o. t.i.d. Strict I&Os About 700 mL pleural fluid removed from the left side on 09/21/2025 On levofloxacin 750 mg IV q.48h Chest x-ray after thoracentesis possible left lower lobe opacities Procalcitonin negative Has low-grade fever and sinus tachycardia. No elevated WBC. Cardiology recommended to monitor ascending aortic aneurysm Received digoxin per floor layer tile for sinus tachycardia as she can get good CT for TAVR evaluation Echocardiogram done on 08/03/25 showed showed left ventricular ejection fraction of 45%, multi segmental motion abnormalities, PASP 58 mmHg, RV moderately dilated with mildly reduced function, left atrium moderately dilated, severe aortic stenosis, severe mitral regurgitation, moderate tricuspid regurgitation Cardia Catheterization done by Dr. Daly Lares done on 09/13/2025 showed severe [place] vessel CAD(improved PDF flow given endarterectomy) with 100% occluded mid LAD LCX and PL. 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 On Levophed Continue potassium replacement as per protocol Unilateral left lower extremity edema Could be improved edema in the right lower extremity Had venous graft removed from the left lower extremity for CABG few years back but she denies any edema Venous ultrasound negative for any DVT Elevated transaminases Likely secondary to hepatic congestion. LFTs getting better. Diabetes mellitus HB A1c 6.4. Continue to monitor blood sugars. On Lantus 40 units HS and low-dose lispro protocol Blood sugars not well controlled Management per the floor layer tile Code Status: DNR DVT Prophylaxis: SCDs Analgesia/Sedation: Alprazolam Lines/Tubes: Right IJ Central line, PIV GI Prophylaxis: Famotidine Nutrition: Renal diet, heart healthy diet PT: Ordered Prognosis: Guarded Disposition: Management as per the floor layer tile, mental health assistant and the employment trainer. Cardiology likely to do balloon valvoplasty before TAVR Leno Maldonado MD Internal Medicine Resident, PGY 3 Date of Service: Sep 27, 2025 Billing Provider: TRINA MARRUFO MD Common Visit Codes: [id number] INP/OBS CARE(HIGH) LENO MALDONADO RES Sep 27, 2025 17:57 TRINA MARRUFO MD Sep 28, 2025 07:24
--- NOTE | 2025-09-27 19:06 | PROGRESS NOTE- Residence ---
Progress Note - Resident Providers to CC Resident Creating Document: KAREN SANCHES RES ~ Antibiotic Timeout Antibiotic Ordered?: Yes Subjective Patient seen and examined today at CICU bedside. Comfortably sitting in the bed and states that she feels a lot better. No new complaints and trying to titrate down on the Levophed. Objective Vital Signs Date Time Temp Pulse Resp B/P (MAP) Pulse Ox O2 Delivery O2 Flow Rate FiO2 09/27/25 18:00 99.7 116 34 106/65 (79) 94 Room Air 09/27/25 15:34 0 21 Result Diagram: 09/27/2540909/27/25409 Vitals were stable with HR 103/minute, BP 195/67 mm Hg, MAP 76 on Levophed 0.1. General: Well alert, well oriented, not confused, not agitated, not in acute distress, well cooperated during the physical. HEENT: Conjunctive are pink, sclerae clear, no icterus, pupil is equal in both sides, reactive to light, no ear discharge, no pharyngeal erythema or an edema, mouth and lips are moist. Neck: Supple, no JVD, no lymphadenopathy and thyromegaly. Lungs: Equally reduced air entry on both lungs, audible wheezing and rhonchi were noted, bilateral crackles were present. Heart: S1-S2 regular sinus rhythm and, regular rate, no gallops, no rubs, 3/6 systolic ejection murmur in the aortic and pulmonary area, and radiating to the neck. 3/6 holosystolic murmur over the mitral and tricuspid area. Abdomen: No visible peristalsis, Bowel sounds present on auscultation, soft, nontender, no guarding, no rigidity Extremities: No obvious deformities, no pitting edema bilaterally, capillary refill intact, able to wiggle toes both sides, peripheral pulsations are intact on both sides FUR GRADER: No focal neurological deficits, no motor and sensory weakness in all 4 extremities, could move all 4 extremities Musculoskeletal: No joint swelling, deformities, inflammations, and no scoliosis and back tenderness Skin: No active skin lesions and rashes Coagulation Studies Laboratory Tests Test 09/22/25 01:50 09/24/25 02:00 Activated Partial Thromboplast Time 26 SECONDS (22-32) Prothrombin Time 12.1 SECONDS (9.0-12.0) H INR International Normalized Ratio 1.2 INR Coagulation Comments Assessment Assessment This is a 70-year-old female with a history of CAD status post CABG in 2020, CHF with reduced ejection fraction, 45%, aortic stenosis with TAVR pending, mitral regurgitation, CKD, was brought to the ER from [facility] for increase in the shortness of breadth. She underwent cardiac catheterization September 10. She needs TAVR and mitral valve replacement. Currently she is being managed in ICU for low blood pressure. Planning of TAVR CT and BAV prior to discharge. Plan Plan Cardiology # Acute Hypoxemic respiratory failure / # Acute exacerbation of Heart failure with mildly reduced ejection fraction # Cardiogenic shock # Severe symptomatic aortic stenosis # CAD s/p CABG in 2020 # Ascending aortic aneurysm 4.3 cm # Hypotension -Cardilogy is on board -remains on requiring Levophed bed titrated down to 0.1 mcg/kg/minute today, which is needed to be titrated down with the aim of HR should be below 70s for preparing the TAVR CT scan before discharge -Started PO Digoxin 500mcg x 1time f/by 250mcg 6 hrs apart x 2times. -Echocardiogram done on 08/03/25 showed showed left ventricular ejection fraction of 45%, multi segmental motion abnormalities, PASP 58 mmHg, RV moderately dilated with mildly reduced function, left atrium moderately dilated, severe aortic stenosis, severe mitral regurgitation, moderate tricuspid regurgitation -Cardia Catheterization done by Dr. Daly Lares done on 09/13/2025 showed severe [place] vessel CAD(improved PDF flow given endarterectomy) with 100% occluded mid LAD LCX and PL. Patent MCKNIGHT-LAD, SVG-Dx, SVG-OM, SVG-PDA, bilateral carotid USG cleared. -continue fludrocortisone 0.2 mg p.o. Q 24 H p.r.n. to maintain map more than 65 mmHg and midodrine 10 mg p.o. t.i.d. -nephrology recommended to hold off the Lasix since the patient is well diuresing now. -Plan for TAVR CT and BAV before being discharged. Pulmonology # Acute hypoxic respiratory failure # s/p left thoracentesis for left moderate pleural effusion on likely exudative 09/21/25 # Left side lobar pneumonia -About 700 mL pleural fluid was removed -No serum LDH available. Pleural fluid pH 7.38. Pleural fluid protein/serum protein: 0.55. Pleural fluid total cholesterol 60 and total protein 3.5 -Continue levofloxacin 750 mg IV q.48h - mild left-sided pleural effusion on today's chest x-ray -titrated down the NC O2 supply to baseline, currently on 1L/min -plan to reassess with bedside ultrasound for left plan possible reaccumulated pleural effusion for possible thoracentesis if there is necessary. Neprhology # JAVIER on CKD stage IV likely secondary to renal tubular stasis # Electrolytes imbalances- Hyponatremia-resolved, Hypokalemia # Metabolic alkalosis due to diuresis -Creatinine and BUN are improving. Diuresing well with producing negative 2.8 L fluid balance. -Continue pressors to maintain at least MAP 65 for better Renal blood flow in the setting of possible cardio-pulmonary syndrome, but nephrology recommended to hold Lasix for maintaining euvolemia. -Continue potassium replacement as per protocol -Maintain potassium more than four and magnesium more than two Lymphatic system # Unilateral left lower extremity edema -Had venous graft removed from the left lower extremity for CABG few years back but she denies any edema -venous ultrasound showed negative for DVT GI and Hepatology # Elevated transaminases -Likely secondary to hepatic congestion Vs depletion of blood flow from hypotension. -LFTs normalized today -Titrate Levophed down as much as possible by maintaining MAP above 65 -no bowel movement for 14 days, started p.o. Metamucil with restricted fluid intake. Endocrine # Diabetes mellitus -HB A1c 6.4. The goal to range between 140-1 80s during hospitalization -On Lantus which is increased to 18 units HS and upgraded low-dose lispro protocol with higher insulin dosage which need to be adjusted as pt's blood glucose is not well controlled. Code Status: DNR DVT Prophylaxis: SCDs Analgesia/Sedation: Alprazolam which was changed to PRN for anxiety Lines/Tubes: Right IJ Central line, PIV GI Prophylaxis: Famotidine Nutrition: Renal diet, heart healthy diet PT: Ordered Prognosis: Guarded Disposition: The prognosis remains guarded. Critical care time spent greater than 35 minutes. Resident attestation: Patient was seen, examined and discussed with attending , Dr. Yasmin SANCHES MD Internal Medicine Resident, PGY3 [facility] Date of Service: Sep 27, 2025 Billing Provider: JOSE KEENAN MD, TIN, RES Sep 27, 2025 19:06
[2025-09-27] MEDS: insulin glargine (Lantus) pen - multi-dose SQ SCH (22:10)
[2025-09-28] VITALS (25 sets, daily range): BP systolic 78–105; BP diastolic 45–64; PULSE 98–114; RESP 15–27; O2SAT 91–98
[2025-09-28 02:36] LABS: MEAN PLATELET VOLUME 7.5 FL (7.4-10.4); RED CELL DISTRIBUTION WIDTH 17.3 % (11.5-14.5)
[2025-09-28 02:54] LABS: CREATININE 1.58 MG/DL (0.40-0.90); PHOSPHORUS 2.0 MG/DL (2.3-4.5); TOTAL CARBON DIOXIDE 31.7 MMOL/L (24-32); eCRCL 36 ML/MIN; eGFR 32 ML/MIN
--- NOTE | 2025-09-28 11:54 | PROGRESS NOTE ---
Subjective Subjective Patient seen and examined today at CICU bedside. Comfortably sitting in the bed and states that she feels a lot better. No new complaints and trying to titrate he Levophed off. Reason for visit: Pulmonary critical care follow-up Reviewed: Care Plan, H&P, Radiology Daily Progress Note Exam Vitals Vital Signs Date Time Temp Pulse Resp B/P (MAP) Pulse Ox O2 Delivery O2 Flow Rate FiO2 09/28/25 11:00 100.4 114 25 98/61 (73) 93 Nasal Cannula 2.0 09/28/25 07:54 24 Result Diagram: 09/28/25 0208 09/28/25 0209 Exam Cardiovascular system: Cardiogenic shock Acute exacerbation of Heart failure with mildly reduced ejection fraction Severe symptomatic aortic stenosis CAD s/p CABG Continue Levophed currently running at 0.1 mg/kg/minute. Echocardiogram showed left ventricular ejection fraction of 45%, PASP 58 mmHg, severe aortic stenosis with valve area 0.64. Cardiology, Dr. Lares is on board. Preoperative carotid ultrasound done which showed no significant stenosis. Cardiology considering TAVR CT and possible BAV prior to discharge. Respiratory system: Acute hypoxemic respiratory failure Left moderate pleural effusion On 2 L of oxygen through nasal cannula. Continue diuresis with Lasix 40 mg TID. Nephrology: JAVIER on CKD likely secondary to renal tubular stasis Hyponatremia Creatinine downtrending, 1.87 today, EGFR 26. Nephrology consulted. Advised to continue IV Lasix 40 mg t.i.d. and do not infuse any fluids. Continue pressors. Follow up with BMP. GI: Elevated transaminases Likely secondary to hepatic congestion. LFTs getting better. Endocrine: Diabetes mellitus HB A1c 6.4. Continue to monitor blood sugars. Nervous system: Patient is awake alert. Nutrition: Heart healthy and renal diet. Code Status: DNR DVT Prophylaxis: SCDs Analgesia/Sedation: Alprazolam Lines/Tubes: Central line, PIV GI Prophylaxis: Famotidine Nutrition: Renal diet, heart healthy diet PT: Ordered Prognosis: Guarded Disposition: The prognosis remains guarded. Critical care time spent greater than 35 minutes. Results Coagulation Studies Laboratory Tests Test 09/22/25 01:50 09/24/25 02:00 Activated Partial Thromboplast Time 26 SECONDS (22-32) Prothrombin Time 12.1 SECONDS (9.0-12.0) H INR International Normalized Ratio 1.2 INR Coagulation Comments VTE VTE Risk Score VTE Risk Score Reference Ranges: Score 0-1 = Low Risk (Aggressive mobilization; early ambulation; no VTE prophylaxis required) Score 2: Moderate Risk (Intermittent/Pneumatic Compression Device OR Lovenox/Heparin/Coumadin) Score 3-4: High Risk (Intermittent/Pneumatic Compression Device AND Lovenox/Heparin/Coumadin) Score > or = 5: Highest Risk (Intermittent/Pneumatic Compression Device AND Lovenox/Heparin/Coumadin) Assessment/Plan Assessment This is a 70-year-old female with a history of CAD status post CABG in 2020, CHF with reduced ejection fraction, 45%, aortic stenosis with TAVR pending, mitral regurgitation, CKD, was brought to the ER from [facility] for increase in the shortness of breadth. She underwent cardiac catheterization September 10. She needs TAVR and mitral valve replacement. Currently she is being managed in ICU for low blood pressure. Planning of TAVR CT and BAV prior to discharge. Plan Cardiology # Acute Hypoxemic respiratory failure 11/12 # Acute exacerbation of Heart failure with mildly reduced ejection fraction # Cardiogenic shock # Severe symptomatic aortic stenosis # CAD s/p CABG in 2020 # Ascending aortic aneurysm 4.3 cm # Hypotension -Cardilogy is on board -remains on norepinephrine drip at 0.15 mcg/kg per minute, which is needed to be titrated down with the aim of HR should be below 70s for preparing the TAVR CT scan before discharge Was digitalized i.e. received loading dose of digoxin without improvement of the patient's pulse rate. -Echocardiogram done on 08/03/25 showed showed left ventricular ejection fraction of 45%, multi segmental motion abnormalities, PASP 58 mmHg, RV moderately dilated with mildly reduced function, left atrium moderately dilated, severe aortic stenosis, severe mitral regurgitation, moderate tricuspid regurgitation -Cardia Catheterization done by Dr. Daly Lares done on 09/13/2025 showed severe [place] vessel CAD(improved PDF flow given endarterectomy) with 100% occluded mid LAD LCX and PL. Patent MCKNIGHT-LAD, SVG-Dx, SVG-OM, SVG-PDA, bilateral carotid USG cleared. -continue fludrocortisone 0.2 mg p.o. Q 24 H p.r.n. to maintain map more than 65 mmHg and midodrine 10 mg p.o. t.i.d. -nephrology recommended to hold off the Lasix since the patient is well diuresing now. -Plan for TAVR CT and BAV before being discharged. Pulmonology # Acute hypoxic respiratory failure # s/p left thoracentesis for left moderate pleural effusion on likely exudative 09/21/25 # Left side lobar pneumonia -About 700 mL pleural fluid was removed -No serum LDH available. Pleural fluid pH 7.38. Pleural fluid protein/serum protein: 0.55. Pleural fluid total cholesterol 60 and total protein 3.5 -Continue levofloxacin 750 mg IV q.48h - mild left-sided pleural effusion on today's chest x-ray -titrated down the NC O2 supply to baseline, currently on 1L/min -plan to reassess with bedside ultrasound for left plan possible reaccumulated pleural effusion for possible thoracentesis if there is necessary. Neprhology # JAVIER on CKD stage IV likely secondary to renal tubular stasis # Electrolytes imbalances- Hyponatremia-resolved, Hypokalemia # Metabolic alkalosis due to diuresis -Creatinine and BUN are improving. Diuresing well with producing negative 2.8 L fluid balance. -Continue pressors to maintain at least MAP 65 for better Renal blood flow in the setting of possible cardio-pulmonary syndrome, but nephrology recommended to hold Lasix for maintaining euvolemia. -Continue potassium replacement as per protocol -Maintain potassium more than four and magnesium more than two Lymphatic system # Unilateral left lower extremity edema -Had venous graft removed from the left lower extremity for CABG few years back but she denies any edema -venous ultrasound showed negative for DVT GI and Hepatology # Elevated transaminases -Likely secondary to hepatic congestion Vs depletion of blood flow from hypotension. -LFTs normalized today -Titrate Levophed down as much as possible by maintaining MAP above 65 -no bowel movement for 14 days, started p.o. Metamucil with restricted fluid intake. Endocrine # Diabetes mellitus -HB A1c 6.4. The goal to range between 140-1 80s during hospitalization -On Lantus which is increased to 18 units HS and upgraded low-dose lispro protocol with higher insulin dosage which need to be adjusted as pt's blood glucose is not well controlled. Code Status: DNR DVT Prophylaxis: SCDs Analgesia/Sedation: Alprazolam which was changed to PRN for anxiety Lines/Tubes: Right IJ Central line, PIV GI Prophylaxis: Famotidine Nutrition: Renal diet, heart healthy diet PT: Ordered Prognosis: Guarded Disposition: The prognosis remains guarded. Critical care time spent greater than 35 minutes. Resident MD attestation: Patient was seen, examined and discussed with attending MD, Dr. Keenan Expected Outcome/Goals Expected Outcomes/Goals: maintain stable wt, meet at least 75% of estimated nutrient needs, ONS acceptance, bowel regularity, optimal skin integrity, BG 80-180 mg/dl JOSE KEENAN MD Sep 28, 2025 11:53
[2025-09-28] MEDS: digoxin 125mcg (0.125mg) tablet PO SCH (12:37)
--- NOTE | 2025-09-28 16:24 | PROGRESS NOTE- Residence ---
Progress Note - Resident Providers to CC Resident Creating Document: ELIZABETHMARLYSNatalyaLENO RES ~ Antibiotic Timeout Antibiotic Ordered?: Yes Subjective Patient seen and examined today today. Comfortably sitting in the bed. Vending Machine Operator planning to titrate her off Levophed. Spoke to Dr. Lares and per him, patient will not get any procedure done during the current hospital stay Objective Vital Signs Date Time Temp Pulse Resp B/P (MAP) Pulse Ox O2 Delivery O2 Flow Rate FiO2 09/28/25 15:00 101.1 102 19 90/56 (67) 96 Room Air 09/28/25 11:00 2.0 09/28/25 07:54 24 Result Diagram: 09/28/25 0208 09/28/25 0209 General: Alert and oriented x 4 HEENT: Normocephalic and atraumatic. Pupils equal round and reactive to light and accommodation. Extraocular movements intact. Oral and nasal mucosa moist Neck: Trachea is in midline. No masses or JVD Lungs: Bilateral mildly decreased breath sounds. Bilateral mild basal crackles present. No rhonchi or wheezes Heart: Regular rate and rhythm. S1-S2 normal. No rubs. Grade 3/6 Systolic ejection murmur in the aortic and pulmonary area. Grade 3/6 holosystolic murmur in the mitral and tricuspid area Abdomen: Soft, nontender and nondistended. Bowel sounds present TOWN ADMINISTRATOR: No gross sensory or motor abnormalities Extremities: No cyanosis, clubbing. 2+ pedal edema left lower extremity Skin: Warm and dry Coagulation Studies Laboratory Tests Test 09/22/25 01:50 09/24/25 02:00 Activated Partial Thromboplast Time 26 SECONDS (22-32) Prothrombin Time 12.1 SECONDS (9.0-12.0) H INR International Normalized Ratio 1.2 INR Coagulation Comments Assessment Assessment This is a 70-year-old female with a history of CAD status post CABG in 2020, CHF with reduced ejection fraction, 45%, aortic stenosis with TAVR pending, mitral regurgitation, CKD, was brought to the ER from [facility] for increase in the shortness of breadth. She underwent cardiac catheterization September 10. She needs TAVR and mitral valve replacement. Currently she is being managed in ICU for low blood pressure. Planning of TAVR CT and BAV prior to discharge. Plan Plan Acute Hypoxemic respiratory failure-improving Acute exacerbation of Heart failure with mildly reduced ejection fraction Cardiogenic shock-improving Severe symptomatic aortic stenosis CAD s/p CABG in 2020 Ascending aortic aneurysm 4.3 cm Possible left lower lobe pneumonia On room air Still requiring Levophed at 0.1 mcg/kg/minute Cardiology started Lasix 40 p.o. b.i.d. Preoperative carotid ultrasound done which showed no significant stenosis. Continue fludrocortisone 0.2 mg p.o. Q 24 H p.r.n. to maintain map more than 60 mmHg Continue midodrine 10 mg p.o. t.i.d. Strict I&Os About 700 mL pleural fluid removed from the left side on 09/21/2025 On levofloxacin 750 mg IV q.48h Chest x-ray after thoracentesis possible left lower lobe opacities Procalcitonin negative Has low-grade fever and sinus tachycardia. No elevated WBC. Cardiology recommended to monitor ascending aortic aneurysm Received digoxin per sewer pipe offbearer for sinus tachycardia as she can get good CT for TAVR evaluation Echocardiogram done on 08/03/25 showed showed left ventricular ejection fraction of 45%, multi segmental motion abnormalities, PASP 58 mmHg, RV moderately dilated with mildly reduced function, left atrium moderately dilated, severe aortic stenosis, severe mitral regurgitation, moderate tricuspid regurgitation Cardia Catheterization done by Dr. Daly Lares done on 09/13/2025 showed severe lower [place] vessel CAD(improved PDF flow given endarterectomy) with 100% occluded mid LAD LCX and PL. Patent MCKNIGHT-LAD, SVG-Dx, SVG-OM, SVG-PDA States that she had CABG in 2020 Cardiology likely do not plan any procedure during the current hospital stay JAVIER on CKD stage IV likely secondary to renal tubular stasis Hyponatremia-resolved Hypokalemia-resolved Metabolic alkalosis due to diuresis-resolved after stopping diuretics Creatinine stable Desk Assistant started Lasix 40 mg p.o. b.i.d. On Levophed Continue potassium replacement as per protocol Unilateral left lower extremity edema Could be improved edema in the right lower extremity Had venous graft removed from the left lower extremity for CABG few years back but she denies any edema Venous ultrasound negative for any DVT Elevated transaminases Likely secondary to hepatic congestion. LFTs getting better. Diabetes mellitus HB A1c 6.4. Continue to monitor blood sugars. On Lantus 40 units HS and low-dose lispro protocol Blood sugars not well controlled Management per the sewer pipe offbearer Code Status: DNR DVT Prophylaxis: SCDs Analgesia/Sedation: Alprazolam Lines/Tubes: Right IJ Central line, PIV GI Prophylaxis: Famotidine Nutrition: Renal diet, heart healthy diet PT: Ordered Prognosis: Guarded Disposition: Management as per the sewer pipe offbearer, die inspector and the air traffic supervisor Leno Maldonado MD Internal Medicine Resident, PGY 3 Date of Service: Sep 28, 2025 Billing Provider: TRINA MARRUFO MD Common Visit Codes: [id number] INP/OBS CARE(HIGH) LENO MALDONADO RES Sep 28, 2025 16:24 TRINA MARRUFO MD Sep 29, 2025 08:58
--- NOTE | 2025-09-28 18:30 | PROGRESS NOTE ---
Progress Note Cardiology Providers to CC ~ Subjective Subjective Patient resting in bed in the ICU. They are continuing to wean Levophed. She is on oral Lasix. Fluid volume negative 471 mL yesterday Objective Result Diagram: 09/28/25 02009/28/25 020 Objective General: Awake, alert, oriented. No apparent distress Respiratory: Lungs are clear to auscultation bilaterally. No respiratory distress. Chest: Normal shape and size. No accessory muscle use. Cardiovascular: Regular rhythm. Tachycardic at about 110. Systolic ejection murmur on auscultation. Extremities: Plus one edema. Neurologic: Alert and oriented x4. Nonfocal Psychiatric: Normal mood and affect. Skin: Normal color. Warm and dry. Coagulation Studies Laboratory Tests Test 09/22/25 01:50 09/24/25 02:00 Activated Partial Thromboplast Time 26 SECONDS (22-32) Prothrombin Time 12.1 SECONDS (9.0-12.0) H INR International Normalized Ratio 1.2 INR Coagulation Comments Problem\Assessment\Plan Additional Plan Patient presented secondary to low blood pressure. The following is her problem list: Severe, symptomatic aortic stenosis --underwent left/right heart catheterization during last admission. See Dr. J Luis Lares's dictation. --preoperative carotid ultrasound with no hemodynamically significant stenosis. --we will follow. Consider TAVR CT and possible BAV prior to discharge 09/24/25: Patient is diuresing well and kidney function has improved. Continue with IV furosemide 40 mg t.i.d. with Levophed for blood pressure support. 09/25/25: Decrease lasix to 40 mg IV BID. Cont with strick I&O. Wean levophed as tolerated. Will plan on TAVR CT prior to discharge 09/27/25: FV neg 471 mL yesterday. Case discussed with Dr. J Luis Lares. He recommends weaning Levophed for map goal of 60. Has been taken off lasix. continued edema. will start PO lasix [address] Lares. 09/28/25; FV neg 954 yesterday. On oral lasix. continue to wean levo. Hopfully will be able to tolerate cardiac CT wednesday. Hypotension --recommend titrate Levophed to keep map 60 She is now also on midodrine. Heart failure with reduced ejection fraction --unable to tolerate guideline directed medical therapy secondary to low blood pressure. --cont lasix --monitor strict intake and output measurements. --continue IV Lasix and Levophed for blood pressure support as noted above. This is a chronic kidney disease with acute kidney injury --likely secondary to hypoperfusion. --kidney function has improved. Transaminitis Significant transaminitis on admit. Improved. History of coronary artery disease status post CABG --continue aspirin, statin. Diabetes mellitus Hemoglobin A1c 6.4 --management per hospitalist Thoracic aortic aneurysm --ascending aortic aneurysm measuring 4.[address] --recommend monitoring Case discussed with Dr. J Luis Lares who is in agreement with this plan. Supervising Physician: LI Thakur NP Sep 28, 2025 18:29
[2025-09-29] VITALS (25 sets, daily range): BP systolic 82–121; BP diastolic 45–70; PULSE 90–110; RESP 16–26; O2SAT 93–99
[2025-09-29 02:59] LABS: MEAN PLATELET VOLUME 7.7 FL (7.4-10.4); RED CELL DISTRIBUTION WIDTH 17.1 % (11.5-14.5)
[2025-09-29 03:43] LABS: CREATININE 2.00 MG/DL (0.40-0.90); PHOSPHORUS 2.9 MG/DL (2.3-4.5); TOTAL CARBON DIOXIDE 26.8 MMOL/L (24-32); eCRCL 28 ML/MIN; eGFR 24 ML/MIN
--- NOTE | 2025-09-29 08:42 | RADIOLOGY REPORT ---
CHEST RADIOGRAPH INDICATION: monitor changes TECHNIQUE: DI CHEST,SINGLE VIEW COMPARISON: None FINDINGS: Right IJ catheter tip projects over the SVC. The cardiac silhouette is enlarged. The lungs demonstrate bilateral patchy airspace opacities, most pronounced in the left lung base. The pulmonary vasculature is prominent. Moderate left pleural effusion. There is no pneumothorax. IMPRESSION: Cardiomegaly with pulmonary vascular congestion and bilateral patchy airspace opacities. Moderate left pleural effusion.
--- NOTE | 2025-09-29 09:35 | PROGRESS NOTE ---
Subjective Subjective Patient seen and examined today today. Comfortably sitting in up in chair. Norepinephrine drip unfortunately still at 0.1 mcg/kg per minute. Reason for visit: Pulmonary critical care follow-up Reviewed: Care Plan, H&P, Radiology Daily Progress Note Exam Vitals Vital Signs Date Time Temp Pulse Resp B/P (MAP) Pulse Ox O2 Delivery O2 Flow Rate FiO2 09/29/25 07:57 96 09/29/25 07:51 16 97 Room Air* 0 21 09/29/25 06:00 98.8 86/59 (68) Result Diagram: 09/29/2522409/29/25224 Exam Cardiovascular system: Cardiogenic shock Acute exacerbation of Heart failure with mildly reduced ejection fraction Severe symptomatic aortic stenosis CAD s/p CABG Continue Levophed currently running at 0.1 mg/kg/minute. Echocardiogram showed left ventricular ejection fraction of 45%, PASP 58 mmHg, severe aortic stenosis with valve area 0.64. Cardiology, Dr. Lares is on board. Preoperative carotid ultrasound done which showed no significant stenosis. Cardiology considering TAVR CT and possible aortic valve valvuloplasty prior to discharge. Respiratory system: Acute hypoxemic respiratory failure : Resolved and currently on room air with a pulse oximetry reading of 95%. Possible left moderate pleural effusion on chest x-ray. On room air. Continue diuresis with Lasix 40 mg b.i.d.. Nephrology: JAVIER on CKD likely secondary to renal tubular stasis Hyponatremia Creatinine downtrending, 2.0 today, EGFR 24. Nephrology consulted. Advised to continue IV Lasix 40 mg t.i.d. and do not infuse any fluids. Continue pressors. Follow up with BMP. GI: Elevated transaminases Likely secondary to hepatic congestion. LFTs improving. Endocrine: Diabetes mellitus HB A1c 6.4. Continue to monitor blood sugars. Nervous system: Patient is awake alert. Nutrition: Heart healthy and renal diet. Code Status: DNR DVT Prophylaxis: SCDs Analgesia/Sedation: Alprazolam Lines/Tubes: Central line, PIV GI Prophylaxis: Famotidine Nutrition: Renal diet, heart healthy diet PT: Ordered Prognosis: Guarded Disposition: The prognosis remains guarded. Critical care time spent greater than 35 minutes. Results Coagulation Studies Laboratory Tests Test 09/22/25 01:50 09/24/25 02:00 Activated Partial Thromboplast Time 26 SECONDS (22-32) Prothrombin Time 12.1 SECONDS (9.0-12.0) H INR International Normalized Ratio 1.2 INR Coagulation Comments VTE VTE Risk Score VTE Risk Score Reference Ranges: Score 0-1 = Low Risk (Aggressive mobilization; early ambulation; no VTE prophylaxis required) Score 2: Moderate Risk (Intermittent/Pneumatic Compression Device OR Lovenox/Heparin/Coumadin) Score 3-4: High Risk (Intermittent/Pneumatic Compression Device AND Lovenox/Heparin/Coumadin) Score > or = 5: Highest Risk (Intermittent/Pneumatic Compression Device AND Lovenox/Heparin/Coumadin) Assessment/Plan Assessment This is a 70-year-old female with a history of CAD status post CABG in 2020, CHF with reduced ejection fraction, 45%, aortic stenosis with TAVR pending, mitral regurgitation, CKD, was brought to the ER from [facility] for increase in the shortness of breadth. She underwent cardiac catheterization September 10. She needs TAVR and mitral valve replacement. Currently she is being managed in ICU for low blood pressure. Planning of TAVR CT and BAV prior to discharge. Plan Acute Hypoxemic respiratory failure-improving Acute exacerbation of Heart failure with mildly reduced ejection fraction Cardiogenic shock-improving Severe symptomatic aortic stenosis CAD s/p CABG in 2020 Ascending aortic aneurysm 4.3 cm Possible left lower lobe pneumonia On room air Still requiring Levophed at 0.1 mcg/kg/minute Cardiology started Lasix 40 p.o. b.i.d. Preoperative carotid ultrasound done which showed no significant stenosis. Continue fludrocortisone 0.2 mg p.o. Q 24 H p.r.n. to maintain map more than 60 mmHg Continue midodrine 10 mg p.o. t.i.d. Strict I&Os About 700 mL pleural fluid removed from the left side on 09/21/2025 On levofloxacin 750 mg IV q.48h Chest x-ray after thoracentesis possible left lower lobe opacities Procalcitonin negative Has low-grade fever and sinus tachycardia. No elevated WBC. Cardiology recommended to monitor ascending aortic aneurysm Received digoxin per drilling machine runner for sinus tachycardia as she can get good CT for TAVR evaluation Echocardiogram done on 08/03/25 showed showed left ventricular ejection fraction of 45%, multi segmental motion abnormalities, PASP 58 mmHg, RV moderately dilated with mildly reduced function, left atrium moderately dilated, severe aortic stenosis, severe mitral regurgitation, moderate tricuspid regurgitation Cardia Catheterization done by Dr. Daly Lares done on 09/13/2025 showed severe [place] vessel CAD(improved PDF flow given endarterectomy) with 100% occluded mid LAD LCX and PL. Patent MCKNIGHT-LAD, SVG-Dx, SVG-OM, SVG-PDA States that she had CABG in 2020 Cardiology likely do not plan any procedure during the current hospital stay JAVIER on CKD stage IV likely secondary to renal tubular stasis Hyponatremia-resolved Hypokalemia-resolved Metabolic alkalosis due to diuresis-resolved after stopping diuretics Creatinine stable Bleach Boiler Puller started Lasix 40 mg p.o. b.i.d. On Levophed Continue potassium replacement as per protocol Unilateral left lower extremity edema Could be improved edema in the right lower extremity Had venous graft removed from the left lower extremity for CABG few years back but she denies any edema Venous ultrasound negative for any DVT Elevated transaminases Likely secondary to hepatic congestion. LFTs getting better. Diabetes mellitus HB A1c 6.4. Continue to monitor blood sugars. On Lantus 40 units HS and low-dose lispro protocol Blood sugars not well controlled Management per the drilling machine runner Code Status: DNR DVT Prophylaxis: SCDs Analgesia/Sedation: Alprazolam Lines/Tubes: Right IJ Central line, PIV GI Prophylaxis: Famotidine Nutrition: Renal diet, heart healthy diet PT: Ordered Prognosis: Guarded Disposition: Management as per the drilling machine runner, telephone surveyor and the linemarker Aureliano Dial MD Internal Medicine Resident, PGY 3 Expected Outcome/Goals Expected Outcomes/Goals: maintain stable wt, meet at least 75% of estimated nutrient needs, ONS acceptance, bowel regularity, optimal skin integrity, BG 80-180 mg/dl JOSE KEENAN MD Sep 29, 2025 09:35
[2025-09-29] MEDS ORDERED: VANCOMYCIN 1,500MG inj. 1,500 MG in normal saline 500ml IV soln 300 ML IV SCH (10:25)
[2025-09-29 11:26] LABS: LYMPHOCYTES,BODY FLUID 87 %; MONOCYTES,BODY FLUID 8 %; NEUTROPHILS,BODY FLUID 5 %
[2025-09-29 11:27] LABS: ALBUMIN,BODY FLUID 2.1 G/DL; BF MESOTHELIAL CELLS OCCASIONAL; BF RBC COUNT 2055 /CU MM; BF WBC COUNT 275 /CU MM (0-1000); BFAPPEAR HAZY; BFCOLOR YELLOW; BFSOURCE LEFT PLEURAL FLD; BFVOLUME 6.5 ML; GLUCOSE,BODY FLUID 156 MG/DL; LDH,BODY FLUID 124 U/L; LIPASE,BODY FLUID 14 U/L; TOTAL PROTEIN,BODY FLUID 3.6 G/DL
[2025-09-29 11:29] LABS: BFSOURCE LEFT PLEURAL FLD; PLEURAL FLUID PH 7.632 (7.63-7.65)
--- NOTE | 2025-09-29 11:30 | PROCEDURE NOTE- Residance ---
Procedure Note Providers to CC CC: JOSE KEENAN MD ~ Planned Procedure Left-sided thoracentesis Indications Suspected parapneumonic effusion Strategic Marketing Specialist Dr. Yasmin Garcia Type of Anesthesia Local Informed Consent During the informed consent discussion regarding the procedure, or treatment, I explained the following to the patient/designee: a. Nature of the procedure or treatment and who will perform the procedure or treatment. b. Necessity for procedure and the possible benefits. c. Risks and complications (most common and serious). d. Alternative treatments and the risks, benefits and side effects of each (including no treatment). e. Likelihood of the patient achieving his/her goals without this procedure and surgery treatment. f. Problems that might occur during the recuperation. g. Conflicts of interest, if any Description A time out was performed and the chest x-ray was reviewed, the appropriate side was confirmed and marked. My hands were washed immediately prior to the procedure. I wore a surgical cap, mask with protective eyewear, sterile gown and sterile gloves throughout the procedure. The patient was prepped and draped in a sterile manner using chlorhexidine scrub after the appropriate level was percussed and confirmed by ultrasound. 1% lidocaine was used to anesthesize the skin, subcutaneous tissue, superior aspect of the rib periosteum and parietal pleura. A finder needle was then introduced over the superior aspect of the rib to locate the pleural fluid; Janell colored fluid was aspirated. A 10-blade scalpel was used to adina the skin at the insertion site. The [id number] needle was then introduced through the skin incision into the pleural space using negative aspiration pressure. The needle was removed and The thoracentesis catheter was then threaded without difficulty. 500 ml of serosanguineous colored fluid was removed without difficulty. The catheter was then removed. No immediate complications were noted during the procedure. The fluid will be sent for studies. Estimated blood loss is none. Patient feels comfortable and vitals stable. Post procedure chest x ray showed lung consolidation, decreased pleural fluid and no pneumothorax Estimated Blood Loss None Complication None X-Ray Findings Post procedure chest x ray showed lung consolidation, decreased pleural fluid and no pneumothorax Date of Service: Sep 29, 2025 Billing Provider: JOSE KEENAN MD, [facility] Sep 29, 2025 11:30
--- NOTE | 2025-09-29 11:47 | RADIOLOGY REPORT ---
Chest x-ray AP portable CLINICAL INDICATION: post thoracentecis FINDINGS: No pneumothorax. There is less left pleural effusion than on previous exam done earlier the same date. There remains some pleural thickening and lung consolidation at the left lung base. IMPRESSION: 1. No post thoracentesis pneumothorax.
[2025-09-29] MEDS: vancomycin/NS 1 GM ADD-VANTAGE 250 ML X 1 DOSE IV SCH (12:28)
[2025-09-29] MEDS: midodrine 5mg tablet PO SCH (12:29)
--- NOTE | 2025-09-29 15:13 | PROGRESS NOTE- Residence ---
Progress Note - Resident Providers to CC Resident Creating Document: LENO MALDONADO RES ~ Antibiotic Timeout Antibiotic Ordered?: Yes Subjective Patient seen and examined today today. Comfortably sitting in up in chair. Denies any complaints. Still requiring Levophed at 0.1 mcg/kg/minute. Developed fever and T-max in the last 24 hours is 101.1 F. Repeat chest x-ray to two showed left pleural effusion. Last time, it was sedated and so thoracentesis done today. About 500 mL janie color fluid drained and sent for analysis and culture Objective Vital Signs Date Time Temp Pulse Resp B/P (MAP) Pulse Ox O2 Delivery O2 Flow Rate FiO2 09/29/25 12:28 88/56 09/29/25 10:00 98.4 102 23 95 Room Air 09/29/25 07:51 0 21 Result Diagram: 09/29/2522409/29/25224 General: Alert and oriented x 4 HEENT: Normocephalic and atraumatic. Pupils equal round and reactive to light and accommodation. Extraocular movements intact. Oral and nasal mucosa moist Neck: Trachea is in midline. No masses or JVD Lungs: Decreased breath sounds in the left basal region. No crackles, rhonchi or wheezing Heart: Regular rate and rhythm. S1-S2 normal. No rubs. Grade 3/6 Systolic ejection murmur in the aortic and pulmonary area. Grade 3/6 holosystolic murmur in the mitral and tricuspid area Abdomen: Soft, nontender and nondistended. Bowel sounds present GLOBAL COMPENSATION ANALYST: No gross sensory or motor abnormalities Extremities: No cyanosis, clubbing. 2+ pedal edema left lower extremity Skin: Warm and dry Coagulation Studies Laboratory Tests Test 09/22/25 01:50 09/24/25 02:00 Activated Partial Thromboplast Time 26 SECONDS (22-32) Prothrombin Time 12.1 SECONDS (9.0-12.0) H INR International Normalized Ratio 1.2 INR Coagulation Comments Assessment Assessment This is a 70-year-old female with a history of CAD status post CABG in 2020, CHF with reduced ejection fraction, 45%, aortic stenosis with TAVR pending, mitral regurgitation, CKD, was brought to the ER from [facility] for increase in the shortness of breadth. She underwent cardiac catheterization September 10. She needs TAVR and mitral valve replacement. Currently she is being managed in ICU for low blood pressure. Planning of TAVR CT and BAV prior to discharge. Plan Plan Acute Hypoxemic respiratory failure-improving Acute exacerbation of Heart failure with mildly reduced ejection fraction Cardiogenic shock-improving Severe symptomatic aortic stenosis CAD s/p CABG in 2020 Ascending aortic aneurysm 4.3 cm Possible left lower lobe pneumonia On room air Still requiring Levophed at 0.1 mcg/kg/minute Continue Lasix 40 p.o. b.i.d. Preoperative carotid ultrasound done which showed no significant stenosis. Fine Arts Packer discontinued fludrocortisone Increased midodrine to 15 mg p.o. t.i.d. Left thoracentesis done. About 500 mL fluid drained. Pending analysis and culture Left thoracentesis done on 09/21/2025 showed exudative fluid. Total protein more than 3, pleural fluid cholesterol more than 40, and pleural total protein/serum total protein ratio 0.55. LDH not available. About 700 mL fluid drained Continue Levaquin 750 mg IV Q 48 Started vancomycin Chest X-ray showed left pleural fluid and left lower lobe opacity One procalcitonin Started on digoxin per engineering group leader for sinus tachycardia. Continued to received digoxin 125 mcg p.o. daily Strict I&Os Cardiology recommended to monitor ascending aortic aneurysm Echocardiogram done on 08/03/25 showed showed left ventricular ejection fraction of 45%, multi segmental motion abnormalities, PASP 58 mmHg, RV moderately dilated with mildly reduced function, left atrium moderately dilated, severe aortic stenosis, severe mitral regurgitation, moderate tricuspid regurgitation Cardia Catheterization done by Dr. Daly Lares done on 09/13/2025 showed severe [place] vessel CAD(improved PDF flow given endarterectomy) with 100% occluded mid LAD LCX and PL. Patent MCKNIGHT-LAD, SVG-Dx, SVG-OM, SVG-PDA States that she had CABG in 2020 Cardiology likely to not plan any procedure during the current hospital stay JAVIER on CKD stage IV likely secondary to renal tubular stasis Hyponatremia-resolved Hypokalemia Metabolic alkalosis due to diuresis Creatinine trending up Coupon And Bond Collection Clerk to continue Lasix 40 mg p.o. b.i.d. On Levophed Better to hold Jardiance due to ongoing JAVIER - being given for both heart failure and diabetes Management as per library clerical assistant and engineering group leader Continue potassium replacement as per protocol Unilateral left lower extremity edema Could be improved edema in the right lower extremity Had venous graft removed from the left lower extremity for CABG few years back but she denies any edema Venous ultrasound negative for any DVT Elevated transaminases AST trending up. ALP trending down Monitor Diabetes mellitus HB A1c 6.4. Continue to monitor blood sugars. On Lantus 18 units HS and low-dose lispro protocol Blood sugars well controlled Management per the engineering group leader Code Status: DNR DVT Prophylaxis: SCDs Analgesia/Sedation: Alprazolam Lines/Tubes: Right IJ Central line, PIV GI Prophylaxis: Famotidine Nutrition: Renal diet, heart healthy diet PT: Ordered Prognosis: Guarded Disposition: Management as per the engineering group leader, cancer genetics assistant and the library clerical assistant Leno Maldonado MD Internal Medicine Resident, PGY 3 Date of Service: Sep 29, 2025 Billing Provider: TRINA MARRUFO MD Common Visit Codes: [id number] INP/OBS CARE(HIGH) LENO MALDONADO RES Sep 29, 2025 15:13 TRINA MARRUFO MD Sep 30, 2025 07:24
[2025-09-30] VITALS (26 sets, daily range): BP systolic 81–109; BP diastolic 36–73; PULSE 92–115; RESP 16–27; O2SAT 92–99
[2025-09-30 03:42] LABS: MEAN PLATELET VOLUME 8.2 FL (7.4-10.4); RED CELL DISTRIBUTION WIDTH 17.0 % (11.5-14.5)
[2025-09-30 03:56] LABS: CREATININE 1.59 MG/DL (0.40-0.90); PHOSPHORUS 3.8 MG/DL (2.3-4.5); TOTAL CARBON DIOXIDE 25.6 MMOL/L (24-32); eCRCL 36 ML/MIN; eGFR 32 ML/MIN
[2025-09-30 04:07] LABS: EOSINOPHILS % (MANUAL) 1.0 % (0-6); LYMPHOCYTES % (MANUAL) 26.0 % (21-51); MONOCYTES % (MANUAL) 12.0 % (2-12); NEUTROPHILS % (MANUAL) 61.0 % (42-75); PLATELET ESTIMATE NORMAL
--- NOTE | 2025-09-30 12:03 | PROGRESS NOTE ---
Subjective Subjective Patient seen and examined today today. Comfortably sitting in up in chair. Denies any complaints. Still requiring Levophed at 0.1 mcg/kg/minute. Developed fever and T-max in the last 24 hours is 101.1 F. Repeat chest x-ray to two showed left pleural effusion. Last time, it was sedated and so thoracentesis done today. About 500 mL janie color fluid drained and sent for analysis and culture Reason for visit: Pulmonary critical care follow-up Reviewed: Care Plan, H&P, Radiology Review of Systems Changes from previous H/P or p: No Changes Daily Progress Note Exam Vitals Vital Signs Date Time Temp Pulse Resp B/P (MAP) Pulse Ox O2 Delivery O2 Flow Rate FiO2 09/30/25 11:00 98.8 103 24 101/73 (82) 98 Room Air 09/29/25 07:51 0 21 Result Diagram: 09/30/25 0255 09/30/25254 Exam Cardiovascular system: Cardiogenic shock Acute exacerbation of Heart failure with mildly reduced ejection fraction Severe symptomatic aortic stenosis CAD s/p CABG Continue Levophed currently running at 0.03mg/kg/minute. Echocardiogram showed left ventricular ejection fraction of 45%, PASP 58 mmHg, severe aortic stenosis with valve area 0.64. Cardiology, Dr. Lares is on board. Preoperative carotid ultrasound done which showed no significant stenosis. Cardiology considering TAVR CT and possible aortic valve valvuloplasty prior to discharge. Respiratory system: Acute hypoxemic respiratory failure : Resolved and currently on room air with a pulse oximetry reading of 95%. Possible left moderate pleural effusion on chest x-ray. On room air. Continue diuresis with Lasix 40 mg b.i.d.. Nephrology: JAVIER on CKD likely secondary to renal tubular stasis Hyponatremia Creatinine downtrending, 1.59 today, EGFR 32. Nephrology consulted. Advised to continue IV Lasix 40 mg b.i.d. and do not infuse any fluids. Increase midodrine to 20 mg 3 times a day. Continue pressors. Follow up with BMP. GI: Elevated transaminases Likely secondary to hepatic congestion. LFTs improving. Endocrine: Diabetes mellitus HB A1c 6.4. Continue to monitor blood sugars. Nervous system: Patient is awake alert. Nutrition: Heart healthy and renal diet. Code Status: DNR DVT Prophylaxis: SCDs Analgesia/Sedation: Alprazolam Lines/Tubes: Central line, PIV GI Prophylaxis: Famotidine Nutrition: Renal diet, heart healthy diet PT: Ordered Prognosis: Guarded Disposition: The prognosis remains guarded. Critical care time spent greater than 35 minutes. Results Coagulation Studies Laboratory Tests Test 09/22/25 01:50 09/24/25 02:00 Activated Partial Thromboplast Time 26 SECONDS (22-32) Prothrombin Time 12.1 SECONDS (9.0-12.0) H INR International Normalized Ratio 1.2 INR Coagulation Comments VTE VTE Risk Score VTE Risk Score Reference Ranges: Score 0-1 = Low Risk (Aggressive mobilization; early ambulation; no VTE prophylaxis required) Score 2: Moderate Risk (Intermittent/Pneumatic Compression Device OR Lovenox/Heparin/Coumadin) Score 3-4: High Risk (Intermittent/Pneumatic Compression Device AND Lovenox/Heparin/Coumadin) Score > or = 5: Highest Risk (Intermittent/Pneumatic Compression Device AND Lovenox/Heparin/Coumadin) Assessment/Plan Assessment This is a 70-year-old female with a history of CAD status post CABG in 2020, CHF with reduced ejection fraction, 45%, aortic stenosis with TAVR pending, mitral regurgitation, CKD, was brought to the ER from [facility] for increase in the shortness of breadth. She underwent cardiac catheterization September 10. She needs TAVR and mitral valve replacement. Currently she is being managed in ICU for low blood pressure. Planning of TAVR CT and BAV prior to discharge. Plan Acute Hypoxemic respiratory failure-improving Acute exacerbation of Heart failure with mildly reduced ejection fraction Cardiogenic shock-improving Severe symptomatic aortic stenosis CAD s/p CABG in 2020 Ascending aortic aneurysm 4.3 cm Possible left lower lobe pneumonia On room air Still requiring Levophed at 0.1 mcg/kg/minute Continue Lasix 40 p.o. b.i.d. Preoperative carotid ultrasound done which showed no significant stenosis. [id number] Programmer Analyst discontinued fludrocortisone Increased midodrine to 15 mg p.o. t.i.d. Left thoracentesis done. About 500 mL fluid drained. Pending analysis and culture Left thoracentesis done on 09/21/2025 showed exudative fluid. Total protein more than 3, pleural fluid cholesterol more than 40, and pleural total protein/serum total protein ratio 0.55. LDH not available. About 700 mL fluid drained Continue Levaquin 750 mg IV Q 48 Started vancomycin Chest X-ray showed left pleural fluid and left lower lobe opacity One procalcitonin Started on digoxin per printing press operator apprentice for sinus tachycardia. Continued to received digoxin 125 mcg p.o. daily Strict I&Os Cardiology recommended to monitor ascending aortic aneurysm Echocardiogram done on 08/03/25 showed showed left ventricular ejection fraction of 45%, multi segmental motion abnormalities, PASP 58 mmHg, RV moderately dilated with mildly reduced function, left atrium moderately dilated, severe aortic stenosis, severe mitral regurgitation, moderate tricuspid regurgitation Cardia Catheterization done by Dr. Daly Lares done on 09/13/2025 showed severe [place] vessel CAD(improved PDF flow given endarterectomy) with 100% occluded mid LAD LCX and PL. Patent MCKNIGHT-LAD, SVG-Dx, SVG-OM, SVG-PDA States that she had CABG in 2020 Cardiology likely to not plan any procedure during the current hospital stay JAVIER on CKD stage IV likely secondary to renal tubular stasis Hyponatremia-resolved Hypokalemia Metabolic alkalosis due to diuresis Creatinine trending up World Language Teacher to continue Lasix 40 mg p.o. b.i.d. On Levophed Better to hold Jardiance due to ongoing JAVIER - being given for both heart failure and diabetes Management as per production team advisor and printing press operator apprentice Continue potassium replacement as per protocol Unilateral left lower extremity edema Could be improved edema in the right lower extremity Had venous graft removed from the left lower extremity for CABG few years back but she denies any edema Venous ultrasound negative for any DVT Elevated transaminases AST trending up. ALP trending down Monitor Diabetes mellitus HB A1c 6.4. Continue to monitor blood sugars. On Lantus 18 units HS and low-dose lispro protocol Blood sugars well controlled Management per the printing press operator apprentice Code Status: DNR DVT Prophylaxis: SCDs Analgesia/Sedation: Alprazolam Lines/Tubes: Right IJ Central line, PIV GI Prophylaxis: Famotidine Nutrition: Renal diet, heart healthy diet PT: Ordered Prognosis: Guarded Disposition: Management as per the printing press operator apprentice, bolting machine operator and the production team advisor Aureliano Dial MD Internal Medicine Resident, PGY 3 Expected Outcome/Goals Expected Outcomes/Goals: maintain stable wt, meet at least 75% of estimated nutrient needs, ONS acceptance, bowel regularity, optimal skin integrity, BG 80-180 mg/dl JOSE KEENAN MD Sep 30, 2025 12:03
--- NOTE | 2025-09-30 13:19 | PROGRESS NOTE- Residence ---
Progress Note - Resident Providers to CC Resident Creating Document: JULIA JUNIOR RES ~ Antibiotic Timeout Antibiotic Ordered?: Yes Subjective Patient seen and examined today today. Comfortably sitting in up in chair. Denies any complaints. Still requiring Levophed at 0.1 mcg/kg/minute. Management per ICU: Developed fever and T-max in the last 24 hours is 101.1 F. Repeat chest x-ray to two showed left pleural effusion. Last time, it was sedated and so thoracentesis done today. About 500 mL janie color fluid drained and sent for analysis and culture Management per delicatessen manager: No plans to do TAVR or valvuloplasty at current visit per Dr. Lares Objective Vital Signs Date Time Temp Pulse Resp B/P (MAP) Pulse Ox O2 Delivery O2 Flow Rate FiO2 09/30/25 13:00 96 26 98/62 (74) 97 Room Air 09/30/25 11:00 98.8 09/29/25 07:51 0 21 Result Diagram: 09/30/25 0255 09/30/25 0255 General: Alert and oriented x 4, resting comfortably in her chair HEENT: Normocephalic and atraumatic. Pupils equal round and reactive to light and accommodation. Extraocular movements intact. Oral and nasal mucosa moist Neck: Trachea is in midline. No masses or JVD Lungs: Decreased breath sounds in the left basal region. No crackles, rhonchi or wheezing Heart: Regular rate and rhythm. S1-S2 normal. No rubs. Grade 3/6 Systolic ejection murmur in the aortic and pulmonary area. Grade 3/6 holosystolic murmur in the mitral and tricuspid area Abdomen: Soft, nontender and nondistended. Bowel sounds present EXPLOSIVE OPERATOR GRENADE: No gross sensory or motor abnormalities Extremities: No cyanosis, clubbing. 2+ pedal edema left lower extremity Skin: Warm and dry Coagulation Studies Laboratory Tests Test 09/22/25 01:50 09/24/25 02:00 Activated Partial Thromboplast Time 26 SECONDS (22-32) Prothrombin Time 12.1 SECONDS (9.0-12.0) H INR International Normalized Ratio 1.2 INR Coagulation Comments Assessment Assessment This is a 70-year-old female with a history of CAD status post CABG in 2020, CHF with reduced ejection fraction, 45%, aortic stenosis with TAVR pending, mitral regurgitation, CKD, was brought to the ER from [facility] for increase in the shortness of breadth. She underwent cardiac catheterization September 10. She needs TAVR and mitral valve replacement. Currently she is being managed in ICU for low blood pressure. Planning of TAVR CT and BAV prior to discharge. Plan Plan Acute Hypoxemic respiratory failure-improving Acute exacerbation of Heart failure with mildly reduced ejection fraction Cardiogenic shock-improving Severe symptomatic aortic stenosis CAD s/p CABG in 2020 Ascending aortic aneurysm 4.3 cm Left-sided pleural effusion secondary to possible left lobe pneumonia On room air Still requiring Levophed at 0.1 mcg/kg/minute Continue Lasix 40 p.o. b.i.d. Preoperative carotid ultrasound done which showed no significant stenosis. Insulation Cutter discontinued fludrocortisone Increased midodrine to 15 mg p.o. t.i.d. Left thoracentesis done. About 500 mL fluid drained. Pending analysis and culture Left thoracentesis done on 09/21/2025 showed exudative fluid. Total protein more than 3, pleural fluid cholesterol more than 40, and pleural total protein/serum total protein ratio 0.55. LDH not available. About 700 mL fluid drained Continue Levaquin 750 mg IV Q 48 Started vancomycin Chest X-ray showed left pleural fluid and left lower lobe opacity One procalcitonin Started on digoxin per fraud investigator for sinus tachycardia. Continued to received digoxin 125 mcg p.o. daily Strict I&Os Cardiology recommended to monitor ascending aortic aneurysm Echocardiogram done on 08/03/25 showed showed left ventricular ejection fraction of 45%, multi segmental motion abnormalities, PASP 58 mmHg, RV moderately dilated with mildly reduced function, left atrium moderately dilated, severe aortic stenosis, severe mitral regurgitation, moderate tricuspid regurgitation Cardia Catheterization done by Dr. Daly Lares done on 09/13/2025 showed severe [place] vessel CAD(improved PDF flow given endarterectomy) with 100% occluded mid LAD LCX and PL. Patent MCKNIGHT-LAD, SVG-Dx, SVG-OM, SVG-PDA States that she had CABG in 2020 Cardiology likely to not plan any procedure during the current hospital stay JAVIER on CKD stage IV likely secondary to renal tubular stasis Hyponatremia-resolved Hypokalemia Metabolic alkalosis due to diuresis Creatinine trending up Waiter/Waitress Dining Car to continue Lasix 40 mg p.o. b.i.d. On Levophed Better to hold Jardiance due to ongoing JAVIER - being given for both heart failure and diabetes Management as per delicatessen manager and fraud investigator Continue potassium replacement as per protocol Unilateral left lower extremity edema Could be improved edema in the right lower extremity Had venous graft removed from the left lower extremity for CABG few years back but she denies any edema Venous ultrasound negative for any DVT Elevated transaminases AST trending up. ALP trending down Monitor Diabetes mellitus HB A1c 6.4. Continue to monitor blood sugars. On Lantus 18 units HS and low-dose lispro protocol Blood sugars well controlled Management per the fraud investigator Code Status: DNR DVT Prophylaxis: SCDs Analgesia/Sedation: Alprazolam Lines/Tubes: Right IJ Central line, PIV GI Prophylaxis: Famotidine Nutrition: Renal diet, heart healthy diet PT: Ordered Prognosis: Guarded Disposition: Management as per the fraud investigator, sulfonation equipment operator and the delicatessen manager Julia Eubanks MD Internal Medicine Resident, PGY 2 Date of Service: Sep 30, 2025 Billing Provider: KIMBERLI COLLINS MD Common Visit Codes: [id number] INP/OBS CARE(MOD) JULIA JUNIOR, RES Sep 30, 2025 13:19 KIMBERLI COLLINS MD Sep 30, 2025 16:30
[2025-10-01] VITALS (25 sets, daily range): BP systolic 72–103; BP diastolic 40–65; PULSE 84–104; RESP 13–24; O2SAT 87–99
[2025-10-01 02:16] LABS: MEAN PLATELET VOLUME 7.8 FL (7.4-10.4); RED CELL DISTRIBUTION WIDTH 17.0 % (11.5-14.5)
[2025-10-01 02:35] LABS: CREATININE 1.73 MG/DL (0.40-0.90); PHOSPHORUS 5.4 MG/DL (2.3-4.5); TOTAL CARBON DIOXIDE 28.7 MMOL/L (24-32); eCRCL 33 ML/MIN; eGFR 29 ML/MIN
[2025-10-01] MEDS: midodrine 5mg tablet PO ONE (10:15)
[2025-10-01] MEDS: midodrine 5mg tablet PO SCH (13:04)
--- NOTE | 2025-10-01 15:57 | PROGRESS NOTE ---
Progress Note Cardiology Providers to CC ~ Subjective Subjective Patient resting in the ICU. She has been weaned down 0.05 on her Levophed. Up on midodrine to 20 mg t.i.d.. She states her edema has improved significantly. Is having some shortness for breath intermittently. Intermittently tearful as well. Objective Result Diagram: 10/01/25 0155 10/01/25 0155 Objective General: Awake, alert, oriented. No apparent distress Respiratory: Lungs are clear to auscultation bilaterally. No respiratory distress. Chest: Normal shape and size. No accessory muscle use. Cardiovascular: RRR Systolic ejection murmur on auscultation. Extremities: trace edema Neurologic: Alert and oriented x4. Nonfocal Psychiatric: Normal mood and affect. Skin: Normal color. Warm and dry. Coagulation Studies Laboratory Tests Test 09/22/25 01:50 09/24/25 02:00 Activated Partial Thromboplast Time 26 SECONDS (22-32) Prothrombin Time 12.1 SECONDS (9.0-12.0) H INR International Normalized Ratio 1.2 INR Coagulation Comments Problem\Assessment\Plan Additional Plan Patient presented secondary to low blood pressure. The following is her problem list: Severe, symptomatic aortic stenosis --underwent left/right heart catheterization during last admission. See Dr. J Luis Lares's dictation. --preoperative carotid ultrasound with no hemodynamically significant stenosis. --we will follow. Consider TAVR CT and possible BAV prior to discharge 09/24/25: Patient is diuresing well and kidney function has improved. Continue with IV furosemide 40 mg t.i.d. with Levophed for blood pressure support. 09/25/25: Decrease lasix to 40 mg IV BID. Cont with strick I&O. Wean levophed as tolerated. Will plan on TAVR CT prior to discharge 09/27/25: FV neg 471 mL yesterday. Case discussed with Dr. J Luis Lares. He recommends weaning Levophed for map goal of 60. Has been taken off lasix. continued edema. will start PO lasix [address] Lares. 09/28/25; FV neg 954 yesterday. On oral lasix. continue to wean levo. Hopfully will be able to tolerate cardiac CT wednesday. 10/01/25; FV neg 1436. hr down to 90's. cr up to 1.73. decrease lasix to 20 mg BID. Recommend wean off levo to keep MAP 65. Continue with midodrine [address] tomorrow. Hypotension --recommend titrate Levophed to keep map 60 She is now also on midodrine. Heart failure with reduced ejection fraction --unable to tolerate guideline directed medical therapy secondary to low blood pressure. --cont lasix --monitor strict intake and output measurements. --continue PO Lasix and Levophed for blood pressure support as noted above. This is a chronic kidney disease with acute kidney injury --likely secondary to hypoperfusion. --monitoring Transaminitis Significant transaminitis on admit. Improved. History of coronary artery disease status post CABG --continue aspirin, statin. Diabetes mellitus Hemoglobin A1c 6.4 --management per hospitalist Thoracic aortic aneurysm --ascending aortic aneurysm measuring 4.[address] --recommend monitoring hypokalemia --replacements per protocol. Case discussed with Dr. J Luis Lares who is in agreement with this plan. Supervising Physician: LI Thakur NP Oct 01, 2025 15:57
--- NOTE | 2025-10-01 16:13 | PROGRESS NOTE- Residence ---
Progress Note - Resident Providers to CC Resident Creating Document: LENO MALDONADO RES ~ Antibiotic Timeout Antibiotic Ordered?: Yes Subjective Patient seen and examined today today. Comfortably sitting in the bed. Requiring 2 L O2 via nasal cannula. T max in the last 24 hours 99.3 Objective Vital Signs Date Time Temp Pulse Resp B/P (MAP) Pulse Ox O2 Delivery O2 Flow Rate FiO2 10/01/25 16:00 99.1 92 20 95/56 (69) 98 Nasal Cannula 2.0 10/01/25 10:33 50 Result Diagram: 10/01/2515410/01/25154 General: Alert and oriented x 4 HEENT: Normocephalic and atraumatic. Pupils equal round and reactive to light and accommodation. Extraocular movements intact. Oral and nasal mucosa moist Neck: Trachea is in midline. No masses or JVD Lungs: Decreased breath sounds in the left basal region. Bilateral basal crackles present. No rhonchi or wheezing Heart: Regular rate and rhythm. S1-S2 normal. No rubs. Grade 3/6 Systolic ejection murmur in the aortic and pulmonary area. Grade 3/6 holosystolic murmur in the mitral and tricuspid area Abdomen: Soft, nontender and nondistended. Bowel sounds present FIREMAN HELPER: No gross sensory or motor abnormalities Extremities: No cyanosis, clubbing. 2+ pedal edema left lower extremity Skin: Warm and dry Coagulation Studies Laboratory Tests Test 09/22/25 01:50 09/24/25 02:00 Activated Partial Thromboplast Time 26 SECONDS (22-32) Prothrombin Time 12.1 SECONDS (9.0-12.0) H INR International Normalized Ratio 1.2 INR Coagulation Comments Assessment Assessment This is a 70-year-old female with a history of CAD status post CABG in 2020, CHF with reduced ejection fraction, 45%, aortic stenosis with TAVR pending, mitral regurgitation, CKD, was brought to the ER from [facility] for increase in the shortness of breadth. She underwent cardiac catheterization September 10. She needs TAVR and mitral valve replacement. Currently she is being managed in ICU for low blood pressure. Planning of TAVR CT and BAV prior to discharge. Plan Plan Acute Hypoxemic respiratory failure-improving Acute exacerbation of Heart failure with mildly reduced ejection fraction Cardiogenic shock-improving Severe symptomatic aortic stenosis CAD s/p CABG in 2020 Ascending aortic aneurysm 4.3 cm Left-sided pleural effusion secondary to possible left lobe pneumonia Recurrent 2 L O2 via nasal cannula Levophed requirement came down 0.06 mcg/kg/minute Decrease Lasix to 20 mg p.o. b.i.d. Preoperative carotid ultrasound done which showed no significant stenosis. Heavy Equipment Field Mechanic discontinued fludrocortisone Increased midodrine to 20 mg p.o. t.i.d. Left thoracentesis done. About 500 mL fluid drained. Likely exudative. Protein more than three, pleural fluid albumin/serum fluid albumin more than 0.5, total cholesterol more than 40. Pleural fluid culture showed moderate WBCs but no organisms Left thoracentesis done on 09/21/2025 showed exudative fluid. Total protein more than 3, pleural fluid cholesterol more than 40, and pleural total protein/serum total protein ratio 0.55. LDH not available. About 700 mL fluid drained Continue Levaquin 750 mg IV Q 48 on vancomycin Chest X-ray on 09/29 showed left pleural fluid and left lower lobe opacity Gallstone not elevated Continue digoxin 125 mcg p.o. daily Strict I&Os Cardiology recommended to monitor ascending aortic aneurysm Echocardiogram done on 08/03/25 showed showed left ventricular ejection fraction of 45%, multi segmental motion abnormalities, PASP 58 mmHg, RV moderately dilated with mildly reduced function, left atrium moderately dilated, severe aortic stenosis, severe mitral regurgitation, moderate tricuspid regurgitation Cardia Catheterization done by Dr. Daly Lares done on 09/13/2025 showed severe [place] vessel CAD(improved PDF flow given endarterectomy) with 100% occluded mid LAD LCX and PL. Patent MCKNIGHT-LAD, SVG-Dx, SVG-OM, SVG-PDA States that she had CABG in 2020 Cardiology likely to not plan any procedure during the current hospital stay but plan to do cardiac CT JAVIER on CKD stage IV likely secondary to renal tubular stasis Hyponatremia-resolved Hypokalemia Metabolic alkalosis due to diuresis Creatinine trending up Cardiology decreased Lasix to 20 mg p.o. b.i.d. On Levophed Better to hold Jardiance due to ongoing JAVIER - being given for both heart failure and diabetes Management as per internet specialist and line construction superintendent Continue potassium replacement as per protocol Unilateral left lower extremity edema Could be improved edema in the right lower extremity Had venous graft removed from the left lower extremity for CABG few years back but she denies any edema Venous ultrasound negative for any DVT Elevated transaminases AST stable. ALP trending down Monitor Diabetes mellitus HB A1c 6.4. Continue to monitor blood sugars. On Lantus 18 units HS and low-dose lispro protocol Blood sugars well controlled Management per the line construction superintendent Code Status: DNR DVT Prophylaxis: SCDs Analgesia/Sedation: Alprazolam Lines/Tubes: Right IJ Central line, PIV GI Prophylaxis: Famotidine Nutrition: Renal diet, heart healthy diet PT: Ordered Prognosis: Guarded Disposition: Management as per the line construction superintendent, medical insurance claims processor and the internet specialist. Will need PT evaluation Leno Maldonado MD Internal Medicine Resident, PGY 3 Date of Service: Oct 01, 2025 Billing Provider: KIMBERLI COLLINS MD Common Visit Codes: [id number] INP/OBS CARE(MOD) LENO MALDONADO RES Oct 01, 2025 16:13 KIMBERLI COLLINS MD Oct 01, 2025 18:57
--- NOTE | 2025-10-01 16:41 | PROGRESS NOTE- Residence ---
Progress Note - Resident Providers to CC Resident Creating Document: KAREN SANCHES RES ~ Antibiotic Timeout Antibiotic Ordered?: Yes Subjective pt was seen at the bedside this morning with no special complaints but stated that feeling much better. The plan is discharging the pt with the ABx and HANNY dopamine if she can be off from the Levophed by maintaining MAP at least 65. She is making good amount of the urine output with no complaint of Dizziness and lightheadness. Objective Vital Signs Date Time Temp Pulse Resp B/P (MAP) Pulse Ox O2 Delivery O2 Flow Rate FiO2 10/01/25 16:00 99.1 92 20 95/56 (69) 98 Nasal Cannula 2.0 10/01/25 10:33 50 Result Diagram: 10/01/25 0155 10/01/25 015 Vitals were stable with HR 96, BP 90/56 mm Hg on Levophed 0.04, MAP 67, SpO2 95% on nasal cannula 2 L/min oxygen supply. On exam, General: Well alert, well oriented, not confused, not agitated, not in acute distress, well cooperated during the physical. HEENT: Conjunctive are pink, sclerae clear, no icterus, pupil is equal in both sides, reactive to light, no ear discharge, no pharyngeal erythema or an edema, mouth and lips are moist. Neck: Supple, no JVD, no lymphadenopathy and thyromegaly. Lungs: Equally reduced air entry on both lungs, audible wheezing and rhonchi were noted, bilateral crackles were present. Heart: S1-S2 regular sinus rhythm and, regular rate, no gallops, no rubs, 3/6 systolic ejection murmur in the aortic and pulmonary area, and radiating to the neck. 3/6 holosystolic murmur over the mitral and tricuspid area. Abdomen: No visible peristalsis, Bowel sounds present on auscultation, soft, nontender, no guarding, no rigidity Extremities: No obvious deformities, no pitting edema bilaterally, capillary refill intact, able to wiggle toes both sides, peripheral pulsations are intact on both sides POISER: No focal neurological deficits, no motor and sensory weakness in all 4 extremities, could move all 4 extremities Musculoskeletal: No joint swelling, deformities, inflammations, and no scoliosis and back tenderness Skin: No active skin lesions and rashes Coagulation Studies Laboratory Tests Test 09/22/25 01:50 09/24/25 02:00 Activated Partial Thromboplast Time 26 SECONDS (22-32) Prothrombin Time 12.1 SECONDS (9.0-12.0) H INR International Normalized Ratio 1.2 INR Coagulation Comments Assessment Assessment This is a 70-year-old female with a history of CAD status post CABG in 2020, CHF with reduced ejection fraction, 45%, aortic stenosis with TAVR pending, mitral regurgitation, CKD, was brought to the ER from [facility] for increase in the shortness of breadth. She underwent cardiac catheterization September 10. She needs TAVR and mitral valve replacement. Currently she is being managed in ICU for low blood pressure. Planning of TAVR CT and BAV prior to discharge. Plan Plan Cardiology: # Acute Hypoxemic respiratory failure / # Acute exacerbation of Heart failure with mildly reduced ejection fraction # Cardiogenic shock # Severe symptomatic aortic stenosis # CAD s/p CABG in 2020 # Ascending aortic aneurysm 4.3 cm # Hypotension -Continue titrate down Levophed by maintaining MAP at least 65, currently running at 0.04mg/kg/minute. -Echocardiogram showed left ventricular ejection fraction of 45%, PASP 58 mmHg, severe aortic stenosis with valve area 0.64. -Cardiology, Dr. Lares is on board. -Preoperative carotid ultrasound done which showed no significant stenosis. -Cardiology considering TAVR CT and possible aortic valve valvuloplasty prior to discharge. -Cardiology recommended to titrate down IV Lasix 20 mg BID -Increased midodrine to 20 mg p.o. t.i.d. and continue fludrocortisone 0.2 mg p.o. Q 24 H p.r.n. -Plan to discharge to [facility] after switched to dopamine from Levophed if possible Pulmonology: # Acute hypoxemic respiratory failure # s/p left thoracentesis for left moderate pleural effusion on 09/21/25 and 09/30/25 # Left side lobar pneumonia # KEI -Resolved and currently on room air with a pulse oximetry reading of 95%. -sent the left thoracentesis fluid to the lab -Continue Levofloxacin and Vancomycin -Bipap as need as per RT recommendation. Nephrology: # JAVIER on CKD likely secondary to renal tubular stasis # Hyponatremia -Nephrology consulted. Advised to continue IV Lasix 20 mg b.i.d. and do not infuse any fluids. -Increase midodrine to 20 mg 3 times a day. -Continue pressors for better renal flow with MAP 65. -Follow up with BMP. GI: # Elevated transaminases -Likely secondary to hepatic congestion. -LFTs improving. Endocrine: # Diabetes mellitus -HB A1c 6.4. -Continue to monitor blood sugars. The goal to range between 140-1 80s during hospitalization Nervous system: -Patient is awake alert. Nutrition: -Heart healthy and renal diet. Code Status: DNR DVT Prophylaxis: SCDs Analgesia/Sedation: Alprazolam Lines/Tubes: right IJ, PIV, transition to PICC line GI Prophylaxis: Famotidine Nutrition: Renal diet, heart healthy diet PT: Ordered Prognosis: Guarded Disposition: The prognosis remains guarded. Critical care time spent greater than 35 minutes. PT eval. Resident MD attestation: Patient was seen, examined and discussed with attending MD, Dr. Yasmin SANCHES MD Internal Medicine Resident, PGY3 [facility] Date of Service: Oct 01, 2025 Billing Provider: JOSE KEENAN MD, TIN, RES Oct 01, 2025 16:41
[2025-10-01] MEDS: magnesium sulf-water 2g/50mL 50 ML IV ONE (17:58)
[2025-10-02] VITALS (24 sets, daily range): BP systolic 81–117; BP diastolic 44–67; PULSE 85–106; RESP 12–26; O2SAT 93–100
[2025-10-02 02:53] LABS: MEAN PLATELET VOLUME 8.2 FL (7.4-10.4); RED CELL DISTRIBUTION WIDTH 17.7 % (11.5-14.5)
[2025-10-02 03:06] LABS: CREATININE 1.82 MG/DL (0.40-0.90); PHOSPHORUS 4.0 MG/DL (2.3-4.5); TOTAL CARBON DIOXIDE 27.8 MMOL/L (24-32); eCRCL 31 ML/MIN; eGFR 27 ML/MIN
--- NOTE | 2025-10-02 09:50 | PROGRESS NOTE ---
Progress Note Cardiology Providers to CC ~ Subjective Subjective Patient is sitting up in a chair. Fluid volume-694 mL yesterday She had to go up on her Levophed overnight. Per nursing secondary to requiring Ativan and Combes to sleep. Objective Result Diagram: 10/02/25 0210 10/02/25 021 Objective General: Awake, alert, oriented. No apparent distress Respiratory: Lungs are clear to auscultation bilaterally. No respiratory distress. Chest: Normal shape and size. No accessory muscle use. Cardiovascular: RRR Systolic ejection murmur on auscultation. Extremities: trace edema Neurologic: Alert and oriented x4. Nonfocal Psychiatric: Normal mood and affect. Skin: Normal color. Warm and dry. Coagulation Studies Laboratory Tests Test 09/22/25 01:50 09/24/25 02:00 Activated Partial Thromboplast Time 26 SECONDS (22-32) Prothrombin Time 12.1 SECONDS (9.0-12.0) H INR International Normalized Ratio 1.2 INR Coagulation Comments Problem\Assessment\Plan Additional Plan Patient presented secondary to low blood pressure. The following is her problem list: Severe, symptomatic aortic stenosis --underwent left/right heart catheterization during last admission. See Dr. J Luis Lares's dictation. --preoperative carotid ultrasound with no hemodynamically significant stenosis. --we will follow. Consider TAVR CT and possible BAV prior to discharge 09/24/25: Patient is diuresing well and kidney function has improved. Continue with IV furosemide 40 mg t.i.d. with Levophed for blood pressure support. 09/25/25: Decrease lasix to 40 mg IV BID. Cont with strick I&O. Wean levophed as tolerated. Will plan on TAVR CT prior to discharge 09/27/25: FV neg 471 mL yesterday. Case discussed with Dr. J Luis Lares. He recommends weaning Levophed for map goal of 60. Has been taken off lasix. continued edema. will start PO lasix [address] Lares. 09/28/25; FV neg 954 yesterday. On oral lasix. continue to wean levo. Hopfully will be able to tolerate cardiac CT wednesday. 10/01/25; FV neg 1436. hr down to 90's. cr up to 1.73. decrease lasix to 20 mg BID. Recommend wean off levo to keep MAP 65. Continue with midodrine [address] tomorrow. 10/02/25: FV neg 571 mL yesterday. Cr up 1.82. Levo being titrated to MAP 65. TAVR CT ordered and pending. Per Dr. Arnaud edgar for CT with HR in 90's. Given that she has required continued levo he recommends Arterial line. Hypotension --recommend titrate Levophed to keep map 65 She is now also on midodrine. Heart failure with reduced ejection fraction --unable to tolerate guideline directed medical therapy secondary to low blood pressure. --cont lasix --monitor strict intake and output measurements. --continue PO Lasix and Levophed for blood pressure support as noted above. This is a chronic kidney disease with acute kidney injury --likely secondary to hypoperfusion. --monitoring Transaminitis Significant transaminitis on admit. Improved. History of coronary artery disease status post CABG --continue aspirin, statin. Diabetes mellitus Hemoglobin A1c 6.4 --management per hospitalist Thoracic aortic aneurysm --ascending aortic aneurysm measuring 4.[address] --recommend monitoring Case discussed with Dr. J Luis Lares who is in agreement with this plan. Supervising Physician: LI Thakur NP Oct 02, 2025 09:50
[2025-10-02] MEDS: VANCOMYCIN LEVEL IV ONE (10:41)
--- NOTE | 2025-10-02 11:07 | PROCEDURE NOTE- Residance ---
Procedure Note Providers to CC ~ Planned Procedure Right radial artery line Indications To measure direct arterial blood pressure through the radial artery line Post Operative Dx: Radial artery line placement Meal Miller William Augustin Type of Anesthesia N/A Informed Consent Informed consent was obtained before the procedure Description A time out was performed. My hands were washed immediately prior to the procedure. After an USG guided confirmation of the right radial artery was performed to ensure adequate perfusion, the Right wrist was prepped using chlorhexidine scrub and draped in sterile fashion. The radial pulse was identified and the wrist was positioned in the usual fashion. Using the Arrow Radial Arterial Line Kit, a needle was inserted into the radial artery. Arterial blood was seen to pulsate in the flash chamber. The internal guidewire was advanced easily into the radial artery. The catheter was then advanced over the wire and the needle and wire were withdrawn. The catheter was sutured in place. A sterile opsite was placed over the catheter at the insertion site. The patient tolerated the procedure without any hemodynamic compromise. At the time of procedure completion, the catheter was connected to the quality assurance monitor final and calibrated. Appropriate waveform and blood pressure tracing was observed. Estimated blood loss was around 3-5cc of arterial blood. Estimated Blood Loss 3-5cc of arterial blood Complication None X-Ray Findings USG was confirmed the proper placement of the Arterial line Date of Service: Oct 02, 2025 Billing Provider: JOSE KEENAN MD,KAREN, RES Oct 02, 2025 11:07
[2025-10-02] MEDS ORDERED: IODIXANOL 320 MG/ML INFUS..BTL 100ML IV ONE (14:06)
--- NOTE | 2025-10-02 15:14 | PROGRESS NOTE- Residence ---
Progress Note - Resident Providers to CC Resident Creating Document: MARCO A MALDONADOVamsiMEREDITH RES ~ Antibiotic Timeout Antibiotic Ordered?: Yes Subjective Patient Seen and examined today. Comfortably sitting in the chair and denies any complaints. Requiring Levophed at 0.08 mcg/kg/minute. Plan to do cardiac CT by Cardiology Objective Vital Signs Date Time Temp Pulse Resp B/P (MAP) Pulse Ox O2 Delivery O2 Flow Rate FiO2 10/02/25 15:00 95 19 98/49 (65) 100 Nasal Cannula 2.0 10/02/25 13:00 99.0 10/01/25 10:33 50 Result Diagram: 10/02/25 0210 10/02/25 0210 General: Alert and oriented x 4 HEENT: Normocephalic and atraumatic. Pupils equal round and reactive to light and accommodation. Extraocular movements intact. Oral and nasal mucosa moist Neck: Trachea is in midline. No masses or JVD Lungs: Decreased breath sounds in the left basal region. Bilateral basal crackles present. No rhonchi or wheezing Heart: Regular rate and rhythm. S1-S2 normal. No rubs. Grade 3/6 Systolic ejection murmur in the aortic and pulmonary area. Grade 3/6 holosystolic murmur in the mitral and tricuspid area Abdomen: Soft, nontender and nondistended. Bowel sounds present HANDBOOK WRITER: No gross sensory or motor abnormalities Extremities: No cyanosis, clubbing. 2+ pedal edema left lower extremity Skin: Warm and dry Coagulation Studies Laboratory Tests Test 09/22/25 01:50 09/24/25 02:00 Activated Partial Thromboplast Time 26 SECONDS (22-32) Prothrombin Time 12.1 SECONDS (9.0-12.0) H INR International Normalized Ratio 1.2 INR Coagulation Comments Assessment Assessment This is a 70-year-old female with a history of CAD status post CABG in 2020, CHF with reduced ejection fraction, 45%, aortic stenosis with TAVR pending, mitral regurgitation, CKD, was brought to the ER from [facility] for increase in the shortness of breadth. She underwent cardiac catheterization September 10. She needs TAVR and mitral valve replacement. Currently she is being managed in ICU for low blood pressure. Planning of TAVR CT and BAV prior to discharge. Plan Plan Acute Hypoxemic respiratory failure-improving Acute exacerbation of Heart failure with mildly reduced ejection fraction Cardiogenic shock-improving Severe symptomatic aortic stenosis CAD s/p CABG in 2020 Ascending aortic aneurysm 4.3 cm Left-sided pleural effusion secondary to possible left lobe pneumonia Recurrent 2 L O2 via nasal cannula-starting at 100%. O2 could be weaned down Levophed requirement- 0.08 mcg/kg/minute On Lasix to 20 mg p.o. b.i.d. Preoperative carotid ultrasound done which showed no significant stenosis. Brake Linings Coater discontinued fludrocortisone Continue midodrine to 20 mg p.o. t.i.d. Left thoracentesis done. About 500 mL fluid drained. Likely exudative. Protein more than three, pleural fluid albumin/serum fluid albumin more than 0.5, total cholesterol more than 40. Pleural fluid culture showed moderate WBCs but no organisms Left thoracentesis done on 09/21/2025 showed exudative fluid. Total protein more than 3, pleural fluid cholesterol more than 40, and pleural total protein/serum total protein ratio 0.55. LDH not available. About 700 mL fluid drained Continue Levaquin 750 mg IV Q 48 and vancomycin Chest X-ray on 09/29 showed left pleural fluid and left lower lobe opacity Gallstone not elevated Continue digoxin 125 mcg p.o. daily Strict I&Os Cardiology recommended to monitor ascending aortic aneurysm Echocardiogram done on 08/03/25 showed showed left ventricular ejection fraction of 45%, multi segmental motion abnormalities, PASP 58 mmHg, RV moderately dilated with mildly reduced function, left atrium moderately dilated, severe aortic stenosis, severe mitral regurgitation, moderate tricuspid regurgitation Cardia Catheterization done by Dr. Daly Lares done on 09/13/2025 showed severe [place] vessel CAD(improved PDF flow given endarterectomy) with 100% occluded mid LAD LCX and PL. Patent MCKNIGHT-LAD, SVG-Dx, SVG-OM, SVG-PDA States that she had CABG in 2020 Cardiology likely to not plan any procedure during the current hospital stay but plan to do cardiac CT JAVIER on CKD stage IV likely secondary to renal tubular stasis Hyponatremia-resolved Hypokalemia Metabolic alkalosis due to diuresis Creatinine trending up Continue 20 mg p.o. b.i.d. On Levophed Management as per volunteer recruitment coordinator and digital media associate Continue potassium replacement as per protocol Unilateral left lower extremity edema Had venous graft removed from the left lower extremity for CABG few years back but she denies any edema Venous ultrasound negative for any DVT Elevated transaminases AST stable. ALP trending down Monitor Diabetes mellitus HB A1c 6.4. Continue to monitor blood sugars. On Lantus 18 units HS and low-dose lispro protocol Blood sugars well controlled Management per the digital media associate Code Status: DNR DVT Prophylaxis: SCDs Analgesia/Sedation: Alprazolam Lines/Tubes: Right IJ Central line, PIV GI Prophylaxis: Famotidine Nutrition: Renal diet, heart healthy diet PT: Ordered Prognosis: Guarded Disposition: Management as per the digital media associate, senior ui software engineer and the volunteer recruitment coordinator. Leno Maldonado MD Internal Medicine Resident, PGY 3 Date of Service: Oct 02, 2025 Billing Provider: KIMBERLI COLLINS MD Common Visit Codes: 35413-[id number] INP/OBS CARE(MOD) LENO MALDONADO RES Oct 02, 2025 15:14 KIMBERLI COLLINS MD Oct 02, 2025 18:59
--- NOTE | 2025-10-02 18:09 | PROGRESS NOTE- Residence ---
Progress Note - Resident Providers to CC Resident Creating Document: KAREN SANCHES, RES ~ Antibiotic Timeout Antibiotic Ordered?: Yes Subjective Pt was needed for the [place] and Ativan for her last night sleepless which could contribute to increasing demand to titrate up Norepinephrine up to 0.08 this AM to maintain MAP 65. The cardiology Dr Lares team was discussing the any potential procedures prior to discharge today. The Cardiology requested for the Radial Arterial line placement for the precise BP measurement. Objective Vital Signs Date Time Temp Pulse Resp B/P (MAP) Pulse Ox O2 Delivery O2 Flow Rate FiO2 10/02/25 17:08 99.1 96 15 96/55 (69) 96 Nasal Cannula 1.0 10/02/25 15:28 28 Result Diagram: 10/02/25 0210 10/02/25 0210 Vitals were stable with HR 96, BP 107/63 mm Hg on Levophed 0.08, SpO2 95% on nasal cannula 2 L/min oxygen supply. On exam, General: Well alert, well oriented, not confused, not agitated, not in acute distress, well cooperated during the physical. HEENT: Conjunctive are pink, sclerae clear, no icterus, pupil is equal in both sides, reactive to light, no ear discharge, no pharyngeal erythema or an edema, mouth and lips are moist. Neck: Supple, no JVD, no lymphadenopathy and thyromegaly. Lungs: Equally reduced air entry on both lungs, audible wheezing and rhonchi were noted, bilateral crackles were present. Heart: S1-S2 regular sinus rhythm and, regular rate, no gallops, no rubs, 3/6 systolic ejection murmur in the aortic and pulmonary area, and radiating to the neck. 3/6 holosystolic murmur over the mitral and tricuspid area. Abdomen: No visible peristalsis, Bowel sounds present on auscultation, soft, nontender, no guarding, no rigidity Extremities: No obvious deformities, no pitting edema bilaterally, capillary refill intact, able to wiggle toes both sides, peripheral pulsations are intact on both sides SECURITY REP: No focal neurological deficits, no motor and sensory weakness in all 4 extremities, could move all 4 extremities Musculoskeletal: No joint swelling, deformities, inflammations, and no scoliosis and back tenderness Skin: No active skin lesions and rashes Coagulation Studies Laboratory Tests Test 09/22/25 01:50 09/24/25 02:00 Activated Partial Thromboplast Time 26 SECONDS (22-32) Prothrombin Time 12.1 SECONDS (9.0-12.0) H INR International Normalized Ratio 1.2 INR Coagulation Comments Assessment Assessment This is a 70-year-old female with a history of CAD status post CABG in 2020, CHF with reduced ejection fraction, 45%, aortic stenosis with TAVR pending, mitral regurgitation, CKD, was brought to the ER from [facility] for increase in the shortness of breadth. She underwent cardiac catheterization September 10. She needs TAVR and mitral valve replacement. Currently she is being managed in ICU for low blood pressure. Planning of TAVR CT and BAV prior to discharge. Plan Plan Cardiology: # Acute Hypoxemic respiratory failure 11/12 # Acute exacerbation of Heart failure with mildly reduced ejection fraction # Cardiogenic shock # Severe symptomatic aortic stenosis # CAD s/p CABG in 2020 # Ascending aortic aneurysm 4.3 cm # Hypotension -Continue titrate down Levophed by maintaining MAP at least 65, currently running at 0.08mg/kg/minute. -Start PO Ambien 5mg HS to avoid using Sedatives with hypotensive collateral effects. -Echocardiogram showed left ventricular ejection fraction of 45%, PASP 58 mmHg, severe aortic stenosis with valve area 0.64. -Cardiology, Dr. Lares is on board. -Preoperative carotid ultrasound done which showed no significant stenosis. -Cardiology considering TAVR CT and possible aortic valve valvuloplasty prior to discharge as per Dr Daly Lares if Right Radial Arterial line BP measurement is improving on Levophed titrating down. -Continue IV Lasix 20 mg BID -Increased midodrine to 20 mg p.o. t.i.d. and continue fludrocortisone 0.2 mg p.o. Q 24 H p.r.n. -Holding Jardiance -Plan to discharge to [facility] Pulmonology: # Acute hypoxemic respiratory failure # s/p left thoracentesis for left moderate pleural effusion on 09/21/25 and 09/30/25 # Left side lobar pneumonia # KEI -Resolved and currently on room air with a pulse oximetry reading of 95%. -sent the left thoracentesis fluid to the lab -Continue Levofloxacin and Vancomycin -Bipap as need as per RT recommendation. Nephrology: # JAVIER on CKD likely secondary to renal tubular stasis # Hyponatremia -Nephrology consulted. Advised to continue IV Lasix 20 mg b.i.d. and do not infuse any fluids. -Increase midodrine to 20 mg 3 times a day. -Continue pressors for better renal flow with MAP 65. -Follow up with BMP. GI: # Elevated transaminases -Likely secondary to hepatic congestion. -LFTs improving. Endocrine: # Diabetes mellitus -HB A1c 6.4. -Continue to monitor blood sugars. The goal to range between 140-1 80s during hospitalization Nervous system: -Patient is awake alert. Nutrition: -Heart healthy and renal diet. Code Status: DNR DVT Prophylaxis: SCDs Analgesia/Sedation: Alprazolam Lines/Tubes: right IJ, PIV, transition to PICC line GI Prophylaxis: Famotidine Nutrition: Renal diet, heart healthy diet PT: Ordered Prognosis: Guarded Disposition: The prognosis remains guarded. Critical care time spent greater than 35 minutes. PT eval. Resident attestation: Patient was seen, examined and discussed with attending , Dr. Yasmin SANCHES MD Internal Medicine Resident, PGY3 [facility] Date of Service: Oct 02, 2025 Billing Provider: JOSE KEENAN MD, TIN, RES Oct 02, 2025 18:09
[2025-10-03] VITALS (21 sets, daily range): BP systolic 80–113; BP diastolic 44–104; PULSE 85–101; RESP 10–23; TEMP 96.6–99; O2SAT 93–100
[2025-10-03 02:53] LABS: MEAN PLATELET VOLUME 7.5 FL (7.4-10.4); RED CELL DISTRIBUTION WIDTH 17.4 % (11.5-14.5)
[2025-10-03 03:00] LABS: CREATININE 1.51 MG/DL (0.40-0.90); PHOSPHORUS 3.0 MG/DL (2.3-4.5); TOTAL CARBON DIOXIDE 26.8 MMOL/L (24-32); eCRCL 38 ML/MIN; eGFR 34 ML/MIN
[2025-10-03] MEDS: midodrine 5mg tablet PO ONE (09:15)
--- NOTE | 2025-10-03 11:05 | PROGRESS NOTE- Residence ---
Progress Note - Resident Providers to CC Resident Creating Document: LENO MALDONADO RES ~ Antibiotic Timeout Antibiotic Ordered?: Yes Subjective Patient seen and examined today. Comfortably resting in the bed. Stated that she could not sleep well last night but denied any medical complaints like chest pain, shortness of breaths. Has low-grade [id number] F in the last 24 hours. Got a right radial arterial line placed yesterday. Got cardiac CT done yesterday. On very low-dose of Levophed-0.01 mcg/kg/minute. Awaiting further Cardiology recommendations Objective Vital Signs Date Time Temp Pulse Resp B/P (MAP) Pulse Ox O2 Delivery O2 Flow Rate FiO2 10/03/25 08:40 98 16 96 Nasal Cannula* 1 24 10/03/25 07:00 99.5 110/104 (106) Result Diagram: 10/03/2522810/03/25228 General: Alert and oriented x 4 HEENT: Normocephalic and atraumatic. Pupils equal round and reactive to light and accommodation. Extraocular movements intact. Oral and nasal mucosa moist Neck: Trachea is in midline. No masses or JVD Lungs: Bilateral normal breath sounds. Bilateral basal crackles present. No rhonchi or wheezing Heart: Regular rate and rhythm. S1-S2 normal. No rubs. Grade 3/6 Systolic ejection murmur in the aortic and pulmonary area. Grade 3/6 holosystolic murmur in the mitral and tricuspid area Abdomen: Soft, nontender and nondistended. Bowel sounds present SALES STOCK ASSOCIATE: No gross sensory or motor abnormalities Extremities: No cyanosis, clubbing. 2+ pedal edema left lower extremity Skin: Warm and dry Coagulation Studies Laboratory Tests Test 09/22/25 01:50 09/24/25 02:00 Activated Partial Thromboplast Time 26 SECONDS (22-32) Prothrombin Time 12.1 SECONDS (9.0-12.0) H INR International Normalized Ratio 1.2 INR Coagulation Comments Assessment Assessment This is a 70-year-old female with a history of CAD status post CABG in 2020, CHF with reduced ejection fraction, 45%, aortic stenosis with TAVR pending, mitral regurgitation, CKD, was brought to the ER from [facility] for increase in the shortness of breadth. She underwent cardiac catheterization September 10. She needs TAVR and mitral valve replacement. Currently she is being managed in ICU for low blood pressure. Planning of TAVR CT and BAV prior to discharge. Plan Plan Acute Hypoxemic respiratory failure-improving Acute exacerbation of Heart failure with mildly reduced ejection fraction Cardiogenic shock-improving Severe symptomatic aortic stenosis CAD s/p CABG in 2020 Ascending aortic aneurysm 4.3 cm Left-sided pleural effusion secondary to possible left lobe pneumonia Recurrent 1 L O2 via nasal cannula-starting at 96%. O2 could be weaned down Levophed requirement- 0.01 mcg/kg/minute On Lasix to 20 mg p.o. b.i.d. Preoperative carotid ultrasound done which showed no significant stenosis. Lay Out And Detail Drafter discontinued fludrocortisone Lay Out And Detail Drafter increased midodrine to [address]d. Cardiac CT done yesterday. Awaiting further Cardiology recommendations Left thoracentesis done. About 500 mL fluid drained. Likely exudative. Protein more than three, pleural fluid albumin/serum fluid albumin more than 0.5, total cholesterol more than 40. Pleural fluid culture showed moderate WBCs but no organisms Left thoracentesis done on 09/21/2025 showed exudative fluid. Total protein more than 3, pleural fluid cholesterol more than 40, and pleural total protein/serum total protein ratio 0.55. LDH not available. About 700 mL fluid drained Continue Levaquin 750 mg IV Q 48 and vancomycin Chest X-ray on 09/29 showed left pleural fluid and left lower lobe opacity Procalcitonin not elevated Continue digoxin 125 mcg p.o. daily Strict I&Os Cardiology recommended to monitor ascending aortic aneurysm Echocardiogram done on 08/03/25 showed showed left ventricular ejection fraction of 45%, multi segmental motion abnormalities, PASP 58 mmHg, RV moderately dilated with mildly reduced function, left atrium moderately dilated, severe aortic stenosis, severe mitral regurgitation, moderate tricuspid regurgitation Cardia Catheterization done by Dr. Daly Lares done on 09/13/2025 showed severe [place] vessel CAD(improved PDF flow given endarterectomy) with 100% occluded mid LAD LCX and PL. Patent MCKNIGHT-LAD, SVG-Dx, SVG-OM, SVG-PDA States that she had CABG in 2020. Continue aspirin 81 mg p.o. daily JAVIER on CKD stage IV likely secondary to renal tubular stasis Hyponatremia-resolved Hypokalemia Metabolic alkalosis due to diuresis Creatinine rubbing Continue 20 mg p.o. b.i.d. On very low-dose of Levophed Management as per assistant kitchen manager and quality facilitator Continue potassium replacement as per protocol Unilateral left lower extremity edema Had venous graft removed from the left lower extremity for CABG few years back but she denies any edema Venous ultrasound negative for any DVT Elevated transaminases AST stable. ALP trending down Monitor Diabetes mellitus HB A1c 6.4. Continue to monitor blood sugars. On Lantus 18 units HS and low-dose lispro protocol Blood sugars well controlled Management per the quality facilitator Code Status: DNR DVT Prophylaxis: SCDs Analgesia/Sedation: Alprazolam Lines/Tubes: Right IJ Central line, PIV, right radial arterial line GI Prophylaxis: Famotidine Nutrition: Renal diet, heart healthy diet PT: Ordered Prognosis: Guarded Disposition: Management as per the quality facilitator, helpdesk manager and the assistant kitchen manager. Leno Maldonado MD Internal Medicine Resident, PGY 3 Date of Service: Oct 03, 2025 Billing Provider: KIMBERLI COLLINS MD Common Visit Codes: [id number] INP/OBS CARE(MOD) LENO MALDONADO RES Oct 03, 2025 11:05 KIMBERLI COLLINS MD Oct 03, 2025 18:12
[2025-10-03] MEDS: midodrine 5mg tablet PO SCH (12:27)
--- NOTE | 2025-10-03 12:36 | PROGRESS NOTE- Residence ---
Progress Note - Resident Providers to CC Resident Creating Document: KAREN SANCHES, CHRISTIAN ~ Antibiotic Timeout Antibiotic Ordered?: Yes Subjective pt was seen while eating her breakfast comfortably and denying any lightheadedness, dizziness, chest pain/pressure/discomfort, palpitations, although she only complained that she was not having sound sleep last night with Ambien which cause her hangover in the AM. She found herself nothing could help her sleeplessness, which she dose not usually has it at home. She is currently on the IV Levophed 0.02 this AM but is off now and increased the midodrine dosage. Objective Vital Signs Date Time Temp Pulse Resp B/P (MAP) Pulse Ox O2 Delivery O2 Flow Rate FiO2 10/03/25 12:00 86 12 100/62 (75) 97 Nasal Cannula 1.0 10/03/25 11:00 99.3 10/03/25 08:40 24 Result Diagram: 10/03/2522810/03/25 0229 Vitals were stable with HR 96, BP 111/60 mm Hg on NO Levophed, and MAP 77, SpO2 95% on nasal cannula 2 L/min oxygen supply. On exam, General: Well alert, well oriented, not confused, not agitated, not in acute distress, well cooperated during the physical. HEENT: Conjunctive are pink, sclerae clear, no icterus, pupil is equal in both sides, reactive to light, no ear discharge, no pharyngeal erythema or an edema, mouth and lips are moist. Neck: Supple, no JVD, no lymphadenopathy and thyromegaly. Lungs: Equally reduced air entry on both lungs, audible wheezing and rhonchi were noted, bilateral crackles were present. Heart: S1-S2 regular sinus rhythm and, regular rate, no gallops, no rubs, 3/6 systolic ejection murmur in the aortic and pulmonary area, and radiating to the neck. 3/6 holosystolic murmur over the mitral and tricuspid area. Abdomen: No visible peristalsis, Bowel sounds present on auscultation, soft, nontender, no guarding, no rigidity Extremities: No obvious deformities, no pitting edema bilaterally, capillary refill intact, able to wiggle toes both sides, peripheral pulsations are intact on both sides PATIENT SCHEDULER: No focal neurological deficits, no motor and sensory weakness in all 4 extremities, could move all 4 extremities Musculoskeletal: No joint swelling, deformities, inflammations, and no scoliosis and back tenderness Skin: No active skin lesions and rashes Coagulation Studies Laboratory Tests Test 09/22/25 01:50 09/24/25 02:00 Activated Partial Thromboplast Time 26 SECONDS (22-32) Prothrombin Time 12.1 SECONDS (9.0-12.0) H INR International Normalized Ratio 1.2 INR Coagulation Comments Assessment Assessment This is a 70-year-old female with a history of CAD status post CABG in 2020, CHF with reduced ejection fraction, 45%, aortic stenosis with TAVR pending, mitral regurgitation, CKD, was brought to the ER from [facility] for increase in the shortness of breadth. She underwent cardiac catheterization September 10. She needs TAVR and mitral valve replacement. Currently she is being managed in ICU for low blood pressure. Planning of TAVR CT and BAV prior to discharge. Plan Plan Cardiology: # Acute Hypoxemic respiratory failure 2/ # Acute exacerbation of Heart failure with mildly reduced ejection fraction # Cardiogenic shock # Severe symptomatic aortic stenosis # CAD s/p CABG in 2020 # Ascending aortic aneurysm 4.3 cm # Hypotension -Continue titrate down Levophed by maintaining MAP at least 65, currently running at 0.02mg/kg/minute and is off now. -Start PO Ambien 5mg HS to avoid using Sedatives with hypotensive collateral effects, and should be given before 9pm to avoid hangover in the AM. -Increased the dosage of midodrine to 30mg TID -Echocardiogram showed left ventricular ejection fraction of 45%, PASP 58 mmHg, severe aortic stenosis with valve area 0.64. -Cardiology, Dr. Lares is on board. -Preoperative carotid ultrasound done which showed no significant stenosis. -Cardiology considering TAVR CT and possible aortic valve valvuloplasty prior to discharge as per Dr Daly Lares if Right Radial Arterial line BP measurement is improving on Levophed titrating down. -Continue IV Lasix 20 mg BID -Holding Jardiance -Plan to discharge to [facility] Pulmonology: # Acute hypoxemic respiratory failure # s/p left thoracentesis for left moderate pleural effusion on 09/21/25 and 09/30/25 # Left side lobar pneumonia # KEI -Resolved and currently on room air with a pulse oximetry reading of 95%. -sent the left thoracentesis fluid to the lab -Continue Levofloxacin and Vancomycin -Bipap as need as per RT recommendation. Nephrology: # JAVIER on CKD likely secondary to renal tubular stasis # Hyponatremia -Nephrology consulted. Advised to continue IV Lasix 20 mg b.i.d. and do not infuse any fluids. -Increase midodrine to 20 mg 3 times a day. -Continue titrate down pressors if possible to maintain better renal flow with MAP 65. -Follow up with BMP. GI: # Elevated transaminases -Likely secondary to hepatic congestion. -LFTs improving. Endocrine: # Diabetes mellitus -HB A1c 6.4. -Continue to monitor blood sugars. The goal to range between 140-1 80s during hospitalization Nervous system: -Patient is awake alert. Nutrition: -Heart healthy and renal diet. Code Status: DNR DVT Prophylaxis: SCDs Analgesia/Sedation: Alprazolam Lines/Tubes: right IJ, PIV, transition to PICC line GI Prophylaxis: Famotidine Nutrition: Renal diet, heart healthy diet PT: Ordered Prognosis: Guarded Disposition: The prognosis remains guarded. Critical care time spent 35 minutes. PT eval. Resident attestation: Patient was seen, examined and discussed with attending MD, Dr. Yasmin SANCHES MD Internal Medicine Resident, PGY3 [facility] Date of Service: Oct 03, 2025 Billing Provider: JOSE KEENAN MD, TIN, RES Oct 03, 2025 12:36
--- NOTE | 2025-10-03 14:18 | RADIOLOGY REPORT ---
EXAM: CTA TAVR CLINICAL HISTORY: Severe aortic stenosis TECHNIQUE: Arterial phase spiral acquisitions obtained through the chest, abdomen, and pelvis. Multiplanar reconstructions were generated. Using automated software tools and 3-D reconstructions, imaging analysis of the aortic valve was performed. Dose reduction effected using automated exposure control and iterative reconstruction technique. 2-D and 3-D reformations are generated at a separate independent workstation. All CT scans at this facility are performed using dose modulation techniques as appropriate to a performed exam including the following: automated exposure control with adjustment of the mA and/or kV according to patient size. RADIATION DOSE: CTDI vol: 94 mGy DLP: 3004 mGy-cm Dose information generated by the CT scanner is available in PACS. IV Contrast: 148 cc Visipaque 320 COMPARISON: CT CT CHEST on DOS: 09/19/25, HEART CATH W/WO STENT on DOS: 08/15/21 FINDINGS: Aortic valve annulus diameter: 28.4 x 23.9 mm. Aortic valve area: 5.05 cm2. Perimeter: 81.4 mm. Diameter through left coronary sinus: 32.6 mm. Diameter through right coronary sinus: 32.8 mm. Diameter through the noncoronary sinus: 36.1 mm. Diameter at the sinotubular junction: 28.6 mm. Distance from the right coronary sinus to right coronary orifice: 13.2 mm. Distance from left coronary sinus to left coronary orifice: 11.6 mm. Diameter of ascending aorta: 38.9 mm. Diameter of abdominal aorta: 11.9 mm. Diameter of the right common iliac artery: 9.41 mm. Diameter of the right external iliac artery: 9.58 mm. Diameter of the right common femoral artery: 6.72 mm. Diameter of left common iliac artery: 8.93 mm. Diameter of the left external iliac artery: 6.76 mm. Diameter of the left common femoral artery: 5.43 mm. Optimal coplanar projections: 3 cusp view- CROATIAN 9, CORONER/MEDICAL EXAMINER 11 Anterior view -JEFFRIES 0, CORONER/MEDICAL EXAMINER 0 No-CORONER/MEDICAL EXAMINER-CAU view -JEFFRIES 0, CAU 0 Other findings: Chest: There is a 6 mm pleural-based nodule at the periphery of the right middle lobe. There is partial consolidation of the left lower lobe. There is small left pleural effusion. There is bronchial wall thickening consistent with bronchitis. There is no bronchiectasis or honeycombing. There is no pneumothorax. There are surgical changes in the chest associated with CABG. There is no thoracic aortic aneurysm or dissection. No pathologic lymphadenopathy is identified in the chest. The heart is mildly enlarged. There is no pericardial effusion. There is no abdominal aortic aneurysm or dissection. Spleen: Unremarkable. Liver: Grossly unremarkable. The portal vein is patent. Gallbladder/bile ducts: Unremarkable. Pancreas: Unremarkable. Adrenal glands: Grossly normal Kidneys and ureters: The kidneys appear mildly atrophic. There is no hydronephrosis of either kidney. Urinary bladder: The urinary bladder is collapsed about a Jeronimo catheter balloon. Reproductive structures: The uterus and ovaries are unremarkable. Peritoneum/gastrointestinal: No free fluid is identified in the abdomen or pelvis. Lymph nodes: No pathologic lymphadenopathy is identified by size criteria. Bones: No acute osseous abnormality is identified. There are degenerative changes throughout the visualized spine. Soft tissues: There is a small fat containing umbilical hernia. IMPRESSION: TAVR MEASUREMENTS ABOVE. There is a 6 mm pleural-based nodule at the periphery of the right middle lobe of the lung. The Fleischner society guidelines are listed below for follow-up recommendation reference. Small left pleural effusion. Partial consolidation of the left lower lobe, possibly compressive atelectasis. Pneumonia is not ruled out. Bronchial wall thickening consistent with bronchitis.
[2025-10-04] VITALS (11 sets, daily range): BP systolic 80–107; BP diastolic 44–66; PULSE 77–98; RESP 13–22; TEMP 96.1–97.8; O2SAT 92–98
[2025-10-04 08:52] LABS: MEAN PLATELET VOLUME 7.8 FL (7.4-10.4); RED CELL DISTRIBUTION WIDTH 17.7 % (11.5-14.5)
[2025-10-04 09:08] LABS: CREATININE 1.63 MG/DL (0.40-0.90); TOTAL CARBON DIOXIDE 25.4 MMOL/L (24-32); eCRCL 35 ML/MIN; eGFR 31 ML/MIN
--- NOTE | 2025-10-04 10:42 | RADIOLOGY REPORT ---
CLINICAL HISTORY: pleural effusion TECHNIQUE: Single view of the chest was obtained. COMPARISON: DI CHEST,SINGLE VIEW on DOS: 09/29/25, DI CHEST,SINGLE VIEW on DOS: 09/29/25, DI CHEST,SINGLE VIEW on DOS: 09/26/25, DI CHEST,SINGLE VIEW on DOS: 09/24/25, DI CHEST,SINGLE VIEW on DOS: 09/22/25 FINDINGS: There are midline sternotomy wires. A right PICC terminates at the cavoatrial junction. The heart size is moderately enlarged with new pulmonary vascular congestion. A left basilar opacities unchanged, likely atelectasis/ small pleural effusions. IMPRESSION: New pulmonary vascular congestion. Unchanged small pleural effusion/atelectasis.
--- NOTE | 2025-10-04 14:41 | PROGRESS NOTE- Residence ---
Progress Note - Resident Providers to CC Resident Creating Document: LENO MALDONADO RES ~ Antibiotic Timeout Antibiotic Ordered?: Yes Subjective Patient Seen and examined today. Not in respiratory distress. States that she still feels shortness of breaths at rest. Saturating 95%, normal respiratory rate, slightly tachycardic-100s. Dr. Sarika Lares recommended to keep her NPO after midnight Objective Vital Signs Date Time Temp Pulse Resp B/P (MAP) Pulse Ox O2 Delivery O2 Flow Rate FiO2 10/04/25 11:00 97.6 98 22 95/56 (69) 98 Room Air 10/04/25 09:15 0 21 Result Diagram: 10/04/2582510/04/25825 General: Alert and oriented x 4 HEENT: Normocephalic and atraumatic. Pupils equal round and reactive to light and accommodation. Extraocular movements intact. Oral and nasal mucosa moist Neck: Trachea is in midline. No masses or JVD Lungs: Bilateral normal breath sounds. Bilateral basal crackles present. No rhonchi or wheezing Heart: Regular rate and rhythm. S1-S2 normal. No rubs. Grade 3/6 Systolic ejection murmur in the aortic and pulmonary area. Grade 3/6 holosystolic murmur in the mitral and tricuspid area Abdomen: Soft, nontender and nondistended. Bowel sounds present SEED AND FERTILIZER SPECIALIST: No gross sensory or motor abnormalities Extremities: No cyanosis, clubbing. 1+ pedal edema left lower extremity Skin: Warm and dry Coagulation Studies Laboratory Tests Test 09/22/25 01:50 09/24/25 02:00 Activated Partial Thromboplast Time 26 SECONDS (22-32) Prothrombin Time 12.1 SECONDS (9.0-12.0) H INR International Normalized Ratio 1.2 INR Coagulation Comments Assessment Assessment This is a 70-year-old female with a history of CAD status post CABG in 2020, CHF with reduced ejection fraction, 45%, aortic stenosis with TAVR pending, mitral regurgitation, CKD, was brought to the ER from [facility] for increase in the shortness of breadth. She underwent cardiac catheterization September 10. She needs TAVR and mitral valve replacement. Currently she is being managed in ICU for low blood pressure. Planning of TAVR CT and BAV prior to discharge. Plan Plan Acute Hypoxemic respiratory failure-improving Acute exacerbation of Heart failure with mildly reduced ejection fraction Cardiogenic shock-improving Severe symptomatic aortic stenosis CAD s/p CABG in 2020 Ascending aortic aneurysm 4.3 cm Left-sided pleural effusion secondary to possible left lobe pneumonia On room air. Repeat chest x-ray did not show any acute worsening of previous conditions Off Levophed Dr. Lares increased Lasix to 40 mg p.o. b.i.d. recommended to keep her NPO after midnight Preoperative carotid ultrasound done which showed no significant stenosis. Continue midodrine 30 mg p.o. t.i.d. Completed two week course of Levaquin. Discontinue vancomycin after two days Telemetry showed sinus rhythm with a heart rate in 100s and 110. Cardiac CT done yesterday showed 6 mm pleural based nodule in the peripheral right middle lobe, small left pleural effusion, partial consolidation of the left lower lobe, bronchial wall thickening consistent with bronchitis Left thoracentesis done. About 500 mL fluid drained. Likely exudative. Protein more than three, pleural fluid albumin/serum fluid albumin more than 0.5, total cholesterol more than 40. Pleural fluid culture showed moderate WBCs but no organisms Left thoracentesis done on 09/21/2025 showed exudative fluid. Total protein more than 3, pleural fluid cholesterol more than 40, and pleural total protein/serum total protein ratio 0.55. LDH not available. About 700 mL fluid drained Chest X-ray on 09/29 showed left pleural fluid and left lower lobe opacity Procalcitonin not elevated Continue digoxin 125 mcg p.o. daily Strict I&Os Cardiology recommended to monitor ascending aortic aneurysm Echocardiogram done on 08/03/25 showed showed left ventricular ejection fraction of 45%, multi segmental motion abnormalities, PASP 58 mmHg, RV moderately dilated with mildly reduced function, left atrium moderately dilated, severe aortic stenosis, severe mitral regurgitation, moderate tricuspid regurgitation Cardia Catheterization done by Dr. Daly Lares done on 09/13/2025 showed severe [place] vessel CAD(improved PDF flow given endarterectomy) with 100% occluded mid LAD LCX and PL. Patent MCKNIGHT-LAD, SVG-Dx, SVG-OM, SVG-PDA States that she had CABG in 2020. Continue aspirin 81 mg p.o. daily JAVIER on CKD stage IV likely secondary to renal tubular stasis Hyponatremia-resolved Hypokalemia Metabolic alkalosis due to diuresis Creatinine rubbing Continue 20 mg p.o. b.i.d. On very low-dose of Levophed Management as per custody officer and maintenance analyst Continue potassium replacement as per protocol Unilateral left lower extremity edema Had venous graft removed from the left lower extremity for CABG few years back but she denies any edema Venous ultrasound negative for any DVT Elevated transaminases AST stable. ALP trending down Monitor Diabetes mellitus HB A1c 6.4. Continue to monitor blood sugars. On Lantus 18 units HS and low-dose lispro protocol Blood sugars well controlled Management per the maintenance analyst Code Status: DNR DVT Prophylaxis: SCDs Analgesia/Sedation: Alprazolam Lines/Tubes: Peripheral IV line. Right PICC line discontinued today GI Prophylaxis: Famotidine Nutrition: Renal diet, heart healthy diet PT: Ordered Prognosis: Guarded Disposition: NPO after midnight as per Cardiology recommendations Leno Maldonado MD Internal Medicine Resident, PGY 3 Date of Service: Oct 04, 2025 Billing Provider: KIMBERLI COLLINS MD Common Visit Codes: [id number] INP/OBS CARE(HIGH) LENO MALDONADO RES Oct 04, 2025 14:41 KIMBERLI COLLINS MD Oct 04, 2025 18:08
[2025-10-04] MEDS: midodrine tablet 2.5 MG TABLET PO SCH (15:37)
[2025-10-05] VITALS (18 sets, daily range): BP systolic 90–114; BP diastolic 50–75; PULSE 86–104; RESP 12–20; TEMP 97.1–97.9; O2SAT 92–98
[2025-10-05 03:45] LABS: MEAN PLATELET VOLUME 7.5 FL (7.4-10.4); RED CELL DISTRIBUTION WIDTH 17.7 % (11.5-14.5)
[2025-10-05 03:54] LABS: APTT 29 SECONDS (22-32); INR 1.1 INR
[2025-10-05 03:57] LABS: CREATININE 1.85 MG/DL (0.40-0.90); TOTAL CARBON DIOXIDE 24.7 MMOL/L (24-32); eCRCL 31 ML/MIN; eGFR 27 ML/MIN
[2025-10-05] MEDS: midodrine 5mg tablet PO SCH (07:49)
[2025-10-05] MEDS ORDERED: LIDOcaine 1% 30ml preserv. free vial ONE (11:44)
[2025-10-05] MEDS ORDERED: midazolam 1 mg/ML 2ml injection ONE ×2 (11:44→12:32)
[2025-10-05] MEDS ORDERED: iohexol 350 MG/ML 50ML vial IV ONE (11:44)
[2025-10-05] MEDS ORDERED: heparin 1,000unit/ml 10ml vial 10 ML ONE ×2 (11:44→12:49)
[2025-10-05] MEDS ORDERED: fentaNYL/PF 50MCG/1 ML 2ML syringe ONE (11:44)
--- NOTE | 2025-10-05 11:47 | PROGRESS NOTE- Residence ---
Progress Note - Resident Providers to CC Resident Creating Document: LENO MALDONADO RES ~ Antibiotic Timeout Antibiotic Ordered?: Yes Subjective Patient Seen and examined today. Comfortably sitting in the chair. No new complaints. Is NPO after midnight for valvuloplasty today by Dr. J Luis Lares Objective Vital Signs Date Time Temp Pulse Resp B/P (MAP) Pulse Ox O2 Delivery O2 Flow Rate FiO2 10/05/25 07:00 90 10/05/25 03:44 16 95 Room Air* 0 21 10/05/25 02:00 97.7 90/55 (67) Result Diagram: 10/05/25 0327 10/05/25 0327 General: Alert and oriented x 4 HEENT: Normocephalic and atraumatic. Pupils equal round and reactive to light and accommodation. Extraocular movements intact. Oral and nasal mucosa moist Neck: Trachea is in midline. No masses or JVD Lungs: Bilateral normal breath sounds. Bilateral basal crackles present. No rhonchi or wheezing Heart: Regular rate and rhythm. S1-S2 normal. No rubs. Grade 3/6 Systolic ejection murmur in the aortic and pulmonary area. Grade 3/6 holosystolic murmur in the mitral and tricuspid area Abdomen: Soft, nontender and nondistended. Bowel sounds present JANITORIAL ACCOUNT MANAGER: No gross sensory or motor abnormalities Extremities: No cyanosis, clubbing. 2+ pedal edema in the left lower extremity and 1+ edema in the right lower extremity Skin: Warm and dry Coagulation Studies Laboratory Tests Test 10/05/25 03:27 Prothrombin Time 11.3 SECONDS (9.0-12.0) INR International Normalized Ratio 1.1 INR Activated Partial Thromboplast Time 29 SECONDS (22-32) Coagulation Comments Assessment Assessment This is a 70-year-old female with a history of CAD status post CABG in 2020, CHF with reduced ejection fraction, 45%, aortic stenosis with TAVR pending, mitral regurgitation, CKD, was brought to the ER from [facility] for increase in the shortness of breadth. She underwent cardiac catheterization September 10. She needs TAVR and mitral valve replacement. Currently she is being managed in ICU for low blood pressure. Planning of TAVR CT and BAV prior to discharge. Plan Plan Acute Hypoxemic respiratory failure-improving Acute exacerbation of Heart failure with mildly reduced ejection fraction Cardiogenic shock - resolved Severe symptomatic aortic stenosis CAD s/p CABG in 2020 Ascending aortic aneurysm 4.3 cm On room air Continue Lasix 40 mg p.o. b.i.d.. Per Cardiology recommendations NPO after midnight for possible valvuloplasty by Dr. Daly Lares today Preoperative carotid ultrasound done which showed no significant stenosis. Continue midodrine 30 mg p.o. t.i.d. Completed two week course of Levaquin. Discontinue vancomycin after and day course. 10/06/2025 will be the last day Left thoracentesis done. About 500 mL fluid drained. Likely exudative. Protein more than three, pleural fluid albumin/serum fluid albumin more than 0.5, total cholesterol more than 40. Pleural fluid culture showed moderate WBCs but no organisms Left thoracentesis done on 09/21/2025 showed exudative fluid. Total protein more than 3, pleural fluid cholesterol more than 40, and pleural total protein/serum total protein ratio 0.55. LDH not available. About 700 mL fluid drained Chest X-ray on 09/29 showed left pleural fluid and left lower lobe opacity Procalcitonin not elevated Continue digoxin 125 mcg p.o. daily Strict I&Os Cardiology recommended to monitor ascending aortic aneurysm Echocardiogram done on 08/03/25 showed showed left ventricular ejection fraction of 45%, multi segmental motion abnormalities, PASP 58 mmHg, RV moderately dilated with mildly reduced function, left atrium moderately dilated, severe aortic stenosis, severe mitral regurgitation, moderate tricuspid regurgitation Cardia Catheterization done by Dr. Daly Lares done on 09/13/2025 showed severe unga vessel CAD(improved PDF flow given endarterectomy) with 100% occluded mid LAD LCX and PL. Patent MCKNIGHT-LAD, SVG-Dx, SVG-OM, SVG-PDA Cardiac CT done yesterday showed 6 mm pleural based nodule in the peripheral right middle lobe, small left pleural effusion, partial consolidation of the left lower lobe, bronchial wall thickening consistent with bronchitis States that she had CABG in 2020. Continue aspirin 81 mg p.o. daily JAVIER on CKD stage IV likely secondary to renal tubular stasis Hyponatremia-resolved Hypokalemia - improving Creatinine trending up - likely to improve after the valvuloplasty Repeat Urine lytes orders placed Continue Lasix 40 mg p.o. b.i.d. Will follow Nephrology recommendations Continue potassium replacement as per protocol Bilateral lower extremity edema-worse in the left lower extremity Had venous graft removed from the left lower extremity for CABG few years back but she denies any edema Venous ultrasound negative for any DVT Elevated transaminases AST stable. ALP trending down Monitor Diabetes mellitus HB A1c 6.4. Continue to monitor blood sugars. On Lantus 18 units HS and low-dose lispro protocol Blood sugars well controlled Management per the software consultant Code Status: DNR DVT Prophylaxis: SCDs Analgesia/Sedation: Alprazolam Lines/Tubes: Peripheral IV line GI Prophylaxis: Famotidine Nutrition: Renal diet, heart healthy diet PT: Ordered Prognosis: Guarded Disposition: Possible balloon valvuloplasty for severe aortic stenosis today Leno Maldonado MD Internal Medicine Resident, PGY 3 Date of Service: Oct 05, 2025 Billing Provider: KIMBERLI COLLINS MD Common Visit Codes: [id number] INP/OBS CARE(HIGH) LENO MALDONADO RES Oct 05, 2025 11:47 KIMBERLI COLLINS MD Oct 05, 2025 16:36
[2025-10-05] MEDS ORDERED: phenylephrine 10mg/ml inj. ONE (12:28)
--- NOTE | 2025-10-05 13:33 | CARDIAC CATH REPORT ---
Cardiac Cath Report Providers to CC CC: ONUR RAMIREZ MD Procedure Comments: 1. Ultrasound-guided access, left femoral vessels. 2. Left femoral angiography. 3. Ascending aortography. 4. Temporary transvenous pacer to the RV apex. 5. Balloon Aortic Valvuloplasty with a 20mm balloon Brief History/Indications: 70yo woman with HTN, HLD, HFpEF, Severe symptomatic aortic stenosis and repeat admissions for CHF, difficult to wean pressors referred for balloon valvuloplasty. Techniques: The patient was brought to the pharmaceutical laboratory technician in a fasting state. They underwent consious sedation. Ultrasound was used to guide access to the femoral vessels, 7-Bulgarian sheath, left femoral artery, 6-Bulgarian sheath, left femoral vein. Femoral angiogram was obtained. Heparin was given to maintain an ACT over 250 seconds. A single Perclose device was placed on the left. We upsized to an 8-Bulgarian sheath. A pigtail catheter was placed in the ascending aorta. Ascending aortography was performed. Temporary transvenous pacer to the RV apex and con firmed capture. We upsized an 8-Bulgarian sheath to a 9Fr-Bulgarian Baca on the left. We crossed the aortic valve using a straight stiff exchange length Terumo wire supported by a 6-Bulgarian AL1 catheter. LV AO pressures were recorded using a [place]iverton Catheter. An extra-small Safari wire was placed in the left ventricle. Next, a 20mm balloon was brought into position and under rapid ventricular pacing, it was inflated. The balloon was then exchanged for the Dick. Post- procedure, there was improvement in gradients and no significant rise in the LVEDP. Guidewires and balloons were removed at this time. The temporary pacer was removed. The 9-Bulgarian sheath was removed and the Perclose devices tied with adequate hemostasis. The venous sheath on the left was removed and a single Perclose used for hemostasis. The patient was stable post-procedure. Good pulses in the left leg and no evidence of bleeding, transferred to the PCU in stable condition. Findings Findings: HEMODYNAMICS: Pre: LV: 151/7 mmHg LVEDP: 20mmHg Ao: 197/58, MAP 75mmHg Post: LV: 164/6 mmHg LVEDP: 20 mmHg Ao: 132/63, MAP 86mmHg Results Results: 1. Successful balloon aortic valvuloplasty with a 20 mm balloon. Peak-Peak gradients reduced from 55mmHg to 30mmHg. No change in LVEDP 2. LFA access, closed with Perclose 3. LFV access, closed with Perclose RECOMMENDATIONS: 1. Cont GDMT, wean Midodrine 2. Cont PO lasix 3. Keep f/u outpt to discuss TAVR SHINE RAMIREZ MD Oct 05, 2025 13:33
[2025-10-05] MEDS ORDERED: insulin glargine (Lantus) pen - multi-dose SQ SCH (21:35)
[2025-10-05] MEDS: INSULIN LISPRO 100 UNIT/ML INSULN.PEN MULTI-DOSE SQ SCH (21:40)
[2025-10-06 02:00] VITALS: BP 91/47; PULSE 81; RESP 16; TEMP 97.8; O2SAT 96
[2025-10-06 06:00] VITALS: BP 90/54; PULSE 98; TEMP 97.1; O2SAT 94
[2025-10-06] MEDS ORDERED: INSULIN LISPRO 100 UNIT/ML INSULN.PEN MULTI-DOSE SQ SCH (07:00)
--- NOTE | 2025-10-06 07:08 | CONSULTATION REPORT ---
Consult Providers to CC ~ History of Present Illness Reason for Admit\Complaint: Severe aortic stenosis with a NYHA class four heart failure History of Present Illness Claudia is actually known to me. She is a very nice 70-year-old woman who is about five years status post coronary artery bypass grafting for coronary artery disease. She did well with that procedure and has done reasonably well until recently. She has noticed increasing difficulties with exertional dyspnea and shortness of breath. She was seen in the emergency department where she was found to be in heart failure secondary to severe aortic stenosis. In addition she had grade 3-4 chronic kidney disease and this may diuresis somewhat difficult. However they were able to diurese approximately 25 lb off her over time with much improvement in symptomatology. We have been asked to see her for possible redo sternotomy and surgical aortic valve replacement. She underwent balloon valvuloplasty yesterday in anticipation of probable TAVR. Allergies: Coded Allergies: sulfamethoxazole (Verified Allergy, Severe, RASH, 09/10/25) trimethoprim (Verified Allergy, Severe, RASH, 09/10/25) Home Medications Home Medications Active Reported Lasix* (Furosemide) 20 Mg Tablet 40 Mg PO BID Farxiga (Dapagliflozin Propanediol) 10 Mg Tablet 1 Tab PO DAILY 30 Days Lipitor* (Atorvastatin Calcium) 40 Mg Tablet 1 Tab PO DAILY 30 Days Aspirin EC (Aspirin) 81 Mg Tablet.dr 1 Tab PO DAILY 30 Days ROS ROS Generally she has no anorexia or malaise, jaundice, pruritus, fever, chills or weight loss. GI she has noticed no nausea or vomiting, diarrhea, constipation, melena or bright red per rectum. she denies dysuria, pyuria, hematuria, urgency, hesitancy or frequency. Neuromuscular no history of changes in her visual figueroa. She has noted no difficulty with speech, swallowing, ambulation or coordination. She is a bit confused this morning. Exam Vitals: Vital Signs Date Time Temp Pulse Resp B/P (MAP) Pulse Ox O2 Delivery O2 Flow Rate FiO2 10/06/25 02:00 97.8 81 16 91/47 (62) 96 Room Air 10/05/25 19:47 0 21 General: Moderately obese woman who appears to be her stated age. She is in no distress today. HEENT: Supple with midline trachea. Carotid pulses 2+ with bilaterally transmitted murmurs. No JVD sitting upright. Chest: Some crackles at the bases. Otherwise good aeration of the lungs bilaterally. No wheezes or rhonchi. Well-healed median sternotomy scar. Sternum is stable Cardiovascular: Regular rate and rhythm with a grade 2-3/6 systolic flow murmur at the upper left sternal border. Abdomen: Obese but nontender normoactive bowel sounds no masses or organomegaly noted. Extremities: Mild bilateral ankle edema. Diagnostic Data Last Recorded Lab Results: 10/05/25 0327 10/05/25 0327 Diagnostic Data: Laboratory Tests Test 10/05/25 03:27 10/05/25 12:53 Prothrombin Time 11.3 SECONDS (9.0-12.0) INR International Normalized Ratio 1.1 INR Activated Partial Thromboplast Time 29 SECONDS (22-32) Coagulation Comments Activated Clotting Time 235 SEC (101-148) H Additional Plan Claudia is a very nice 70-year-old woman who is now five years status post coronary artery bypass grafting. She has renal insufficiency as associated with the several other comorbidities. I believe that TAVR is probably her best option to avoid redo sternotomy. This was discussed with the patient. The risks, benefits and possible complications associated with both surgical and Transarterial valve replacement in the setting were discussed. She states that she understands and accepts these risks and would like to proceed with TAVR. Scheduling per Dr. Lares. WILFRED THOMPSON III, MD Oct 06, 2025 07:08
[2025-10-06 07:17] LABS: MEAN PLATELET VOLUME 8.2 FL (7.4-10.4)
[2025-10-06 07:18] LABS: CREATININE 1.68 MG/DL (0.40-0.90); TOTAL CARBON DIOXIDE 27.0 MMOL/L (24-32); eCRCL 34 ML/MIN; eGFR 30 ML/MIN
[2025-10-06 07:19] LABS: RED CELL DISTRIBUTION WIDTH 17.3 % (11.5-14.5)
[2025-10-06 08:00] VITALS: RESP 20; O2SAT 97
[2025-10-06 09:05] VITALS: PULSE 96; RESP 23; O2SAT 96
[2025-10-06 11:00] VITALS: BP 97/58; PULSE 89; RESP 15; TEMP 98.1; O2SAT 99
[2025-10-06] MEDS ORDERED: LAN0.125T PO (11:42)
[2025-10-06] MEDS ORDERED: FURO-150 PO (11:42)
[2025-10-06] MEDS ORDERED: MIDO10TA3 PO (11:42)
--- NOTE | 2025-10-06 18:49 | DISCHARGE SUMMARY-Residence ---
Discharge Summary Providers to CC Resident Creating Document: LENO MALDONADO RES ~ Discharge Summary Admission Diagnosis: Pneumonia Hospital Course DATE OF ADMISSION: 09/19/2025 DATE OF DISCHARGE: 10/06/25 As in HPI: A 70 years old female with a past medical history of CHFrEF 45% on 08/04, severe aortic stenosis awaiting TAVR procedure, severe mitral regurgitation, CAD s/p CABG, type 2 DM, JAVIER on CKD stage 5/ESRD, hyperlipidemia, chronic normocytic normochromic anemia, who was recently discharged from [facility] five days ago to [facility] acute care after acute exacerbation of CHF treatment and underwent cardiac catheterization by Dr. Lares, presented with acute on chronic respiratory distress/shortness of breaths and progressive bilateral pedal edema over weeks which was followed by generalized weakness/fatigue over two days. Patient is well orientated to time place person. She said that she dose not have any idea why she was sent out to ER from [facility] but she knew that they sent her out for low BP, where her Usual average BP was around 100/60. She endorsed that she has been having intolerable generalized weakness/fatigue over two days without having any preceded viral illness. She reported for progressive shortness of breaths even at resting and disturbance her daily chores. She noticed for the orthopnea and PND, and progressive bilateral pedal edema which are getting worse. She stated that she is dependent on the 3L NC O2 supplement after the previous admission 5 days ago and keep using it at [facility]. She denied for any sick contact at [facility]. She was mostly having the sedentary lifestyle because of her progressive shortness of breath. She denied for any recent cancer treatment, long distance travel history, history of DVT and pulmonary embolism before. She denies fever with chills and rigors, chest pain/pressure/discomfort, nausea vomiting, abdominal pain, abnormal bowel and bladder movement, unilateral/b ilateral pedal painful localized swelling. She noticed that she has been having coughing which showed dry cough over weeks now. She denied hemoptysis/frothy cover sputum and any colored sputum production. During her hospital stay, the patient was diuresed and she could not hold her blood pressure. So, transferred to the ICU and she required Levophed. She was also started on midodrine which was slowly up titrated to 30 mg p.o. 3 times a day. She also required left-sided thoracentesis twice (09/21/2025 and 09/29/25) which showed exudative fluid. About 750 mL drained on 09/21 when 500 mL drained on 09/29. She initially received IV Levaquin and later also started on IV vancomycin. Completed two week course of Levaquin and seven day course of vancomycin. She initially required about 2-3 L O2 via nasal cannula which later could be tapered off. Levophed was tapered off by up titrating midodrine to 30 mg 3 times a day. She was then transferred back to the floor. She got a balloon valvuloplasty of aortic valve done on 10/05/2025. Dr. Daly Lares recommended outpatient discussion about TAVR procedure. She also was tachycardic-heart rate in 120s while she was in ICU. She was started on digoxin by the citrus picker as the heart rate needs to be controlled for cardiac CT. Now, she is digoxin 125 mcg p.o. daily. Telemetry showed sinus rhythm in 80s and 90s with occasional PVCs. She also required nephrology recommendations during her hospital stay due to worsening kidney function as she was being diuresed. Today, she is stable for discharge back home. PT recommended front wheel walker. Informed employment case manager about the walker General: Alert and oriented x 4 HEENT: Normocephalic and atraumatic. Pupils equal round and reactive to light and accommodation. Extraocular movements intact. Oral and nasal mucosa moist Neck: Trachea is in midline. No masses or JVD Lungs: Bilateral normal breath sounds. Bilateral basal crackles present. No rhonchi or wheezing Heart: Regular rate and rhythm. S1-S2 normal. No rubs. Grade 3/6 Systolic ejection murmur in the aortic and pulmonary area. Grade 3/6 holosystolic murmur in the mitral and tricuspid area Abdomen: Soft, nontender and nondistended. Bowel sounds present DIRECTOR OF FINANCIAL REPORTING: No gross sensory or motor abnormalities Extremities: No cyanosis, clubbing. 2+ pedal edema in the left lower extremity and 1+ edema in the right lower extremity Skin: Warm and dry Discharge instructions: Please take Lasix 40 mg twice a day and also digoxin 125 mcg daily for tachycardia. Please continue to take midodrine 30 mg 3 times a day. Discuss with your protection mgr about continuing or discontinuing digoxin but continue to take it till you see your protection mgr. Discuss with your PCP about midodrine. Please check your blood pressure twice a day and hold Lasix if systolic blood pressure less than 100 mmHg. Your Jardiance is held due to unstable kidney function. Discuss with your protection mgr about resuming the medications. Please get blood work-CMP done within 3-5 days after discharge and discuss the result with your PCP and your protection mgr. Please follow up with the protection mgr-Dr. Daly Lares for further discussion about TAVR procedure Leno Maldonado MD Internal Medicine Resident, PGY 3 Discharge Diagnosis\Comment: Acute hypoxemic respiratory failure likely secondary to acute heart failure with mid-range EF and severe aortic stenosis Cardiogenic shock-resolved Severe symptomatic aortic stenosis CAD s/p CABG in 2020 Ascending aortic aneurysm 4.3 cm JAVIER on CKD stage 4 Hyponatremia Hypokalemia Diabetes mellitus Operations\Procedures: Balloon valvuloplasty of aortic valve on 10/05/[address] Daly Lares Consultants: Dr. Daly Lares Complications: None Condition on DC: Stable New Medications: Midodrine Hcl (Midodrine Hcl) 10 Mg Tablet 3 TAB PO Q8H for 30 Days, #270 TAB 0 Refills Potassium Chloride* (K-Dur*) 20 Meq Tab.prt.sr 1 TAB PO DAILY for 30 Days, #30 TAB Digoxin (Digitek) 125 Mcg (0.125 Mg) Tablet 125 MCG PO Q24H@07 for 30 Days, #30 TAB Continued Medications: Aspirin (Aspirin EC) 81 Mg Tablet.dr 1 TAB PO DAILY for 30 Days, #30 TAB Atorvastatin Calcium* (Lipitor*) 40 Mg Tablet 1 TAB PO DAILY for 30 Days, #30 TAB Furosemide* (Lasix*) 20 Mg Tablet 40 MG PO BID for 30 Days, #120 TAB (This prescription has been renewed) Discontinued Medications: Dapagliflozin Propanediol (Farxiga) 10 Mg Tablet 1 TAB PO DAILY for 30 Days, #30 TAB 0 Refills Discharge Summary: As above *Problems/Diagnosis: (1) JAVIER (acute kidney injury) (2) CKD (chronic kidney disease) stage 4, GFR 15-29 ml/min (3) CAD (coronary artery disease) (4) Cardiomyopathy (5) Severe aortic stenosis (6) Sepsis Status: Acute (7) Acute respiratory failure Status: Acute Total Time Spent on D/C: > 30 Minutes Date of Service: Oct 06, 2025 Billing Provider: KIMBERLI COLLINS MD Common Visit Codes: 14913-DQT/OBS DISCH DAY >30min LENO MALDONADO RES Oct 06, 2025 18:41 KIMBERLI COLLINS MD Oct 06, 2025 18:55
[2025-10-06] MEDS ORDERED: POTA-207 PO (18:52)
[2025-10-06] MEDS ORDERED: insulin glargine (Lantus) pen - multi-dose SQ SCH (21:00)
--- NOTE | 2025-10-08 17:57 | CONSULTATION REPORT ---
History of Present Illness Providers to CC CC: ONUR LARES MD ~ Reason for Admit\Admit Dx: Severe aortic stenosis with a NYHA class four heart failure Refering MD: Dr. Lares History of Present Illness A Very pleasant 70yo woman with Hypertension, Hyperlipidemia, Coronary Artery Disease(status post 4vCABG), Chronic Kidney Disease stage III, Chronic Systolic Heart Failure, Severe Symptomatic Aortic Stenosis being evlauated for Severe Aortic Stenosis. She was recently diagnosed with worsening of her aortic stenosis and has been going through evaluation for aortic valve replacement. Over the last few weeks, she has had several hospitalizations for heart failure requiring diuresis, however, then returning again for worsening shortness of breath. During this admission, she was started on diuretics as well as low-dose ionotropic therapy to assist with such. She was diuresed approximately 27 liters during the hospital stay. Shortly after stopping ionotrope therapy, she again began to have shortness of breath so she underwent balloon aortic valvuloplasty with a 20mm balloon. Since, reports shortness of breath has improved. She denies any chest pain, syncope, dizziness/lightheadedness, bleeding, worsening LE edema. Allergies: Coded Allergies: sulfamethoxazole (Verified Allergy, Severe, RASH, 09/10/25) trimethoprim (Verified Allergy, Severe, RASH, 09/10/25) Home Medications Home Medications Active K-Dur* (Potassium Chloride) 20 Meq Tab.prt.sr 1 Tab PO DAILY 30 Days Digitek (Digoxin) 125 Mcg (0.125 Mg) Tablet 125 Mcg PO Q24H@07 30 Days Midodrine Hcl 10 Mg Tablet 3 Tab PO Q8H 30 Days Lasix* (Furosemide) 20 Mg Tablet 40 Mg PO BID 30 Days Reported Lipitor* (Atorvastatin Calcium) 40 Mg Tablet 1 Tab PO DAILY 30 Days Aspirin EC (Aspirin) 81 Mg Tablet. 1 Tab PO DAILY 30 Days Past Medical History Medical History Comment Hypertension Hyperlipidemia Coronary Artery Disease(4vCABG) Chronic Systolic Heart Failure Chronic Kidney Disease stage III Severe Symptomatic Aortic Stenosis Past Surgical History Surgical History Comment 4vCABG, MCKNIGHT-LAD, SVG-OM, SVG-Dx, SVG-PDA(+endarterectomy) Balloon Aortic valvuloplasty 09/2025 Denies any other heart/lung surgeries Past Social History Social History Comment Denies tobacco or alcohol abuse Physical Exam Last Vital Signs Recorded: Temperature: 98.1, Source: Temporal, Heart Rate: 89, Respiratory Rate: 15, BP: 97/58, Pulse Oximetry: 99, Weight: 106.400 General Appearance: alert, no apparent distress Respiratory: lungs clear Cardiovascular: regular rate, rhythm, systolic murmur (III/ SM RUSB/LUSB) Peripheral Pulses: 2+ radial (R), 2+ radial (L) Gastrointestinal: bowels sounds present Extremities: no edema Neurologic: oriented x4 Psychiatric: normal mood/affect Review of Systems ROS ROS Comments: A 14-point review of systems is positive as above. The rest of the review of systems has been done and found to be unrevealing. Results Results/Orders Results/Orders Hg 9.9 HCt 30.7, Cr 1.68 Echocardiogram: LVEF 45%, PV 4.3 m/s, MG 42 mmHg, NAWAF 0.64cm2. Trace AI. Coronary Angiogram: Severe kenaitze vessel CAD(100% occluded mid-LAD, LCx, and PL). Patent MCKNIGHT-LAD, SVG-Dx, SVG-OM, SVG-PDA Carotid Ultrasound: No obstructive carotid disease EKG: Normal Sinus rhythm CT TAVR: Large Caliber vessels amenable to transfemoral transcatheter aortic valve replacement. Vessels are adequate in size, sinuses are large enough, coronaries are high enough. Diagram Lab Result Diagram: 10/06/2560210/06/25602 Assessment/Plan Problems/Diagnosis: (1) Severe aortic stenosis Assessment & Plan: A Very pleasant 70yo woman with Hypertension, Hyperlipidemia, Coronary Artery Disease(status post 4vCABG), Chronic Kidney Disease stage III, Chronic Systolic Heart Failure, Severe Symptomatic Aortic Stenosis being evlauated for Severe Aortic Stenosis. She has severe symptomatic aortic stenosis with NYHA Class III/IV symptoms of dyspnea on exertion, shortness of breath, systolic heart failure with multiple recent heart failure admissions. Patient appears to be a good candidate for a transfemoral transcatheter aortic valve replacement She had balloon aortic valvulplasty 10/05/2025 with a 20mm balloon. --Will plan for a 26mm valve via either femoral approach, to be scheduled soon Dr. Lares, We thank you for allowing us the opportunity to help with the patient. They will see you back in the office shortly. SHINE LARES MD Oct 08, 2025 17:57
== END 2025-10-06 16:02 | disposition home or self-care (01) | DRG 319 ==
LOC: ER 16:55 → UNDOADMIN 19:30 → ED HOLD 19:30 → PCU 3S 09-20 → CICU 2S 09-20 16:52 → PCU 3S 10-03 15:26 → UNDODISIN 10-03 15:40
PROVIDERS: ADMIT Internal Medicine Pulmonary Disease; ATTEND Internal Medicine
PROC: 02HV33Z Insertion of Infusion Device into Superior Vena Cava, Percutaneous Approach (ICD-10-PCS; 2025-09-20)
PROC: B548ZZA Ultrasonography of Superior Vena Cava, Guidance (ICD-10-PCS; 2025-09-20)
PROC: 0W9B3ZZ Drainage of Left Pleural Cavity, Percutaneous Approach (ICD-10-PCS; 2025-09-21)
PROC: 0W9B3ZZ Drainage of Left Pleural Cavity, Percutaneous Approach (ICD-10-PCS; 2025-09-29)
PROC: B32T1ZZ Computerized Tomography (CT Scan) of Left Pulmonary Artery using Low Osmolar Contrast (ICD-10-PCS; 2025-10-02)
PROC: B3201ZZ Computerized Tomography (CT Scan) of Thoracic Aorta using Low Osmolar Contrast (ICD-10-PCS; 2025-10-02)
PROC: B32S1ZZ Computerized Tomography (CT Scan) of Right Pulmonary Artery using Low Osmolar Contrast (ICD-10-PCS; 2025-10-02)
PROC: 03HY32Z Insertion of Monitoring Device into Upper Artery, Percutaneous Approach (ICD-10-PCS; 2025-10-02)
PROC: B4101ZZ Fluoroscopy of Abdominal Aorta using Low Osmolar Contrast (ICD-10-PCS; principal; 2025-10-05)
PROC: 027F3ZZ Dilation of Aortic Valve, Percutaneous Approach (ICD-10-PCS; 2025-10-05)
PROC: B41G1ZZ Fluoroscopy of Left Lower Extremity Arteries using Low Osmolar Contrast (ICD-10-PCS; 2025-10-05)
DX: I13.0 Hypertensive heart and chronic kidney disease with heart failure and stage 1 through stage 4 chronic kidney disease, or unspecified chronic kidney disease (principal); I50.23 Acute on chronic systolic (congestive) heart failure; J15.69 Pneumonia due to other Gram-negative bacteria; J96.21 Acute and chronic respiratory failure with hypoxia; N17.0 Acute kidney failure with tubular necrosis; R57.0 Cardiogenic shock; E87.20 Acidosis, unspecified; N18.4 Chronic kidney disease, stage 4 (severe); Z66 Do not resuscitate; E11.22 Type 2 diabetes mellitus with diabetic chronic kidney disease; E66.811 Obesity, class 1; I71.20 Thoracic aortic aneurysm, without rupture, unspecified; I35.0 Nonrheumatic aortic (valve) stenosis; D50.8 Other iron deficiency anemias; E87.1 Hypo-osmolality and hyponatremia; Z20.822 Contact with and (suspected) exposure to COVID-19; I25.10 Atherosclerotic heart disease of native coronary artery without angina pectoris; E78.5 Hyperlipidemia, unspecified; E87.6 Hypokalemia; R74.01 Elevation of levels of liver transaminase levels; Z88.2 Allergy status to sulfonamides; Z88.1 Allergy status to other antibiotic agents; Z79.82 Long term (current) use of aspirin; Z79.899 Other long term (current) drug therapy; Z68.32 Body mass index [BMI] 32.0-32.9, adult; Z95.1 Presence of aortocoronary bypass graft; I25.2 Old myocardial infarction
CPT/HCPCS: 32555; 36415; 36569; 36600; 71045; 71250; 71275; 74174; 75572; 76700; 76770; 76937; 76942; 80048; 80053; 80202; 81003; 82042; 82150; 82247; 82465; 82570; 82803; 82945; 82948; 83605; 83615; 83690; 83735; 83880; 83930; 83935; 83986; 84100; 84145; 84157; 84300; 84443; 84478; 84484; 85007; 85018; 85025; 85347; 85610; 85730; 87040; 87070; 87075; 87081; 87804; 87811; 89051; 92986; 93005; 93880; 93971; 94660; 94664; 94668; 94760; 96365; 97110; 97116; 97162; 97530; 99152; 99153; 99285; A4333; A4615; A4620; A6213; A6258; A6449; C1725; C1751; C1758; C1760; C1769; C1887; C1894; G0378; J0696; J1160; J1644; J1815; J1938; J1956; J2003; J2250; J2270; J2371; J3010; J3373; J3480; J7030; J7040; J7120; P9047; Q9967